=== PATIENT | female | born 1945 | race Caucasian/White ===

== ENCOUNTER → 2019-03-23 09:27 | Outpatient (BNVA) | payer MEDICARE, OTHER, SELFPAY | PROVIDERS: Family Provider Nurse Practitioner; PCP Nurse Practitioner; Visit Provider Anesthesiology | DX: M54.41 Lumbago with sciatica, right side (principal); M79.651 Pain in right thigh; M79.652 Pain in left thigh; Z79.891 Long term (current) use of opiate analgesic | CPT/HCPCS: 99214 ==

== ENCOUNTER → 2019-05-17 10:08 | Outpatient (BNVA) | payer MEDICARE, OTHER, SELFPAY | PROVIDERS: Family Provider Nurse Practitioner; PCP Nurse Practitioner; Visit Provider Nurse Practitioner | DX: G89.29 Other chronic pain (principal); M54.41 Lumbago with sciatica, right side; M54.42 Lumbago with sciatica, left side; Z79.891 Long term (current) use of opiate analgesic | CPT/HCPCS: 99213 ==

== ENCOUNTER → 2019-08-13 09:21 | Outpatient (BNVA) | payer MEDICARE, OTHER, SELFPAY | PROVIDERS: Family Provider Nurse Practitioner; PCP Family Medicine; Visit Provider Family Medicine | DX: Z01.818 Encounter for other preprocedural examination (principal); I10 Essential (primary) hypertension | CPT/HCPCS: 80053; 80061; 82044; 85025 ==

== ENCOUNTER 2019-08-16 09:42 | Observation (INO) | payer MEDICARE, OTHER, SELFPAY ==
[2019-08-15 14:27] VITALS: BMI 24.1
[2019-08-16] VITALS (13 sets, daily range): BP systolic 99–150; BP diastolic 60–86; PULSE 60–72; RESP 13–18; TEMP 36.4–36.8; O2SAT 94–100; BMI 24.1
--- NOTE | 2019-08-16 | XR_ITS ---
WS: [id number] Thoracic spine, C-arm fluoroscopy view, 08/16/2019 Clinical Data: Dorsal column stimulator Comparison: None. Findings: The dorsal column stimulator has been inserted. The distal portion of the wires ends at the T8 verteb ral body level. XR/XR thoracic spine 1V 71333 Impression: Dorsal column stimulator wires inserted into thoracic subdural space.
--- NOTE | 2019-08-16 | SCC_ITS ---
Procedure Done: Thoracic spinal cord stimulator placement via laminotomy, with subcutaneous pulse generator 14.2 seconds of fluoroscopic guidance, for a cumulative dose of 14.2 mGy, was provided to Dr. Young by the radiology department. C-arm images of the thoracic spine were saved for the patient's permanent record. HEALTH SYSTEMJose Alfredo
[2019-08-16] MEDS: sodium chloride 0.9% 1,000 ML 30 ML IV (06:22)
--- NOTE | 2019-08-16 06:42 | ANES.PREANE2 ---
Pre-Anesthetic Assessment Pre-Anesthetic Assessment: Height/Weight: Height 1.65 m Weight 65.771 kg Preop Diagnosis: Lumbar disc disorder with radiculopathy Proposed Procedure: Operation Date: 08/16/19 07:00 Proposed Procedures p Dorsal Column Stimulator Insertion 82183 M51.16(Not Applicable) - Harrison Young MD Familial anesthetic complications: None Was Beta Bhanu taken within 24 hours: N/A Last intake: Intake Last Liquid Date 08/16/19 Last Liquid Time 04:00 (sips of water with meds) Last Solid Date 08/15/19 Last Solid Time 20:30 Social: Social History: No alcohol and No tobacco Exam: Pre-Anes Outpt Exam: alert, oriented x 3, clear to auscultation bilaterally and regular rate & rhythm Airway: Cervical ROM: WNL MP: 2 Dentition: False Pulmonary: Pulmonary: None reported CV/HEM: CV/HEM: HTN : : None reported Hepatic: Hepatic: None reported GI: GI: None reported Metabolic: Metabolic: Hyperlipidemia Musc/skel: Musc/skel: Lower Back Pain Neuropsych: Neuropsych: None reported Anesthetic Plan: ASA status: 2 Anesthesia: MAC Risk of > 500 ml blood loss (7ml/kg in children): No Meds/Allergies Current Medications: Current Medications Generic Name Dose Route Start Last Admin Trade Name Freq PRN Reason Stop Dose Admin Sodium Chloride 1,000 mls @ 30 ml s/hr 08/16/19 06:00 08/16/19 06:22 Sodium Chloride 0.9% IV 08/17/19 05:59 30 mls/hr .Q24H MAEGAN Administration PFSH Anesthesia PFSH: Medical History (Updated 08/13/19 @ 09:01 by Tonia Tierney DO) Chronic midline low back pain with bilateral sciatica Encounter for long-term opiate analgesic use Intervertebral disc disorder with radiculopathy of lumbar region Opioid contract exists Surgical History H/O breast augmentation History of back surgery Spinal Cord Stimulator Trial-Dr. Torres at [facility] 04/16/19 Status post hip surgery Family History Other Cancer Social History Smoking and tobacco status: former smoker Alcohol intake: current Alcohol intake frequency: holidays/special occasions only Lives independently: Yes Household members: spouse Marital status: Current occupational status: retired History of recent travel: No Data Anesthesia Cardiac Studies: No Data to Display
--- NOTE | 2019-08-16 06:54 | W.PM.OPSUD ---
Surgery/Procedure H&P Update DATE OF PROCEDURE: August 16, 2019 DATE H&P PERFORMED: 08/13/19 H&P UPDATE INFORMATION: I have reviewed H&P completed within last 30 days and H&P is in [facility] EMR on date indicated PREOP DIAGNOSIS: Lumbar disc disorder with radiculopathy PRIMARY INDICATION FOR PROCEDURE: Pain PLANNED PROCEDURE: Operation Date: 08/16/19 07:00 Proposed Procedures Thoracic spinal cord stimulator placement M51.16(Not Applicable) - Harrison Young MD
--- NOTE | 2019-08-16 07:12 | P.OP_ITS ---
Brief Operative Note: Date of procedure: 08/16/19 Pre-op diagnosis: Lumbar disc disorder with radiculopathy Post-op diagnosis: same Procedure Done: Thoracic spinal cord stimulator placement via laminotomy, with subcutaneous pulse generator Surgeon: Harrison Young Estimated blood loss (mL): 3 Complications: None Post-op Plan: PACU, then benjamin Condition: stable Disposition: PACU Coding Level of Care Code Acute Parts Sales Counterperson for Karrie Salomon
[2019-08-16] MEDS: vancomycin 1,000 MG in sodium chloride 0.9% 250 ML 250 MG IV (07:25)
[2019-08-16] MEDS: thrombin 5,000 unit SDV 5000 UNIT XX (07:49)
--- NOTE | 2019-08-16 08:19 | SUR.OPER ---
Family Notified Of Patient's Status Via Phone.
[2019-08-16] MEDS: ketorolac 30 mg/mL INJ 15 MG IVP ×2 (10:19→14:46)
[2019-08-16] MEDS: lactated ringers 1,000 ML 90 ML IV (10:21)
--- NOTE | 2019-08-16 14:09 | PM.OP ---
Operative Report Date of procedure: August 16, 2019 Pre-op Diagnosis: Lumbar disc disorder with radiculopathy Post-op diagnosis: same Procedure Done: Thoracic laminotomy with placement of intraspinal, epidural paddle electrode arrays. Placement of subcutaneous programmable pulse generator. Implants: [place] [employer] Precision Montage MRI pulse generator. [place] [employer] Artisan, 70 cm, 2 x 8 surgical garment assembler. Clik anchors, secured with Fixate suture devices. Specimens removed/disposition: none Pathology: none sent Surgeon: Harrison Young Anesthesia: MAC Estimated blood loss (mL): 3 IV fluids (mL): 600 Complications: none Condition: stable Disposition: PACU Brief History: The patient is a 73-year-old female with symptomatic lumbar disc/joint disease and electrodiagnostically confirmed peripheral neuropathy. She complained of low back pain and predominantly right lower extremity pain. Her workup included lumbar imaging and lower extremity electrodiagnostic studies. Conservative treatment trials failed to provide adequate lasting symptom relief. She obtained marked relief of chronic low back and lower extremity pain during a percutaneous trial of thoracic spinal cord stimulation. After review of the diagnostic and treatment options with the risks/potential benefits/rationale for each, the patient requested to proceed with placement of epidural paddle electrode arrays and a subcutaneous programmable pulse generator for chronic spinal cord stimulation therapy. Procedure: After routine preoperative evaluation and informed consent were obtained, the patient was taken to the Operating Room and positioned prone on the operating table. Chest and pelvic bolsters were positioned to ensure the abdomen was decompressed. All pressure points were padded. The patient reported the position to be comfortable. She was maintained under varying levels of intravenous sedation by Anesthesia personnel. The planned right flank pulse generator placement incision was marked with a skin marker. A planned midline posterior thoracic incision was likewise marked, after intraoperative localization with fluoroscopy. The patient's lead location during the successful percutaneous trial was utilized to guide placement for the permanent implant. The posterior thorax and flank areas were scrubbed with Betadine and prepped with DuraPrep. Sterile towels and drapes were applied, and an [place] surgical barrier was placed. The proposed midline thoracic incision was infiltrated with 1% Xylocaine with epinephrine. A skin incision was made and carried down into the subcutaneous tissues. The deep fascial plane was identified and divided in the midline. A right-sided subperiosteal dissection was carried down along the lamina at what appeared by intraoperative fluoroscopy to be T9/10. Deep self-retaining retractors were placed to maximize the operative exposure. A laminotomy was fashioned with Kerrison rongeurs. Ligamentum flavum was resected at the base of the laminotomy site. The hockey-stick dural separator was advanced into the dorsal epidural space without resistance, and then removed. The [place] [employer] Artisan, 70 cm, 2 x 8 surgical garment assembler was then advanced into the dorsal epidural space. Intraoperative fluoroscopy suggested a near midline position with the cephalad extent of the lead crossing the T7/T8 interspace. Anesthesia personnel diminished the patient's sedation until she was awake and conversant. The lead tails were connected to extension cables, and intraoperative spinal cord stimulation was performed. The patient reported good paresthesia coverage of her chronic low back and lower extremity pain sites. Lead impedances were good. The patient's sedation was deepened. The wound was copiously irrigated with sterile saline and antibiotic irrigation. A small amount of SurgiFlo hemostatic matrix was placed at the laminectomy site. The fascia was closed utilizing 2-0 Vicryl Plus in a simple interrupted fashion. CLIK lead anchors were placed over the lead tails, and secured at the fascial entry point with Fixate suture devices. The lead - anchor - fascial interfaces were manipulated and found to be secure. Intraoperative fluoroscopy verified a stable lead position. Strain relief loops of the lead tails were fashioned within the subcutaneous space at the thoracic incision site. The right flank incision site was prepared by infiltration with 1% Xylocaine with epinephrine. An incision was made, and a subcutaneous pocket was created of adequate size to accommodate the pulse generator. The subcutaneous tunneling tool was utilized to create a subcutaneous passage between the thoracic and right flank incisions. Lead tails were advanced through the subcutaneous tunnel utilizing the tunneling tool. The lead tails were advanced into the appropriate ports on the [employer] Precision Montage MRI pulse generator. An impedance check demonstrated no lead faults. The connection sites were secured with set screws and the torque wrench. The connection sites were manipulated and found to be secure. The pulse generator was again interrogated. No faults were demonstrated. The right flank subcutaneous pocket and the thoracic incision site were again copiously irrigated with antibiotic irrigation. Hemostasis was ensured with bipolar electrocautery. The pulse generator was placed within the right flank subcutaneous pocket, with excess lead coiled deep/adjacent to the device. The pulse generator was anchored to the superficial fascia with a single Silk suture. The site was again irrigated with antibiotic irrigation. Wound closure was performed in multiple layers with 2-0 Vicryl Plus simple interrupted closure of the dermis. Intraoperative fluoroscopy verified a stable lead position. Final skin closure was performed at both incision sites with 3-0 Vicryl Plus in a running subcuticular pattern. Steri-Strips were applied, and sterile dressings were placed. The patient was then rotated onto the Recovery Room cart in the supine position. She tolerated the procedure well. All sponge, needle and instrument counts were correct at the completion of the procedure.
[2019-08-16] MEDS: gabapentin 400 mg Capsule 800 MG PO (14:22)
--- NOTE | 2019-08-16 14:28 | PM.DCS ---
Discharge Providers Date of Admission: 08/16/19 09:42 Date of Discharge: August 16, 2019 Attending Provider at Admission: Harrison Young MD Attending Provider at Discharge: Harrison Young MD Primary Care Provider: Tonia Tierney DO Diagnoses at Discharge Discharge Diagnosis (1) Intervertebral disc disorder with radiculopathy of lumbar region: Status: Acute Reason for Visit Reason for Visit: lumbar disc disease/peripheral neuropathy Brief History: The patient is a 73-year-old female with symptomatic lumbar disc/joint disease and electrodiagnostically confirmed peripheral neuropathy. She complained of low back pain and predominantly right lower extremity pain. Her workup included lumbar imaging and lower extremity electrodiagnostic studies. Conservative treatment trials failed to provide adequate lasting symptom relief. She obtained marked relief of chronic low back and lower extremity pain during a percutaneous trial of thoracic spinal cord stimulation. After review of the diagnostic and treatment options with the risks/potential benefits/rationale for each, the patient requested to proceed with placement of epidural paddle electrode arrays and a subcutaneous programmable pulse generator for chronic spinal cord stimulation therapy. Hospital Course Discharge Summary: The patient underwent thoracic laminotomy with placement of intraspinal, epidural paddle electrode arrays and placement of subcutaneous programmable pulse generator on 08/16/2019. She tolerated the procedure well. Good paresthesia coverage of chronic pain sites was obtained with intraoperative stimulation. She completed preoperative and postoperative intravenous antibiotic doses. She was ambulatory, voiding, and tolerating regular diet prior to discharge home on the afternoon of the day of surgery. Physical Exam Const: COMMON NORMALS: no acute distress GENERAL APPEARANCE: cooperative and comfortable Eye: ALIGNMENT: Yes alignment normal Neck/C-Spine: COMMON NORMALS: supple GENERAL: Yes trachea midline Resp: COMMON NORMALS: normal respiratory effort EFFORT & INSPECTION: No tachypneic Extremity: COMMON NORMALS: no clubbing, cyanosis or edema Neuro: COMMON NORMALS: moves all extremities SPEECH: speech normal Psych: COMMON NORMALS: mental status grossly normal, Normal thought process present and speech normal APPEARANCE: Yes grossly normal ATTITUDE: Yes calm and Yes engaged ACTIVITY/MOTOR BEHAVIOR: Yes appropriate eye contact SPEECH: Yes normal speech MOOD & AFFECT: Yes euthymic mood THOUGHT PROCESS: Normal thought process present ATTENTION/CONCENTRATION: Yes attention grossly intact INSIGHT: Good insight present (Psych) JUDGEMENT: Good judgement present (Psych) Skin: WOUNDS: Yes surgical site (Posterior midline thoracic and right flank surgical site dressings are clean/dry/intact.) Discharge Data Data Completed and Pending: Completed Studies During Hospitalization Category Date Time Status XR thoracic spine 1V 68073 Routine Exams 08/16/19 Completed Imaging^: Other Imaging: Attestation: I personally reviewed and interpreted this imaging study as follows: (Intraoperative fluoroscopy: Dorsal epidural paddle leads are noted in a near midline position with the cephalad extent of the lead crossing the T7/T8 interspace (assuming rudimentary T12 ribs).) Procedures Performed: Thoracic laminotomy with placement of intraspinal, epidural paddle electrode arrays ([employer] Artisan, 70 cm, 2 x 8 wafer polishing lead worker). Placement of subcutaneous programmable pulse generator ([employer] Precision Brickstreamage MRI pulse generator). Intravenous antibiotics. Vitals: Last Vital Signs Temp 97.5 F L 08/16/19 09:30 Pulse 68 08/16/19 14:11 Resp 18 08/16/19 09:58 BP 109/64 08/16/19 09:30 Pulse Ox 95 08/16/19 09:58 Discharge Plan Discharge Patient Disposition: Home, Self-Care Condition: Stable Prescriptions: Continued naproxen sodium [Aleve] 220 mg tablet 220 mg PO BID PRN (Reason: Pain) RF: 0 lisinopril 10 mg tablet 10 mg PO QDAY Qty: 90 RF: 1 gabapentin 800 mg tablet 800 mg PO TID 30 Days Qty: 90 RF: 1 hydrocodone-acetaminophen 10-325 mg tablet 1 tab PO BID PRN (Reason: pain) 30 Days Qty: 60 RF: 0 atorvastatin 10 mg tablet 10 mg PO DAILY Qty: 45 RF: 0 Discharge Orders: Discharge Order (Routine); Ordered 08/16/19 Ordered By: Harrison Young Referrals: Harrison Young MD [Physician] - 08/30/19 9:00 am (You have a post follow up appointment on August 29 at 9:00am.) Discharge Diet: Regular Discharge Activity: Limit activity as instructed Patient Instructions: Hydrocodone/Acetaminophen (By mouth), Spinal Cord Stimulator Placement (DC) Activity Restrictions/Additional Instructions: Activity - No driving until office followup visit - No lifting/pushing/pulling over 10 pounds - Avoid twisting or bending - Walking is encouraged - Home exercise per physical therapist - You may engage in sexual intercourse at any time as long as it is comfortable for you - Check with your doctor before returning to work. Notify your doctor if you develop: - temperature of 101.5 degrees F. or higher - redness or swelling of the incision - Foul drainage - increasing pain - increasing numbness or tingling in the arms or legs - New or increasing problems with vision, balance, memory, speaking, nausea or vomiting Hygiene: - Showering is okay - No tub baths or soaking Other: Remove outer bandage 3 days after surgery. If you have paper strips, leave in place until they fall off on their own. If you have stitches, keep your incision dry until the stitches are removed. Your doctor's office is available to answer any questions from 7 AM to 5:00 PM, Tuesday through at [phone]. After hours, go to the emergency room at [facility] or call 911 for assistance. Discharge Date/Time: 08/16/19 15:17 Discharge Attestations Time Spent in Discharge Care*: other (Postop global) Quality Metrics Clinical Quality Measures During this hospital stay, did patient experience: None Coding Level of Care Code Acute Patient Representative for Karrie Salomon Diagnoses Intervertebral disc disorder with radiculopathy of lumbar region M51.16 Comment Postop global
== END 2019-08-16 15:17 | disposition home or self-care (01) ==
LOC: MEDSURG 09:42
PROVIDERS: Admitting Provider Specialist; PCP Family Medicine; Visit Provider Specialist
PROC: (CPT 63655; principal; 2019-08-16 07:00)
DX: M51.16 Intervertebral disc disorders with radiculopathy, lumbar region (principal); I10 Essential (primary) hypertension; E78.5 Hyperlipidemia, unspecified; Z87.891 Personal history of nicotine dependence; Z79.891 Long term (current) use of opiate analgesic
CPT/HCPCS: 63655; 63685; 12345; 72020; 76000; 96375; C1778; C1820; C1883; G0378; J0690; J1885; J2001; J2704; J3010; J3370; J3490; J7030; J7050

== ENCOUNTER → 2019-09-25 10:57 | Outpatient (BNVA) | payer OTHER, SELFPAY | PROVIDERS: PCP Family Medicine; Visit Provider Family Medicine | DX: E78.5 Hyperlipidemia, unspecified (principal) | CPT/HCPCS: 80053 ==

== ENCOUNTER → 2019-09-27 10:02 | Outpatient (BNVA) | payer MEDICARE, OTHER, SELFPAY | PROVIDERS: Family Provider Nurse Practitioner; PCP Family Medicine; Visit Provider Nurse Practitioner | DX: G89.29 Other chronic pain (principal); M51.16 Intervertebral disc disorders with radiculopathy, lumbar region; Z79.891 Long term (current) use of opiate analgesic | CPT/HCPCS: 99213 ==

== ENCOUNTER → 2019-11-08 11:51 | Outpatient (BNVA) | payer MEDICARE, OTHER, SELFPAY | PROVIDERS: Family Provider Nurse Practitioner; PCP Family Medicine; Visit Provider Family Medicine | DX: E78.5 Hyperlipidemia, unspecified (principal) | CPT/HCPCS: 80061 ==

== ENCOUNTER → 2019-11-28 09:32 | Outpatient (BNVA) | payer MEDICARE, OTHER, SELFPAY | PROVIDERS: Family Provider Nurse Practitioner; PCP Family Medicine; Visit Provider Anesthesiology | DX: G89.29 Other chronic pain (principal); M51.16 Intervertebral disc disorders with radiculopathy, lumbar region; Z79.891 Long term (current) use of opiate analgesic | CPT/HCPCS: 99213; 99214 ==

== ENCOUNTER → 2020-01-23 10:47 | Outpatient (BNVA) | payer MEDICARE, OTHER, SELFPAY | PROVIDERS: Family Provider Nurse Practitioner; PCP Family Medicine; Visit Provider Nurse Practitioner Family | DX: Z20.828 Contact with and (suspected) exposure to other viral communicable diseases (principal) | CPT/HCPCS: 87635 ==

== ENCOUNTER 2020-01-29 11:09 | Emergency (ER) | payer MEDICARE, OTHER, SELFPAY ==
[2020-01-29 11:10] VITALS: BP 92/51; PULSE 69; RESP 18; TEMP 37.2; O2SAT 95; BMI 22.6
--- NOTE | 2020-01-29 11:17 | XR_ITS ---
WS: [id number] XR chest 1V portable [id number] REASON FOR EXAM: sob FINDINGS: Interstitial irregular nodular infiltrate in the periphery of the left upper lung field. Similar find ings are seen in both lung bases. The changes in the lung bases are accentuated by the overlying pros theses but are still felt to be legitimate abnormality. No pleural fluid. Mild enlargement of the heart. Dorsal column stimulator mid thoracic spine. XR/XR chest 1V portable [id number] IMPRESSION: Infiltrates in the right and left lung as described above. This pattern has bee n very typical of Covid pneumonitis in the cases reviewed the last several sher hs.
--- NOTE | 2020-01-29 11:30 | W.ED.COVID ---
HPI - COVID General: Chief Complaint: COVID symptoms Stated Complaint: covid complications Time Seen by Provider: 01/29/20 11:17 Triage information: Has fever, cough or shortness of breath. Exposure to COVID + person last 14 days History of Present Illness: HPI Narrative: 74-year-old female has tested positive for Covid 1 week ago. She states this morning she had chills body aches when she checked her pulse ox was in the 80s. Patient's pulse ox here is 95% on room air. She denies any vomiting or diarrhea. She denies any worsening improving factors. States she feels improved currently. COVID 19 common symptoms: positive fever(s), chills, dyspnea and body aches; negative headache(s), throat pain, nausea, vomiting or diarrhea COVID 19 other sytmptoms: negative chest pain COVID Results: SARS-CoV-2 RNA (RT-PCR) Detected (NOT DETECTED) A 01/23/20 10:47 01/23/20 Review of Systems Const: Reports: fever(s), chills and body aches Eyes: Denies: blurry vision or eye discomfort ENMT: Denies: throat pain or dental pain Card: Denies: chest pain Resp: Reports: dyspnea GI: Denies: abdominal pain, nausea, vomiting or diarrhea : Denies: dysuria Musc: Denies: neck pain or back pain Skin/Breast: Denies: rash Neuro: Denies: headache(s) Psych: Denies: depression Malick/Lymph: Denies: easy bruising All/Imm: Denies: urticaria PFSH ED PFSH: Medical History (Updated 01/29/20 @ 13:27 by Cassy Saini MD) Chronic midline low back pain with bilateral sciatica Encounter for long-term opiate analgesic use Intervertebral disc disorder with radiculopathy of lumbar region Opioid contract exists Surgical History H/O breast augmentation History of back surgery Spinal Cord Stimulator Trial-Dr. Torres at [facility] 04/16/19 History of implanted electronic device Dr. Young- 08/16/19 Hx of cataract extraction Bilat done in [place] Status post hip surgery Family History Other Cancer Social History Smoking and tobacco status: former smoker Alcohol intake: current Alcohol intake frequency: holidays/special occasions only Lives independently: Yes Household members: spouse Marital status: Current occupational status: retired History of recent travel: No Physical Exam Const: COMMON NORMALS: no acute distress, patient oriented x3 and healthy appearing HENMT: COMMON NORMALS: normocephalic and atraumatic HEAD & SCALP: normocephalic and atraumatic Eye: COMMON NORMALS: Equal, round and reactive pupils present and EOMs intact bilaterally PUPIL: Yes Equal, round and reactive pupils present Neck/C-Spine: COMMON NORMALS: full ROM and supple Chest: COMMONS NORMALS: normal inspection of the chest and normal palpation of entire chest wall Resp: COMMON NORMALS: normal respiratory effort, No retractions, No use of accessory muscles and clear to auscultation bilaterally AUSCULTATION: clear to auscultation bilaterally Cardio: COMMON NORMALS: regular rate, regular rhythm and No murmurs present (Cardio) RATE: regular rate RHYTHM: regular rhythm GI: COMMON NORMALS: Normal to inspection, nondistended, normoactive bowel sounds present, Soft to palpation, non-tender and no masses PALPATION: Yes Soft to palpation Extremity: COMMON NORMALS: normal to inspection and full ROM Neuro: COMMON NORMALS: patient oriented x3, moves all extremities and no focal motor deficits Psych: COMMON NORMALS: mental status grossly normal, Normal thought process present and cooperative THOUGHT PROCESS: Normal thought process present Skin: COMMON NORMALS: no rashes or lesions noted and no wounds GENERAL SKIN EXAM: no rashes or lesions noted Course Vital Signs: Vital signs: Vital Signs Temperature 99 F 01/29/20 11:10 Pulse Rate 69 01/29/20 11:10 Respiratory Rate 18 01/29/20 11:10 Blood Pressure 92/51 01/29/20 11:10 Pulse Oximetry 93 01/29/20 13:23 MDM - COVID MDM Narrative: Medical decision making narrative: Patient presents here with COVID-19 pneumonia. She is well-appearing here did qualify for 2 L of oxygen. She has no signs of pulmonary embolism and I believe is stable to go home. We will give her Decadron and DC her on home oxygen. She is to monitor her pulse ox and return if worsening. She understands agrees to plan. Lab Data: Labs: Lab Results 01/29/20 01/29/20 01/29/20 Range/Units 11:31 12:06 12:06 WBC 2.8 L (4.0-10.0) 10^3/ uL RBC 3.73 L (4.1-5.3) 10^6/u L Hgb 11.2 L (11.5-15.3) g/dL Hct 35.4 L (37.0-47.0) % MCV 94.9 (81-99) fL MCH 30.0 (28.0-34.0) pg MCHC 31.6 (30.0-36.0) g/dL RDW 14.0 (12.1-15.1) % Plt Count 164 (130-400) 10^3/c mm MPV 10.5 H (7.4-10.4) fL Neut % (Auto) 63.8 % Lymph % (Auto) 26.0 % [place] % (Auto) 9.4 % Eos % (Auto) 0.0 % Baso % (Auto) 0.4 % Neut # (Auto) 1.77 L (1.8-7.7) 10^3/u L Lymph # (Auto) 0.7 L (0.8-4.8) 10^3/u L [place] # (Auto) 0.3 (0.2-0.9) 10^3/u L Eos # (Auto) 0.0 (0.0-0.8) 10^3/u L Baso # (Auto) 0.0 (0.0-0.1) 10^3/u L Nucleated RBC % (a uto) 0 % Nucleated RBCs # 0.0 /100WBC Specimen Type Arterial Sample Site Brachial, left ABG pH 7.41 (7.35-7.45) ABG pCO2 35.5 (35-45) mmHg ABG pO2 54.6 L (80.0-100.0) mmH g ABG HCO3 22.2 (22-26) mmol/L ABG Base Excess -2.1 L (-2.0-2.0) mmol/ L Al Test Pos Hematocrit 31.2 L (37-47) % O2 Delivery Device Room air FiO2 21.0 % Instrument Repairer Steam Plant ID [place] Sodium 133 L (136-145) mmol/L Potassium 4.3 (3.5-5.1) mmol/L Chloride 98 (98-107) mmol/L Carbon Dioxide 23 (22-29) mmol/L Anion Gap 16.3 (5-19) BUN 20 (8-23) mg/dL GFR Calculation Not Reportable Glucose 132 H (65-115) mg/dL Calculated Osmolal ity 280 L (285-295) mOsm/k g Lactic Acid (0.5-2.2) mmol/L Calcium 9.1 (8.5-10.5) mg/dL Total Bilirubin 0.2 (0.15-1.2) mg/dL AST 27 (0-32) U/L ALT 16 (0-33) U/L Alkaline Phosphata se 83 (35-105) IU/L C-Reactive Protein 95.7 H (0.0-4.9) mg/L NT-Pro-B Natriuret Pep 248 H (0-125) pg/mL Total Protein 6.2 L (6.6-8.7) g/dL Albumin 3.7 (3.5-5.2) g/dL Globulin 2.5 (1.3-4.6) g/dL 01/29/20 Range/Units 12:06 WBC (4.0-10.0) 10^3/ uL RBC (4.1-5.3) 10^6/u L Hgb (11.5-15.3) g/dL Hct (37.0-47.0) % MCV (81-99) fL MCH (28.0-34.0) pg MCHC (30.0-36.0) g/dL RDW (12.1-15.1) % Plt Count (130-400) 10^3/c mm MPV (7.4-10.4) fL Neut % (Auto) % Lymph % (Auto) % [place] % (Auto) % Eos % (Auto) % Baso % (Auto) % Neut # (Auto) (1.8-7.7) 10^3/u L Lymph # (Auto) (0.8-4.8) 10^3/u L [place] # (Auto) (0.2-0.9) 10^3/u L Eos # (Auto) (0.0-0.8) 10^3/u L Baso # (Auto) (0.0-0.1) 10^3/u L Nucleated RBC % (a uto) % Nucleated RBCs # /100WBC Specimen Type Sample Site ABG pH (7.35-7.45) ABG pCO2 (35-45) mmHg ABG pO2 (80.0-100.0) mmH g ABG HCO3 (22-26) mmol/L ABG Base Excess (-2.0-2.0) mmol/ L Al Test Hematocrit (37-47) % O2 Delivery Device FiO2 % Instrument Repairer Steam Plant ID Sodium (136-145) mmol/L Potassium (3.5-5.1) mmol/L Chloride (98-107) mmol/L Carbon Dioxide (22-29) mmol/L Anion Gap (5-19) BUN (8-23) mg/dL GFR Calculation Glucose (65-115) mg/dL Calculated Osmolal ity (285-295) mOsm/k g Lactic Acid 1.0 (0.5-2.2) mmol/L Calcium (8.5-10.5) mg/dL Total Bilirubin (0.15-1.2) mg/dL AST (0-32) U/L ALT (0-33) U/L Alkaline Phosphata se (35-105) IU/L C-Reactive Protein (0.0-4.9) mg/L NT-Pro-B Natriuret Pep (0-125) pg/mL Total Protein (6.6-8.7) g/dL Albumin (3.5-5.2) g/dL Globulin (1.3-4.6) g/dL Imaging Data: CXR: Radiologist's impression: [facility] [address] [place] [address] XRay Report Signed Patient: Tala Gale Unit #: [id number] : 1945 Age/Sex: 74 / F ADM Date: 01/29/20 Loc: ER Room/Bed: Attending Dr: Ordering Provider/Ordering MD: Cassy Saini MD Date of Service: 01/29/20 Procedure(s): XR chest 1V portable [id number] Accession Number(s): [id number] Report Number: [id number] WS: [id number] XR chest 1V portable [id number] REASON FOR EXAM: sob FINDINGS: Interstitial irregular nodular infiltrate in the periphery of the left upper lung field. Similar findings are seen in both lung bases. The changes in the lung bases are accentuated by the overlying prostheses but are still felt to be legitimate abnormality. No pleural fluid. Mild enlargement of the heart. Dorsal column stimulator mid thoracic spine. XR/XR chest 1V portable [id number] IMPRESSION: Infiltrates in the right and left lung as described above. This pattern has been very typical of Covid pneumonitis in the cases reviewed the last several months. EKG Data: EKG 1: Attestation: I personally reviewed and interpreted this EKG as follows: EKG interpretation date: 01/29/20 EKG interpretation time: 11:12 Interpretation: nsr hr [address] elevation poor quality do to artifact COVID Results: SARS-CoV-2 RNA (RT-PCR) Detected (NOT DETECTED) A 01/23/20 10:47 01/23/20 Discharge Plan Discharge Patient Disposition: Home Clinical Impression: Pneumonia due to 2019-nCoV Condition: Stable Prescriptions: No Action naproxen sodium [Aleve] 220 mg tablet 220 mg PO BID PRN (Reason: Pain) RF: 0 hydrocodone-acetaminophen 10-325 mg tablet 1 tab PO BID PRN (Reason: pain) 30 Days Qty: 60 RF: 0 gabapentin 800 mg tablet 800 mg PO TID 30 Days Qty: 90 RF: 1 atorvastatin 10 mg tablet 10 mg PO DAILY Qty: 90 RF: 1 lisinopril 10 mg tablet 10 mg PO DAILY RF: 0 Discharge Orders: Discharge Order (Routine); Ordered 01/29/20 Ordered By: Cassy Saini Other Ambulatory Orders: DME: Oxygen (Order) Location: None Selected Ordered By: Cassy Saini Referrals: Tonia Tierney DO [Primary Care Provider] - 1-3 days Discharge Diet: Advance as tolerated Discharge Activity: Resume usual activity Patient Instructions: Pneumonia (ED) Coding Level of Care Code ED Sprinkler Inspector for Chg Fwd Exam Comprehensive
[2020-01-29 11:45] LABS: ABG PCO2 35.5 mmHg (35-45); ABG PH Result 7.41 (7.35-7.45); Arterial Blood Gas Hematocrit 31.2 % (37-47); Base Excess ABG -2.1 mmol/L (-2.0-2.0); Blood Gas Allen Test Pos; Blood Gas Operator Identificat MONRO; Blood Gas Sample Site Brachial, left; Blood Gas Sample Type Arterial; HCO3 ABG 22.2 mmol/L (22-26); Oxygen Device ROOM AIR; PO2 ABG 54.6 mmHg (80.0-100.0)
[2020-01-29 12:20] LABS: Basophils % 0.4 %; Hematocrit 35.4 % (37.0-47.0); Hemoglobin 11.2 g/dL (11.5-15.3); Lymphocytes # 0.7 10^3/uL (0.8-4.8); Mean Corpuscular HGB Conc 31.6 g/dL (30.0-36.0); Mean Corpuscular Volume 94.9 fL (81-99); Mean Platelet Volume 10.5 fL (7.4-10.4); Monocytes # 0.3 10^3/uL (0.2-0.9); Monocytes % 9.4 %; Neutrophils # 1.77 10^3/uL (1.8-7.7); Neutrophils % 63.8 %; Nucleated Red Blood Cells % 0 %; Platelet Count 164 10^3/cmm (130-400); Red Blood Count 3.73 10^6/uL (4.1-5.3); White Blood Count 2.8 10^3/uL (4.0-10.0)
[2020-01-29] MEDS: dexamethasone 4 mg/mL INJ 10 MG IVP (12:44)
[2020-01-29 12:49] LABS: Alanine Aminotransferase 16 U/L (0-33); Albumin Level 3.7 g/dL (3.5-5.2); Alkaline Phosphatase 83 IU/L (35-105); Aspartate Amino Transferase 27 U/L (0-32); Chloride 98 mmol/L (98-107); Globulin 2.5 g/dL (1.3-4.6); Potassium 4.3 mmol/L (3.5-5.1)
[2020-01-29 13:15] LABS: Blood Urea Nitrogen 20 mg/dL (8-23); Calcium 9.1 mg/dL (8.5-10.5); Carbon Dioxide 23 mmol/L (22-29); Total Bilirubin 0.2 mg/dL (0.15-1.2)
[2020-01-29 13:20] LABS: Anion Gap 16.3 (5-19); C Reactive Protein 95.7 mg/L (0.0-4.9); Glucose 132 mg/dL (65-115); NT Pro B Type Natriuretic Pept 248 pg/mL (0-125); Osmolality Calculated 280 mOsm/kg (285-295); Sodium 133 mmol/L (136-145); Total Protein 6.2 g/dL (6.6-8.7)
[2020-01-29 13:23] VITALS: O2SAT 88; O2SAT 93; O2SAT 96
--- NOTE | 2020-01-29 13:58 | ECG_ITS ---
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: : 1945 Requested By: Cassy Saini Order Number: [id number] Ambar MD: VALDEZ MURILLO Measurements Intervals [place] Rate: 68 P: 30 VT: 145 QRS: 0 QRSD: 86 T: 57 QT: 353 QTc: 378 Interpretive Statements SINUS RHYTHM POSSIBLE RIGHT VENTRICULAR CONDUCTION DELAY [RSR (QR) IN V1/V2] Artifact precludes further assessment compared to ECG 02/22/2017 13:36:24 Artifact is present Electronically Signed On 01-31-2020 15:27:39 AVIATION MANAGER by VALDEZ MURILLO [id number]
[2020-01-29 16:22] VITALS: BP 99/66; PULSE 68; RESP 18; O2SAT 93
== END 2020-01-29 16:23 | disposition home or self-care (01) ==
PROVIDERS: Emergency Provider Emergency Medicine; PCP Family Medicine
DX: U07.1 COVID-19 (principal); J12.89 Other viral pneumonia; Z87.891 Personal history of nicotine dependence
CPT/HCPCS: 12345; 36600; 71045; 80053; 82803; 83605; 83880; 85025; 86140; 93005; 96374; 99281; 99284; J1100

== ENCOUNTER 2020-01-31 07:27 | Inpatient (IN) | payer MEDICARE, OTHER, SELFPAY ==
[2020-01-31] VITALS (16 sets, daily range): BP systolic 80–118; BP diastolic 49–75; PULSE 58–83; RESP 16–24; TEMP 36.6–37.2; O2SAT 87–100; BMI 21.1
--- NOTE | 2020-01-31 07:34 | XRR_ITS ---
PROCEDURE INFORMATION: Exam: XR Chest, 1 View Exam date and time: 01/31/2020 8:02 AM Age: 74 years old Clinical indication: Cough; Additional info: Dyspnea/cough TECHNIQUE: Imaging protocol: XR of the chest Views: 1 view. COMPARISON: CR XR chest 1V portable [id number] 01/29/2020 11:18 AM FINDINGS: Tubes, catheters and devices: Intrathoracic spinal electrodes. Lungs: Bilateral breast prostheses obscure the lower lungs. Likely partial residual interstitial infiltrates in the lower lungs. Resolving interstitial infiltrate from the left upper lobe. Pulmonary hyperinflation. Pleural space: Unremarkable. No pleural effusion. No pneumothorax. Heart/Mediastinum: Heart size remains prominent. Vasculature: Calcified thoracic aorta. Bones/joints: Unremarkable. Other findings: No large volume effusion. XR/XR chest 1V portable [id number] IMPRESSION: 1. Resolving left upper lobe interstitial infiltrate with minimal residua. 2. Probable residual interstitial infiltrates in the lower lungs significantly obscured by breast prostheses. A lateral chest may be useful in follow-up. 3. Stable cardiomegaly. 4. Hyperinflation.
--- NOTE | 2020-01-31 07:36 | W.ED.COVID ---
HPI - COVID General: Chief Complaint: Syncope Stated Complaint: Covid +/Weakness/Passed out this morning Time Seen by Provider: 01/31/20 07:33 History of Present Illness: HPI Narrative: 74-year-old female comes in complaining of a syncopal episode at home. She got up to go to the restroom while she was on the way she passed out. She denied striking her head she did have loss of bladder control. She has no history of seizures. Diagnosed with Covid on 01/22. She has had some diarrhea but no vomiting. She has a little bit of a cough she also notes she was short of breath this morning. She has home finger sat monitor she said registered in the 70s at times this morning. MD complaint: known COVID positive Prior covid testing: yes, results known Prior testing date: 01/23/20 COVID 19 common symptoms: positive cough, non-productive cough, body aches, nasal congestion and diarrhea COVID 19 other sytmptoms: negative chest pain Onset (ago): day(s) (8) Severity: moderate Pertinent comorbid conditions: hypertension Treatment prior to arrival: none COVID Results: SARS-CoV-2 RNA (RT-PCR) Detected (NOT DETECTED) A 01/23/20 10:47 01/23/20 Review of Systems Const: Reports: body aches ENMT: Reports: nasal congestion Card: Denies: chest pain, edema, dyspnea on exertion or orthopnea Resp: Reports: non-productive cough GI: Reports: diarrhea : Denies: flank pain, difficulty voiding, dysuria, urinary frequency or urinary urgency Skin/Breast: Denies: rash or pruritus PFSH ED PFSH: Medical History (Updated 01/31/20 @ 10:39 by Valeriy Mar DO) Chronic midline low back pain with bilateral sciatica Encounter for long-term opiate analgesic use Intervertebral disc disorder with radiculopathy of lumbar region Opioid contract exists Surgical History H/O breast augmentation History of back surgery Spinal Cord Stimulator Trial-Dr. Torres at [facility] 04/16/19 History of implanted electronic device Dr. Young- 08/16/19 Hx of cataract extraction [place] done [place] Status post hip surgery Family History Other Cancer Social History Smoking and tobacco status: former smoker Alcohol intake: current Alcohol intake frequency: holidays/special occasions only Lives independently: Yes Household members: spouse Marital status: Current occupational status: retired History of recent travel: No Physical Exam Const: COMMON NORMALS: no acute distress GENERAL APPEARANCE: cooperative and comfortable ORIENTATION/CONSCIOUSNESS: Yes awake, Yes oriented to person, Yes oriented to place and Yes oriented to time HENMT: COMMON NORMALS: normocephalic, atraumatic and hearing grossly normal bilaterally HEAD & SCALP: normocephalic and atraumatic Neck/C-Spine: COMMON NORMALS: no JVD Resp: COMMON NORMALS: normal respiratory effort, No retractions, No use of accessory muscles and clear to auscultation bilaterally AUSCULTATION: clear to auscultation bilaterally Cardio: COMMON NORMALS: no JVD, regular rate, regular rhythm and No murmurs present (Cardio) RATE: regular rate RHYTHM: regular rhythm GI: COMMON NORMALS: Soft to palpation and No hepatosplenomegaly present AUSCULTATION: Yes normoactive bowel sounds PALPATION: Yes Soft to palpation, No Tenderness to palpation present (GI), No Guarding due to palpation present (GI) and Yes No hepatosplenomegaly present Extremity: COMMON NORMALS: normal to inspection, capillary refill normal, no clubbing, cyanosis or edema, no calf tenderness and no pedal edema Neuro: SENSORIUM/ORIENTATION: Yes oriented to person, Yes oriented to place and Yes oriented to time Skin: COMMON NORMALS: no rashes or lesions noted GENERAL SKIN EXAM: no rashes or lesions noted Course Vital Signs: Vital signs: Vital Signs Temperature 98.9 F 01/31/20 08:29 Pulse Rate 63 01/31/20 10:06 Respiratory Rate 20 H 01/31/20 10:06 Blood Pressure 99/62 01/31/20 10:06 Pulse Oximetry 100 01/31/20 10:06 MDM - COVID MDM Narrative: Medical decision making narrative: Patient has Covid pneumonitis with signs of secondary pneumonia as well. Secondarily she is hypotensive I believe secondary to continued use of the lisinopril in the presence of Covid. She is given a fluid bolus which has slightly improved her blood pressure hold her lisinopril we have given her dexamethasone remdesivir and Levaquin will admit her to the hospital with oxygen support as well discussed Dr. Lundy orders are written Lab Data: Labs: Lab Results 01/31/20 01/31/20 01/31/20 Range/Units 07:48 07:56 07:56 WBC 5.4 (4.0-10.0) 10^3/ uL RBC 3.93 L (4.1-5.3) 10^6/u L Hgb 11.7 (11.5-15.3) g/dL Hct 36.9 L (37.0-47.0) % MCV 93.9 (81-99) fL MCH 29.8 (28.0-34.0) pg MCHC 31.7 (30.0-36.0) g/dL RDW 14.0 (12.1-15.1) % Plt Count 220 (130-400) 10^3/c mm MPV 10.5 H (7.4-10.4) fL Neut % (Auto) 73.4 % Lymph % (Auto) 18.2 % [place] % (Auto) 7.6 % Eos % (Auto) 0.0 % Baso % (Auto) 0.2 % Neut # (Auto) 3.96 (1.8-7.7) 10^3/u L Lymph # (Auto) 1.0 (0.8-4.8) 10^3/u L [place] # (Auto) 0.4 (0.2-0.9) 10^3/u L Eos # (Auto) 0.0 (0.0-0.8) 10^3/u L Baso # (Auto) 0.0 (0.0-0.1) 10^3/u L Nucleated RBC % (a uto) 0 % Nucleated RBCs # 0.0 /100WBC D-Dimer (0-0.59) ug/mIFE U Specimen Type Arterial Sample Site Radial, right ABG pH 7.46 H (7.35-7.45) ABG pCO2 32.0 L (35-45) mmHg ABG pO2 53.9 L (80.0-100.0) mmH g ABG HCO3 22.7 (22-26) mmol/L ABG O2 Saturation 89.7 ABG Base Excess -0.5 (-2.0-2.0) mmol/ L Al Test Pos A-a O2 Gradient 7.3 (5-10) mmHg Hematocrit 36.2 L (37-47) % Hgb O2 Saturation 88.2 L (95-100) % Carboxyhemoglobin 0.9 (0.4-20.1) %THgb Methemoglobin 0.8 (0.4-1.5) % Total Hemoglobin 11.8 L (12-16) g/dL Sodium 134.0 135 L (131-143) mmol/L Potassium 4.2 4.3 (3.5-5.0) mmol/L Glucose 107.0 95 (70-115) mg/dL Ionized Calcium 1.3 (1.1-1.4) mmol/L O2 Delivery Device Room air FiO2 21.0 % Hotel Clerk ID Ed Chloride 98 (98-107) mmol/L Carbon Dioxide 24 (22-29) mmol/L Anion Gap 17.3 (5-19) BUN 27 H (8-23) mg/dL Creatinine 1.1 H (0.5-0.9) mg/dL GFR Calculation Not Reportable Calculated Osmolal ity 285 (285-295) mOsm/k g Calcium 9.5 (8.5-10.5) mg/dL Total Bilirubin 0.2 (0.15-1.2) mg/dL AST 32 (0-32) U/L ALT 19 (0-33) U/L Alkaline Phosphata se 84 (35-105) IU/L Total Protein 6.5 L (6.6-8.7) g/dL Albumin 3.6 (3.5-5.2) g/dL Globulin 2.9 (1.3-4.6) g/dL 01/30/ Range/Units 08:25 WBC (4.0-10.0) 10^3/ uL RBC (4.1-5.3) 10^6/u L Hgb (11.5-15.3) g/dL Hct (37.0-47.0) % MCV (81-99) fL MCH (28.0-34.0) pg MCHC (30.0-36.0) g/dL RDW (12.1-15.1) % Plt Count (130-400) 10^3/c mm MPV (7.4-10.4) fL Neut % (Auto) % Lymph % (Auto) % [place] % (Auto) % Eos % (Auto) % Baso % (Auto) % Neut # (Auto) (1.8-7.7) 10^3/u L Lymph # (Auto) (0.8-4.8) 10^3/u L [place] # (Auto) (0.2-0.9) 10^3/u L Eos # (Auto) (0.0-0.8) 10^3/u L Baso # (Auto) (0.0-0.1) 10^3/u L Nucleated RBC % (a uto) % Nucleated RBCs # /100WBC D-Dimer 1.91 H (0-0.59) ug/mIFE U Specimen Type Sample Site ABG pH (7.35-7.45) ABG pCO2 (35-45) mmHg ABG pO2 (80.0-100.0) mmH g ABG HCO3 (22-26) mmol/L ABG O2 Saturation ABG Base Excess (-2.0-2.0) mmol/ L Al Test A-a O2 Gradient (5-10) mmHg Hematocrit (37-47) % Hgb O2 Saturation (95-100) % Carboxyhemoglobin (0.4-20.1) %THgb Methemoglobin (0.4-1.5) % Total Hemoglobin (12-16) g/dL Sodium (131-143) mmol/L Potassium (3.5-5.0) mmol/L Glucose (70-115) mg/dL Ionized Calcium (1.1-1.4) mmol/L O2 Delivery Device FiO2 % Hotel Clerk ID Chloride (98-107) mmol/L Carbon Dioxide (22-29) mmol/L Anion Gap (5-19) BUN (8-23) mg/dL Creatinine (0.5-0.9) mg/dL GFR Calculation Calculated Osmolal ity (285-295) mOsm/k g Calcium (8.5-10.5) mg/dL Total Bilirubin (0.15-1.2) mg/dL AST (0-32) U/L ALT (0-33) U/L Alkaline Phosphata se (35-105) IU/L Total Protein (6.6-8.7) g/dL Albumin (3.5-5.2) g/dL Globulin (1.3-4.6) g/dL COVID Results: SARS-CoV-2 RNA (RT-PCR) Detected (NOT DETECTED) A 01/23/20 10:47 01/23/20 Discharge Plan Discharge Patient Disposition: Admitted As Inpatient Clinical Impression: Pneumonia due to COVID-19 virus, Syncope due to orthostatic hypotension, Benign essential HTN Condition: Stable Coding Level of Care Code ED Business Operations Specialist for Georgesg Fwd Exam Comprehensive
--- NOTE | 2020-01-31 07:47 | CTR_ITS ---
PROCEDURE INFORMATION: Exam: CT Angiography Chest With Contrast Exam date and time: 01/31/2020 7:48 AM Age: 74 years old Clinical indication: Other: Covid positive; Prior surgery; Surgery date: 6+ months; Surgery type: Back stimulator TECHNIQUE: Imaging protocol: Computed tomographic angiography of the chest with intravenous contrast. 3D rendering (Not supervised by radiologist): MIP reconstructed images were created by the technologist. Radiation optimization: All CT scans at this facility use at least one of these dose optimization techniques: automated exposure control; mA and/or kV adjustment per patient size (includes targeted exams where dose is matched to clinical indication); or iterative reconstruction. Contrast material: VISI 320; Contrast volume: 61 ml; Contrast route: INTRAVENOUS (IV); COMPARISON: CR XR chest 1V portable [id number] 01/31/2020 7:52 AM RADIATION DOSE METRICS: Total DLP (mGy-cm): 507.07 FINDINGS: Tubes, catheters and devices: Lower thoracic intraspinal neural stimulator leads. Pulmonary arteries: Normal. No pulmonary emboli. Aorta: The pulmonary artery phase bolus is suboptimal for imaging of the aorta and systemic arteries. No thoracic aortic aneurysm. No specific evidence of thoracic aortic dissection. Thyroid: 4 mm right thyroid lobe hyperdensity. Small bilateral thyroid calcifications, largest on the left measuring 3.7 mm. No specific followup required/recommended. Lungs: Non rounded peripheral predominant ground-glass opacities with intralobular and interlobular interstitial prominence in the involved regions, most confluent in the posterolateral left upper lobe. Bibasilar pulmonary subsegmental atelectasis is present. Pleural space: No pneumothorax. No pleural effusion. Heart: Normal. No pericardial effusion. Lymph nodes: Aorticopulmonary window lymph node measuring 9.3 mm short axis. Retrocaval/pretracheal lymph node measuring 6.4 mm short axis. Right pulmonary hilar lymph node measuring 7.9 mm short axis. Liver: Nonspecific right lobe hepatic 11 mm hypodensity. Bones/joints: Degenerative disk disease is present at mid-lower thoracic spine disk levels. Diffuse osteopenia. Lower cervical spine spondylosis. Soft tissues: Bilateral subglandular mammary implants are present. CT/CT angio chest PE protcl [id number] IMPRESSION: 1. No pulmonary embolism identified. 2. Commonly reported imaging features of COVID-19 pneumonia are present. Other processes such as influenza pneumonia and organizing pneumonia, as can be seen with drug toxicity and connective tissue disease, can cause a similar imaging pattern. 3. Nonspecific hepatic hypodensity. Comparison with prior studies recommended, if available. Otherwise followup may be helpful. COMMENTS: Consistent with the [employer]'s Incidental Findings Committee white paper (J Am Micheline Radiol 2015): In patients aged 35 years and older with an incidental thyroid nodule equal to or greater than 1.[address], MRI or extrathyroidal US, further evaluation with dedicated thyroid US is recommended for patients with normal life expectancy and without comorbidities. For smaller nodules without suspicious features, no further evaluation or follow up is recommended. Radiation Dose CTDIVOL = (mGy): DLP = 507.07 (mGy-cm)
[2020-01-31 08:00] LABS: ABG PH Result 7.46 (7.35-7.45); Alveolar-Arterial Oxygen Gradi 7.3 mmHg (5-10); Arterial Blood Gas Hematocrit 36.2 % (37-47); Base Excess ABG -0.5 mmol/L (-2.0-2.0); Blood Gas Allen Test Pos; Blood Gas Operator Identificat ED; Blood Gas Sample Site Radial, right; Blood Gas Sample Type Arterial; Carboxyhemoglobin 0.9 %THgb (0.4-20.1); HCO3 ABG 22.7 mmol/L (22-26); HGB O2 Sat 88.2 % (95-100); Ionized Calcium Level - ABG 1.3 mmol/L (1.1-1.4); Methemoglobin 0.8 % (0.4-1.5); Oxygen Device ROOM AIR; Oxygen Saturation ABG 89.7; PO2 ABG 53.9 mmHg (80.0-100.0); Potassium Level - ABG 4.2 mmol/L (3.5-5.0); Total Hemoglobin 11.8 g/dL (12-16)
[2020-01-31 08:06] LABS: Basophils % 0.2 %; Hematocrit 36.9 % (37.0-47.0); Hemoglobin 11.7 g/dL (11.5-15.3); Lymphocytes % 18.2 %; Mean Corpuscular HGB Conc 31.7 g/dL (30.0-36.0); Mean Corpuscular Hemoglobin 29.8 pg (28.0-34.0); Mean Corpuscular Volume 93.9 fL (81-99); Mean Platelet Volume 10.5 fL (7.4-10.4); Monocytes # 0.4 10^3/uL (0.2-0.9); Monocytes % 7.6 %; Neutrophils # 3.96 10^3/uL (1.8-7.7); Neutrophils % 73.4 %; Nucleated Red Blood Cells % 0 %; Platelet Count 220 10^3/cmm (130-400); Red Blood Count 3.93 10^6/uL (4.1-5.3); White Blood Count 5.4 10^3/uL (4.0-10.0)
[2020-01-31] MEDS: sodium chloride 0.9% 1,000 ML 999 ML IV (08:06)
[2020-01-31] MEDS: dexamethasone 4 mg/mL INJ 6 MG IVP (08:11)
[2020-01-31 08:28] LABS: Alanine Aminotransferase 19 U/L (0-33); Albumin Level 3.6 g/dL (3.5-5.2); Alkaline Phosphatase 84 IU/L (35-105); Anion Gap 17.3 (5-19); Aspartate Amino Transferase 32 U/L (0-32); Blood Urea Nitrogen 27 mg/dL (8-23); Calcium 9.5 mg/dL (8.5-10.5); Carbon Dioxide 24 mmol/L (22-29); Chloride 98 mmol/L (98-107); Globulin 2.9 g/dL (1.3-4.6); Glucose 95 mg/dL (65-115); Osmolality Calculated 285 mOsm/kg (285-295); Potassium 4.3 mmol/L (3.5-5.1); Sodium 135 mmol/L (136-145); Total Bilirubin 0.2 mg/dL (0.15-1.2); Total Protein 6.5 g/dL (6.6-8.7)
--- NOTE | 2020-01-31 08:31 | PC.NURSE ---
NO V/D, only diarreha
[2020-01-31 08:54] LABS: D Dimer 1.91 ug/mIFEU (0-0.59)
[2020-01-31] MEDS: iodixanol 320 mg/mL 100mL Btl IV (09:14)
[2020-01-31] MEDS: levofloxacin-dextrose 5 % 750 MG/150 ML PREMIX 100 MG IV (10:06)
--- NOTE | 2020-01-31 14:00 | P.HP_ITS ---
Providers/Chief Complaint Admitting Physician: Usama Mei MD Primary Care Provider: Tonia Tierney DO Chief Complaint: Covid +/Weakness/Passed out this morning History of Present Illness Tala Gale is a 74 year old female with past medical history of hypertension, chronic opiate for pain management who was recently diagnosed with COVID-19 a week ago and has been on home management came in because she was found syncopized on bathroom floor by her . As per the patient he has been doing fairly stable with Covid for last 1 week other than her having an episode of hypoxia 2 days ago when she came to the ER and was sent home on oxygen concentrator. She states she monitors her oxygen levels at home and usually they are running more than 90 then she has not required oxygen at all. She states she has been feeling weak for last 3 days, having diarrhea for last 2 days, have lost since of smell and taste for last 2 days and her appetite has been poor as well. She has continued to take her antihypertensives. She does not know what happened last night when she went to the bathroom and she does not remember having any aura, seizure-like activity or having any similar episodes in the past. In the ER patient was found to have a white count of 5.4, hemoglobin of 11.7, platelet count of 220, D-dimer of 1.9, pH of 7.46, CO2 of 32, PO2 of 53 on room air on ABG, sodium of 135, creatinine of 1.1, AST/ALT of 42/19, CTA chest negative for any pulmonary embolism with mild changes for COVID-19 pneumonia with peripheral GGO's. On my examination patient is lying comfortably in bed not tachypneic saturating 98% on 2 L nasal cannula. During my examination we turned on the oxygen to room air in case she continued to saturate at 9091% without having any tachypnea. Denies any nausea, vomiting, headache. Blood pressure on examination 98/60 mmHg. Review of Systems General: Reports: 10 or more systems reviewed and unremarkable except in HPI and below Const: Denies: fever(s), chills, body aches, change in appetite, change in weight, malaise, night sweats, diaphoresis, change in sleep pattern, daytime sleepiness or snoring Eyes: Denies: change in vision, blurry vision, photophobia, eye discomfort or eye discharge ENMT: Denies: throat pain, enlarged tonsils, hoarseness, mouth pain, oral sores, dry mouth, tinnitus, nasal congestion or post nasal drip Card: Denies: chest pain, palpitations, irregular heart rhythm, edema, swelli ng of feet/ankles, lightheadedness, syncope, pre-syncope, dyspnea on exertion, orthopnea, leg pain with exertion or acrocyanosis Resp: Denies: dyspnea, productive cough, non-productive cough, wheezing, stridor, pain on inspiration, change in phlegm color, hemoptysis or chest congestion GI: Denies: abdominal pain, nausea, vomiting, hematemesis, coffee ground emesis, dysphagia, heartburn, diarrhea, constipation, bloating, GI cramping, change in bowel habits, pain on defecation, hematochezia or melena : Denies: flank pain, dysuria, urinary frequency, urinary urgency, urinary hesitancy, nocturia or hematuria Musc: Denies: neck pain, back pain, extremity pain, joint pain, joint swelling, joint redness, joint stiffness or limited range of motion Neuro: Denies: headache(s), numbness in extremities, weakness in extremities, sensory changes, lack of coordination, difficulty walking, frequent falls, dizziness, vertigo, confusion, Slurred speech present, difficulty communicating thoughts or seizure-like activity Psych: Denies: anxiety, depression, mood swings, panic attacks, hopelessness or irritability Endo: Denies: polyuria, polydipsia, tired all the time, cold intolerance, excessive sweating, flushing or heat intolerance Malick/Lymph: Denies: easy bruising or easy bleeding All/Imm: Denies: tongue swelling, facial swelling or acute wheezing Medications/Allergies Home Medications Medication Instructions Recorded Confirmed Last Taken Type naproxen sodium 220 mg tablet 220 mg PO BID PRN 03/23/19 01/31/20 01/29/20 History atorvastatin 10 mg tablet 10 mg PO DAILY #90 tab 11/09/19 01/31/20 01/30/20 Rx gabapentin 800 mg tablet 800 mg PO TID 30 Days #90 tab 11/28/19 01/31/20 01/30/20 Rx hydrocodone 10 mg-acetaminophen 1 tab PO BID PRN 30 Days #60 tab 0901/31/20 01/30/20 Rx 325 mg tablet lisinopril 10 mg PO DAILY 01/29/20 01/31/20 01/30/20 History Allergies Allergy/AdvReac Type Severity Reaction Status Date / Time celecoxib [From Celebrex] AdvReac ABDOMINAL Verified 01/23/20 09:51 PAIN PFSH Acute PFSH: Medical History (Updated 01/31/20 @ 14:11 by Usama Mei MD) Benign essential HTN Chronic midline low back pain with bilateral sciatica Encounter for long-term opiate analgesic use Intervertebral disc disorder with radiculopathy of lumbar region Opioid contract exists Pneumonia due to COVID-19 virus Postmenopausal Surgical History H/O breast augmentation History of back surgery Spinal Cord Stimulator Trial-Dr. Torres at [facility] 04/16/19 History of implanted electronic device Dr. Yuong- 08/16/19 Hx of cataract extraction Bilat done in [place] Status post hip surgery Family History Other Cancer Social History Smoking and tobacco status: former smoker Alcohol intake: current Alcohol intake frequency: holidays/special occasions only Lives independently: Yes Household members: spouse Marital status: Current occupational status: retired History of recent travel: No Vitals/I&O/Wt Last Vital Signs Temp 98.8 F 01/31/20 11:17 Pulse 78 01/31/20 12:12 Resp 20 H 01/31/20 12:12 BP 98/49 01/31/20 12:12 Pulse Ox 87 L 01/31/20 12:12 01/30/20 01/31/20 01/31/20 22:59 06:59 14:59 Intake Total 120 / 120 Balance 120 / 120 Weight last 48 hrs Weight 57.606 kg Physical Exam Narrative: EXAM NARRATIVE: General: No acute distress, AO x3 HEENT: PERRLA, pupils bilaterally equal and reactive Chest: Normal vesicular breath sounds, no added sounds, equal good air entry bilaterally CVS: S1-S2 regular, no murmurs, no tachycardia, no gallops, no rubs Abdomen: Soft, nontender, no organomegaly, bowel sounds present Neuro: No focal deficits, no facial deformity, AO x3, power 5/5 in all limbs Data : 01/31/20 07:56 01/31/20 07:56 A&P Assessment and plan (1) Syncope due to orthostatic hypotension: Status: Acute (2) Pneumonia due to 2019-nCoV: Status: Acute (3) Hyponatremia: Status: Acute (4) DONATO (acute kidney injury): Status: Acute (5) Benign essential HTN: Status: Acute Additional A&P Information Syncope: Most likely secondary to weakness and dehydration from COVID-19 pneumonia. CTA negative for pulmonary embolism. Patient does not have any neurological symptoms at present. Will do CT head to rule out any bleed/stroke or aneurysm. Unfortunately cannot do CTA as patient had CTA chest done today in the morning. Telemetry. Check echocardiogram, orthostatic blood pressures. Patient in the ER required 2 L to maintain at 95% and had an episode of hypoxia going down to low 80s 3 days ago at home. Continue with remdesivir for now. Most likely will do a 3-day course if patient does not require any oxygen. Decadron 6 mg IV daily. Vitamin C, zinc, Tessalon Perles. Pulmonary toilet with Acapella and incentive spirometry. Low chances of community-acquired pneumonia. Check procalcitonin, urinalysis, b acterial antigen, urine Legionella. Start patient on azithromycin for now. We will continue to monitor. D-dimer elevated. Negative for PE. Start patient on Lovenox full dose 1 mg/kg body weight every 12 hourly. Will transition over to Eliquis at discharge patient on 2 weeks course of anticoagulation because of prothrombotic state from COVID-19 pneumonia. Monitor inflammatory markers like CRP, LDH, fibrinogen, ferritin. Normal saline at 50 cc/h. Hypertension: Goal blood pressure less than 140/90 mmHg. Mean over 65 mmHg. For now hold off on antihypertensives and continue to monitor. DONATO: Most likely secondary dehydration because of poor oral intake, diarrhea in setting of COVID-19 pneumonia and baseline use of lisinopril for hypertension. Medical reconciliation done for nephrotoxic drugs. Continue to monitor BMP daily. Hyponatremia: Most likely because of dehydration. Fluids as above. Continue other chronic pain medications like hydrocodone but at 5/325 twice daily as needed, gabapentin 400 3 times daily. Check iron panel, HbA1c, lipid panel, TSH, vitamin B12, folate levels. Full code. Lovenox today for DVT prophylaxis. Famotidine for PUD prophylaxis GI soft cardiac diet. Attestations Medical Necessity Statement*: Patient requires admission for more than 2 midnights for evaluation of syncope secondary to COVID-19 pneumonia, dehydration, evaluation for orthostatic hypot ension Time Spent in Patient Care: Greater than 35 minutes (>than 50% of time spent in counselling and/or direct pt care on unit) . Coding Level of Care Code Acute Educational Advisor for Chg Fwd Diagnoses Syncope due to orthostatic hypotension I95.1 Pneumonia due to 2019-nCoV U07.1; J12.89 Hyponatremia E87.1 DONATO (acute kidney injury) N17.9 Benign essential HTN I10
[2020-01-31 14:47] LABS: Fibrinogen 396 mg/dL (174-498)
[2020-01-31] MEDS: benzonatate 100 mg Capsule PO ×2 (15:11→19:17)
[2020-01-31] MEDS: gabapentin 400 mg Capsule PO ×2 (15:11→19:17)
[2020-01-31] MEDS: HYDROcodone-acetaminophen 5-325 mg Tablet 1 TAB PO ×2 (15:11→20:13)
[2020-01-31] MEDS: famotidine 20 mg/2 mL INJ IVP (15:11)
[2020-01-31] MEDS: azithromycin 250 mg Tablet 500 MG PO (15:11)
[2020-01-31] MEDS: sodium chloride 0.9% 1,000 ML 50 ML IV (15:12)
[2020-01-31] MEDS: enoxaparin 100 mg/mL Syringe 60 MG SUBCUT (15:12)
[2020-01-31 15:44] LABS: Procalcitonin 0.17 ng/mL (0-0.5)
[2020-01-31 15:54] LABS: C Reactive Protein 54.2 mg/L (0.0-4.9); Creatine Phosphokinase 84 U/L (26-192); Ferritin 461 ng/mL (15-150); Lactate Dehydrogenase 257 U/L (135-214); Thyroid Stimulating Hormone 2.13 uIU/mL (0.27-4.20); Vitamin B12 1010 pg/mL (232-1245)
[2020-01-31 16:04] LABS: Iron 17 ug/dL (37-145); Percent Saturation 7.8 % (20-50); Total Iron Binding Capacity 216 mcg/dl; Unsaturated Iron Binding 199 ug/dL (112-347)
[2020-01-31 16:23] LABS: Lactic Sepsis W/Reflex 2.2 mmol/L (0.5-2.2)
[2020-01-31 16:23] LABS: Bilirubin Urine Neg (Negative); Blood Urine Trace (Negative); Glucose Urine UA Norm (Normal); Ketones Urine Negative (Negative); Leukocyte Esterase Urine Negative (Negative); Nitrate Urine Negative (Negative); Protein Urine Neg (Negative); Urine Appearance Clear (CLEAR); Urine Color Yellow (Yellow); Urobilinogen Urine Norm (Negative); pH Urine 5 (5-7)
[2020-01-31 16:33] LABS: Add Urine Culture? No; Bacteria Urine TRACE /hpf; RBC Urine 0-4 /hpf (0-2); Squamous Epithelial Cell Urine 0-4 /hpf (0-5); WBC Urine 0-4 /hpf (0-5)
[2020-01-31] MEDS: ascorbic acid 500 mg Tablet 1000 MG PO (17:22)
[2020-01-31 17:46] LABS: Reflex Lactate Order REFLEX LACTIC ORDERD
[2020-01-31 18:41] LABS: Lactic Acid level (Lactate) 2.1 mmol/L (0.5-2.2)
--- NOTE | 2020-01-31 19:45 | PC.NURSE ---
Addendum entered by Cindi Galeano RN 01/31/20 19:54: Dr. Wilson ordered okay to give a dose now. Original Note: Patient currently complains of pain 8/10 in lower back. Patient asking for Hydrocodone. It is ordered BID. One dose was given today at 1511. Dr. Wilson notified.
--- NOTE | 2020-01-31 20:13 | PC.NURSE ---
Patient placed on 2 L NC due to maintaining oxygen saturation between 85 and 87 percent on room air. Patient has continous pulse ox probe on. Will monitor closely.
--- NOTE | 2020-01-31 22:56 | PC.NURSE ---
Patient assisted to bedside commode and back to bed with 1 assist.
--- NOTE | 2020-01-31 23:10 | PC.NURSE ---
Patient's oxygen saturation is currently maintaining 90 percent on 2 L NC. Will monitor.
[2020-02-01] VITALS (17 sets, daily range): BP systolic 104–124; BP diastolic 60–77; PULSE 61–95; RESP 16–25; TEMP 36.6–36.9; O2SAT 89–95
[2020-02-01] MEDS: enoxaparin 100 mg/mL Syringe 60 MG SUBCUT (03:10)
[2020-02-01] MEDS: famotidine 20 mg/2 mL INJ IVP ×2 (03:10→15:47)
--- NOTE | 2020-02-01 03:28 | PC.NURSE ---
Patient assisted to bedside commode and back to bed with standby assist. Will monitor.
[2020-02-01 04:29] LABS: Hematocrit 34.8 % (37.0-47.0); Hemoglobin 10.8 g/dL (11.5-15.3); Lymphocytes # 0.7 10^3/uL (0.8-4.8); Lymphocytes % 24.5 %; Mean Corpuscular Hemoglobin 29.6 pg (28.0-34.0); Mean Corpuscular Volume 95.3 fL (81-99); Mean Platelet Volume 11.1 fL (7.4-10.4); Monocytes # 0.4 10^3/uL (0.2-0.9); Monocytes % 12.6 %; Neutrophils # 1.83 10^3/uL (1.8-7.7); Neutrophils % 62.2 %; Nucleated Red Blood Cells % 0 %; Platelet Count 178 10^3/cmm (130-400); Red Blood Count 3.65 10^6/uL (4.1-5.3); Red Cell Distribution Width 14.3 % (12.1-15.1); White Blood Count 2.9 10^3/uL (4.0-10.0)
[2020-02-01 04:58] LABS: Alanine Aminotransferase 16 U/L (0-33); Albumin Level 3.4 g/dL (3.5-5.2); Alkaline Phosphatase 76 IU/L (35-105); Aspartate Amino Transferase 26 U/L (0-32); Blood Urea Nitrogen 22 mg/dL (8-23); Calcium 9.1 mg/dL (8.5-10.5); Carbon Dioxide 23 mmol/L (22-29); Chloride 102 mmol/L (98-107); Globulin 2.6 g/dL (1.3-4.6); Glucose 142 mg/dL (65-115); Osmolality Calculated 286 mOsm/kg (285-295); Sodium 135 mmol/L (136-145); Total Bilirubin 0.2 mg/dL (0.15-1.2)
[2020-02-01 04:59] LABS: Anion Gap 14.6 (5-19); Magnesium 2.1 mg/dL (1.7-2.3); Phosphorus 3.7 mg/dL (2.5-4.5); Potassium 4.6 mmol/L (3.5-5.1)
[2020-02-01 05:00] LABS: Estmated Average Glucose 117; Hemoglobin A1C 5.7 % (4.0-6.0)
[2020-02-01 05:01] LABS: C Reactive Protein 76.9 mg/L (0.0-4.9); Creatine Phosphokinase 55 U/L (26-192); Ferritin 447 ng/mL (15-150); Fibrinogen 520 mg/dL (174-498); NT Pro B Type Natriuretic Pept 946 pg/mL (0-125)
[2020-02-01 05:03] LABS: D Dimer 2.88 ug/mIFEU (0-0.59)
[2020-02-01 05:28] LABS: Lactate Dehydrogenase 270 U/L (135-214)
[2020-02-01 05:36] LABS: INR 0.97 (0.8-1.2)
--- NOTE | 2020-02-01 06:00 | XR_ITS ---
WS: [id number] PORTABLE CHEST HISTORY: covid COMPARISON: 01/31/2020 Pulmonary hyperexpansion from emphysema. Interstitial thickening bilaterally but slightly greater thr oughout the LEFT lung and in the lower lung valdez. No progression since the prior study. No pleural effusion or pneumothorax. Cardiac size: Mildly enlarged cardiac silhouette. Mediastinum/Aorta: Mild atherosclerosis aorta. No osseous abnormality seen. Neural stimulator leads are present over the mid thorax. Bilateral calcified breast implants. XR/XR chest 1V portable [id number] IMPRESSION: Chronic emphysema with mild interstitial thickening. Radiographically no progre ssion or improvement.
[2020-02-01 06:15] LABS: Slide Review Slide Review Perform
[2020-02-01] MEDS: azithromycin 250 mg Tablet 500 MG PO (08:18)
[2020-02-01] MEDS: atorvastatin 40 mg Tablet 20 MG PO (08:18)
[2020-02-01] MEDS: gabapentin 400 mg Capsule PO ×3 (08:19→21:00)
[2020-02-01] MEDS: ascorbic acid 500 mg Tablet 1000 MG PO ×2 (08:19→17:17)
[2020-02-01] MEDS: benzonatate 100 mg Capsule PO ×3 (08:19→21:00)
[2020-02-01] MEDS: dexamethasone 4 mg/mL INJ 6 MG IVP (08:19)
[2020-02-01] MEDS: HYDROcodone-acetaminophen 5-325 mg Tablet 1 TAB PO (08:19)
[2020-02-01] MEDS: zinc gluconate 50 mg Tablet PO (08:21)
[2020-02-01] MEDS: sodium chloride 0.9% 1,000 ML 50 ML IV (11:37)
--- NOTE | 2020-02-01 13:53 | USCV_ITS ---
Tala Gale Age: 74 Gender: F : 1945 Exam Date: 02/01/2020 09:40 Ordering Phys: Usama Mei MD Technologist: Viola Taveras Exam Location: [facility] [place] Indication: h/o pulmonary htn, BP: 118 / 61 HR: 69 Rhythm: Sinus Technical Quality: Good MEASUREMENTS (Male / Female) Normal Values 2D ECHO LV Diastolic Diameter PLAX 3.5 cm 4.2 - 5.9 / 3.9 - 5.3 cm LV Systolic Diameter PLAX 2.5 cm LV Chamber Size 3.8 cm IVS Diastolic Thickness 1.1 cm 0.6 - 1.0 / 0.6 - 0.9 cm IVS Systolic Thickness 1.6 cm LVPW Diastolic Thickness 1.5 cm 0.6 - 1.0 / 0.6 - 0.9 cm LVPW Systolic Thickness 1.5 cm RV Chamber Size 3.4 cm LVOT Diameter 2.0 cm LV Ejection Fraction 2D Teich 59.3 % LV Ejection Fraction MOD 2C 62.5 % LV Ejection Fraction 2C AL 62.6 % LA Diameter 3.3 cm LA Width 2.6 cm LA Height 4.6 cm RA Width 3.9 cm RA Height 4.6 cm Aorta at Sinotubular Diameter 2.8 cm M-MODE LV Diastolic Diameter MM 4.2 cm 4.2 - 5.9 / 3.9 - 5.3 cm LV Systolic Diameter MM 3.1 cm LV Ejection Fraction MM Teich 51.5 % IVS Diastolic Thickness MM 1.0 cm 0.6 - 1.0 / 0.6 - 0.9 cm IVS Systolic Thickness MM 1.4 cm LVPW Diastolic Thickness MM 0.8 cm 0.6 - 1.0 / 0.6 - 0.9 cm LVPW Systolic Thickness MM 1.3 cm RV Diastolic Diameter MM 1.8 cm Aortic Annulus Diameter 3.2 cm LA Ao Ratio MM 1.1 MV E Point Septal Separation 0.3 cm DOPPLER AV Peak Velocity 150.0 cm/s LVOT Peak Velocity 76.0 cm/s AV Area Cont Eq vti 1.7 cm squared AV Area Cont Eq pk 1.6 cm squared MV Area PHT 4.9 cm squared Mitral E to A Ratio 1.5 MV E' Velocity 45.5 cm/s Mitral E to MV E' Ratio 7.2 Mitral E to LV E' Lateral Ratio 7.2 Mitral E to LV E' Septal Ratio 7.2 TR Peak Velocity 280.8 cm/s TR Peak Gradient 31.5 mmHg TR Mean Velocity 209.2 cm/s TR Mean Gradient 19.0 mmHg TR Velocity Time Integral 87.0 cm TV Peak E Velocity 70.0 cm/s Right Atrial Pressure 3.0 mmHg Pulmonary Artery Systolic Pressu 34.5 mmHg PV Peak Velocity 66.0 cm/s RV Acceleration Time 0.2 s RV Ejection Time 0.4 s RV AcT/ET 0.5 FINDINGS Left Ventricle Normal left ventricular cavity size. Normal left ventricular systolic function. No regional wall motion abnormalities. Left ventricular ejection fraction is estimated at 60 %. Grade I/IV diastolic dysfunction (abnormal relaxation filling pattern), normal to mildly elevated filling pressures. Right Ventricle The right ventricle is normal in size and function. Right Atrium The right atrium is normal in size. Left Atrium The left atrium is normal in size. Mitral Valve Thickened mitral valve. No mitral valve stenosis. Mild mitral valve regurgitation. Aortic Valve Structurally normal aortic valve without significant sclerosis or stenosis. There is no aortic regurgitation. Tricuspid Valve Mild tricuspid valve regurgitation. Pulmonic Valve Structurally normal pulmonic valve without significant stenosis. There is no pulmonic regurgitation. Pericardium Normal pericardium without effusion. Aorta Normal ascending aorta dimension. CONCLUSIONS 1-Normal left ventricular cavity size. Normal left ventricular systolic function. No regional wall motion abnormalities. Left ventricular ejection fraction is estimated at 60 %. Grade I/IV diastolic dysfunction (abnormal relaxation filling pattern), normal to mildly elevated filling pressures. 2-Mild tricuspid valve regurgitation. 3-There is no pericardial effusion. 4-Pulmonary artery systolic pressure is within normal limits. 5-Right atrial pressure is around 5 mm of mercury. 6-There are no prior echocardiogram studies to compare. Ofe Cox MD (Electronically Signed) Final Date: 01 February 2020 16:41 S
[2020-02-01] MEDS: enoxaparin 60 mg/0.6 mL Syringe SUBCUT (15:48)
--- NOTE | 2020-02-01 17:06 | P.PN_ITS ---
Subjective Subjective: Interval history: No events overnight. Patient has had a restful night. Overnight patient desaturated to around 89% while sleeping so she was put back on 2 L oxygen supplementation. Currently saturating 92%. Complaining of sore throat. Denies any nausea, vomiting, headache. Appetite is appropriate. Have asked patient to work more aggressively with incentive spirometry and Acapella. Denies any further dizziness. Vitals/I&O/Wt Last Vital Signs Temp 97.9 F 02/01/20 07:38 Pulse 67 02/01/20 15:23 Resp 16 02/01/20 15:23 BP 107/60 02/01/20 15:23 Pulse Ox 89 L 02/01/20 15:23 02/01/20 02/01/20 02/01/20 06:59 14:59 22:59 Intake Total 300 / 540 1220 / 1220 Output Total 250 / 650 400 / 400 Balance 50 / -110 820 / 820 Weight last 48 hrs Weight 64.818 kg Weight 57.606 kg Physical Exam Narrative: EXAM NARRATIVE: General: No acute distress, AO x3 HEENT: PERRLA, pupils bilaterally equal and reactive Chest: Normal vesicular breath sounds, no added sounds, equal good air entry bilaterally CVS: S1-S2 regular, no murmurs, no tachycardia, no gallops, no rubs Abdomen: Soft, nontender, no organomegaly, bowel sounds present Neuro: No focal deficits, no facial deformity, AO x3, power 5/5 in all limbs Data : 02/01/20 03:56 02/01/20 03:56 Micro: Microbiology 01/31/20 15:30 Blood Culture - Preliminary Blood NEGATIVE TO DATE 01/31/20 07:56 Blood Culture - Preliminary Blood NEGATIVE TO DATE 01/31/20 15:30 MRSA Culture - Final Nose 01/31/20 15:50 Legionella Urinary Antigen - Final Urine,Voided 01/31/20 15:50 Bacterial Antigens - Final Urine,Voided A&P Assessment and plan (1) Syncope due to orthostatic hypotension: Status: Acute (2) Pneumonia due to 2019-nCoV: Status: Acute (3) Hyponatremia: Status: Acute (4) DONATO (acute kidney injury): Status: Acute (5) Benign essential HTN: Status: Acute (6) Hypoxia: Status: Acute Additional A&P Information Syncope: Most likely secondary to weakness and dehydration from COVID-19 pneumonia. CTA negative for pulmonary embolism. Patient does not have any neurological symptoms at present. Will do CT head to rule out any bleed/stroke or aneurysm. Unfortunately cannot do CTA as patient had CTA chest done today in the morning. Telemetry. Positive yesterday. Repeat orthostatic blood pressures today. Echocardiogram shows an EF of 60% grade 1 diastolic dysfunction with mild TR. Patient in the ER required 2 L to maintain at 95% and had an episode of hypoxia going down to low 80s 3 days ago at home. Continue with remdesivir for now. We will finish a 5-day course. Decadron 6 mg IV daily. Vitamin C, zinc, Tessalon Perles. Pulmonary toilet with Acapella and incentive spirometry. Low chances of community-acquired pneumonia. Pro-Jose M, bacterial antigen, Legionella negative. Continue with azithromycin to finish a 3-day course. Day 2/3 today. D-dimer elevated. Negative for PE. Start patient on Lovenox full dose 1 mg/kg body weight every 12 hourly. Will transition over to Eliquis at discharge patient on 2 weeks course of anticoagulation because of prothrombotic state from COVID-19 pneumonia. Monitor inflammatory markers like CRP, LDH, fibrinogen, ferritin. Stop IV fluids and encourage oral intake. Hypertension: Goal blood pressure less than 140/90 mmHg. Mean over 65 mmHg. For now hold off on antihypertensives and continue to monitor. DONATO: Resolved. Most likely secondary dehydration because of poor oral intake, diarrhea in setting of COVID-19 pneumonia and baseline use of lisinopril for hypertension. Medical reconciliation done for nephrotoxic drugs. Continue to monitor BMP daily. Hyponatremia: Stable. Continue to monitor. Check urine lites. Start patient on salt tablets. Continue other chronic pain medications like hydrocodone but at 5/325 twice daily as needed, gabapentin 400 3 times daily. Start on iron supplementation, vitamin B12, TSH folate within normal limits. Full code. Lovenox today for DVT prophylaxis. Famotidine for PUD prophylaxis GI soft cardiac diet. Plan for the day: Continue with remdesivir, Decadron and extensive pulmonary toileting. Wean oxygen supplementation keeping saturation over 90%. Continue to monitor blood pressures and check orthostatic pressures. Review urine lites and start patient on salt tablets. Attestations Medical Necessity Statement*: She requires further hospitalization for management of hypoxia because of COVID-19 pneumonia, syncope, positive orthostatic, hyponatremia. Time Spent in Patient Care: Greater than 35 minutes (>than 50% of time spent in counselling and/or direct pt care on unit) . Coding Level of Care Code Acute Tow Car Driver for g Fwd Diagnoses Syncope due to orthostatic hypotension I95.1 Pneumonia due to 2019-nCoV U07.1; J12.89 Hyponatremia E87.1 DONATO (acute kidney injury) N17.9 Benign essential HTN I10 Hypoxia R09.02
--- NOTE | 2020-02-01 17:12 | CTR_ITS ---
PROCEDURE INFORMATION: Exam: CT Head Without Contrast Exam date and time: 02/01/2020 6:05 PM Age: 74 years old Clinical indication: Syncope and collapse; Patient HX: Syncope episode yesterday TECHNIQUE: Imaging protocol: Computed tomography of the head without contrast. Radiation optimization: All CT scans at this facility use at least one of these dose optimization techniques: automated exposure control; mA and/or kV adjustment per patient size (includes targeted exams where dose is matched to clinical indication); or iterative reconstruction. COMPARISON: No relevant prior studies available. RADIATION DOSE METRICS: Total DLP (mGy-cm): 737.39 FINDINGS: Brain: There is mild cortical atrophy. Low-density changes in the white matter are consistent with nonspecific small vessel chronic ischemic change. There is a 1 cm sized calcification along the right side of the anterior falx which may represent calcified meningioma. There is no hemorrhage or edema. Cerebral ventricles: No ventriculomegaly. Bones/joints: Unremarkable. No acute fracture. Paranasal sinuses: Visualized sinuses are unremarkable. No fluid levels. Mastoid air cells: Visualized mastoid air cells are well aerated. Soft tissues: Unremarkable. CT/CT head wo con* [id number] IMPRESSION: No acute intracranial finding. Radiation Dose CTDIVOL = (mGy): DLP = 737.39 (mGy-cm)
[2020-02-01] MEDS: ferrous gluconate 324 mg Tablet PO (17:17)
[2020-02-02] VITALS (15 sets, daily range): BP systolic 104–125; BP diastolic 57–80; PULSE 61–86; RESP 14–24; TEMP 36.1–37; O2SAT 91–96
[2020-02-02] MEDS: famotidine 20 mg/2 mL INJ IVP ×2 (03:22→14:26)
[2020-02-02] MEDS: enoxaparin 60 mg/0.6 mL Syringe SUBCUT ×2 (03:23→14:26)
[2020-02-02 05:32] LABS: Basophils % 0.2 %; Hemoglobin 11.2 g/dL (11.5-15.3); Lymphocytes % 23.1 %; Mean Corpuscular Hemoglobin 29.9 pg (28.0-34.0); Mean Corpuscular Volume 93.6 fL (81-99); Mean Platelet Volume 10.1 fL (7.4-10.4); Monocytes # 0.7 10^3/uL (0.2-0.9); Monocytes % 16.2 %; Neutrophils # 2.61 10^3/uL (1.8-7.7); Neutrophils % 59.6 %; Nucleated Red Blood Cells % 0 %; Platelet Count 281 10^3/cmm (130-400); Red Blood Count 3.74 10^6/uL (4.1-5.3); Red Cell Distribution Width 14.2 % (12.1-15.1); White Blood Count 4.4 10^3/uL (4.0-10.0)
[2020-02-02 05:42] LABS: Fibrinogen 457 mg/dL (174-498)
[2020-02-02 05:45] LABS: D Dimer 1.09 ug/mIFEU (0-0.59)
[2020-02-02 06:00] LABS: Alanine Aminotransferase 14 U/L (0-33); Albumin Level 3.2 g/dL (3.5-5.2); Alkaline Phosphatase 69 IU/L (35-105); Anion Gap 13.3 (5-19); Aspartate Amino Transferase 23 U/L (0-32); Blood Urea Nitrogen 15 mg/dL (8-23); Calcium 9.3 mg/dL (8.5-10.5); Carbon Dioxide 25 mmol/L (22-29); Chloride 103 mmol/L (98-107); Creatine Phosphokinase 35 U/L (26-192); Ferritin 514 ng/mL (15-150); Globulin 2.6 g/dL (1.3-4.6); Glucose 145 mg/dL (65-115); Lactate Dehydrogenase 264 U/L (135-214); NT Pro B Type Natriuretic Pept 1351 pg/mL (0-125); Osmolality Calculated 287 mOsm/kg (285-295); Potassium 4.3 mmol/L (3.5-5.1); Sodium 137 mmol/L (136-145); Total Bilirubin 0.2 mg/dL (0.15-1.2); Total Protein 5.8 g/dL (6.6-8.7)
[2020-02-02] MEDS: dexamethasone 4 mg/mL INJ 6 MG IVP (08:49)
[2020-02-02] MEDS: ferrous gluconate 324 mg Tablet PO ×2 (08:51→18:10)
[2020-02-02] MEDS: gabapentin 400 mg Capsule PO ×3 (08:51→21:10)
[2020-02-02] MEDS: azithromycin 250 mg Tablet 500 MG PO (08:51)
[2020-02-02] MEDS: benzonatate 100 mg Capsule PO ×3 (08:51→21:10)
[2020-02-02] MEDS: zinc gluconate 50 mg Tablet PO (08:52)
[2020-02-02] MEDS: ascorbic acid 500 mg Tablet 1000 MG PO ×2 (08:52→18:10)
[2020-02-02] MEDS: atorvastatin 40 mg Tablet 20 MG PO (08:52)
--- NOTE | 2020-02-02 16:04 | P.PN_ITS ---
Subjective Subjective: Interval history: Document signed. Patient lying comfortably in bed. Saturating 89% on room air. Denies any nausea, vomiting, headache. States her energy levels are better. No dizziness. Orthostatic negative. Vitals/I&O/Wt Last Vital Signs Temp 97.9 F 02/02/20 15:09 Pulse 83 02/02/20 15:09 Resp 19 H 02/02/20 15:09 BP 116/72 02/02/20 15:09 Pulse Ox 91 02/02/20 15:09 02/02/20 02/02/20 02/02/20 06:59 14:59 22:59 Intake Total 300 / 1640 360 / 360 Output Total 2500 / 2900 Balance -2200 / -1260 360 / 360 Weight last 48 hrs Weight 64.909 kg Weight 64.818 kg Physical Exam Narrative: EXAM NARRATIVE: General: No acute distress, AO x3 HEENT: PERRLA, pupils bilaterally equal and reactive Chest: Normal vesicular breath sounds, no added sounds, equal good air entry bilaterally CVS: S1-S2 regular, no murmurs, no tachycardia, no gallops, no rubs Abdomen: Soft, nontender, no organomegaly, bowel sounds present Neuro: No focal deficits, no facial deformity, AO x3, power 5/5 in all limbs Data : 02/02/20 05:10 02/02/20 05:10 Micro: Microbiology 01/31/20 15:30 Blood Culture - Preliminary Blood NEGATIVE TO DATE 01/31/20 07:56 Blood Culture - Preliminary Blood NEGATIVE TO DATE A&P Assessment and plan (1) Syncope due to orthostatic hypotension: Status: Acute (2) Pneumonia due to 2019-nCoV: Status: Acute (3) Hyponatremia: Status: Acute (4) DONATO (acute kidney injury): Status: Acute (5) Benign essential HTN: Status: Acute (6) Hypoxia: Status: Acute Additional A&P Information Syncope: Most likely secondary to weakness and dehydration from COVID-19 pn eumonia. CTA negative for pulmonary embolism. Patient does not have any neurological symptoms at present. CTA negative for any acute abnormality. Telemetry. Orthostatic positive on admission. Negative now. Continue to monitor daily. Echocardiogram shows an EF of 60% grade 1 diastolic dysfunction with mild TR. Patient in the ER required 2 L to maintain at 95% and had an episode of hypoxia going down to low 80s 3 days ago at home. Continue with remdesivir for now. We will finish a 5-day course. Decadron 6 mg IV daily. Vitamin C, zinc, Tessalon Perles. Pulmonary toilet with Acapella and incentive spirometry. Low chances of community-acquired pneumonia. Pro-Jose M, bacterial antigen, Leg ionella negative. Last dose of azithromycin today. D-dimer elevated. Negative for PE. Start patient on Lovenox full dose 1 mg/kg body weight every 12 hourly. Will transition over to Eliquis at discharge patient on 2 weeks course of anticoagulation because of prothrombotic state from COVID-19 pneumonia. Monitor inflammatory markers like CRP, LDH, fibrinogen, ferritin. Stop IV fluids and encourage oral intake. Hypertension: Goal blood pressure less than 140/90 mmHg. Mean over 65 mmHg. For now hold off on antihypertensives and continue to monitor. DONATO: Resolved. Most likely secondary dehydration because of poor oral intake, diarrhea in setting of COVID-19 pneumonia and baseline use of lisinopril for hypertension. Medical reconciliation done for nephrotoxic drugs. Continue to monitor BMP daily. Hyponatremia: Stable. Continue to monitor. Improving. Continue salt tablets. Continue other chronic pain medications like hydrocodone but at 5/325 twice daily as needed, gabapentin 400 3 times daily. Start on iron supplementation, vitamin B12, TSH folate within normal limits. Full code. Lovenox today for DVT prophylaxis. Famotidine for PUD prophylaxis GI soft cardiac diet. Plan for the day: Continue with remdesivir, Decadron and extensive pulmonary toileting. Out of bed to chair. Wean oxygen supplementation keeping saturation over 90%. Continue to monitor blood pressures and check orthostatic pressures. Attestations Medical Necessity Statement*: Requires further hospitalization for management of hypoxia because of COVID-19 pneumonia, syncope due to positive orthostatic blood pressures, resolving DONATO. Time Spent in Patient Care: Greater than 35 minutes (>than 50% of time spent in counselling and/or direct pt care on unit) . Coding Level of Care Code Acute Audio Production Instructor for g Fwd Diagnoses Syncope due to orthostatic hypotension I95.1 Pneumonia due to 2019-nCoV U07.1; J12.89 Hyponatremia E87.1 DONATO (acute kidney injury) N17.9 Benign essential HTN I10 Hypoxia R09.02
[2020-02-03] MEDS: famotidine 20 mg/2 mL INJ IVP (01:38)
[2020-02-03 03:36] VITALS: BP 143/85; PULSE 75; RESP 20; TEMP 37.1; O2SAT 93
[2020-02-03] MEDS: enoxaparin 60 mg/0.6 mL Syringe SUBCUT (04:08)
--- NOTE | 2020-02-03 04:20 | PC.NURSE ---
PT HAS HAD AN UNEVENTFUL NIGHT. PT DENIES PAIN. WILL CONTINUE TO MONITOR.
--- NOTE | 2020-02-03 06:00 | XRR_ITS ---
PROCEDURE INFORMATION: Exam: XR Chest, 1 View Exam date and time: 02/02/2020 11:59 PM Age: 74 years old Clinical indication: Dyspnea; Additional info: Covid TECHNIQUE: Imaging protocol: XR of the chest Views: 1 view. COMPARISON: CR XR chest 1V portable [id number] 02/01/2020 5:21 AM FINDINGS: Lungs: Emphysematous changes are seen bilaterally. There are some increased interstitial markings seen bilaterally possibly representing pulmonary fibrosis. Superimposed interstitial pneumonia cannot be excluded. Pleural space: Unremarkable. No pleural effusion. No pneumothorax. Heart/Mediastinum: Unremarkable. No cardiomegaly. Bones/joints: Unremarkable. Soft tissues: Bilateral breast implants. XR/XR chest 1V portable [id number] IMPRESSION: Probable background of emphysema and mild pulmonary fibrosis. However, superimposed interstitial pneumonia cannot be excluded. These findings are unchanged from 02/01/2020.
[2020-02-03 06:01] LABS: C Reactive Protein 21.8 mg/L (0.0-4.9); Creatine Phosphokinase 32 U/L (26-192); Ferritin 464 ng/mL (15-150); Lactate Dehydrogenase 275 U/L (135-214); NT Pro B Type Natriuretic Pept 904 pg/mL (0-125)
[2020-02-03 06:19] LABS: Fibrinogen 432 mg/dL (174-498)
[2020-02-03 06:27] LABS: D Dimer 0.73 ug/mIFEU (0-0.59)
[2020-02-03 08:00] VITALS: BP 132/73; PULSE 70; PULSE 83; RESP 18; TEMP 36.4; O2SAT 93
[2020-02-03 08:40] VITALS: PULSE 80; RESP 18; O2SAT 96
[2020-02-03 08:45] VITALS: PULSE 83
[2020-02-03] MEDS: dexamethasone 4 mg/mL INJ 6 MG IVP (08:50)
[2020-02-03] MEDS: azithromycin 250 mg Tablet 500 MG PO (08:51)
[2020-02-03] MEDS: ferrous gluconate 324 mg Tablet PO (08:51)
[2020-02-03] MEDS: ascorbic acid 500 mg Tablet 1000 MG PO (08:53)
--- NOTE | 2020-02-03 09:05 | PC.SOCIAL ---
IMM Page 2 of IMM explained to patient over the phone. She verbalizes understanding. Initialed, dated, and timed and placed in chart. Copy provided to nurses to take into patient's room d/t her being COVID +.
[2020-02-03] MEDS: benzonatate 100 mg Capsule PO (09:09)
[2020-02-03] MEDS: atorvastatin 40 mg Tablet 20 MG PO (09:09)
[2020-02-03] MEDS: zinc gluconate 50 mg Tablet PO (09:09)
[2020-02-03] MEDS: gabapentin 400 mg Capsule PO (09:09)
[2020-02-03] MEDS: HYDROcodone-acetaminophen 5-325 mg Tablet 1 TAB PO (09:30)
--- NOTE | 2020-02-03 09:46 | PC.NURSE ---
Up in room Pt is brushing her teeth and brushing her hair in the sink.
[2020-02-03] MEDS: lanolin oint 7 gm 1 APPLIC TOPICAL (09:48)
[2020-02-03 10:38] VITALS: BP 116/68; PULSE 75; RESP 20; TEMP 37.1; O2SAT 95
[2020-02-03 11:59] VITALS: O2SAT 88; O2SAT 95
--- NOTE | 2020-02-03 13:27 | P.DS_ITS ---
Discharge Providers Date of Admission: 01/31/20 10:37 Date of Discharge: February 03, 2020 Attending Provider at Admission: Usama Mei MD Attending Provider at Discharge: Usama Mei MD Primary Care Provider: Tonia Tierney DO Diagnoses at Discharge Discharge Diagnosis (1) Syncope due to orthostatic hypotension: Status: Acute (2) Pneumonia due to 2019-nCoV: Status: Acute (3) Hyponatremia: Status: Acute (4) DONATO (acute kidney injury): Status: Acute (5) Benign essential HTN: Status: Acute (6) Hypoxia: Status: Acute Reason for Visit Reason for Visit: Covid +/Weakness/Passed out this morning Hospital Course Hospital Course Tala Gale is a 74 year old female with past medical history of hypertension, chronic opiate for pain management who was recently diagnosed with COVID-19 a week ago and has been on home management came in because she was found syncopized on bathroom floor by her . As per the patient he has been doing fairly stable with Covid for last 1 week other than her having an episode of hypoxia 2 days ago when she came to the ER and was sent home on oxygen concentrator. She states she monitors her oxygen levels at home and usually they are running more than 90 then she has not required oxygen at all. She states she has been feeling weak for last 3 days, having diarrhea for last 2 days, have lost since of smell and taste for last 2 days and her appetite has been poor as well. She has continued to take her antihypertensives. She does not know what happened last night when she went to the bathroom and she does not remember having any aura, seizure-like activity or having any similar episodes in the past. In the ER patient was found to have a white count of 5.4, hemoglobin of 11.7, platelet count of 220, D-dimer of 1.9, pH of 7.46, CO2 of 32, PO2 of 53 on room air on ABG, sodium of 135, creatinine of 1.1, AST/ALT of 42/19, CTA chest negative for any pulmonary embolism with mild changes for COVID-19 pneumonia with peripheral GGO's. On my examination patient is lying comfortably in bed not tachypneic saturating 98% on 2 L nasal cannula. During my examination we turned on the oxygen to room air in case she continued to saturate at 9091% without having any tachypnea. Denies any nausea, vomiting, headache. Blood pressure on examination 98/60 mmHg. Patient was admitted to the hospital for management of syncope, hypoxia due to COVID-19 pneumonia. She was started on IV Decadron, remdesivir for COVID-19 pneumonia. First set therapy patient was dehydrated on the admission and was orthostatic positive so antihypertensives were withheld and she was started on gentle IV hydration. Eventually her symptoms for orthostatic hypotension and dizziness improved while holding antihypertensives. Patient remained on recent baseline 2 L oxygen supplementation on and off during her course of treatment. Inflammatory markers were monitored. Patient has received 4 doses of remdesivir. As her oxygen supplementation and inflammatory markers continue to remain stable decision was made to discharge patient home. Home O2 evaluation was done prior to discharge. She has been discharged on Eliquis for 2 weeks, vitamin C and zinc, Advair and Spiriva for inhalation treatment and had been asked. We will hold her antihypertensives for now. She is advised to maintain a blood pressure diary at home and to follow-up with your primary care provider within next 3 to 7 days and take her blood pressure diary along for further management of her hypertension. Physical Exam Narrative: EXAM NARRATIVE: General: No acute distress, AO x3 HEENT: PERRLA, pupils bilaterally equal and reactive Chest: Normal vesicular breath sounds, no added sounds, equal good air entry bi laterally CVS: S1-S2 regular, no murmurs, no tachycardia, no gallops, no rubs Abdomen: Soft, nontender, no organomegaly, bowel sounds present Neuro: No focal deficits, no facial deformity, AO x3, power 5/5 in all limbs Discharge Data Data Completed and Pending: Completed Studies During Hospitalization Category Date Time Status CT angio chest PE protcl [id number] Stat Cat Scan 01/31/20 07:[address] head wo con* [id number] Routine Cat Scan 02/01/20 17:12 Completed XR chest 1V joanna ble [id number] Q48H Exams 02/01/20 06:00 Completed XR chest 1V joanna ble [id number] Q48H Exams 02/03/20 06:00 Completed XR chest 1V joanna ble [id number] Stat Exams 01/31/20 07:34 Completed CV echo complete* [id number] Routine Ultrasound 02/01/20 13:53 Completed Pending at discharge Category Date Time Status XR chest 1V joanna ble [id number] Q48H Exams 02/05/20 06:00 Ordered Blood Culture Sta t Lab 01/31/20 15:30 Results Sputum Culture an d Gram Stain Stat Lab 01/31/20 14:18 Uncollected Urine Random Lyte s Routine Lab 02/01/20 17:12 Uncollected Labs from last 24 hours 02/03/20 02/03/20 05:20 05:20 Fibrinogen 432 D-Dimer 0.73 H Ferritin 464 H Lactate Dehydrogen ase 275 H Creatine Kinase 32 C-Reactive Protein 21.8 H NT-Pro-B Natriuret Pep 904 H Vitals: Last Vital Signs Temp 98.7 F 02/03/20 10:38 Pulse 75 02/03/20 10:38 Resp 20 H 02/03/20 10:38 BP 116/68 02/03/20 10:38 Pulse Ox 88 L 02/03/20 11:59 Discharge Plan Discharge Patient Disposition: Home Condition: Stable Prescriptions: New Advair Diskus 250-50 mcg/dose Blister With Device 1 puff inhalation BID.RESPIRATORY Qty: 30 RF: 0 Vitamin C 500 mg Tablet 1,000 mg PO BID 14 Days Qty: 56 RF: 0 benzonatate 100 mg Capsule 100 mg PO TID PRN (Reason: cough) Qty: 10 RF: 0 zinc gluconate 50 mg Tablet 50 mg PO DAILY Qty: 30 RF: 0 Spiriva with HandiHaler 18 mcg Capsule, W/Inhalation Device 18 mcg inhalation DAILY.RESPIRATORY Qty: 30 RF: 0 ferrous gluconate 324 mg (37.5 mg iron) Tablet 324 mg PO BIDWM Qty: 60 RF: 0 Medrol (Loyd) 4 mg tablets,dose pack See Rx Instructions .ROUTE .COMPLEX Qty: 21 RF: 0 Protonix [address] for susp in packet 40 mg PO DAILY Qty: 30 RF: 0 Continued naproxen sodium [Aleve] 220 mg tablet 220 mg PO BID PRN (Reason: Pain) RF: 0 hydrocodone-acetaminophen 10-325 mg tablet 1 tab PO BID PRN (Reason: pain) 30 Days Qty: 60 RF: 0 gabapentin 800 mg tablet 800 mg PO TID 30 Days Qty: 90 RF: 1 atorvastatin 10 mg tablet 10 mg PO DAILY Qty: 90 RF: 1 Discontinued lisinopril 10 mg tablet 10 mg PO DAILY RF: 0 Discharge Orders: Discharge Order (Routine); Ordered 02/03/20 Ordered By: Usaam Mei Other Ambulatory Orders: DME: Oxygen (Order) Location: None Selected Ordered By: Usama Mei Referrals: Tonia Tierney DO [Primary Care Provider] - 1-3 days ([facility] will contact you to schedule an follow-up appointment with Dr. Tierney in 1 to 3 days. If you haven't heard from the by Tuesday, please call ) Discharge Diet: Regular Discharge Activity: Resume usual activity and Increase activity as tolerated Patient Instructions: Corticosteroids (By mouth), Ascorbic Acid (Vitamin C) (By mouth), Methylprednisolone (By mouth), Pantoprazole (By mouth), Fluticasone/Salmeterol (By breathing), Tiotropium (By breathing), Vitamin B/Iron/Vitamin C (By mouth), Zinc Supplement (By mouth), Viral Pneumonia (DC), Acute Kidney Injury (DC), Hyponatremia (DC), Syncope (DC), Hypertension (DC), Hypoxia (GEN), Pneumonia (DC), Pneumonia Stoplight Activity Restrictions/Additional Instructions: Please continue take Eliquis which is a blood thinner for 2 weeks, vitamin C and zinc for 2 weeks, inhalation treatment with Advair and Spiriva for next 2 weeks. Lisinopril which is a blood pressure medication has been stopped. Continue checking blood pressure at home and maintain a blood pressure diary which he should take along with ESR daily follow-up with your primary care provider within next 3 to 7 days. Discharge Attestations Time Spent in Discharge Care*: greater than 30 min Specific Discharge Activities: educating patient, discussing with pcp/other providers, discussing with bilingual patient support caseworker/social workers/dc planners, documenting/other paperwork and evaluating patient/reviewing data Status at Discharge: Cognitive status at discharge: cognitively intact , Behavioral status at discharge: cooperative , Functional status at discharge: independent ambulation Overall status at discharge: patient is back to baseline Quality Metrics Clinical Quality Measures During this hospital stay, did patient experience: None Coding Level of Care Code Acute Supervisor [employer] [facility] for [facility] Fwd Diagnoses Syncope due to orthostatic hypotension I95.1 Pneumonia due to 2019-nCoV U07.1; J12.89 Hyponatremia E87.1 DONATO (acute kidney injury) N17.9 Benign essential HTN I10 Hypoxia R09.02
--- NOTE | 2020-02-03 13:30 | PC.NURSE ---
Informed pt of her discharge to home today and to let her know to bring her portable oxygen from home. Pt called her .
--- NOTE | 2020-02-03 14:26 | PC.NURSE ---
Discharge to home Instructed pt to follow-up with her pcp. Informed pt on new discharge meds. Instructed pt to check her BP at home and oxygen regularly at home. Pt discharge packet given. Ushered via wheelchair to designated area.
--- NOTE | 2020-02-04 15:52 | PC.SOCIAL ---
Attempted to call patient, no answer, left a voicemail for her to call me back.
== END 2020-02-03 14:24 | disposition home or self-care (01) | DRG 177 ==
LOC: ER 10:39 → CSU 10:51
PROVIDERS: Admitting Provider Student in an Organized Health Care Education/Training Program; Emergency Provider Family Medicine; PCP Family Medicine; Visit Provider Student in an Organized Health Care Education/Training Program
DX: U07.1 COVID-19 (principal); J12.89 Other viral pneumonia; E87.1 Hypo-osmolality and hyponatremia; N17.9 Acute kidney failure, unspecified; I95.1 Orthostatic hypotension; R09.02 Hypoxemia; I10 Essential (primary) hypertension; E86.0 Dehydration; Z79.891 Long term (current) use of opiate analgesic; Z91.81 History of falling; G89.29 Other chronic pain; M54.42 Lumbago with sciatica, left side; M54.41 Lumbago with sciatica, right side; Z87.891 Personal history of nicotine dependence
CPT/HCPCS: 12345; 36415; 36600; 70450; 71045; 71275; 80051; 80053; 81001; 82330; 82550; 82607; 82728; 82746; 82803; 82805; 83036; 83540; 83550; 83605; 83615; 83735; 83880; 84100; 84145; 84443; 85025; 85378; 85384; 85610; 86140; 86403; 87040; 87449; 87641; 93005; 93306; 94640; 96372; 96374; 96375; 99281; 99283; 99284; J1100; J1650; J1956; J3490; J7030; Q0144; Q9967

== ENCOUNTER 2020-02-06 10:19 | Inpatient (IN) | payer MEDICARE, OTHER, SELFPAY ==
[2020-02-06] VITALS (17 sets, daily range): BP systolic 105–148; BP diastolic 64–97; PULSE 70–99; RESP 16–24; TEMP 36.6–37.1; O2SAT 81–99; BMI 20.7; BMI 23.1
--- NOTE | 2020-02-06 | CT_ITS ---
WS: [id number] CT HEAD NONCONTRAST HISTORY: CONFUSION TECHNIQUE: Contiguous axial imaging performed through the brain in 2.5 mm imaging. Bone and soft tiss ue windows. Sagittal and coronal reformats reviewed. All CT scans at [facility] use at ast one of these dose optimization techniques: automated exposure control; mA and/or kV adjustment pe r patient size (includes targeted exams where dose is matched to clinical indication); or iterative r econstruction. DLP: 744.63 mGy.cm COMPARISON: 02/01/2020 No acute intracranial hemorrhage, midline shift or mass effect. Mild atrophy and chronic ischemic disease. Calcification along the LEFT parafalcine falx measures 11 mm and probably representing a calcified meningioma. No mass effect upon the brain. Ventricles: Normal size with no hydrocephalus. Paranasal sinuses: As visualized are clear. Mastoid air cells: Well pneumatized. Calvarium and scalp: Skull is intact with no soft tissue edema or swelling. CT/CT head wo con* [id number] IMPRESSION: 1. No acute intracranial hemorrhage or edema. 2. Stable noncontrast head CT since 02/01/2020.
--- NOTE | 2020-02-06 11:02 | XR_ITS ---
WS: [id number] PORTABLE CHEST HISTORY: syncope COMPARISON: 02/03/2020 Hyperexpanded lungs from emphysema. Bilateral pulmonary opacifications in the mid and lower lung fiel ds. Mild progression since the prior CT of 01/31/2020 and radiographs of 02/03/2020. No pleural effus ion or pneumothorax. Cardiac size: Normal. Mediastinum/Aorta: Normal mediastinum. No osseous abnormality seen. Dorsal column stim later electrodes project over the mid thoracic spine. XR/XR chest 1V portable [id number] IMPRESSION: 1. Mild increase in the pulmonary opacifications in the mid and lower lung fie lds since 02/03/2020. 2. Chronic emphysema.
--- NOTE | 2020-02-06 11:03 | ECG_ITS ---
[facility] Test Date: 2020-02-06 Pat Name: Tala Gale Department: Room: ICU19 Gender: Female Learning Design Specialist: : [id number] Requested By: Jailyn Prakash Order Number: [id number] Ambar MD: Cara Guan M.D. Measurements Intervals Kiefer Rate: 83 P: 42 WI: 123 QRS: -20 QRSD: 81 T: -11 QT: 339 QTc: 399 Interpretive Statements SINUS RHYTHM POSSIBLE RIGHT VENTRICULAR CONDUCTION DELAY [RSR (QR) IN V1/V2] NONSPECIFIC ST & T-WAVE ABNORMALITY Compared to ECG 01/29/2020 11:12:15 T-wave abnormality now present Electronically Signed On 02-06-2020 18:21:36 [employer] DRIVER by Cara Guan M.D. [id number]
--- NOTE | 2020-02-06 11:31 | W.ED.SOB ---
HPI - SOB/Dyspnea General: Chief Complaint: Shortness of Breath/Dyspnea Stated Complaint: covid +/low oxygen Time Seen by Provider: 02/06/20 10:43 Source: patient Mode of arrival: ambulatory Limitations: no limitations History of Present Illness: HPI Narrative: 74-year-old female patient presents to the emergency department due to hypoxia. Recent discharge from the hospital secondary to Covid 19 viral illness, pneumonia. Discharged home on supplemental oxygen, 2 L nasal cannula. She does brought into the emergency department via her spouse who states past 4 to 5 days of worsening symptoms, increased shortness of breath with decreased O2 levels of 86 to 88%. She is confused. Recent CT scan head without contrast completed 02/01/2020 without intracranial hemorrhage. MD elicited complaint: shortness of breath Pertinent past history: pneumonia and other (COVID-19 illness) Onset (ago): day(s) (4-5) Context: recent illness Timing: progressively worsening Severity: moderate Exacerbating factors: exertion and movement Relieving factors: oxygen and rest Associated symptoms: Deny abdominal pain, chest pain, diaphoresis, fever(s), nausea, palpitations or vomiting Treatment prior to arrival: oxygen and bronchodilator Review of Systems General: Reports: 10 or more systems reviewed and unremarkable except in HPI and below Const: Denies: fever(s), chills or diaphoresis Eyes: Denies: blurry vision or eye redness ENMT: Denies: throat pain, dental pain or disequilibrium Card: Denies: chest pain, palpitations or irregular heart rhythm Resp: Reports: dyspnea and other (low oxygen); Denies: productive cough, non-productive cough or wheezing GI: Denies: abdominal pain, nausea or vomiting : Denies: difficulty voiding or dysuria Musc: Denies: neck pain or back pain Skin/Breast: Denies: rash or pruritus Neuro: Denies: headache(s), weakness in extremities or behavioral changes Psych: Denies: anxiety or depression Malick/Lymph: Denies: easy bruising PFSH ED PFSH: Medical History Benign essential HTN Chronic midline low back pain with bilateral sciatica Encounter for long-term opiate analgesic use Intervertebral disc disorder with radiculopathy of lumbar region Opioid contract exists Pneumonia due to COVID-19 virus Postmenopausal Surgical History H/O breast augmentation History of back surgery Spinal Cord Stimulator Trial-Dr. Torres at [facility] 04/16/19 History of implanted electronic device Dr. Young- 08/16/19 Hx of cataract extraction Bilat done in [place] Status post hip surgery Family History Other Cancer Social History Smoking and tobacco status: former smoker Alcohol intake: current Alcohol intake frequency: holidays/special occasions only Lives independently: Yes Household members: spouse Marital status: Current occupational status: retired History of recent travel: No Physical Exam Const: COMMON NORMALS: no acute distress, alert and well nourished EXAM LIMITATIONS: altered mental status GENERAL APPEARANCE: cooperative, well kempt and well hydrated NUTRITIONAL APPEARANCE: thin ORIENTATION/CONSCIOUSNESS: Yes awake, Yes oriented to person, Yes oriented to place and Yes confused; not oriented to time HENMT: COMMON NORMALS: normocephalic, Normal external nose present and moist oral mucous membranes HEAD & SCALP: normocephalic NOSE: Normal external nose present Eye: COMMON NORMALS: Equal, round and reactive pupils present and EOMs intact bilaterally GENERAL EYE: appearance normal, both eyes and all related structures PUPIL: Yes Equal, round and reactive pupils present Neck/C-Spine: COMMON NORMALS: full ROM and no lymphadenopathy GENERAL: Yes normal visual inspection and Yes trachea midline CERVICAL SPINE: Yes cervical ROM normal Lymph: LYMPHATIC: no lymphadenopathy noted Chest: COMMONS NORMALS: normal inspection of the chest and normal palpation of entire chest wall CHEST: No localized rib tenderness with anteroposterior compression Resp: EFFORT & INSPECTION: Yes tachypneic, Yes labored and No paradoxical thoraco-abdominal movements AUSCULTATION: crackles Laterality: left and diminished lung sounds on the right Cardio: COMMON NORMALS: regular rhythm, S1 normal heart sound present, S2 normal heart sound present and Peripheral pulses 2+ throughout RHYTHM: regular rhythm HEART SOUNDS: S1 normal heart sound present and S2 normal heart sound present PERIPHERAL PULSES: Peripheral pulses 2+ throughout GI: COMMON NORMALS: Soft to palpation and non-tender INSPECTION: Yes normal to inspection AUSCULTATION: Yes normoactive bowel sounds PALPATION: Yes Soft to palpation : COMMON NORMALS: Yes no CVA tenderness BLADDER/KIDNEY EXAM: Yes no CVA tenderness Back/Pelvis: COMMON NORMALS: no CVA tenderness and thoracic and lumbar spine normal to inspection Extremity: COMMON NORMALS: normal to inspection and capillary refill normal GENERAL: Yes normal exam except as noted Neuro: FLAQUITO COMA SCALE: document GCS findings [place] coma scale eye opening: Spontaneous [place] coma scale verbal response: Confused [place] coma scale motor response: Obey commands [place] coma scale total score: 14 COMMON NORMALS: moves all extremities and no focal motor deficits SENSORIUM/ORIENTATION: Yes alert, Yes oriented to person, Yes oriented to place and No oriented to time SPEECH: speech normal GAIT: Yes Normal gait present MOTOR EXAM: 5/5 motor strength present throughout Psych: COMMON NORMALS: mental status grossly normal, Normal thought process present, cooperative and speech normal APPEARANCE: Yes well kempt ATTITUDE: Yes calm ACTIVITY/MOTOR BEHAVIOR: Yes appropriate eye contact SPEECH: Yes normal speech THOUGHT PROCESS: Normal thought process present Skin: COMMON NORMALS: no rashes or lesions noted and turgor normal GENERAL SKIN EXAM: no rashes or lesions noted and turgor normal Course ED course: 74-year-old female patient presents to the emergency department with hypoxia despite use of home oxygen. Recently discharged from the facility with COVID-19, COVID-19 pneumonia. Spouse reports increased confusion with low oxygen readings at home. Patient placed on 4 L nasal cannula with oxygen saturation 88 to 90%. Case discussed with Dr. Trinidad along with findings of her CT scan with worsening opacities, CT scan of the brain without acute findings, patient will require hospitalization, transfer of care to supervising physician. Vital Signs: Vital signs: Vital Signs Temperature 98.8 F 02/06/20 16:37 Pulse Rate 74 02/06/20 17:06 Respiratory Rate 18 02/06/20 17:06 Blood Pressure 148/97 02/06/20 16:37 Pulse Oximetry 93 02/06/20 17:06 MDM - SOB/Dyspnea Lab Data: Labs: Lab Results 02/06/20 02/06/20 02/06/20 Range/Units 11:17 11:27 11:27 WBC 16.7 H (4.0-10.0) 10^3/ uL RBC 4.24 (4.1-5.3) 10^6/u L Hgb 12.7 (11.5-15.3) g/dL Hct 38.7 (37.0-47.0) % MCV 91.3 (81-99) fL MCH 30.0 (28.0-34.0) pg MCHC 32.8 (30.0-36.0) g/dL RDW 14.0 (12.1-15.1) % Plt Count 466 H (130-400) 10^3/c mm MPV 9.6 (7.4-10.4) fL Neut % (Auto) 81.1 % Lymph % (Auto) 7.8 % [place] % (Auto) 9.0 % Eos % (Auto) 0.0 % Baso % (Auto) 0.2 % Neut # (Auto) 13.55 H (1.8-7.7) 10^3/u L Lymph # (Auto) 1.3 (0.8-4.8) 10^3/u L [place] # (Auto) 1.5 H (0.2-0.9) 10^3/u L Eos # (Auto) 0.0 (0.0-0.8) 10^3/u L Baso # (Auto) 0.0 (0.0-0.1) 10^3/u L Nucleated RBC % (a uto) 0 % Nucleated RBCs # 0.0 /100WBC ESR 12 (0-15) mm/hr D-Dimer (0-0.59) ug/mIFE U Specimen Type Ap Sample Site Right radial ABG pH 7.49 H (7.35-7.45) ABG pCO2 35.8 (35-45) mmHg ABG pO2 51.7 L (80.0-100.0) mmH g ABG HCO3 27.4 H (22-26) mmol/L ABG O2 Saturation 89.5 ABG Base Excess 4.1 H (-2.0-2.0) mmol/ L Al Test Yes A-a O2 Gradient 131.1 H (5-10) mmHg Hematocrit 40.0 (37-47) % Hgb O2 Saturation 88.0 L (95-100) % Carboxyhemoglobin 0.8 (0.4-20.1) %THgb Methemoglobin 0.9 (0.4-1.5) % Total Hemoglobin 13.0 (12-16) g/dL Sodium 137.0 (131-143) mmol/L Potassium 3.8 (3.5-5.0) mmol/L Glucose 142.0 H (70-115) mg/dL Ionized Calcium 1.3 (1.1-1.4) mmol/L O2 Delivery Device Nc O2 Liters/Min 3.0 % FiO2 32.0 % Specimen Drawn By Duner [place] Oven Operator ID Ed Chloride (98-107) mmol/L Carbon Dioxide (22-29) mmol/L Anion Gap (5-19) BUN (8-23) mg/dL Creatinine (0.5-0.9) mg/dL GFR Calculation Calculated Osmolal ity (285-295) mOsm/k g Lactate (0.5-2.2) mmol/L Calcium (8.5-10.5) mg/dL Total Bilirubin (0.15-1.2) mg/dL AST (0-32) U/L ALT (0-33) U/L Alkaline Phosphata se (35-105) IU/L Troponin T Baselin e (0-10) ng/L Troponin T 120 Min [place] (0-10) ng/L Delta Troponin T (0-10) ABS# C-Reactive Protein (0.0-4.9) mg/L Total Protein (6.6-8.7) g/dL Albumin (3.5-5.2) g/dL Globulin (1.3-4.6) g/dL Procalcitonin (0-0.5) ng/mL 02/06/20 02/06/20 02/06/20 Range/Units 11:27 11:27 11:27 WBC (4.0-10.0) 10^3/ uL RBC (4.1-5.3) 10^6/u L Hgb (11.5-15.3) g/dL Hct (37.0-47.0) % MCV (81-99) fL MCH (28.0-34.0) pg MCHC (30.0-36.0) g/dL RDW (12.1-15.1) % Plt Count (130-400) 10^3/c mm MPV (7.4-10.4) fL Neut % (Auto) % Lymph % (Auto) % [place] % (Auto) % Eos % (Auto) % Baso % (Auto) % Neut # (Auto) (1.8-7.7) 10^3/u L Lymph # (Auto) (0.8-4.8) 10^3/u L [place] # (Auto) (0.2-0.9) 10^3/u L Eos # (Auto) (0.0-0.8) 10^3/u L Baso # (Auto) (0.0-0.1) 10^3/u L Nucleated RBC % (a uto) % Nucleated RBCs # /100WBC ESR (0-15) mm/hr D-Dimer 3.73 H (0-0.59) ug/mIFE U Specimen Type Sample Site ABG pH (7.35-7.45) ABG pCO2 (35-45) mmHg ABG pO2 (80.0-100.0) mmH g ABG HCO3 (22-26) mmol/L ABG O2 Saturation ABG Base Excess (-2.0-2.0) mmol/ L Al Test A-a O2 Gradient (5-10) mmHg Hematocrit (37-47) % Hgb O2 Saturation (95-100) % Carboxyhemoglobin (0.4-20.1) %THgb Methemoglobin (0.4-1.5) % Total Hemoglobin (12-16) g/dL Sodium 136 (131-143) mmol/L Potassium 4.3 (3.5-5.0) mmol/L Glucose 146 H (70-115) mg/dL Ionized Calcium (1.1-1.4) mmol/L O2 Delivery Device O2 Liters/Min % FiO2 % Specimen Drawn By Annealing Oven Operator ID Chloride 101 (98-107) mmol/L Carbon Dioxide 24 (22-29) mmol/L Anion Gap 15.3 (5-19) BUN 25 H (8-23) mg/dL Creatinine 0.6 (0.5-0.9) mg/dL GFR Calculation Not Reportable Calculated Osmolal ity 289 (285-295) mOsm/k g Lactate (0.5-2.2) mmol/L Calcium 9.6 (8.5-10.5) mg/dL Total Bilirubin 0.5 (0.15-1.2) mg/dL AST 41 H (0-32) U/L ALT 48 H (0-33) U/L Alkaline Phosphata se 78 (35-105) IU/L Troponin T Baselin e 25 H (0-10) ng/L Troponin T 120 Min [place] (0-10) ng/L Delta Troponin T (0-10) ABS# C-Reactive Protein 13.9 H (0.0-4.9) mg/L Total Protein 5.8 L (6.6-8.7) g/dL Albumin 3.7 (3.5-5.2) g/dL Globulin 2.1 (1.3-4.6) g/dL Procalcitonin 0.09 (0-0.5) ng/mL 02/06/20 02/06/20 Range/Units 12:50 12:50 WBC (4.0-10.0) 10^3/ uL RBC (4.1-5.3) 10^6/u L Hgb (11.5-15.3) g/dL Hct (37.0-47.0) % MCV (81-99) fL MCH (28.0-34.0) pg MCHC (30.0-36.0) g/dL RDW (12.1-15.1) % Plt Count (130-400) 10^3/c mm MPV (7.4-10.4) fL Neut % (Auto) % Lymph % (Auto) % [place] % (Auto) % Eos % (Auto) % Baso % (Auto) % Neut # (Auto) (1.8-7.7) 10^3/u L Lymph # (Auto) (0.8-4.8) 10^3/u L [place] # (Auto) (0.2-0.9) 10^3/u L Eos # (Auto) (0.0-0.8) 10^3/u L Baso # (Auto) (0.0-0.1) 10^3/u L Nucleated RBC % (a uto) % Nucleated RBCs # /100WBC ESR (0-15) mm/hr D-Dimer (0-0.59) ug/mIFE U Specimen Type Sample Site ABG pH (7.35-7.45) ABG pCO2 (35-45) mmHg ABG pO2 (80.0-100.0) mmH g ABG HCO3 (22-26) mmol/L ABG O2 Saturation ABG Base Excess (-2.0-2.0) mmol/ L Al Test A-a O2 Gradient (5-10) mmHg Hematocrit (37-47) % Hgb O2 Saturation (95-100) % Carboxyhemoglobin (0.4-20.1) %THgb Methemoglobin (0.4-1.5) % Total Hemoglobin (12-16) g/dL Sodium (131-143) mmol/L Potassium (3.5-5.0) mmol/L Glucose (70-115) mg/dL Ionized Calcium (1.1-1.4) mmol/L O2 Delivery Device O2 Liters/Min % FiO2 % Specimen Drawn By Annealing Oven Operator ID Chloride (98-107) mmol/L Carbon Dioxide (22-29) mmol/L Anion Gap (5-19) BUN (8-23) mg/dL Creatinine (0.5-0.9) mg/dL GFR Calculation Calculated Osmolal ity (285-295) mOsm/k g Lactate 1.4 (0.5-2.2) mmol/L Calcium (8.5-10.5) mg/dL Total Bilirubin (0.15-1.2) mg/dL AST (0-32) U/L ALT (0-33) U/L Alkaline Phosphata se (35-105) IU/L Troponin T Baselin e (0-10) ng/L Troponin T 120 Min [place] 24.10 H (0-10) ng/L Delta Troponin T -0.90 L (0-10) ABS# C-Reactive Protein (0.0-4.9) mg/L Total Protein (6.6-8.7) g/dL Albumin (3.5-5.2) g/dL Globulin (1.3-4.6) g/dL Procalcitonin (0-0.5) ng/mL Imaging Data^: CT Chest: Radiologist's impression: [address] [address] [address] Scan Report Signed Patient: Tala Gale AUnit #: [id number] : 6Acct#:[id number] Age/Sex: 74 / FADM Date: 02/06/20 Loc: ERRoom/Bed: Attending Dr: Ordering Provider/Ordering MD: Jailyn Sanchez Date of Service: 02/06/20 Procedure(s): CT angio chest PE protcl [id number] Accession Number(s): [id number] Report Number: [id number] WS: [id number] CT CHEST ANGIOGRAPHY WITH REFORMATS HISTORY: COVID, elevated d-dimer TECHNIQUE: Contiguous axial images are obtained through the chest during arterial injection of intravenous contrast. Images are reconstructed to evaluate the pulmonary arteries. MIP imaging also reviewed. All CT scans at [facility] use at least one of these dose optimization techniques: automated exposure control; mA and/or kV adjustment per patient size (includes targeted exams where dose is matched to clinical indication); or iterative reconstruction. CONTRAST: Omnipaque 350; 95 mL IV. DLP: 462.45 mGy.cm COMPARISON: 01/31/2020 Very good opacification of the pulmonary arteries. No pulmonary embolism. Normal size pulmonary artery. Mild atherosclerosis aorta. Cardiac size is normal. No pericardial or pleural effusions. Emphysema with scattered pulmonary opacifications. Opacifications are groundglass attenuation and greatest in the LEFT upper and in the lower lobes bilaterally. RIGHT middle lobe opacifications are also present. As compared to the prior examination there has been a mild progression of the groundglass attenuation. No enlarging mediastinal or hilar lymph nodes. Bilateral breast implants. Mildly enlarged LEFT substernal thyroid. There is a soft tissue nodule posterior to the superior RIGHT breast implant measuring 13 mm. This may be difficult to visualize on mammography. This is asymmetric to the LEFT breast. Low-attenuation ovoid 1.5 cm lesion which is probably a cyst in the LEFT kidney. No adrenal mass. Central RIGHT hepatic lobe cyst measuring 1.2 cm. Dorsal column stimulator electrodes in the midthoracic region. Advanced degenerative changes in the midthoracic spine. CT/CT angio chest PE protcl [id number] IMPRESSION: 1. No pulmonary embolism. 2. Bilateral groundglass areas of attenuation without improvement or significant progression since 01/31/2020. 3. Chronic emphysema. 4. Soft tissue nodule posterior to the superior RIGHT breast implant needs further evaluation. On a nonurgent basis bilateral diagnostic mammogram and possible ultrasound. This nodule may be difficult to evaluate due to its position posterior to the implant. Dictated By:Ebonie Emery DO Signed By:Ebonie Emery DOSigned Date/Time:02/06/20 1342 DD/ 1336 CT Head: Radiologist's impression: [address] [place] [address] CT Scan Report Signed Patient: Tala Gale AUnit #: [id number] : [id number]#:[id number] Age/Sex: 74 / FADM Date: 02/06/20 Loc: ERRoom/Bed: Attending Dr: Ordering Provider/Ordering MD: Jailyn Sanchez Date of Service: 02/06/20 Procedure(s): CT head wo con* [id number] Accession Number(s): [id number] Report Number: [id number] WS: [id number] CT HEAD NONCONTRAST HISTORY: CONFUSION TECHNIQUE: Contiguous axial imaging performed through the brain in 2.5 mm imaging. Bone and soft tissue windows. Sagittal and coronal reformats reviewed. All CT scans at [facility] use at least one of these dose optimization techniques: automated exposure control; mA and/or kV adjustment per patient size (includes targeted exams where dose is matched to clinical indication); or iterative reconstruction. DLP: 744.63 mGy.cm COMPARISON: 02/01/2020 No acute intracranial hemorrhage, midline shift or mass effect. Mild atrophy and chronic ischemic disease. Calcification along the LEFT parafalcine falx measures 11 mm and probably representing a calcified meningioma. No mass effect upon the brain. Ventricles: Normal size with no hydrocephalus. Paranasal sinuses: As visualized are clear. Mastoid air cells: Well pneumatized. Calvarium and scalp: Skull is intact with no soft tissue edema or swelling. CT/CT head wo con* [id number] IMPRESSION: 1. No acute intracranial hemorrhage or edema. 2. Stable noncontrast head CT since 02/01/2020. Dictated By:Ebonie Emery DO Signed By:Ebonie Emery DOSigned Date/Time:02/06/20 1336 DD/ 1317 Discharge Plan Discharge Patient Disposition: Admitted As Inpatient Admit Provider: Francis Saha Coding Level of Care Code ED Tempering Kiln Tender for Chg Fwd Exam Comprehensive
[2020-02-06 11:42] LABS: Basophils % 0.2 %; Hematocrit 38.7 % (37.0-47.0); Hemoglobin 12.7 g/dL (11.5-15.3); Lymphocytes # 1.3 10^3/uL (0.8-4.8); Lymphocytes % 7.8 %; Mean Corpuscular HGB Conc 32.8 g/dL (30.0-36.0); Mean Corpuscular Volume 91.3 fL (81-99); Mean Platelet Volume 9.6 fL (7.4-10.4); Monocytes # 1.5 10^3/uL (0.2-0.9); Neutrophils # 13.55 10^3/uL (1.8-7.7); Neutrophils % 81.1 %; Nucleated Red Blood Cells % 0 %; Platelet Count 466 10^3/cmm (130-400); Red Blood Count 4.24 10^6/uL (4.1-5.3); White Blood Count 16.7 10^3/uL (4.0-10.0)
--- NOTE | 2020-02-06 11:55 | CT_ITS ---
WS: [id number] CT HEAD NONCONTRAST HISTORY: confusion TECHNIQUE: Contiguous axial imaging performed through the brain in 2.5 mm imaging. Bone and soft tiss ue windows. Sagittal and coronal reformats reviewed. All CT scans at [facility] use at ast one of these dose optimization techniques: automated exposure control; mA and/or kV adjustment pe r patient size (includes targeted exams where dose is matched to clinical indication); or iterative r econstruction. DLP: 788.66 mGy.cm COMPARISON: 02/01/2020 No acute intracranial hemorrhage, midline shift or mass effect. Mild atrophy and mild chronic ischemic changes. Benign bilateral basal ganglia calcifications. No iván or infarcts. Mild chronic microvascular ischemic disease. Ventricles: Normal size with no hydrocephalus. Paranasal sinuses: As visualized are clear. Mastoid air cells: LEFT mastoid air cell effusion. RIGHT mastoid air cells are clear. Calvarium and scalp: Skull is intact with no soft tissue edema or swelling. Atherosclerotic calcifications are noted in the distal vertebral arteries and through the intracrania l carotid arteries.
[2020-02-06 12:10] LABS: D Dimer 3.73 ug/mIFEU (0-0.59)
[2020-02-06 12:19] LABS: Alanine Aminotransferase 48 U/L (0-33); Albumin Level 3.7 g/dL (3.5-5.2); Alkaline Phosphatase 78 IU/L (35-105); Blood Urea Nitrogen 25 mg/dL (8-23); C Reactive Protein 13.9 mg/L (0.0-4.9); Calcium 9.6 mg/dL (8.5-10.5); Carbon Dioxide 24 mmol/L (22-29); Chloride 101 mmol/L (98-107); Globulin 2.1 g/dL (1.3-4.6); Glucose 146 mg/dL (65-115); Osmolality Calculated 289 mOsm/kg (285-295); Sodium 136 mmol/L (136-145); Total Bilirubin 0.5 mg/dL (0.15-1.2); Total Protein 5.8 g/dL (6.6-8.7)
[2020-02-06 12:20] LABS: Troponin(5th) Baseline 25 ng/L (0-10)
[2020-02-06 12:24] LABS: Anion Gap 15.3 (5-19); Aspartate Amino Transferase 41 U/L (0-32); Potassium 4.3 mmol/L (3.5-5.1)
--- NOTE | 2020-02-06 12:27 | CT_ITS ---
WS: [id number] CT CHEST ANGIOGRAPHY WITH REFORMATS HISTORY: COVID, elevated d-dimer TECHNIQUE: Contiguous axial images are obtained through the chest during arterial injection of intrav enous contrast. Images are reconstructed to evaluate the pulmonary arteries. MIP imaging also reviewe d. All CT scans at [facility] use at least one of these dose optimization techniques: aut omated exposure control; mA and/or kV adjustment per patient size (includes targeted exams where dose is matched to clinical indication); or iterative reconstruction. CONTRAST: Omnipaque 350; 95 mL IV. DLP: 462.45 mGy.cm COMPARISON: 01/31/2020 Very good opacification of the pulmonary arteries. No pulmonary embolism. Normal size pulmonary arter y. Mild atherosclerosis aorta. Cardiac size is normal. No pericardial or pleural effusions. Emphysema with scattered pulmonary opacifications. Opacifications are groundglass attenuation and gre atest in the LEFT upper and in the lower lobes bilaterally. RIGHT middle lobe opacifications are also present. As compared to the prior examination there has been a mild progression of the groundglass a ttenuation. No enlarging mediastinal or hilar lymph nodes. Bilateral breast implants. Mildly enlarged LEFT substernal thyroid. There is a soft tissue nodule posterior to the superior RIGHT breast implant measuring 13 mm. This ma y be difficult to visualize on mammography. This is asymmetric to the LEFT breast. Low-attenuation ovoid 1.5 cm lesion which is probably a cyst in the LEFT kidney. No adrenal mass. Kaelyn tral RIGHT hepatic lobe cyst measuring 1.2 cm. Dorsal column stimulator electrodes in the midthoracic region. Advanced degenerative changes in the m idthoracic spine. CT/CT angio chest PE protcl [id number] IMPRESSION: 1. No pulmonary embolism. 2. Bilateral groundglass areas of attenuation without improvement or significa nt progression since 01/31/2020. 3. Chronic emphysema. 4. Soft tissue nodule posterior to the superior RIGHT breast implant needs fur ther evaluation. On a nonurgent basis bilateral diagnostic mammogram and possib le ultrasound. This nodule may be difficult to evaluate due to its position pos terior to the implant.
[2020-02-06 12:48] LABS: Procalcitonin 0.09 ng/mL (0-0.5)
[2020-02-06 12:59] LABS: Erythrocyte Sedimentation Rate 12 mm/hr (0-15)
--- NOTE | 2020-02-06 13:03 | ECG_ITS ---
[facility] Test Date: 2020-02-06 Pat Name: Tala Gale Department: Room: ICU19 Gender: Female Direct Service Professional: : 1945 Requested By: Jailyn Prakash Order Number: [id number] Ambar MD: Cara Guan M.D. Measurements Intervals [place] Rate: 75 P: 43 NE: 139 QRS: -8 QRSD: 79 T: 6 QT: 368 QTc: 413 Interpretive Statements SINUS RHYTHM POSSIBLE RIGHT VENTRICULAR CONDUCTION DELAY [RSR (QR) IN V1/V2] MODERATE ST DEPRESSION [0.05+ mV ST DEPRESSION] Compared to ECG 01/29/2020 11:12:15 ST (T wave) deviation now present Electronically Signed On 02-06-2020 18:39:07 DIRECTOR OF ACCOUNTS RECEIVABLE by Cara Guan M.D. [email or web address]
[2020-02-06] MEDS: iohexol 350 mg/mL 100 mL Btl IV (13:12)
[2020-02-06 14:06] LABS: ABG PCO2 35.8 mmHg (35-45); ABG PH Result 7.49 (7.35-7.45); Base Excess ABG 4.1 mmol/L (-2.0-2.0); HCO3 ABG 27.4 mmol/L (22-26); Oxygen Saturation ABG 89.5; PO2 ABG 51.7 mmHg (80.0-100.0); Potassium Level - ABG 3.8 mmol/L (3.5-5.0)
[2020-02-06 14:07] LABS: Blood Gas Operator Identificat ED; Oxygen Device NC
[2020-02-06 14:08] LABS: Carboxyhemoglobin 0.8 %THgb (0.4-20.1); Ionized Calcium Level - ABG 1.3 mmol/L (1.1-1.4); Methemoglobin 0.9 % (0.4-1.5)
[2020-02-06 15:21] LABS: Lactate (Lactic Acid level) 1.4 mmol/L (0.5-2.2)
[2020-02-06 16:04] LABS: Add Urine Microscopic? YES; Bilirubin Urine Neg (Negative); Blood Urine Neg (Negative); Glucose Urine UA Norm (Normal); Ketones Urine Negative (Negative); Leukocyte Esterase Urine Negative (Negative); Nitrate Urine Negative (Negative); Protein Urine Neg (Negative); Specific Gravity, Urine 1.015 (1.005-1.030); Urine Appearance SL Hazy (CLEAR); Urine Color Yellow (Yellow); Urobilinogen Urine Norm (Negative); pH Urine 7 (5-7)
[2020-02-06 16:05] LABS: Add Urine Culture? No; Amorphous Sediment Urine 1+ /hpf; Bacteria Urine 1+ /hpf; Squamous Epithelial Cell Urine 0-4 /hpf (0-5); WBC Urine 0-4 /hpf (0-5)
--- NOTE | 2020-02-06 16:20 | P.HP_ITS ---
Providers/Chief Complaint Admitting Physician: Francis Saha Primary Care Provider: Tonia Tierney DO Chief Complaint: covid +/low oxygen History of Present Illness Pleasant 74-year-old lady recently admitted here for 4 days with COVID-19 pneumonia, treated with remdesivir at that time, discharged home with Advair, Spiriva, Medrol Dosepak, zinc, vitamin C, Tessalon Perles. On discharge she required 2 L of oxygen by nasal cannula after showing good improvement while in the hospital. She returned to ER due to progressive shortness of breath again, noted hypoxic in ER, with PO2 of 51.7, requiring 6 L of oxygen to maintain saturation in high 80s-low 90s. She denies any chest pain or pressure. D-dimer elevated at 3.73. CT angiogram of the chest was obtained and no PE is seen. She is seen to have persistent bilateral patchy infiltrates from COVID-19. Underlying chronic emphysema. Incidentally noted soft tissue nodule posterior to the superior right breast implant. She denies having much significant cough. She denies orthopnea, lower extremity edema. Noted leukocytosis 16.7, mostly neutrophilic, with elevated monocytes. ABG 7.49/35.8/51.7/27.4 AST 41, ALT 48. Baseline troponin 25. CRP 13.9. D-dimer 3.73. OrientedSome confusion was reported, however, for me she is x3, alert, conversant, pleasant. Perhaps there was improvement with better oxygenation. CT head without acute intracranial abnormality. Review of Systems Const: Reports: fatigue and other (Confusion prior to admission); Denies: fever(s), chills, body aches or malaise Eyes: Denies: change in vision or eye redness ENMT: Denies: throat pain, oral sores or ear or mastoid pain Card: Denies: chest pain, edema, pre-syncope or dyspnea on exertion Resp: Reports: dyspnea; Denies: productive cough, change in phlegm color or hemoptysis GI: Denies: abdominal pain, nausea, vomiting, diarrhea, constipation, hematochezia or melena : Denies: flank pain, urinary frequency or hematuria Musc: Reports: back pain (Chronic back pain. ) and other (had a nerve stimulator implanted but it had an underwhelming effect); Denies: joint swelling or joint redness Skin/Breast: Reports: other (No issues with spinal nerve stimulator pocket.); Denies: rash, sores or new lesions Neuro: Denies: headache(s), numbness in extremities, weakness in extremities, dizziness, confusion or seizure-like activity Endo: Denies: polyuria or polydipsia Malick/Lymph: Denies: easy bleeding or purpura All/Imm: Denies: urticaria, throat swelling or tongue swelling Medications/Allergies Home Medications Medication Instructions Recorded Confirmed Last Taken Type atorvastatin 10 mg tablet 10 mg PO DAILY #90 tab 11/09/19 02/06/20 01/30/20 Rx gabapentin 800 mg tablet 800 mg PO TID 30 Days #90 tab 11/28/19 02/06/20 02/06/20 Rx hydrocodone 10 mg-acetaminophen 1 tab PO BID PRN 30 Days #60 tab 11/28/19 02/06/20 02/06/20 Rx 325 mg tablet ascorbic acid (vitamin C) [Vitamin 1,000 mg PO BID 14 Days #56 tab 02/03/20 02/06/20 02/06/20 Rx C] benzonatate 100 mg PO TID PRN #10 cap 02/03/20 02/06/20 Unknown Rx ferrous gluconate 324 mg PO BIDWM #60 tab 02/03/20 02/06/20 Unknown Rx fluticasone propion-salmeterol 1 puff INHALATION BID.RESPIRATORY 02/03/20 02/06/20 02/06/20 Rx [Advair Diskus] #30 ea methylprednisolone [Medrol (Loyd)] See Rx Instructions .ROUTE 02/03/20 02/06/20 02/06/20 Rx .COMPLEX #21 ea pantoprazole [Protonix] 40 mg PO DAILY #30 ea 02/03/20 02/06/20 02/06/20 Rx zinc gluconate 50 mg PO DAILY #30 tab 02/03/20 02/06/20 02/06/20 Rx lisinopril See Rx Instructions .ROUTE .COMPLEX 02/06/20 02/06/20 Unknown History tiotropium bromide 18 mcg capsule 18 mcg INHALATION 02/06/20 02/06/20 Unknown Rx with inhalation device DAILY.RESPIRATORY #30 inh Allergies Allergy/AdvReac Type Severity Reaction Status Date / Time celecoxib [From Celebrex] AdvReac ABDOMINAL Verified 02/06/20 11:14 PAIN PFSH Acute PFSH: Medical History Benign essential HTN Chronic midline low back pain with bilateral sciatica Encounter for long-term opiate analgesic use Intervertebral disc disorder with radiculopathy of lumbar region Opioid contract exists Pneumonia due to COVID-19 virus Postmenopausal Surgical History H/O breast augmentation History of back surgery Spinal Cord Stimulator Trial-Dr. Torres at [facility] 04/16/19 History of implanted electronic device Dr. Young- 08/16/19 Hx of cataract extraction Bilat done in [place] Status post hip surgery Family History Other Cancer Social History Smoking and tobacco status: former smoker Alcohol intake: current Alcohol intake frequency: holidays/special occasions only Lives independently: Yes Household members: spouse Marital status: Current occupational status: retired History of recent travel: No Vitals/I&O/Wt Last Vital Signs Temp 97.9 F 02/06/20 10:51 Pulse 78 02/06/20 15:53 Resp 18 02/06/20 15:53 BP 123/74 02/06/20 15:53 Pulse Ox 98 02/06/20 15:53 Weight last 48 hrs Weight 56.699 kg Physical Exam Const: COMMON NORMALS: no acute distress, patient oriented x3 and alert GENERAL APPEARANCE: cooperative ORIENTATION/CONSCIOUSNESS: Yes awake OTHER: NC at 5.5L, sat 89% at rest HENMT: COMMON NORMALS: oropharynx normal Neck/C-Spine: COMMON NORMALS: no JVD Resp: COMMON NORMALS: normal respiratory effort and clear to auscultation bilaterally EFFORT & INSPECTION: Yes able to speak in complete sentences AUSCULTATION: clear to auscultation bilaterally Cardio: COMMON NORMALS: no JVD, regular rhythm, S1 normal heart sound present, S2 normal heart sound present and No murmurs present (Cardio) RHYTHM: regular rhythm HEART SOUNDS: S1 normal heart sound present and S2 normal heart sound present GI: COMMON NORMALS: Normal to inspection, nondistended, normoactive bowel sounds present, Soft to palpation and non-tender PALPATION: Yes Soft to palpation Back/Pelvis: OTHER: Spinal stimulator pocket without any erythema or tenderness, swelling, no ulceration or drainage, no fluctuance. Extremity: COMMON NORMALS: no joint enlargement and no pedal edema Neuro: COMMON NORMALS: patient oriented x3 and moves all extremities Skin: COMMON NORMALS: no rashes or lesions noted GENERAL SKIN EXAM: no rashes or lesions noted Data : 02/06/20 11:27 02/06/20 11:27 A&P Assessment and plan (1) Pneumonia due to 2019-nCoV: Severe COVID-19 pneumonia. Acute respiratory failure with hypoxia. Worsening of dyspnea, hypoxia, requiring 6 L oxygen by nasal cannula currently to maintain saturation in the high 80s, low 90s. No PE noted on CTA. Persistent bilateral patchy opacities. Discussed with her and her possible bacterial pneumonia. For this we will treat empirically with antibiotic for now. Obtain sputum cultures if possible. MRSA by PCR. Urine bacterial antigens. Therapeutic dose anticoagulation due to elevated D-dimer. Restarted on remdesivir. Decadron. Supportive care. Oxygen as needed. Prescription of her CODE STATUS she would be willing to have ventilatory support at most with BiPAP. Otherwise states that she had gone through intubation, mechanical ventilation with her son who had a traumatic injury in childhood, and states she would not want to experience the same. Wants no CPR in case of cardiopulmonary arrest. Status: Acute (2) Acute encephalopathy: This improved. Suspect this was likely secondary to hypoxia and improved with oxygenation. Monitor. Does not fit sepsis criteria. CT head unremarkable. UA unremarkable. Status: Acute Additional A&P Information Minimal troponin elevation: She has no chest pain. Suspect this may be demand ischemia secondary to hypoxia and respiratory failure. Complete troponin EKG series. Spinal stimulator with chronic back pain: She states has had no issues with it, although it has not helped her very significantly with her back pain. Pocket appears intact, no fluctuance erythema, swelling or tenderness. Orthostatic hypotension: Antihypertensives were held during prior admission. Maintain fall precautions. Minimal transaminitis: Suspect secondary to viral illness. Discussed with her . Attestations Medical Necessity Statement*: Admission for 2 midnights is going to be needed for assessment management of acute respiratory failure with hypoxia, severe COVID-19 pneumonia. Coding Level of Care Code Acute Developmental Services Worker for g Fwd Diagnoses Pneumonia due to 2019-nCoV U07.1; J12.89 Acute encephalopathy G93.40
--- NOTE | 2020-02-06 17:03 | ECG_ITS ---
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 Measurements Intervals [place] Rate: 78 P: 44 FL: 126 QRS: 1 QRSD: 84 T: -1 QT: 357 QTc: 407 Interpretive Statements SINUS RHYTHM POSSIBLE ANTERIOR MYOCARDIAL INFARCTION [30 ms Q WAVE IN V3/V4, OR R < 0.2 mV IN V4], PROBABLY OLD Compared to ECG 02/06/2020 13:20:08 Myocardial infarct finding now present ST (T wave) deviation no longer present Electronically Signed On 02-06-2020 20:30:17 [employer] by Cara Guan M.D. [email or web address]
[2020-02-06] MEDS: ascorbic acid 500 mg Tablet 1000 MG PO (17:19)
[2020-02-06] MEDS: dexamethasone 4 mg/mL INJ 6 MG PO (17:19)
[2020-02-06] MEDS: levoFLOXacin 750 mg Tablet PO (17:21)
[2020-02-06] MEDS: enoxaparin 60 mg/0.6 mL Syringe 55 MG SUBCUT (17:28)
[2020-02-06] MEDS: HYDROcodone-acetaminophen 10-325 mg Tablet 1 TAB PO (17:40)
[2020-02-06 19:10] LABS: Troponin 5 6HR 24.73 ng/L (0-10)
[2020-02-06 19:23] LABS: Troponin 5 6HR Delta -0.27 ng/L (0-12)
[2020-02-06] MEDS: albuterol 8 gm MDI 2 PUFF INHALATION (20:17)
[2020-02-06] MEDS: gabapentin 400 mg Capsule 800 MG PO (20:22)
[2020-02-07] VITALS (26 sets, daily range): BP systolic 103–148; BP diastolic 63–91; PULSE 59–87; RESP 13–47; TEMP 36.8–37.1; O2SAT 89–100
[2020-02-07] MEDS: HYDROcodone-acetaminophen 10-325 mg Tablet 1 TAB PO ×2 (04:40→17:12)
[2020-02-07] MEDS: enoxaparin 60 mg/0.6 mL Syringe 55 MG SUBCUT ×2 (04:40→16:13)
[2020-02-07 07:32] LABS: Hematocrit 33.4 % (37.0-47.0); Hemoglobin 10.9 g/dL (11.5-15.3); Lymphocytes # 0.7 10^3/uL (0.8-4.8); Lymphocytes % 11.7 %; Mean Corpuscular HGB Conc 32.6 g/dL (30.0-36.0); Mean Corpuscular Hemoglobin 30.1 pg (28.0-34.0); Mean Corpuscular Volume 92.3 fL (81-99); Mean Platelet Volume 10.1 fL (7.4-10.4); Monocytes # 0.4 10^3/uL (0.2-0.9); Monocytes % 6.4 %; Neutrophils # 4.84 10^3/uL (1.8-7.7); Neutrophils % 78.8 %; Nucleated Red Blood Cells % 0 %; Platelet Count 379 10^3/cmm (130-400); Red Blood Count 3.62 10^6/uL (4.1-5.3); Red Cell Distribution Width 14.2 % (12.1-15.1); White Blood Count 6.1 10^3/uL (4.0-10.0)
[2020-02-07 07:55] LABS: Alanine Aminotransferase 36 U/L (0-33); Albumin Level 3.1 g/dL (3.5-5.2); Alkaline Phosphatase 65 IU/L (35-105); Anion Gap 14.2 (5-19); Aspartate Amino Transferase 21 U/L (0-32); Blood Urea Nitrogen 23 mg/dL (8-23); C Reactive Protein 23.4 mg/L (0.0-4.9); Calcium 8.6 mg/dL (8.5-10.5); Carbon Dioxide 26 mmol/L (22-29); Chloride 99 mmol/L (98-107); Globulin 2.4 g/dL (1.3-4.6); Glucose 147 mg/dL (65-115); Osmolality Calculated 286 mOsm/kg (285-295); Potassium 4.2 mmol/L (3.5-5.1); Sodium 135 mmol/L (136-145); Total Bilirubin 0.4 mg/dL (0.15-1.2); Total Protein 5.5 g/dL (6.6-8.7)
[2020-02-07] MEDS: pantoprazole DR 40 mg Tablet PO (08:02)
[2020-02-07] MEDS: gabapentin 400 mg Capsule 800 MG PO ×3 (08:02→20:11)
[2020-02-07] MEDS: atorvastatin 40 mg Tablet 20 MG PO (08:02)
[2020-02-07] MEDS: ascorbic acid 500 mg Tablet 1000 MG PO ×2 (08:02→17:06)
[2020-02-07] MEDS: zinc gluconate 50 mg Tablet PO (08:02)
[2020-02-07 08:28] LABS: D Dimer 1.66 ug/mIFEU (0-0.59)
--- NOTE | 2020-02-07 14:40 | P.PN_ITS ---
Subjective Subjective: Interval history: She is doing little better today. She noticed that she is breathing much easier when she is laying on her side. Discussed with her and encouraged her to self prone, and she likes the idea and states will be trying to do so. Vitals/I&O/Wt Last Vital Signs Temp 98.6 F 02/07/20 12:00 Pulse 67 02/07/20 14:00 Resp 25 H 02/07/20 14:00 BP 125/73 02/07/20 14:00 Pulse Ox 92 02/07/20 14:00 02/06/20 02/07/20 02/07/20 22:59 06:59 14:59 Intake Total 1070 / 1070 300 / 1370 480 / 480 Output Total 150 / 150 550 / 700 Balance 920 / 920 -250 / 670 480 / 480 Weight last 48 hrs Weight 62.596 kg Weight 62.868 kg Weight 56.699 kg Physical Exam Const: COMMON NORMALS: no acute distress, patient oriented x3 and alert ORIENTATION/CONSCIOUSNESS: Yes awake OTHER: More energetic and in better spirits HENMT: COMMON NORMALS: oropharynx normal Neck/C-Spine: COMMON NORMALS: no JVD Resp: COMMON NORMALS: normal respiratory effort and clear to auscultation bilaterally AUSCULTATION: clear to auscultation bilaterally Cardio: COMMON NORMALS: no JVD, regular rhythm, S1 normal heart sound present, S2 normal heart sound present and No murmurs present (Cardio) RHYTHM: regular rhythm HEART SOUNDS: S1 normal heart sound present and S2 normal heart sound present GI: COMMON NORMALS: Normal to inspection, nondistended, normoactive bowel sounds present, Soft to palpation and non-tender PALPATION: Yes Soft to palpation Extremity: COMMON NORMALS: no joint enlargement and no pedal edema Neuro: COMMON NORMALS: patient oriented x3 and moves all extremities SENS ORIUM/ORIENTATION: Yes alert Skin: COMMON NORMALS: no rashes or lesions noted GENERAL SKIN EXAM: no rashes or lesions noted Data : 02/07/20 04:15 02/07/20 04:15 Micro: Microbiology 02/06/20 14:50 Legionella Urinary Antigen - Final Urine,Voided Bacterial Antigens - Final A&P Assessment and plan (1) Pneumonia due to 2019-nCoV: Severe COVID-19 pneumonia. Acute respiratory failure with hypoxia. Last night worsened oxygen requirement, up to 12L. Today a little bit better, down to 10L. Continue remdesivir. Decadron. Prone as tolerating. No PE noted on CTA. Persistent bilateral patchy opacities. Possible bacterial pneumonia. Treat empirically with antibiotic for now. Obtain sputum cultures if possible. MRSA by PCR. Negative urine bacterial antigens. Therapeutic dose anticoagulation due to elevated D-dimer. Supportive care. Oxygen as needed. Discussed w her . Per discussion of her CODE STATUS she would be willing to have ventilatory support at most with BiPAP. Wants no CPR in case of cardiopulmonary arrest. Status: Acute (2) Acute encephalopathy: This improved. Suspect this was likely secondary to hypoxia and improved with oxygenation. Monitor. Does not fit sepsis criteria. CT head unremarkable. UA unremarkable. Status: Acute Additional A&P Information Minimal troponin elevation: She has no chest pain. Suspect this may be demand ischemia secondary to hypoxia and respiratory failure. Complete troponin EKG series. Spinal stimulator with chronic back pain: She states has had no issues with it, although it has not helped her very significantly with her back pain. Pocket appears intact, no fluctuance erythema, swelling or tenderness. Orthostatic hypotension: Antihypertensives were held during prior admission. Maintain fall precautions. Minimal transaminitis: Suspect secondary to viral illness. Discussed with her . Attestations Medical Necessity Statement*: Continue admission for assessment management of acute hypoxic respiratory failure, severe COVID-19 infection. Coding Level of Care Code Acute Studio Data Analyst for [facility] Fwd Exam Comprehensive Diagnoses Pneumonia due to 2019-nCoV U07.1; J12.89 Acute encephalopathy G93.40
[2020-02-07 15:05] LABS: Alveolar-Arterial Oxygen Gradi 17.5 mmHg (5-10); Blood Gas Allen Test Pos; Blood Gas Sample Site Radial, right; Blood Gas Sample Type Arterial
[2020-02-07] MEDS: dexamethasone 4 mg/mL INJ 6 MG PO (15:42)
[2020-02-07] MEDS: levoFLOXacin 750 mg Tablet PO (17:06)
[2020-02-08] VITALS (22 sets, daily range): BP systolic 102–140; BP diastolic 56–93; PULSE 53–105; RESP 13–26; TEMP 36.7–37.1; O2SAT 81–99
[2020-02-08 03:46] LABS: Basophils % 0.1 %; Hematocrit 34.8 % (37.0-47.0); Hemoglobin 11.2 g/dL (11.5-15.3); Lymphocytes # 0.8 10^3/uL (0.8-4.8); Lymphocytes % 11.2 %; Mean Corpuscular HGB Conc 32.2 g/dL (30.0-36.0); Mean Corpuscular Hemoglobin 29.8 pg (28.0-34.0); Mean Corpuscular Volume 92.6 fL (81-99); Mean Platelet Volume 10.1 fL (7.4-10.4); Monocytes # 0.4 10^3/uL (0.2-0.9); Monocytes % 5.2 %; Neutrophils # 5.79 10^3/uL (1.8-7.7); Neutrophils % 78.7 %; Nucleated Red Blood Cells % 0 %; Platelet Count 407 10^3/cmm (130-400); Red Blood Count 3.76 10^6/uL (4.1-5.3); Red Cell Distribution Width 14.1 % (12.1-15.1); White Blood Count 7.4 10^3/uL (4.0-10.0)
[2020-02-08 03:57] LABS: D Dimer 1.37 ug/mIFEU (0-0.59)
[2020-02-08 04:08] LABS: C Reactive Protein 17.3 mg/L (0.0-4.9)
[2020-02-08 04:09] LABS: Alanine Aminotransferase 37 U/L (0-33); Albumin Level 3.3 g/dL (3.5-5.2); Alkaline Phosphatase 62 IU/L (35-105); Anion Gap 13.5 (5-19); Aspartate Amino Transferase 24 U/L (0-32); Blood Urea Nitrogen 21 mg/dL (8-23); Calcium 9.2 mg/dL (8.5-10.5); Carbon Dioxide 27 mmol/L (22-29); Chloride 103 mmol/L (98-107); Globulin 2.2 g/dL (1.3-4.6); Glucose 150 mg/dL (65-115); Osmolality Calculated 294 mOsm/kg (285-295); Potassium 4.5 mmol/L (3.5-5.1); Sodium 139 mmol/L (136-145); Total Bilirubin 0.4 mg/dL (0.15-1.2); Total Protein 5.5 g/dL (6.6-8.7)
[2020-02-08] MEDS: albuterol 8 gm MDI 2 PUFF INHALATION (08:42)
[2020-02-08] MEDS: ascorbic acid 500 mg Tablet 1000 MG PO ×2 (09:19→17:39)
[2020-02-08] MEDS: atorvastatin 40 mg Tablet 20 MG PO (09:19)
[2020-02-08] MEDS: HYDROcodone-acetaminophen 10-325 mg Tablet 1 TAB PO ×2 (09:19→17:38)
[2020-02-08] MEDS: pantoprazole DR 40 mg Tablet PO (09:20)
[2020-02-08] MEDS: enoxaparin 60 mg/0.6 mL Syringe 55 MG SUBCUT ×2 (09:20→22:21)
[2020-02-08] MEDS: gabapentin 400 mg Capsule 800 MG PO (09:20)
[2020-02-08] MEDS: zinc gluconate 50 mg Tablet PO (09:20)
[2020-02-08] MEDS: dexamethasone 4 mg/mL INJ 6 MG PO (16:00)
--- NOTE | 2020-02-08 17:31 | PM.PN ---
Subjective Subjective: Interval history: She had a bit of a transient headache, but this has gone away. Denies of chest pain or pressure. Denies any nausea vomiting or diarrhea. She is feeling better today. Vitals/I&O/Wt Last Vital Signs Temp 98.1 F 02/08/20 15:00 Pulse 66 02/08/20 16:00 Resp 19 H 02/08/20 16:00 BP 124/64 02/08/20 16:00 Pulse Ox 95 02/08/20 16:00 02/08/20 02/08/20 02/08/20 06:59 14:59 22:59 Intake Total 480 / 1540 720 / 720 360 / 1080 Output Total 600 / 1150 300 / 300 400 / 700 Balance -120 / 390 420 / 420 -40 / 380 Weight last 48 hrs Weight 62.324 kg Weight 62.596 kg Physical Exam Const: COMMON NORMALS: no acute distress, patient oriented x3 and alert GENERAL APPEARANCE: cooperative ORIENTATION/CONSCIOUSNESS: Yes awake OTHER: Sitting up in bed. Pleasant. Conversant. In good spirits HENMT: COMMON NORMALS: oropharynx normal Neck/C-Spine: COMMON NORMALS: no JVD Resp: COMMON NORMALS: normal respiratory effort and clear to auscultation bilaterally EFFORT & INSPECTION: Yes able to speak in complete sentences AUSCULTATION: clear to auscultation bilaterally Cardio: COMMON NORMALS: no JVD, regular rhythm, S1 normal heart sound present, S2 normal heart sound present and No murmurs present (Cardio) RHYTHM: regular rhythm HEART SOUNDS: S1 normal heart sound present and S2 normal heart sound present GI: COMMON NORMALS: Normal to inspection, nondistended, normoactive bowel sounds present, Soft to palpation and non-tender PALPATION: Yes Soft to palpation Extremity: COMMON NORMALS: no joint enlargement and no pedal edema Neuro: COMMON NORMALS: patient oriented x3 and moves all extremities SENSORIUM/ORIENTATION: Yes alert Skin: COMMON NORMALS: no rashes or lesions noted GENERAL SKIN EXAM: no rashes or lesions noted Data : 02/08/20 02:50 02/08/20 02:50 A&P Assessment and plan (1) Pneumonia due to 2019-nCoV: Hypoxia is improving. Oxygen requirement decreasing. On 4 L nasal cannula currently. Subjectively she is feeling better. Prone as tolerating. We will continue steroid, remdesivir, Levaquin, inhalers. Continue therapeutic Lovenox. She may transfer out of viral ICU. Severe COVID-19 pneumonia. Acute respiratory failure with hypoxia. No PE noted on CTA. Persistent bilateral patchy opacities. Possible bacterial pneumonia. Treat empirically with antibiotic for now. Obtain sputum cultures if possible. MRSA by PCR. Negative urine bacterial antigens. Status: Acute (2) Acute encephalopathy: This improved. Suspect this was likely secondary to hypoxia and improved with oxygenation. Monitor. Does not fit sepsis criteria. CT head unremarkable. UA unremarkable. Status: Acute Additional A&P Information Minimal troponin elevation: She has no chest pain. Suspect this may be demand ischemia secondary to hypoxia and respiratory failure. Complete troponin EKG series. Spinal stimulator with chronic back pain: She states has had no issues with it, although it has not helped her very significantly with her back pain. Pocket appears intact, no fluctuance erythema, swelling or tenderness. Orthostatic hypotension: Antihypertensives were held during prior admission. Maintain fall precautions. Minimal transaminitis: Suspect secondary to viral illness. Discussed with her . Attestations Medical Necessity Statement*: Continue admission for assessment management of severe COVID-19 infection, with coagulopathy, hypoxic respite failure. Coding Level of Care Code Acute Manufacturing Advisor for [facility] Umm Diagnoses Pneumonia due to 2019-nCoV U07.1; J12.89 Acute encephalopathy G93.40
[2020-02-08] MEDS: levoFLOXacin 750 mg Tablet PO (17:57)
[2020-02-09] VITALS (7 sets, daily range): BP systolic 116–145; BP diastolic 64–86; PULSE 67–82; RESP 17–20; TEMP 36.7–37.1; O2SAT 88–92
--- NOTE | 2020-02-09 05:38 | PC.NURSE ---
SHIFT SUMMARY: THE PATIENT MAINTAINED WNL V/S AND DENIED ANY DISTRESS. THE PATIENT WAS CONCERNED WITH THE DISCONTINUATION OF HER GABAPENTIN. SHE REQUESTING SHE BE DISCHARGED HOME SOON POSSIBLE THIS MORNING.
[2020-02-09 05:43] LABS: Basophils % 0.1 %; Hemoglobin 11.5 g/dL (11.5-15.3); Lymphocytes # 0.7 10^3/uL (0.8-4.8); Lymphocytes % 10.6 %; Mean Corpuscular HGB Conc 31.9 g/dL (30.0-36.0); Mean Corpuscular Hemoglobin 29.6 pg (28.0-34.0); Mean Corpuscular Volume 92.8 fL (81-99); Mean Platelet Volume 10.2 fL (7.4-10.4); Monocytes # 0.5 10^3/uL (0.2-0.9); Monocytes % 6.7 %; Neutrophils # 5.53 10^3/uL (1.8-7.7); Neutrophils % 80.4 %; Nucleated Red Blood Cells % 0 %; Platelet Count 410 10^3/cmm (130-400); Red Blood Count 3.88 10^6/uL (4.1-5.3); White Blood Count 6.9 10^3/uL (4.0-10.0)
[2020-02-09 06:41] LABS: D Dimer 1.17 ug/mIFEU (0-0.59)
[2020-02-09 06:45] LABS: C Reactive Protein 17.2 mg/L (0.0-4.9)
[2020-02-09 06:46] LABS: Alanine Aminotransferase 31 U/L (0-33); Albumin Level 3.1 g/dL (3.5-5.2); Alkaline Phosphatase 66 IU/L (35-105); Anion Gap 14.3 (5-19); Aspartate Amino Transferase 22 U/L (0-32); Blood Urea Nitrogen 27 mg/dL (8-23); Calcium 9.2 mg/dL (8.5-10.5); Carbon Dioxide 26 mmol/L (22-29); Chloride 100 mmol/L (98-107); Globulin 2.6 g/dL (1.3-4.6); Glucose 127 mg/dL (65-115); Osmolality Calculated 289 mOsm/kg (285-295); Potassium 4.3 mmol/L (3.5-5.1); Sodium 136 mmol/L (136-145); Total Bilirubin 0.5 mg/dL (0.15-1.2); Total Protein 5.7 g/dL (6.6-8.7)
[2020-02-09] MEDS: HYDROcodone-acetaminophen 10-325 mg Tablet 1 TAB PO (07:31)
[2020-02-09] MEDS: ascorbic acid 500 mg Tablet 1000 MG PO (08:11)
[2020-02-09] MEDS: pantoprazole DR 40 mg Tablet PO (08:11)
[2020-02-09] MEDS: gabapentin 400 mg Capsule 800 MG PO (08:11)
[2020-02-09] MEDS: zinc gluconate 50 mg Tablet PO (08:11)
[2020-02-09] MEDS: atorvastatin 40 mg Tablet 20 MG PO (08:12)
[2020-02-09] MEDS: enoxaparin 60 mg/0.6 mL Syringe 55 MG SUBCUT (08:13)
--- NOTE | 2020-02-09 08:59 | PC.SOCIAL ---
IMM Update Pg 2 of IMM updated and reviewed with patient who verbalized understanding. Initialed, dated, and timed and placed in chart.
--- NOTE | 2020-02-09 11:31 | P.DS_ITS ---
Discharge Providers Date of Admission: 02/06/20 14:22 Date of Discharge: February 09, 2020 Attending Provider at Admission: Francis Saha Attending Provider at Discharge: Francis Saha Primary Care Provider: Tonia Tierney DO Diagnoses at Discharge Discharge Diagnosis (1) Pneumonia due to 2019-nCoV: Status: Acute (2) Acute encephalopathy: Status: Acute Other Information Additional DC diagnoses/information: Minimal troponin elevation Spinal stimulator with chronic back pain Orthostatic hypotension noted during prior admission Minimal transaminitis resolved Reason for Visit Reason for Visit: covid +/low oxygen Hospital Course Hospital Course Pleasant 74-year-old lady with chronic back pain, with implanted spinal cord stimulator, on chronic opiates, was readmitted due to acute encephalopathy, worsening hypoxia, dyspnea after recent admission and discharge during which was treated for severe COVID-19 pneumonia. Please see prior admission documentation for details. During her admission she was noted requiring up to 12 L of oxygen on presentation, with encephalopathy related to her hypoxia, and resolving promptly after oxygen support. On presentation CT angiogram was obtained due to elevated D-dimer 3.73 without finding of PE. CRP noted 13.9. Noted mild elevation AST and ALT 41, 48. Mild elevation of troponin. She had no chest pain. No evidence of acute DC. She was resumed on steroid treatment with Decadron. She was started on anticoagulation with therapeutic dose Lovenox. Empirically covered with Levaquin for possible bacterial superinfection. Was resumed on remdesivir. At home reported very poor appetite by her . Here this appears to gradually improved. Her hypoxia gradually improved as well with decreasing oxygen requirement. Today she was down to 3 L oxygen requirement by nasal cannula. Report that she was feeling significantly better, and did not want to continue hospitalization. She agreed to stay to allow us to give prescriptions and prepare her discharge. She will be discharged with continuation of course of Decadron to complete 10 days. Will complete a course of Levaquin. She is also started on Xarelto given elevated D-dimer for additional secondary VTE prophylaxis. She continues with oxygen on discharge as per home evaluation. Physical Exam Const: COMMON NORMALS: no acute distress, patient oriented x3 and alert GENERAL APPEARANCE: cooperative ORIENTATION/CONSCIOUSNESS: Yes awake OTHER: Sitting up in bed. Pleasant. Conversant. Reports feeling much better. HENMT: COMMON NORMALS: oropharynx normal Neck/C-Spine: COMMON NORMALS: no JVD Resp: COMMON NORMALS: normal respiratory effort and clear to auscultation bilaterally EFFORT & INSPECTION: Yes able to speak in complete sentences AUSCULTATION: clear to auscultation bilaterally Cardio: COMMON NORMALS: no JVD, regular rhythm, S1 normal heart sound present, S2 normal heart sound present and No murmurs present (Cardio) RHYTHM: regular rhythm HEART SOUNDS: S1 normal heart sound present and S2 normal heart sound present GI: COMMON NORMALS: Normal to inspection, nondistended, normoactive bowel sounds present, Soft to palpation and non-tender PALPATION: Yes Soft to palpation Back/Pelvis: OTHER: Spinal stimulator pocket without any erythema or tenderness, swelling, no ulceration or drainage, no fluctuance. Extremity: COMMON NORMALS: no joint enlargement and no pedal edema Neuro: COMMON NORMALS: patient oriented x3 and moves all extremities SENSORIUM/ORIENTATION: Yes alert Skin: COMMON NORMALS: no rashes or lesions noted GENERAL SKIN EXAM: no rashes or lesions noted Discharge Data Data Completed and Pending: Completed Studies During Hospitalization Category Date Time Status CT angio chest PE protcl 01030 Urge nt Cat Scan 02/06/20 12:[address] head wo con* 7 0450 Urgent Cat Scan 02/06/20 Completed XR chest 1V joanna ble [id number] Stat Exams 02/06/20 11:02 Completed Pending at discharge Category Date Time Status Sputum Culture an d Gram Stain [facility] 02/06/20 16:40 Uncollected Labs from last 24 hours 02/09/20 02/09/20 02/09/20 04:45 04:45 04:45 WBC RBC Hgb Hct MCV MCH MCHC RDW Plt Count MPV Neut % (Auto) Lymph % (Auto) Mcintosh % (Auto) Eos % (Auto) Baso % (Auto) Neut # (Auto) Lymph # (Auto) Mcintosh # (Auto) Eos # (Auto) Baso # (Auto) Nucleated RBC % (a uto) Nucleated RBCs # D-Dimer 1.17 H Sodium 136 Potassium 4.3 Chloride 100 Carbon Dioxide 26 Anion Gap 14.3 BUN 27 H Creatinine 0.6 GFR Calculation Not Reportable Glucose 127 H Calculated Osmolal ity 289 Calcium 9.2 Total Bilirubin 0.5 AST 22 ALT 31 Alkaline Phosphata se 66 C-Reactive Protein 17.2 H Total Protein 5.7 L Albumin 3.1 L Globulin 2.6 02/09/20 04:45 WBC 6.9 RBC 3.88 L Hgb 11.5 Hct 36.0 L MCV 92.8 MCH 29.6 MCHC 31.9 RDW 14.0 Plt Count 410 H MPV 10.2 Neut % (Auto) 80.4 Lymph % (Auto) 10.6 Mcintosh % (Auto) 6.7 Eos % (Auto) 0.0 Baso % (Auto) 0.1 Neut # (Auto) 5.53 Lymph # (Auto) 0.7 L Mcintosh # (Auto) 0.5 Eos # (Auto) 0.0 Baso # (Auto) 0.0 Nucleated RBC % (a uto) 0 Nucleated RBCs # 0.0 D-Dimer Sodium Potassium Chloride Carbon Dioxide Anion Gap BUN Creatinine GFR Calculation Glucose Calculated Osmolal ity Calcium Total Bilirubin AST ALT Alkaline Phosphata se C-Reactive Protein Total Protein Albumin Globulin Vitals: Last Vital Signs Temp 98.5 F 02/09/20 08:00 Pulse 78 02/09/20 09:15 Resp 20 H 02/09/20 09:15 BP 142/78 02/09/20 08:00 Pulse Ox 88 L 02/09/20 09:18 Discharge Plan Discharge Patient Disposition: Home Condition: Stable Prescriptions: New Xarelto 10 mg tablet 10 mg PO DAILY 35 Days Qty: 35 RF: 0 levofloxacin 750 mg tablet 750 mg PO DAILY 5 Days Qty: 5 RF: 0 Decadron 6 mg tablet 6 mg PO DAILY Qty: 7 RF: 0 Continued hydrocodone-acetaminophen 10-325 mg tablet 1 tab PO BID PRN (Reason: pain) 30 Days Qty: 60 RF: 0 gabapentin 800 mg tablet 800 mg PO TID 30 Days Qty: 90 RF: 1 atorvastatin 10 mg tablet 10 mg PO DAILY Qty: 90 RF: 1 Spiriva with HandiHaler 18 mcg capsule, w/inhalation device 18 mcg inhalation DAILY.RESPIRATORY Qty: 30 RF: 0 lisinopril 10 mg tablet See Rx Instructions .ROUTE .COMPLEX RF: 0 fluticasone propion-salmeterol [Advair Diskus] 250-50 mcg/dose Blister With Device 1 puff inhalation BID.RESPIRATORY Qty: 30 RF: 0 ascorbic acid (vitamin C) [Vitamin C] 500 mg Tablet 1,000 mg PO BID 14 Days Qty: 56 RF: 0 benzonatate 100 mg Capsule 100 mg PO TID PRN (Reason: cough) Qty: 10 RF: 0 zinc gluconate 50 mg Tablet 50 mg PO DAILY Qty: 30 RF: 0 ferrous gluconate 324 mg (37.5 mg iron) Tablet 324 mg PO BIDWM Qty: 60 RF: 0 pantoprazole [Protonix] [address] for susp in packet 40 mg PO DAILY Qty: 30 RF: 0 Discontinued methylprednisolone [Medrol (Loyd)] 4 mg tablets,dose pack See Rx Instructions .ROUTE .COMPLEX Qty: 21 RF: 0 Discharge Orders: Discharge Order (Routine); Ordered 02/09/20 Ordered By: Francis Saha Other Ambulatory Orders: DME: Oxygen (Order) Location: None Selected Ordered By: Francis Saha Referrals: Tonia Tierney, [Primary Care Provider] - 1 week (Please attempt to arrange telehealth visit within 72 hours if possible. Otherwise please follow-up in office.) Discharge Diet: Regular Discharge Activity: Increase activity as tolerated and Oxygen as instructed Patient Instructions: Levofloxacin (By mouth), Dexamethasone (By mouth), Rivaroxaban (By mouth), Viral Pneumonia (DC), Altered Mental Status (GEN) Activity Restrictions/Additional Instructions: Measure saturation at home if possible, target saturation 92%. If your oxygen saturation remains persistently below 88%, even with increasing oxygen flow rate, you get severely short of breath, spike high fevers, get chest pain, or experience extreme fatigue, vomiting with inability to take oral intake, or experience other concerning symptoms, please seek medical attention without delay. Please note you are started on a blood thinner medication, this medication will decrease chance of getting a blood clot, however, will increase risk of bleeding. Please make sure you avoid any injury. Maintain fall precautions. This medication would need to be discontinued before you able to have a surgical procedure if it is needed. Please discuss further with your primary care doctor during your visit. As noted during her prior admission, please rise slowly from laying to sitting and sitting to standing. If you get lightheaded, please sit down or lie down immediately. 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
--- NOTE | 2020-02-11 13:43 | PC.SOCIAL ---
Spoke with the patient on the phone about the discharge information they received spoke about signs and symptoms to watch for such as; blue lips or face, fever of 104 or higher, trouble breathing or catching breath, chest pain lasting longer than 5 minute, confusion or trouble waking up. We also spoke about ways to improve the immune system, these included; eating and drinking well, eating fruits and vegetables, lean meat, low fat dairy products, keeping up with immunizations such as flu/pneumonia/shingles shots, going to all appointments and follow ups, lessening and stress. We also spoke about ways to stop or prevent the spread of the COVID 19. These included; social distancing at all times, washing hands longer than 20 seconds with a good lather, sanitizing surfaces in home and in vehicle, masking up when possible and washing any cloth masks after use and allow them to dry completely before next use, sneezing or coughing into arm, restricting company or going out in public. We spoke a little about the benefits of plasma donation. Her only concern is for the large oxygen portable tank, she stated that at this time that it is heavy. The patient weighs 130 lbs. she stated that she would like something smaller for portable. I informed her that I would call [facility] and check with them to see if they can come up with a smaller tank. They stated that patients that are not correction Oxygen do not need Inogen the smaller device but they will give her a smaller device that is not inogen that she can carry on her side. I called and informed the patient. She was happy to hear.
== END 2020-02-09 13:30 | disposition home or self-care (01) | DRG 177 ==
LOC: ER 10:43 → ICU 15:17 → MEDSURG 02-08 20:51
PROVIDERS: Admitting Provider Internal Medicine; Emergency Provider Nurse Practitioner Family; PCP Family Medicine; Visit Provider Internal Medicine
DX: U07.1 COVID-19 (principal); J12.89 Other viral pneumonia; J96.01 Acute respiratory failure with hypoxia; J15.9 Unspecified bacterial pneumonia; G93.40 Encephalopathy, unspecified; I24.8 Other forms of acute ischemic heart disease; D68.9 Coagulation defect, unspecified; J43.9 Emphysema, unspecified; I10 Essential (primary) hypertension; G89.29 Other chronic pain; M54.42 Lumbago with sciatica, left side; M54.41 Lumbago with sciatica, right side; Z79.891 Long term (current) use of opiate analgesic; Z78.0 Asymptomatic menopausal state; Z96.82 Presence of neurostimulator; Z87.891 Personal history of nicotine dependence; B95.62 Methicillin resistant Staphylococcus aureus infection as the cause of diseases classified elsewhere; I95.1 Orthostatic hypotension
CPT/HCPCS: 12345; 36415; 36600; 70450; 71045; 71275; 80051; 80053; 81001; 82330; 82805; 83605; 84145; 84484; 85025; 85378; 85651; 86140; 86403; 87449; 93005; 94640; 94664; 96372; 96375; 99283; J1100; J1650; J3535; Q9967

== ENCOUNTER → 2020-02-15 09:51 | Outpatient (BNVA) | payer MEDICARE, OTHER, SELFPAY | PROVIDERS: PCP Family Medicine; Visit Provider Anesthesiology | DX: G89.29 Other chronic pain (principal); M51.16 Intervertebral disc disorders with radiculopathy, lumbar region; Z79.891 Long term (current) use of opiate analgesic | CPT/HCPCS: 99212; 99214 ==

== ENCOUNTER → 2020-02-19 11:26 | Outpatient (BNVA) | payer MEDICARE, OTHER, SELFPAY | PROVIDERS: PCP Family Medicine; Visit Provider Family Medicine | DX: K92.1 Melena (principal) | CPT/HCPCS: 85025 ==

== ENCOUNTER → 2020-02-26 11:29 | Outpatient (BNVA) | payer MEDICARE, OTHER, SELFPAY | PROVIDERS: PCP Family Medicine; Visit Provider Family Medicine | DX: R39.11 Hesitancy of micturition (principal) | CPT/HCPCS: 81000; 87086 ==

== ENCOUNTER → 2020-04-09 09:21 | Outpatient (BNVA) | payer MEDICARE, OTHER, SELFPAY | PROVIDERS: PCP Family Medicine; Visit Provider Anesthesiology | DX: G89.29 Other chronic pain (principal); M51.16 Intervertebral disc disorders with radiculopathy, lumbar region; M25.562 Pain in left knee; Z79.891 Long term (current) use of opiate analgesic | CPT/HCPCS: 99213 ==

== ENCOUNTER → 2020-06-13 08:51 | Outpatient (BNVA) | payer MEDICARE, OTHER, SELFPAY | PROVIDERS: PCP Family Medicine; Visit Provider Anesthesiology | DX: G89.29 Other chronic pain (principal); M51.16 Intervertebral disc disorders with radiculopathy, lumbar region; Z79.891 Long term (current) use of opiate analgesic | CPT/HCPCS: 99213 ==

== ENCOUNTER → 2020-08-07 09:48 | Outpatient (BNVA) | payer MEDICARE, OTHER, SELFPAY | PROVIDERS: PCP Family Medicine; Visit Provider Anesthesiology | DX: G89.29 Other chronic pain (principal); M51.16 Intervertebral disc disorders with radiculopathy, lumbar region; Z79.891 Long term (current) use of opiate analgesic; Z87.891 Personal history of nicotine dependence | CPT/HCPCS: 99213 ==

== ENCOUNTER → 2020-10-13 11:52 | Outpatient (BNVA) | payer MEDICARE, OTHER, SELFPAY | PROVIDERS: PCP Family Medicine; Visit Provider Family Medicine | DX: E78.5 Hyperlipidemia, unspecified (principal); G89.29 Other chronic pain; I10 Essential (primary) hypertension | CPT/HCPCS: 80053; 80061 ==

== ENCOUNTER → 2020-12-11 11:43 | Outpatient (BNVA) | payer MEDICARE, OTHER, SELFPAY | PROVIDERS: PCP Family Medicine; Visit Provider Family Medicine | DX: Z79.891 Long term (current) use of opiate analgesic (principal) | CPT/HCPCS: 80307 ==

== ENCOUNTER 2021-02-09 07:31 | Outpatient (CLI) | payer MEDICARE, OTHER, SELFPAY ==
--- NOTE | 2021-02-09 08:00 | MM_ITS ---
WS: [id number] BILATERAL DIGITAL SCREENING MAMMOGRAPHY WITH CAD CLINICAL INFORMATION: screening mammogram HISTORY: Screening mammogram. No current complaints. COMPARISON: October 28, 2017 TECHNIQUE: Bilateral CC and MLO views. FINDINGS: Breast implants appear unchanged with capsular calcifications. Scattered fibroglandular densities bilaterally. A few punctate calcifications. Vascular calcification. No suspicious focal mass, asymmetry, calcifica tions, or architectural distortion. No evidence of malignancy. MM/[place] [id number] IMPRESSION: BI-RADS: 2-Benign FOLLOW UP: 1 Year Follow-up Recommend return to annual screening mammography.
== END 2021-02-09 07:32 | disposition home or self-care (01) ==
LOC: RADSHAW 07:34
PROVIDERS: PCP Family Medicine; Visit Provider Family Medicine
DX: Z12.31 Encounter for screening mammogram for malignant neoplasm of breast (principal)
CPT/HCPCS: 77067

== ENCOUNTER 2021-06-09 11:14 | Outpatient (CLI) | payer MEDICARE, OTHER, SELFPAY ==
--- NOTE | 2021-06-09 11:35 | XR_ITS ---
WS: [id number] HIP WITH PELVIS RIGHT TECHNIQUE: 3 views of the right hip with pelvis CLINICAL INFORMATION: chronic right hip pain COMPARISON: None. FINDINGS: Advanced osteoarthritis RIGHT hip with near complete loss of the joint space. Hypertrophic spurring a bout the femoral neck and acetabulum. Subchondral cystic change. No acute fractures. Pelvic phlebolit hs. Visualized RIGHT pubic rami appear normal. XR/XR hip RT 2-3V wo/w pel* [id number] IMPRESSION: Advanced osteoarthritis RIGHT hip. No acute fractures. Tonnis classification: grade 3: large cysts in femoral head/acetabulum or joint space obliteration/severe narrowing or severe femoral head deformity vs AVN
== END 2021-06-09 11:15 | disposition home or self-care (01) ==
LOC: RAD 11:25
PROVIDERS: PCP Family Medicine; Visit Provider Family Medicine
DX: M16.11 Unilateral primary osteoarthritis, right hip (principal)
CPT/HCPCS: 73502

== ENCOUNTER → 2021-07-15 08:42 | Outpatient (BNVA) | payer MEDICARE, OTHER, SELFPAY | PROVIDERS: PCP Family Medicine; Referring Provider Family Medicine; Visit Provider Orthopaedic Surgery | DX: M54.50 Low back pain, unspecified (principal); M16.11 Unilateral primary osteoarthritis, right hip; Z87.891 Personal history of nicotine dependence | CPT/HCPCS: 99203 ==

== ENCOUNTER → 2021-07-16 09:22 | Outpatient (BNVA) | payer MEDICARE, OTHER, SELFPAY | PROVIDERS: PCP Family Medicine; Referring Provider Orthopaedic Surgery; Visit Provider Anesthesiology Pain Medicine | DX: M47.816 Spondylosis without myelopathy or radiculopathy, lumbar region (principal); M51.16 Intervertebral disc disorders with radiculopathy, lumbar region; M48.062 Spinal stenosis, lumbar region with neurogenic claudication; M25.551 Pain in right hip; G89.29 Other chronic pain | CPT/HCPCS: 99204; 99205 ==

== ENCOUNTER → 2021-07-24 09:38 | Outpatient (BNVA) | payer MEDICARE, OTHER, SELFPAY | PROVIDERS: PCP Family Medicine; Visit Provider Family Medicine | DX: Z00.00 Encounter for general adult medical examination without abnormal findings (principal); Z78.0 Asymptomatic menopausal state; Z13.6 Encounter for screening for cardiovascular disorders; E78.5 Hyperlipidemia, unspecified | CPT/HCPCS: 80053; 80061; 85025 ==

== ENCOUNTER → 2021-08-05 00:01 | Outpatient (BNVA) | payer MEDICARE, OTHER, SELFPAY | PROVIDERS: PCP Family Medicine; Visit Provider Anesthesiology Pain Medicine | DX: M25.551 Pain in right hip (principal); M16.11 Unilateral primary osteoarthritis, right hip | CPT/HCPCS: 20610; 77002; J3490 ==

== ENCOUNTER → 2021-08-11 12:42 | Outpatient (BNVA) | payer MEDICARE, OTHER, SELFPAY | PROVIDERS: PCP Family Medicine; Visit Provider Otolaryngology | DX: R04.0 Epistaxis (principal); Z87.891 Personal history of nicotine dependence | CPT/HCPCS: 99203; 99204 ==

== ENCOUNTER → 2021-09-02 09:28 | Outpatient (BNVA) | payer MEDICARE, OTHER, SELFPAY | PROVIDERS: PCP Family Medicine; Visit Provider Orthopaedic Surgery | DX: M16.11 Unilateral primary osteoarthritis, right hip (principal) | CPT/HCPCS: 99213; 99214 ==

== ENCOUNTER → 2021-09-25 11:25 | Day surgery (SDC) | payer MEDICARE, OTHER, SELFPAY | PROVIDERS: Visit Provider Orthopaedic Surgery | DX: Z01.818 Encounter for other preprocedural examination (principal) | CPT/HCPCS: 93005; J1100; J2405; J2704; J3010; J3490 ==

== ENCOUNTER 2021-10-12 08:50 | Inpatient (IN) | payer MEDICARE, OTHER, SELFPAY ==
[2021-09-25 11:09] VITALS: BMI 25.0
--- NOTE | 2021-09-25 11:25 | ECG_ITS ---
[facility] Test Date: 2021-09-25 Pat Name: Tala Gale Department: Room: Gender: Female Customer Advisor: : 1945 Requested By: Marsha Tabor Order Number: [id number] Ambar MD: Jeff Li M.D. Measurements Intervals [place] Rate: 69 P: 90 CA: 357 QRS: -42 QRSD: 86 T: -29 QT: 352 QTc: 378 Interpretive Statements SINUS RHYTHM. BASELINE ARTIFACT Compared to ECG 02/06/2020 16:46:07 Sinus rhythm no longer present Myocardial infarct finding no longer present Electronically Signed On 09-25-2021 20:39:51 CDT by Jeff Li M.D. [email or web address]
--- NOTE | 2021-09-25 11:43 | P.ANESASSM_ITS ---
Pre-Anesthetic Assessment Height/Weight: Height 1.65 m Weight 68.039 kg Preop Diagnosis: Lumbar disc disorder with radiculopathy Operation Date: 10/12/21 07:00 Proposed Procedures p Left total hip arthroplasty 55494,M16.11(Left) - Saravanan Nam MD Familial anesthetic complications: None Social No alcohol and No tobacco Exam alert, oriented x 3, clear to auscultation bilaterally and regular rate & rhythm Airway Mallampati: Class I Dentition: false Pulmonary None reported CV/HEM Hypertension None reported Hepatic None reported GI Gastroesophageal Reflux Disease Metabolic None reported Musc/skel None reported Neuropsych None reported Anesthetic Plan ASA status: 2 Anesthesia: Regional (specify below) Risk of > 500 ml blood loss (7ml/kg in children): Yes, adequate IV access and fluids planned Other Pertinent Information Spinal cord defibrillator Medications/Allergies Home Medications Medication Instructions Recorded Confirmed Last Taken Type atorvastatin 10 mg tablet 10 mg PO DAILY #90 tab 07/27/21 09/25/21 Unknown Rx gabapentin 800 mg tablet 800 mg PO TID #90 tab 09/09/21 09/25/21 Unknown Rx hydrocodone 10 mg-acetaminophen 1 tab PO BID PRN 30 Days #60 tab 09/09/21 09/25/21 Unknown Rx 325 mg tablet hydrocodone 10 mg-acetaminophen 1 tab PO BID PRN 30 Days #60 tab 09/09/21 09/25/21 Unknown Rx 325 mg tablet hydrocodone 10 mg-acetaminophen 1 tab PO BID PRN 30 Days #60 tab 09/09/21 09/25/21 Unknown Rx 325 mg tablet lisinopril 10 mg tablet 10 mg PO DAILY #90 tab 09/09/21 09/25/21 Unknown Rx Allergies Allergy/AdvReac Type Severity Reaction Status Date / Time celecoxib [From Celebrex] AdvReac ABDOMINAL Verified 09/09/21 10:30 PAIN [facility] Anesthesia Medical History Benign essential HTN Cat bite of left hand with infection Chronic midline low back pain with bilateral sciatica Chronic pain of left knee Encounter for long-term opiate analgesic use History of 2018 novel coronavirus disease (COVID-19) Intervertebral disc disorder with radiculopathy of lumbar region Opioid contract exists Pneumonia due to COVID-19 virus Postmenopausal Surgical History H/O breast augmentation History of back surgery Spinal Cord Stimulator Trial-Dr. Torres at [employer] 04/16/19 History of implanted electronic device Dr. Young- 08/16/19 Hx of cataract extraction Bilat done in [place] Status post hip surgery Family History Other Cancer Social History Smoking and tobacco status: never smoked Alcohol intake: current Alcohol intake frequency: holidays/special occasions only Lives independently: Yes Household members: spouse Marital status: Current occupational status: retired History of recent travel: No Data Anesthesia Cardiac Studies: Echocardiogram Ultrasound 02/01/20
[2021-09-25 12:26] LABS: Anion Gap 14.5 (5-19); Blood Urea Nitrogen 16 mg/dL (8-23); Calcium 9.8 mg/dL (8.5-10.5); Carbon Dioxide 26 mmol/L (22-29); Chloride 104 mmol/L (98-107); Glucose 87 mg/dL (65-115); Osmolality Calculated 291 mOsm/kg (285-295); Potassium 4.5 mmol/L (3.5-5.1); Sodium 140 mmol/L (136-145)
[2021-10-12] VITALS (20 sets, daily range): BP systolic 82–159; BP diastolic 45–85; PULSE 53–87; RESP 10–23; TEMP 36.4–36.9; O2SAT 93–100; BMI 25.7
[2021-10-12] MEDS: oxyCODONE 20 mg ER (12 HR) Tablet PO (06:13)
[2021-10-12] MEDS: acetaminophen 500 mg Tablet 1000 MG PO (06:13)
[2021-10-12] MEDS: sodium chloride 0.9% 1,000 ML 30 ML IV ×2 (06:13→09:25)
--- NOTE | 2021-10-12 06:28 | P.ANESUD_ITS ---
Pre-Anesthetic Update Pre-Anesthetic Assessment: Date of Surgery/Procedure: 10/12/21 Preop Aniya gnosis: Osteoarthritis Proposed Procedure: Operation Date: 10/12/21 07:00 Proposed Procedures p Right total hip arthroplasty 58399,M16.11(Right) - Saravanan Nam MD Any changes to Pre-Anesthetic Assessment?: No Last Intake: Intake Last Liquid Date 10/11/21 Last Liquid Time 21:00 Last Solid Date 10/11/21 Last Solid Time 20:00 Vitals: Temperature 98.5 F 10/12/21 06:00 Temperature Source Temporal Artery S can 10/12/21 06:00 Pulse Rate 69 10/12/21 06:00 Respiratory Rate 16 10/12/21 06:00 Blood Pressure 159/84 10/12/21 06:00 Blood Pressure Ramila n 109 10/12/21 06:00 Pulse Oximetry 94 10/12/21 06:00 Oxygen Delivery Me thod 10/12/21 06:03 Exam: Pre-Anes Outpt Exam: alert, oriented x 3, clear to auscultation bilaterally and regular rate & rhythm Cardiac Studies: Echocardiogram Ultrasound 02/01/20
--- NOTE | 2021-10-12 06:59 | P.HP_ITS ---
Same Day Surgery H&P Indication for Procedure/HPI DATE OF PROCEDURE: October 10, 2021 CHIEF COMPLAINT/INDICATIONFOR SURGICAL PROCEDURE: Osteoarthritis right hip PREOP DIAGNOSIS: Osteoarthritis right hip PLANNED PROCEDURE: Operation Date: 10/12/21 07:00 Proposed Procedures p Right total hip arthroplasty 24511,M16.11(Right) - Saravanan Nam MD The patient is a 75-year-old female with right hip pain. She describes a 6- month history of progressive hip pain. He describes her pain in her posterior hip rating down into her thigh. She describes the pain worse with sitting and walking. She had a corticosteroid injection with 80% improvement that was only temporary. She describes her pain identical to her left hip pain prior to her left total hip arthroplasty. She has elected to proceed with right total hip arthroplasty Medications/Allergies* Allergies/Adverse Reactions Allergy/AdvReac Type Severity Reaction Status Date / Time celecoxib [From Celebrex] AdvReac ABDOMINAL Verified 09/09/21 10:30 PAIN Pertinent History/Comorbid Conditions* Medical History (Updated 09/02/21 @ 10:36 by Saravanan Nam MD) Benign essential HTN Cat bite of left hand with infection Chronic midline low back pain with bilateral sciatica Chronic pain of left knee Encounter for long-term opiate analgesic use History of 2018 novel coronavirus disease (COVID-19) Intervertebral disc disorder with radiculopathy of lumbar region Opioid contract exists Pneumonia due to COVID-19 virus Postmenopausal Surgical History (Updated 09/27/19 @ 10:47 by GENARO Ga) H/O breast augmentation History of back surgery Spinal Cord Stimulator Trial-Dr. Torres at [employer] 04/16/19 History of implanted electronic device Dr. Young- 08/16/19 Hx of cataract extraction [place] done [place] Status post hip surgery Family History (Updated 03/23/19 @ 10:17 by Carol Pollard LPN) Cancer Social History Smoking and tobacco status: never smoked Alcohol intake: current Alcohol intake frequency: holidays/special occasions only Lives independently: Yes Household members: spouse Marital status: Current occupational status: retired History of recent travel: No Pertinent Exam Findings alert, oriented x 3, clear to auscultation bilaterally, regular rate & rhythm and operative site marked Recommendations Surgery/Procedure today Coding Level of Care Code Acute Forepart Rounder for g Umm
[2021-10-12] MEDS: ceFAZolin 2,000 MG in sodium chloride 0.9% (plus) 50 ML 100 MG IV ×3 (07:00→22:05)
[2021-10-12] MEDS: tranexamic acid 1,000 mg/10mL SDV 1000 MG IV (07:40)
--- NOTE | 2021-10-12 09:17 | XR_ITS ---
WS: [id number] RIGHT hip, single view. HISTORY: RIGHT hip postop. RIGHT hip arthroplasty in good position alignment on this single radiograph. Recent postoperative avila nges in the soft tissues lateral to the hip. XR/XR hip RT 1V wo/w pel [id number] IMPRESSION: Status post RIGHT total hip arthroplasty in good position on this single radiog raph.
--- NOTE | 2021-10-12 09:19 | PM.OP ---
Operative Report Date of procedure: October 12, 2021 Pre-op diagnosis: Preop Diagnosis Osteoarthritis right hip Post-op diagnosis: same Post-op diagnosis: Same Post-op findings: Same Procedure done: Right total hip arthroplasty Implants: 1) Dony 54 mm Trident 2 solid back acetabular shell 2) Size 5 Camden 127 degree neck angle Accolade 2 stem 3} 28mm -2.7 ceramic femoral head 4} MDM metal liner Pathology: none sent Surgeon: Saravanan Nam Estimated blood loss (mL): 100 Complications: None Findings: The patient had eburnated bone over the femoral head and acetabulum with complete obliteration of superior joint space Condition: stable Disposition: PACU Procedure: The patient was taken to the operating room and anesthesia provided by the anesthesia service. The patient was placed in the lateral position on a pegboard. A timeout was performed. The patient was draped in the usual fashion. A 15 cm long incision was made beginning just proximal to the greater trochanter and extending posteriorly to a point just distal to the trochanter on the posterior border of the trochanter. Dissection was carried down with electrocautery through the subcutaneous fat to the fascia namrata which was divided proximally and distally with curved scissors. The anterior two thirds of the gluteus medius and minimus were elevated off the hip with electrocautery. The capsule was divided in a H-like fashion. The hip was dislocated and a neck cut made just above the level of the lesser trochanter. Exposure of the acetabulum was facilitated with the acetabular retractors. Remnants of labrum and peripheral osteophytes were removed with electrocautery and a rongeur. A reamer 2 mm under the size the femoral head was utilized to ream medially to the base of the palm and are. Reaming was then increased in 1 mm intervals until a healthy rim a trabecular bone was encountered. The rim was touched with the reamer the size of the final acetabular shell to be placed. A final Trident 2 acetabular cup of the same size as the final reaming was press-fit into place. The ADM liner was secured. Attention was then focused on the femur. The canal was localized with a canal finder. Broaching was then accomplished until a stable broach size was obtained. A trial reduction with the head and neck provided excellent stability. The wound was irrigated with saline and antibiotic solution. The final Camden Accolade II stem was press-fit into place. The femoral head was placed and the hip was reduced. The hip was brought through range of motion and found to be free of impingement and stable. The anterior capsule was reapproximated with 1 Ethibond. The gluteus medius and minimus were repaired through bone with 5 Ethibond and reinforced with 1 Ethibond. The fascial namrata was closed with a running 0 Stratafix suture. Deep pelvic tissues were closed with 2-0 Stratafix and the skin with a running 4-0 l Stratafix. The skin was covered with a Prineo dressing and op site dressings.
[2021-10-12] MEDS: sodium chloride 0.9% (100 ml) 100 ML 999 ML (10:40)
[2021-10-12] MEDS: oxyCODONE 5 mg IR Tab/Cap 10 MG PO ×2 (13:36→20:09)
--- NOTE | 2021-10-12 13:45 | ANE.PACU2 ---
Inpatient post-anesthesia follow up: Airway intact: Yes Vital signs: Temperature 98.0 F Pulse Rate 67 Respiratory Rate 18 Blood Pressure 131/70 Pulse Oximetry 97 Oxygen Delivery Me thod Room Air Oxygen Flow Rate Fraction of Inspir ed Oxygen Hydration adequate: Yes Nausea and vomiting: No Pain level: 1 Mental status: Baseline
--- NOTE | 2021-10-12 14:22 | P.PN_ITS ---
Subjective Subjective: Patient up to commode. Passing urine. Good po intake Vitals/I&O/Wt Last Vital Signs Temp 98.0 F 10/12/21 10:10 Pulse 67 10/12/21 13:10 Resp 18 10/12/21 13:36 BP 131/70 10/12/21 13:10 Pulse Ox 97 10/12/21 13:10 O2 Del Method 10/12/21 12:10 10/11/21 10/12/21 10/12/21 22:59 06:59 14:59 Intake Total 1950 / 1950 Output Total 100 / 100 Balance 1850 / 1850 Weight last 48 hrs Weight 150 lb Physical Exam Narrative: Right hip dressing clean and dry Data : 09/25/21 11:26 A&P Assessment and plan (1) Status post right hip replacement: Status: Acute Attestations Medical Necessity Statement*: Anticipate discharge in a.m. Coding Level of Care Code Acute Ct Scan Special Procedures Technologist for Karrie Salomon Diagnoses Status post right hip replacement Z96.641
[2021-10-12] MEDS: gabapentin 400 mg Capsule 800 MG PO ×2 (14:32→20:09)
[2021-10-13] VITALS (9 sets, daily range): BP systolic 89–129; BP diastolic 53–79; PULSE 78–102; RESP 14–18; TEMP 36.8–37.6; O2SAT 92–99
[2021-10-13] MEDS: oxyCODONE 5 mg IR Tab/Cap 10 MG PO ×2 (01:35→06:39)
[2021-10-13] MEDS: ceFAZolin 2,000 MG in sodium chloride 0.9% (plus) 50 ML 100 MG IV (06:32)
[2021-10-13] MEDS: aspirin 325 mg EC Tablet PO (08:32)
[2021-10-13] MEDS: atorvastatin 40 mg Tablet 20 MG PO (08:32)
[2021-10-13] MEDS: gabapentin 400 mg Capsule 800 MG PO (08:33)
[2021-10-13] MEDS: lisinopril 10 mg Tablet PO (08:33)
--- NOTE | 2021-10-13 09:05 | XRR_ITS ---
PROCEDURE INFORMATION: Exam: XR Chest Exam date and time: 10/13/2021 9:41 AM Age: 75 years old Clinical indication: Prior surgery; Surgery date: Post-operative (0-2 days); Surgery type: Hip 10/12/21; Patient HX: Hip replacement yesterday and started feeling dizzy afterwards; Additional info: Rapid response TECHNIQUE: Imaging protocol: Radiologic exam of the chest. Views: 1 view. COMPARISON: CR XR chest 1V portable [id number] 02/06/2020 11:04 AM FINDINGS: Lungs: The lung parenchyma is clear. Pleural spaces: No pneumothorax. No pleural effusion. Heart/Mediastinum: The cardiomediastinal silhouette is within normal limits. Bones/joints: Thoracic spinal lead wires noted. Soft tissues: Partially calcified bilateral breast implants noted. XR/XR chest 1V portable [id number] IMPRESSION: No acute cardiopulmonary abnormality identified.
[2021-10-13 09:06] LABS: Glucose Point of Care 109 mg/dL (70-110)
--- NOTE | 2021-10-13 09:06 | ECG_ITS ---
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 Measurements Intervals [place] Rate: 88 P: 261 IA: 364 QRS: -14 QRSD: 95 T: 59 QT: 347 QTc: 421 Interpretive Statements SINUS RHYTHM Electronically Signed On 10-13-2021 18:58:02 CDT by Jeff Li M.D. [id number]
--- NOTE | 2021-10-13 09:29 | PC.OT ---
OT EVAL ATTEMPTED. OTR/OTS ARRIVED IN ROOM AT 8:51AM, SIGNIFICANT RIGHT SIDE FACIAL DROOP NOTED, PT STATED I JUST FEEL WEIRD , PT STATED THE YEAR WAS 1962, HR WAS 183, O2 @ 83%, AND BP 105/67. RAPID RESPONSE WAS CALLED DUE TO THESE SYMPTOMS. OTR/OTS REMAINED IN ROOM FOR RAPID RESPONSE, RIGHT SIDE FACIAL DROOP NO LONGER SIGNIFICANT. PT REMAINS CONFUSED, STATES THE DATE IS December,. PT TRANSFERED BACK TO BED PER NURSING REQUEST. 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 PT LEFT SUPINE IN BED WITH CARE OF NURSING. WILL ATTEMPT EVAL AGAIN AT LATER TIME.
--- NOTE | 2021-10-13 10:29 | PM.MISC ---
Miscellaneous Note Note: Rapid response note Response was called around 9 AM when I was rounding on my patients, Reason: Physical therapist found her confused, she also noticed facial droop Patient was hypoxic in low 70s When I entered the room patient was on 4 L, saturating above 90%, hemodynamically stable, blood sugar was checked which was 109, blood pressure 105/67, heart rate in 70s, she was awake and alert nonfocal neuro exam I did not appreciate any facial droop She was able to answer my questions appropriately GCS 15 No airway compromise, no breathing issues, bilateral good breath sounds Abdomen soft Able to follow commands, moving all of her extremities Limited right leg movement because of recent hip surgery I have requested stat x-ray, CBC, BMP, urine analysis, procalcitonin, requested RT for an ABG, ABG was done on 4 L which showed pH 7.4, PCO2 35 PO2 85 I requested COVID PCR, chest x-ray looks unremarkable Will touch base with Dr. Nam She is requiring 4 L of oxygen which is new, as per the she had similar complaints when she had COVID-19 infection at that time she required oxygen as well. She is a non-smoker, does not use oxygen at home. Rule out COVID-19, pulmonary embolism, requested D-dimer, no active chest pain or shortness of breath, at the bedside, she is back to her baseline She received opioids around 6 in the morning
[2021-10-13 10:48] LABS: D Dimer 2.89 ug/mIFEU (0-0.59)
[2021-10-13 11:03] LABS: Basophils % 0.3 %; Eosinophils % 0.1 %; Hematocrit 34.6 % (37.0-47.0); Hemoglobin 11.1 g/dL (11.5-15.3); Lymphocytes # 1.2 10^3/uL (0.8-4.8); Lymphocytes % 12.6 %; Mean Corpuscular HGB Conc 32.1 g/dL (30.0-36.0); Mean Corpuscular Hemoglobin 30.6 pg (28.0-34.0); Mean Corpuscular Volume 95.3 fl (81-99); Mean Platelet Volume 10.2 fL (7.4-10.4); Monocytes % 10.3 %; Neutrophils # 7.19 10^3/uL (1.8-7.7); Neutrophils % 76.4 %; Nucleated Red Blood Cells % 0 %; Platelet Count 249 10^3/cmm (130-400); Red Blood Count 3.63 10^6/uL (4.1-5.3); Red Cell Distribution Width 14.1 % (12.1-15.1); White Blood Count 9.4 10^3/uL (4.0-10.0)
[2021-10-13 11:35] LABS: Alanine Aminotransferase 11 U/L (0-33); Albumin Level 3.4 g/dL (3.5-5.2); Alkaline Phosphatase 58 IU/L (35-105); Anion Gap 13.1 (5-19); Aspartate Amino Transferase 26 U/L (0-32); Blood Urea Nitrogen 15 mg/dL (8-23); Calcium 9.3 mg/dL (8.5-10.5); Carbon Dioxide 25 mmol/L (22-29); Chloride 104 mmol/L (98-107); Creatinine Clr Calc Pharmacy 57.5862; Globulin 2.4 g/dL (1.3-4.6); Glucose 126 mg/dL (65-115); Osmolality Calculated 288 mOsm/kg (285-295); Potassium 4.1 mmol/L (3.5-5.1); Sodium 138 mmol/L (136-145); Total Bilirubin 0.4 mg/dL (0.15-1.2); Total Protein 5.8 g/dL (6.6-8.7)
[2021-10-13] MEDS: sodium chloride 0.9% 1,000 ML 30 ML IV (11:36)
[2021-10-13 11:42] LABS: Procalcitonin 0.08 ng/mL (0-0.5)
[2021-10-13 11:45] LABS: Add Urine Microscopic? NO; Charge for UA Resulting for Rev
--- NOTE | 2021-10-13 12:08 | CTR_ITS ---
PROCEDURE INFORMATION: Exam: CTA Chest With Contrast Exam date and time: 10/13/2021 3:30 PM Age: 75 years old Clinical indication: Other: Hypoxia; Additional info: Hypoxia, sudden onset TECHNIQUE: Imaging protocol: Computed tomographic angiography of the chest with contrast. 3D rendering (Not supervised by radiologist): MIP and/or 3D reconstructed images were created by the technologist. Radiation optimization: All CT scans at this facility use at least one of these dose optimization techniques: automated exposure control; mA and/or kV adjustment per patient size (includes targeted exams where dose is matched to clinical indication); or iterative reconstruction. Contrast material: OMNIPAQUE 350; Contrast volume: 63 ml; Contrast route: INTRAVENOUS (IV); COMPARISON: CT angio chest PE protcl [id number] 02/06/2020 12:59 PM RADIATION DOSE METRICS: Total DLP (mGy-cm): 276.14 FINDINGS: Tubes, catheters and devices: Stimulator lead in the posterior thoracic spinal canal. Pulmonary arteries: Normal. No pulmonary emboli. Aorta: Unremarkable. No aortic aneurysm. No aortic dissection. Thyroid: Left thyroid nodules measuring up to 1.6 cm. Ultrasound follow-up recommended. Lungs: Centrilobular emphysema. New 3.7 cm spiculated nodule in the right lower lobe. Mild scattered linear atelectasis and or scarring in both lungs. Mild interstitial scarring in the peripheral lungs. Pleural spaces: Unremarkable. No pneumothorax. No pleural effusion. Heart: Unremarkable. No cardiomegaly. No pericardial effusion. Lymph nodes: Unremarkable. No enlarged lymph nodes. Liver: Small hepatic cyst, Hounsfield units less than 20. Bones/joints: Degenerative changes and curvature of the thoracic spine. No fracture identified. Soft tissues: Bilateral breast implants with capsular calcifications. CT/CT angio chest PE protcl [id number] IMPRESSION: 1. New 3.7 cm spiculated nodule in the right lower lobe. Highly suspicious nodule(s). Consider non-emergent PET/CT, or tissue sampling.(Reference: Margarita) 2. No evidence for pulmonary embolus. References: Margarita Zafar et al. Guidelines for Management of Incidental Pulmonary Nodules Detected on CT Images: From the Fleischner Society 2017. Radiology. 2017;284(1):228-243. COMMENTS: Consistent with the [place] [employer]'s Incidental Findings Committee white paper (J Am Micheline Radiol 2015): In patients aged 35 years and older with an incidental thyroid nodule equal to or greater than 1.[address], MRI or extrathyroidal US, further evaluation with dedicated thyroid US is recommended for patients with normal life expectancy and without comorbidities. For smaller nodules without suspicious features, no further evaluation or follow up is recommended.
--- NOTE | 2021-10-13 12:08 | USR_ITS ---
PROCEDURE INFORMATION: Exam: US Duplex Lower Extremity Veins, Bilateral Exam date and time: 10/13/2021 4:24 PM Age: 75 years old Clinical indication: Condition or disease; Other: Hypoxia; Prior surgery; Surgery date: Post-operative (0-2 days); Surgery type: Right hip replacement TECHNIQUE: Imaging protocol: Real-time Duplex ultrasound of the bilateral extremities with 2-D becerra scale, color Doppler flow and spectral waveform analysis with image documentation. Complete exam focused on the bilateral lower extremity veins. COMPARISON: No relevant prior studies available. FINDINGS: Right deep veins: Unremarkable. The common femoral, femoral, proximal profunda femoral and popliteal veins are patent without thrombus. Normal Doppler waveforms. Normal compressibility and/or augmentation response. Right superficial veins: Saphenofemoral junction is patent without thrombus. Left deep veins: Unremarkable. The common femoral, femoral, proximal profunda femoral and popliteal veins are patent without thrombus. Normal Doppler waveforms. Normal compressibility and/or augmentation response. Left superficial veins: Saphenofemoral junction is patent without thrombus. Soft tissues: Unremarkable. US/CV venous duplex [facility] [id number] IMPRESSION: No evidence of deep vein thrombosis.
--- NOTE | 2021-10-13 12:24 | PC.NURSE ---
At 0859 a rapid response was called d/t patient having sudden onset confusion, b/p 105/67, and a heart rate in the 200's and spo2 in 70's patient became clammy and pale. Respiratory, Dr. Holly and staff responded oxygen applied at 4L, ekg obtained, accucheck 109 @0900 vital reheck @0908 bp of 114/74 spo2 98% temp 98.5 heart rate of 92 abg retained at 0910 new orders obtained noted and carried out. 1236 patient is currently resting in bed continues to be confused about date. is having trouble finding words and states she still doesn't feel right.
[2021-10-13 12:34] LABS: Bilirubin Urine Neg (Negative); Blood Urine Neg (Negative); Glucose Urine UA Norm (Normal); Ketones Urine Negative (Negative); Nitrate Urine Negative (Negative); Protein Urine Neg (Negative); Urine Appearance Clear (CLEAR); Urine Color Yellow (Yellow); pH Urine 5 (5-7)
[2021-10-13 12:35] LABS: Leukocyte Esterase Urine Trace (Negative); Urobilinogen Urine Norm (Negative)
[2021-10-13] MEDS: enoxaparin 80 mg/0.8 mL Syringe 70 MG SUBCUT (12:55)
[2021-10-13] MEDS: sodium chloride 0.9% 1,000 ML 75 ML IV (13:04)
--- NOTE | 2021-10-13 13:16 | PC.NURSE ---
0604 Dr Nam called to notify left
--- NOTE | 2021-10-13 13:47 | P.PN_ITS ---
Subjective Subjective: Tala seen earlier this morning and stated not feeling well. Later today developed hypoxia. Vitals/I&O/Wt Last Vital Signs Temp 99.2 F 10/13/21 12:00 Pulse 86 10/13/21 12:34 Resp 16 10/13/21 12:34 BP 89/53 10/13/21 08:00 Pulse Ox 98 10/13/21 12:34 O2 Del Method 10/13/21 12:34 O2 Flow Rate 4 10/13/21 12:34 10/12/21 10/13/21 10/13/21 22:59 06:59 14:59 Intake Total 530 / 2530 600 / 3130 1835.5 / 1835.5 Balance 530 / 2230 600 / 2830 1835.5 / 1835.5 Weight last 48 hrs Weight 150 lb Physical Exam Narrative: Right hip dressing clean and dry. Minimal swelling right thigh. Data : 10/13/21 10:45 10/13/21 10:45 A&P Assessment and plan (1) Status post right hip replacement: Hip surgery appears benign Status: Acute (2) Hypoxia: New onset hypoxia. Hospitalist has seen the patient and work-up in progress. Status: Acute Attestations Medical Necessity Statement*: Medical work-up of hypoxia in process additional hospitalization required Coding Level of Care Code Acute Report Programmer for Karrie Salomon Diagnoses Status post right hip replacement Z96.641 Hypoxia R09.02
[2021-10-13 13:51] LABS: Adenovirus Not Detected (NOT DETECT); Chlamydia Pneumoniae Not Detected (NOT DETECT); Coronavirus 229E,HKU1,NL63,OC4 Not Detected (NOT DETECT); Human Metapneumovirus Not Detected (NOT DETECT); Human Rhinovirus/Enterovirus Not Detected (NOT DETECT); Influenza A Not Detected (NOT DETECT); Influenza A H1 Not Detected (NOT DETECT); Influenza A H1-2009 Not Detected (NOT DETECT); Influenza A H3 Not Detected (NOT DETECT); Influenza B Not Detected (NOT DETECT); Mycoplasma Pneumoniae Not Detected (NOT DETECT); Parainfluenza Virus Type 1 Not Detected (NOT DETECT); Parainfluenza Virus Type 2 Not Detected (NOT DETECT); Parainfluenza Virus Type 3 Not Detected (NOT DETECT); Parainfluenza Virus Type 4 Not Detected (NOT DETECT); Respiratory Syncytial Virus A Not Detected (NOT DETECT); Respiratory Syncytial Virus B Not Detected (NOT DETECT); SARS-COV-2 Not Detected (NOT DETECT)
[2021-10-13] MEDS: iohexol 350 mg/mL 100 mL Btl IV (15:42)
[2021-10-13] MEDS: sodium chloride 0.9% 1,000 ML 999 ML IV (15:47)
[2021-10-13 15:52] LABS: ABG PCO2 35.8 mmHg (35-45); Alveolar-Arterial Oxygen Gradi 2.6 mmHg (5-10); Arterial Blood Gas Hematocrit 35.1 % (37-47); Blood Gas Allen Test Pos; Blood Gas Sample Site Radial, right; Blood Gas Sample Type Arterial; Carboxyhemoglobin 1.5 %THgb (0.4-20.1); HCO3 ABG 22.3 mmol/L (22-26); HGB O2 Sat 95.5 % (95-100); Ionized Calcium Level - ABG 1.3 mmol/L (1.1-1.4); Methemoglobin 0.9 % (0.4-1.5); Oxygen Device NC; Oxygen Saturation ABG 97.8; PO2 ABG 85.2 mmHg (80.0-100.0); Total Hemoglobin 11.5 g/dL (12-16)
[2021-10-13] MEDS: gabapentin 300 mg Capsule PO ×2 (16:09→21:05)
--- NOTE | 2021-10-13 17:47 | CTR_ITS ---
PROCEDURE INFORMATION: Exam: CT Head Without Contrast Exam date and time: 10/13/2021 8:39 PM Age: 75 years old Clinical indication: Altered mental status/memory loss; Confusion or disorientation; Patient HX: New onset of confusion. TECHNIQUE: Imaging protocol: Computed tomography of the head without contrast. Radiation optimization: All CT scans at this facility use at least one of these dose optimization techniques: automated exposure control; mA and/or kV adjustment per patient size (includes targeted exams where dose is matched to clinical indication); or iterative reconstruction. COMPARISON: CT head wo con* [id number] 02/06/2020 12:56 PM RADIATION DOSE METRICS: Total DLP (mGy-cm): 1010.88 FINDINGS: Brain: Mild diffuse cortical volume loss. Mild hypodensities in supratentorial periventricular and subcortical white matter, consistent with microangiopathy. No intracranial hemorrhage. Stable 1.1 cm ossification or calcified meningioma along the anterior left falx, with no significant mass effect on the brain. Cerebral ventricles: No ventriculomegaly. Paranasal sinuses: Mild mucosal thickening in the ethmoid air cells. The other sinuses are clear. Mastoid air cells: Visualized mastoid air cells are well aerated. Orbital cavities: Prior cataract surgery. Bones/joints: Unremarkable. No acute fracture. Soft tissues: Unremarkable. Vasculature: No hyperdense artery. CT/CT head wo con* [id number] IMPRESSION: 1. No acute intracranial finding.
[2021-10-13] MEDS: HYDROcodone-acetaminophen 10-325 mg Tablet 1 TAB PO (20:24)
[2021-10-14] VITALS: BP 121/70; PULSE 90; RESP 16; TEMP 36.6; O2SAT 95
[2021-10-14 02:50] LABS: Basophils % 0.2 %; Eosinophils % 0.3 %; Hematocrit 32.4 % (37.0-47.0); Hemoglobin 10.2 g/dL (11.5-15.3); Lymphocytes % 18.5 %; Mean Corpuscular HGB Conc 31.5 g/dL (30.0-36.0); Mean Corpuscular Hemoglobin 29.7 pg (28.0-34.0); Mean Corpuscular Volume 94.5 fl (81-99); Mean Platelet Volume 10.5 fL (7.4-10.4); Monocytes # 1.4 10^3/uL (0.2-0.9); Monocytes % 12.7 %; Neutrophils # 7.41 10^3/uL (1.8-7.7); Nucleated Red Blood Cells % 0 %; Platelet Count 224 10^3/cmm (130-400); Red Blood Count 3.43 10^6/uL (4.1-5.3); Red Cell Distribution Width 13.9 % (12.1-15.1); White Blood Count 10.9 10^3/uL (4.0-10.0)
[2021-10-14 03:20] LABS: Blood Urea Nitrogen 10 mg/dL (8-23); Carbon Dioxide 24 mmol/L (22-29); Chloride 106 mmol/L (98-107); Creatinine Clr Calc Pharmacy 57.5862; Glucose 135 mg/dL (65-115); Osmolality Calculated 287 mOsm/kg (285-295); Sodium 138 mmol/L (136-145)
[2021-10-14 03:31] VITALS: RESP 18
[2021-10-14] MEDS: oxyCODONE 5 mg IR Tab/Cap 10 MG PO (03:31)
[2021-10-14 04:00] VITALS: BP 131/78; PULSE 89; RESP 18; TEMP 36.4; O2SAT 90
[2021-10-14] MEDS: sodium chloride 0.9% 1,000 ML 75 ML IV (04:29)
[2021-10-14] MEDS: acetaminophen 500 mg Tablet 1000 MG PO (07:32)
--- NOTE | 2021-10-14 07:39 | PM.PN ---
Subjective Subjective: Patient states she still does not feel right still complains of right hip pain Vitals/I&O/Wt Last Vital Signs Temp 97.6 F 10/14/21 04:00 Pulse 89 10/14/21 04:00 Resp 18 10/14/21 04:00 BP 131/78 10/14/21 04:00 Pulse Ox 90 10/14/21 04:00 O2 Del Method 10/13/21 16:00 O2 Flow Rate 3 10/13/21 20:00 10/13/21 10/14/21 10/14/21 22:59 06:59 14:59 Intake Total 1120 / 2955.5 1120 / 4075.5 Output Total 350 / 350 300 / 650 Balance 770 / 2605.5 820 / 3425.5 Weight last 48 hrs Weight 150 lb Physical Exam Narrative: Right hip adhesive dressing removed. Incision clean. Minimal swelling thigh. Data : 10/14/21 02:26 10/14/21 02:26 A&P Assessment and plan (1) Status post right hip replacement: Continue to mobilize with therapy. Status: Acute (2) Hypoxia: Hypoxia resolved. Etiology unclear. Doppler ultrasound and CT angiogram were negative. Status: Acute (3) Opioid contract exists: I am wondering if there is not perhaps some inconsistencies in her term narcotic use. She is taking her hydrocodone at home more often that would she would suggest. I am thinking the best choice would be to stop the oxycodone I will put her back on her [place] 10 regimen at home and will go with the. Status: Chronic Attestations Medical Necessity Statement*: As per medicine Coding Level of Care Code Acute Featheredge Machine Operator for Karrie Salomon Diagnoses Status post right hip replacement Z96.641 Hypoxia R09.02 Opioid contract exists Z79.891
[2021-10-14 07:58] VITALS: BP 124/59; PULSE 102; RESP 18; TEMP 38.1; O2SAT 93
[2021-10-14] MEDS: HYDROcodone-acetaminophen 10-325 mg Tablet 1 TAB PO (09:11)
[2021-10-14] MEDS: gabapentin 300 mg Capsule PO (09:11)
[2021-10-14] MEDS: atorvastatin 40 mg Tablet 20 MG PO (09:12)
[2021-10-14] MEDS: aspirin 325 mg EC Tablet PO (09:12)
[2021-10-14] MEDS: enoxaparin 40 mg/0.4 mL Syringe SUBCUT (09:21)
--- NOTE | 2021-10-14 11:23 | PM.CONSULT ---
Providers/Reason For Consult Consulting Physician/Specialty*: Hospitalist Reason for Consult*: Rapid response Attending Physician: Saravanan Nam MD History of Present Illness History of Present Illness Tala Gale is a 75 year old female status post right total hip arthroplasty, rapid response was called for confusion and hypoxia. Extensive work-up was done which was unremarkable other than a spiculated right lower lobe nodule I have requested her to see Dr. Tipton outpatient hemp fiber taker off for the biopsy. She does carry strong history of smoking. She is not an active smoker anymore. No recent history of weight loss, night sweats. CT head unremarkable. No signs of stroke. DVT, CTA ruled out PE. At the time of rapid response she was requiring 4 L currently she is on room air. No signs of confusion or stroke. Patient is endorsing feeling better Please see my rapid response note for further details Review of Systems Const: Denies: fever(s) Eyes: Denies: change in vision ENMT: Denies: throat pain Card: Denies: chest pain Resp: Denies: dyspnea GI: Denies: abdominal pain : Denies: flank pain Musc: Denies: neck pain Skin/Breast: Denies: rash Neuro: Denies: headache(s) Psych: Denies: anxiety Endo: Denies: polyuria Malick/Lymph: Denies: easy bruising All/Imm: Denies: urticaria Medications/Allergies Home Medications Medication Instructions Recorded Confirmed Last Taken Type atorvastatin 10 mg tablet 10 mg PO DAILY #90 tabs 07/27/21 10/12/21 10/12/21 03:30 Rx gabapentin 800 mg tablet 800 mg PO TID #90 tabs 09/09/21 10/12/21 10/12/21 03:30 Rx hydrocodone 10 mg-acetaminophen 1 tab PO BID PRN pain 30 days #60 09/09/21 09/25/21 Unknown Rx 325 mg tablet tabs lisinopril 10 mg tablet 10 mg PO DAILY #90 tabs 09/09/21 10/12/21 10/11/21 Rx acetaminophen 500 mg tablet 1,000 mg PO Q8H PRN Mild Pain Or 10/12/21 Unknown Rx Increase Temp 14 days #84 tabs aspirin 325 mg tablet,delayed 325 mg PO DAILY 30 days #30 tabs 10/12/21 Unknown Rx release oxycodone 5 mg tablet 10 mg PO Q4H PRN Severe Pain 7 10/12/21 Unknown Rx days #3,340 tabs sennosides 8.6 mg-docusate sodium 1 tab-cap PO DAILY PRN 10/14/21 Unknown Rx 50 mg tablet (Senna-S) constipation #30 tabs Allergies Allergy/AdvReac Type Severity Reaction Status Date / Time celecoxib [From Celebrex] AdvReac ABDOMINAL Verified 09/09/21 10:30 PAIN Current Medications Generic Name Dose Route Start Last Admin Trade Name Freq PRN Reason Stop Dose Admin Aspirin 325 mg 10/13/21 09:00 10/14/21 09:12 Aspirin 325 Mg Ec Tablet PO 325 mg DAILY MAEGAN Administration Atorvastatin Calcium 20 mg 10/13/21 09:00 10/14/21 09:12 Atorvastatin 40 Mg Tablet PO 20 mg DAILY MAEGAN Administration Enoxaparin Sodium 40 mg 10/14/21 09:00 10/14/21 09:21 Enoxaparin 40 Mg/0.4 Ml Syringe SUBCUT 40 mg DAILY MAEGAN Administration Gabapentin 300 mg 10/13/21 16:00 10/14/21 09:11 Gabapentin 300 Mg Capsule PO 300 mg TID MAEGAN Administration Sodium Chloride 1,000 mls @ 75 mls/hr 10/13/21 12:15 10/14/21 04:29 Sodium Chloride 0.9% IV 75 mls/hr .[id number] MAEGAN Administration Lisinopril 10 mg 10/13/21 09:00 10/13/21 08:33 Lisinopril 10 Mg Tablet PO 10 mg DAILY MAEGAN Administration PFSH Acute PFSH: Medical History Benign essential HTN Cat bite of left hand with infection Chronic midline low back pain with bilateral sciatica Chronic pain of left knee Encounter for long-term opiate analgesic use History of 2019 novel coronavirus disease (COVID-19) Intervertebral disc disorder with radiculopathy of lumbar region Opioid contract exists Pneumonia due to COVID-19 virus Postmenopausal Surgical History H/O breast augmentation History of back surgery Spinal Cord Stimulator Trial-Dr. Torres at [facility] 04/16/19 History of implanted electronic device Dr. Young- 08/16/19 Hx of cataract extraction Bilat done in [place] Status post hip surgery Family History Other Cancer Social History Smoking and tobacco status: never smoked Alcohol intake: current Alcohol intake frequency: holidays/special occasions only Lives independently: Yes Household members: spouse Marital status: Current occupational status: retired History of recent travel: No Vitals/I&O/Wt Last Vital Signs Temp 100.6 F H 10/14/21 07:58 Pulse 102 H 10/14/21 07:58 Resp 18 10/14/21 07:58 BP 124/59 10/14/21 07:58 Pulse Ox 93 10/14/21 07:58 O2 Del Method 10/14/21 07:58 O2 Flow Rate 3 10/13/21 20:00 10/13/21 10/14/21 10/14/21 22:59 06:59 14:59 Intake Total 1120 / 2955.5 1120 / 4075.5 Output Total 350 / 350 300 / 650 Balance 770 / 2605.5 820 / 3425.5 Physical Exam Narrative: Patient is awake and alert Nonfocal neuro exam No signs of stroke Currently on room air Abdomen soft No audible stridor or wheezing at the bedside Looks euvolemic Pleasant and cooperative Data : 10/14/21 02:26 10/14/21 02:26 A&P Assessment and plan (1) Hypoxia: Status: Acute (2) Status post right hip replacement: Status: Acute (3) Osteoarthritis of right hip: Status: Acute (4) Pulmonary nodule: Status: Acute Plan I have seen Ms. Gale after rapid response Hypoxia resolved: She is on room air No audible stridor or wheezing Strong [id number] smoking history, Spiculated nodule, outpatient Dr. Tipton referral for the biopsy to rule out malignancy CTA chest, DVT did not show any PE or thromboembolic phenomenon However D-dimer is high at She is not infected. This D-dimer could be related to underlying occult cancer Currently she is on room air and doing well no signs of stroke CT head unremarkable ABG reviewed. Normal CBC and BMP Patient was counseled extensively on the importance of biopsy to rule out cancer To go home on opioids and bowel regimen Consult Attestations Medical Necessity Statement: Patient will be discharged on 10/14 Time Spent in Patient Care: 35 Coding Level of Care Code Acute Director Inpatient Headache Program for Chg Fwd Diagnoses Hypoxia R09.02 Status post right hip replacement Z96.641 Osteoarthritis of right hip M16.11 Pulmonary nodule R91.1
--- NOTE | 2021-10-14 11:37 | PC.CHAP ---
Pastoral Care Encounter/Spiritual Assessment Type of Contact [] Declined exerciser visit [] Patient/Family/Request visit [] Outpatient visit [] Follow-up visit [] Physician referral [] Code/Alert [x] Routine visit [] Staff referral [] Actively dying [] Patient sleeping [] Family support [] [] Out of room [] Palliative care [] [] Receiving care in room [] Pre-surgical visit [] Trauma [] Long length of stay [] ICU visit [] Other: Relational/Emotional Strength [] Patient feels connected with others/family/visitors/staff [] Distress [] Loneliness/isolation [] Abandonment Spirituality of Patient [x] Person of Nadja [] Attends Nondenominational of their Nadja [x] Believes in Prayer [] Reads Bible or Mandaeism materials [] There are Spiritual issues to be addressed 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 Interventions [x] Prayer [x] Active listening [] Non-anxious presence [] Spiritual/emotional support [] Crisis/trauma care [] Spiritual counseling [] Bereavement support [] Provided bereavement packet [] Provided Bible/devotional materials [] Provided toy/stuffed animal, coloring book to patient or family member [] Provided Communion [] Anointing/[place] [] Salvation [x] Completed spiritual assessment [] Other: Impact on Illness or Injury [] Angry [] Fearful [] Anxious [] Often cries [] Exhaustion [] Unable to work [] Unable to attend latter-day [] Unable to walk/stand [] Unable to read [] Unable to drive [] Unable to eat/drink [] Unable to sleep [] Unable to be with family [] Patient intubated [] Other: Summary Time spent with patient 5 m,in
[2021-10-14 12:00] VITALS: BP 106/68; PULSE 82; RESP 16; TEMP 36.9; O2SAT 94
--- NOTE | 2021-10-14 12:22 | P.DS_ITS ---
Discharge Providers Date of Admission: 10/13/21 14:42 Date of Discharge: October 14, 2021 Attending Provider at Admission: Saravanan Mcdermott MD Attending Provider at Discharge: Saravanan Mcdermott MD Consults: CLIFTON Holly hopitalist Diagnoses at Discharge Discharge Diagnosis (1) Hypoxia: Details from hospital stay: The patient developed hypoxia on the first postoperative day. Work-up including a CT angiogram of the chest and Doppler of the lower extremity were unremarkable. By the second postoperative day has had resolved Status: Acute (2) Status post right hip replacement: Status: Acute (3) Osteoarthritis of right hip: Status: Resolved (4) Pulmonary nodule: Status: Acute Permanent problem details: 1. New 3.7 cm spiculated nodule in the right lower lobe. Highly suspicious nodule(s). Hospital Course Hospital Course Ms. Gale underwent elective right total hip arthroplasty on 10/12/2021. On the second day she developed hypoxia and a medicine consultation was obtained. Work-up included venous ultrasounds of the lower extremity and a CT angiogram of the chest but no source of hypoxia was identified. An incidental pulmonary nodule was noted. By the following day things had resolved. Her medicines were changed back from oxycodone to her hydrocodone 10 she has been accustomed to taking. She was discharged home on that day. Physical Exam Narrative: On the day of discharge the hip incision was clean. The incision was free of drainage. They had no particular swelling about the thigh or distal. No distal neurovascular deficits were noted. Discharge Data Studies Completed and Pending Completed Studies During Hospitalization Category Date Time Status CT head wo con* [id number] Routine Cat Scan 10/13/21 17:47 Completed CTA PE [CT angio chest PE protcl [id number]] Urgent Cat Scan 10/13/21 12:08 Completed CXRP [XR chest 1V portable [id number]] Stat Exams 10/13/21 09:05 Completed XR hip RT 1V wo/w pel [id number] Routine Exams 10/12/21 09:17 Completed US venous duplex lower extremity bilat [CV venous Ultrasound 10/13/21 12:08 [place] [id number]] Routine Radiology Impressions Hip X-Ray 10/12/21 09:17 IMPRESSION: Status post RIGHT total hip arthroplasty in good position on this single radiograph. Chest X-Ray 10/13/21 09:05 IMPRESSION: No acute cardiopulmonary abnormality identified. Chest CTA 10/13/21 12:08 IMPRESSION: 1. New 3.7 cm spiculated nodule in the right lower lobe. Highly suspicious nodule(s). Consider non-emergent PET/CT, or tissue sampling.(Reference: Margarita) 2. No evidence for pulmonary embolus. References: Margarita Zafar et al. Guidelines for Management of Incidental Pulmonary Nodules Detected on CT Images: From the Fleischner Society 2017. Radiology. 2017;284(1):228-243. COMMENTS: Consistent with the [employer]'s Incidental Findings Committee white paper (J Am Micheline Radiol 2015): In patients aged 35 years and older with an incidental thyroid nodule equal to or greater than 1.[address], MRI or extrathyroidal US, further evaluation with dedicated thyroid US is recommended for patients with normal life expectancy and without comorbidities. For smaller nodules without suspicious features, no further evaluation or follow up is recommended. Venous Duplex 10/13/21 12:08 IMPRESSION: No evidence of deep vein thrombosis. Head CT 10/13/21 17:47 IMPRESSION: 1. No acute intracranial finding. Laboratory Results WBC 10.9 10^3/uL (4.0-10.0) H 10/14/21 02:26 RBC 3.43 10^6/uL (4.1-5.3) L 10/14/21 02:26 Hgb 10.2 g/dL (11.5-15.3) L 10/14/21 02:26 Hct 32.4 % (37.0-47.0) L 10/14/21 02:26 MCV 94.5 fl (81-99) 10/14/21 02:26 MCH 29.7 pg (28.0-34.0) 10/14/21 02:26 MCHC 31.5 g/dL (30.0-36.0) 10/14/21 02:26 RDW 13.9 % (12.1-15.1) 10/14/21 02:26 Plt Count 224 10^3/cmm (130-400) 10/14/21 02:26 MPV 10.5 fL (7.4-10.4) H 10/14/21 02:26 Neut % (Auto) 68.0 % 10/14/21 02:26 Lymph % (Auto) 18.5 % 10/14/21 02:26 Dauphin % (Auto) 12.7 % 10/14/21 02:26 Eos % (Auto) 0.3 % 10/14/21 02:26 Baso % (Auto) 0.2 % 10/14/21 02:26 Neut # (Auto) 7.41 10^3/uL (1.8-7.7) 10/14/21 02: Lymph # (Auto) 2.0 10^3/uL (0.8-4.8) 10/14/21 02:26 Dauphin # (Auto) 1.4 10^3/uL (0.2-0.9) H 10/14/21 02:26 Eos # (Auto) 0.0 10^3/uL (0.0-0.8) 10/14/21 02: Baso # (Auto) 0.0 10^3/uL (0.0-0.1) 10/14/21 02: Nucleated RBC % (auto) 0 % 10/14/21 02: Nucleated RBCs # 0.0 /100WBC 10/14/21 02:26 D-Dimer 2.89 ug/mIFEU (0-0.59) H 10/13/21 03:18 Specimen Type Arterial 10/13/21 09:04 Sample Site Radial, right 10/13/21 09:04 ABG pH 7.40 (7.35-7.45) 10/13/21 09:04 ABG pCO2 35.8 mmHg (35-45) 10/13/21 09:04 ABG pO2 85.2 mmHg (80.0-100.0) 10/13/21 09:04 ABG HCO3 22.3 mmol/L (22-26) 10/13/21 09:04 ABG O2 Saturation 97.8 10/13/21 09:04 ABG Base Excess -2.0 mmol/L (-2.0-2.0) 10/13/21 09:04 Al Test Pos 10/13/21 09:04 A-a O2 Gradient 2.6 mmHg (5-10) L 10/13/21 09:04 Hematocrit 35.1 % (37-47) L 10/13/21 09:04 Hgb O2 Saturation 95.5 % (95-100) 10/13/21 09:04 Carboxyhemoglobin 1.5 %THgb (0.4-20.1) 10/13/21 09:04 Methemoglobin 0.9 % (0.4-1.5) 10/13/21 09:04 Total Hemoglobin 11.5 g/dL (12-16) L 10/13/21 09:04 Sodium 136.0 mmol/L (131-143) 10/13/21 09:04 Potassium 4.0 mmol/L (3.5-5.0) 10/13/21 09:04 Glucose 141.0 mg/dL (70-115) H 10/13/21 09:04 Ionized Calcium 1.3 mmol/L (1.1-1.4) 10/13/21 09:04 O2 Delivery Device Nc 10/13/21 09:04 O2 Liters/Min 2.0 % 10/13/21 09:04 Pants Presser ID Yasmany 10/13/21 09:04 Sodium 138 mmol/L (136-145) 10/14/21 02:26 Potassium 4.0 mmol/L (3.5-5.1) 10/14/21 02:26 Chloride 106 mmol/L (98-107) 10/14/21 02:26 Carbon Dioxide 24 mmol/L (22-29) 10/14/21 02:26 Anion Gap 12.0 (5-19) 10/14/21 02:26 BUN 10 mg/dL (8-23) 10/14/21 02:26 Creatinine 0.6 mg/dL (0.5-0.9) 10/14/21 02:26 GFR Calculation Not Reportable 10/14/21 02:26 Glucose 135 mg/dL (65-115) H 10/14/21 02:26 POC Glucose 109 mg/dL (70-110) 10/13/21 09:03 Calculated Osmolality 287 mOsm/kg (285-295) 10/14/21 02:26 Calcium 9.0 mg/dL (8.5-10.5) 10/14/21 02:26 Total Bilirubin 0.4 mg/dL (0.15-1.2) 10/13/21 10:45 AST 26 U/L (0-32) 10/13/21 10:45 ALT 11 U/L (0-33) 10/13/21 10:45 Alkaline Phosphatase 58 IU/L (35-105) 10/13/21 10:45 Total Protein 5.8 g/dL (6.6-8.7) L 10/13/21 10:45 Albumin 3.4 g/dL (3.5-5.2) L 10/13/21 10:45 Globulin 2.4 g/dL (1.3-4.6) 10/13/21 10:45 Procalcitonin 0.08 ng/mL (0-0.5) 10/13/21 10:45 Urine Color Yellow (Yellow) 10/13/21 11:19 Urine Appearance Clear (CLEAR) 10/13/21 11:19 Urine pH 5 (5-7) 10/13/21 11:19 Ur Specific Graham 1.020 (1.005-1.030) 10/13/21 11:19 Urine Protein Neg (Negative) 10/13/21 11:19 Urine Glucose (UA) Norm (Normal) 10/13/21 11:19 Urine Ketones Negative (Negative) 10/13/21 11:19 Urine Blood Neg (Negative) 10/13/21 11:19 Urine Nitrate Negative (Negative) 10/13/21 11:19 Urine Bilirubin Neg (Negative) 10/13/21 11:19 Urine Urobilinogen Norm mg/dL (Negative) 10/13/21 11:19 Ur Leukocyte Esterase Trace (Negative) H 10/13/21 11:19 Coronavirus 229E (PCR) Not detected (NOT DETECT) 10/13/21 11:52 SARS-CoV-2 (PCR) Not detected (NOT DETECT) 10/13/21 11:52 Vitals Last Vital Signs Temp 98.5 F 10/14/21 12:00 Pulse 82 10/14/21 12:00 Resp 16 10/14/21 12:00 BP 106/68 10/14/21 12:00 Pulse Ox 94 10/14/21 12:00 O2 Del Method 10/14/21 12:00 O2 Flow Rate 3 10/13/21 20:00 Discharge Plan Discharge Patient Disposition: Home Condition: Stable Prescriptions: New acetaminophen 500 mg Tablet 1,000 mg PO Q8H PRN (Reason: Mild Pain Or Increase Temp) 14 Days Qty: 84 0RF aspirin 325 mg Tablet,Delayed Release (Dr/Ec) 325 mg PO DAILY 30 Days Qty: 30 0RF Senna-S 8.6-50 mg tablet 1 tab-cap PO DAILY PRN (Reason: constipation) Qty: 30 0RF hydrocodone-acetaminophen 10-325 mg Tablet 1 tab PO Q6H PRN (Reason: pain) 7 Days Qty: 20 0RF acetaminophen 500 mg Tablet 500 mg PO Q8H PRN (Reason: Mild Pain Or Increase Temp) 14 Days Qty: 42 0RF Continued hydrocodone-acetaminophen 10-325 mg tablet 1 tab PO BID PRN (Reason: pain) 30 Days Qty: 60 0RF Rx Instructions: fill on or after 11/09/2021 gabapentin 800 mg tablet 800 mg PO TID Qty: 90 3RF lisinopril 10 mg tablet 10 mg PO DAILY Qty: 90 1RF atorvastatin 10 mg tablet 10 mg PO DAILY Qty: 90 1RF Discontinued hydrocodone-acetaminophen 10-325 mg tablet 1 tab PO BID PRN (Reason: pain) 30 Days Qty: 60 0RF Rx Instructions: Do not fill until 09/10/2021 hydrocodone-acetaminophen 10-325 mg tablet 1 tab PO BID PRN (Reason: pain) 30 Days Qty: 60 0RF Rx Instructions: Do not fill until 10/10/2021 Discharge Orders: Discharge Order (Routine); Ordered 10/14/21 Ordered By: Ofe Bonner Referrals: IggyrFabricio MD [Physician] - 10/28/21 8:15 am Saravanan Mcdermott MD [Physician] - 2 weeks Discharge Diet: Advance as tolerated Discharge Activity: Limit activity as instructed Patient Instructions: Oxycodone, Rapid Release (By mouth), Precautions after Total Joint Replacement Surgery (DC), Total Hip Replacement (GEN), Joint Replacement Stoplight, Opioid Safety Activity Restrictions/Additional Instructions: Okay to shower. No soaking incision in tub Apply FirstIce up to 20 min/hr for pain and swelling Take Celebrex twice a day for the next 15 days for pain , discontinue other anti-inflammatories Take Tylenol 500mg 3 times a day for mild pain Take hydrocodone 10 for breakthrough pain. I have included an additional medication to supplement your previous twice daily dosage Exercises per physical therapy. May weight-bear as tolerated on total hip arthroplasty IF HAVE ANY PROBLEMS OR QUESTIONS CALL [facility]PERATOR AT AND ASK TO HAVE DR. MCDERMOTT PAGED. Your CT scan of chest showed. New 3.7 cm spiculated nodule in the right lower lobe. Highly suspicious nodule(s). Please see Dr. Tipton check weigher for the biopsy Discharge Attestations Time Spent in Discharge Care*: other Status at Discharge: Cognitive status at discharge: cognitively intact , Behavioral status at discharge: cooperative , Quality Metrics Clinical Quality Measures [ No reported AMI, CVA or VTE this stay] Coding Level of Care Code Acute [facility] note Diagnoses Hypoxia R09.02 Status post right hip replacement Z96.641 Osteoarthritis of right hip M16.11 Pulmonary nodule R91.1
== END 2021-10-14 13:44 | disposition home health service (06) | DRG 470 ==
LOC: MEDSURG 08:50
PROVIDERS: Anesthesiology; Internal Medicine; Admitting Provider Orthopaedic Surgery; Visit Provider Orthopaedic Surgery
PROC: (CPT 27130; principal; 2021-10-12 07:00)
DX: M16.11 Unilateral primary osteoarthritis, right hip (principal); I10 Essential (primary) hypertension; G89.29 Other chronic pain; M51.16 Intervertebral disc disorders with radiculopathy, lumbar region; Z86.16 Personal history of COVID-19; Z87.01 Personal history of pneumonia (recurrent); Z78.0 Asymptomatic menopausal state; Z96.82 Presence of neurostimulator; R09.02 Hypoxemia; Z79.891 Long term (current) use of opiate analgesic; R41.0 Disorientation, unspecified; Z87.891 Personal history of nicotine dependence; R91.1 Solitary pulmonary nodule
CPT/HCPCS: 36415; 36416; 36600; 70450; 71045; 71275; 73501; 80048; 80051; 80053; 81003; 82330; 82805; 82962; 84145; 85018; 85025; 85378; 87635; 93005; 93970; 96372; 97110; 97116; 97161; 97167; 97530; C1776; G0378; J0330; J1580; J1650; J2370; J2405; J2704; J7030; Q9967

== ENCOUNTER → 2021-10-26 13:25 | Outpatient (BNVA) | payer MEDICARE, OTHER, SELFPAY | PROVIDERS: Visit Provider Nurse Practitioner Family | DX: Z96.641 Presence of right artificial hip joint (principal) | CPT/HCPCS: 99024 ==

== ENCOUNTER → 2021-10-28 09:57 | Outpatient (BNVA) | payer MEDICARE, OTHER, SELFPAY | PROVIDERS: Visit Provider Internal Medicine Pulmonary Disease | DX: Z96.641 Presence of right artificial hip joint (principal); R79.1 Abnormal coagulation profile; R91.1 Solitary pulmonary nodule; J43.9 Emphysema, unspecified; Z87.891 Personal history of nicotine dependence; Z86.16 Personal history of COVID-19 | CPT/HCPCS: 85384; 85610; 85730; 99204 ==

== ENCOUNTER 2021-11-03 07:14 | Day surgery (SDC) | payer MEDICARE, OTHER, SELFPAY ==
[2021-10-30 14:07] VITALS: BMI 25.7
[2021-11-03] VITALS (8 sets, daily range): BP systolic 103–153; BP diastolic 59–78; PULSE 64–92; RESP 14–18; TEMP 36.4–37.1; O2SAT 89–99
--- NOTE | 2021-11-03 | CT_ITS ---
Guided Bronchoscopy Planning CT images; total exam DLP: 368.08 mGy-cm MTDD
[2021-11-03] MEDS: sodium chloride 0.9% 1,000 ML 30 ML IV ×2 (08:09→10:11)
--- NOTE | 2021-11-03 08:23 | P.ANESASSM_ITS ---
Pre-Anesthetic Assessment Height/Weight: Height 1.63 m Weight 68.039 kg Temp Pulse Resp BP Pulse Ox O2 Del Method 98.8 F 64 18 153/78 99 11/03/21 08:07 11/03/21 08:07 11/03/21 08:07 11/03/21 08:07 11/03/21 08:07 11/03/21 08:07 Preop Diagnosis: Osteoarthritis right hip Operation Date: 11/03/21 08:50 Proposed Procedures p Navigational Bronchoscopy and EBUS; 85139, 99104, 63039, 45234, 84177, 74381, 43100,R91.1(Not Applicable) - Fabricio Tipton MD s Ebus(Not Applicable) - Fabricio Tipton MD Familial anesthetic complications: None Recently had RENETTA Was Beta Bhanu taken within 24 hours: N/A Was Clonidine taken within 24 hours: N/A Last intake: Intake Last Liquid Date 11/02/21 Last Liquid Time 19:00 Last Solid Date 11/02/21 Last Solid Time 19:00 Social No alcohol and No tobacco Exam alert, oriented x 3, clear to auscultation bilaterally and regular rate & rhythm Airway Submandibular: within normal limits Cervical ROM: within normal limits Mallampati: Class II Dentition: false Pulmonary Chronic Obstructive Pulmonary Disease Chest CT 10/13/21 CT/CT angio chest PE protcl [id number] IMPRESSION: 1. New 3.7 cm spiculated nodule in the right lower lobe. Highly suspicious nodule(s). Consider non-emergent PET/CT, or tissue sampling.(Reference: Margarita) 2. No evidence for pulmonary embolus CV/HEM Anemia and Hypertension METS > 4 EKG 10/13/21 ?? ? Interpretive Statements SINUS RHYTHM Electronically Signed On 10-13-2021 18:58:02 CDT by Jeff Li M.D. [email or web address] None reported Hepatic None reported GI Gastroesophageal Reflux Disease (Well controlled ) Metabolic Hyperlipidemia Musc/skel Lower Back Pain and Osteoarthritis/DJD Recent RENETTA Neuropsych None reported After RENETTA had extensive workup for hypoxia with confusion, w/u negative for PE/DVT nodule noted on CT chest. Negative head CT. Anesthetic Plan ASA status: 2 Anesthesia: Anesthesia Evaluation and General Other: We discussed risk and benefits of general anesthesia including PONV, sore throat (sometimes severe), corneal abrasion, positioning and peripheral nerve injuries, life threatening allergic reaction, post operative ICU admission requiring prolonged intubation, aspiration, stroke, heart attack, , and rare incidences of recall. Patient consents to proceed with general anesthesia. Risk of > 500 ml blood loss (7ml/kg in children): No Medications/Allergies Home Medications Medication Instructions Recorded Confirmed Last Taken Type atorvastatin 10 mg tablet 10 mg PO DAILY #90 tabs 07/27/21 11/03/21 11/03/21 Rx gabapentin 800 mg tablet 800 mg PO TID #90 tabs 09/09/21 11/03/21 11/03/21 Rx hydrocodone 10 mg-acetaminophen 1 tab PO BID PRN pain 30 days #60 09/09/21 11/03/21 11/03/21 Rx 325 mg tablet tabs lisinopril 10 mg tablet 10 mg PO DAILY #90 tabs 09/09/21 11/03/21 10/11/21 Rx albuterol sulfate 90 mcg/actuation 2 puff inhalation 6XD PRN 10/28/21 11/03/21 Unknown Rx aerosol inhaler shortness of breath or wheezing #8.5 grams Allergies Allergy/AdvReac Type Severity Reaction Status Date / Time celecoxib [From Celebrex] AdvReac ABDOMINAL Verified 11/03/21 07:41 PAIN Current Medications Generic Name Dose Route Start Last Admin Trade Name Freq PRN Reason Stop Dose Admin Sodium Chloride 1,000 mls @ 30 mls/hr 11/03/21 07:30 11/03/21 08:09 Sodium Chloride 0.9% IV 11/04/21 07:29 30 mls/hr .Q24H MAEGAN Administration PFSH Anesthesia Medical History Benign essential HTN Cat bite of left hand with infection Chronic midline low back pain with bilateral sciatica Chronic pain of left knee Encounter for long-term opiate analgesic use History of 2018 novel coronavirus disease (COVID-19) Intervertebral disc disorder with radiculopathy of lumbar region Opioid contract exists Pneumonia due to COVID-19 virus Postmenopausal Surgical History H/O breast augmentation History of back surgery Spinal Cord Stimulator Trial-Dr. Torres at [facility] 04/16/19 History of implanted electronic device Dr. Young- 08/16/19 Hx of cataract extraction Bilat done in [place] Status post hip surgery Family History Mother Cancer lymphoma Social History Smoking and tobacco status: former smoker Quit status (tobacco): has quit using tobacco Year quit tobacco: 2011 Former quit date comment: 1ppd x 46 years Alcohol intake: current Alcohol intake frequency: holidays/special occasions only Lives independently: Yes Household members: spouse Marital status: Current occupational status: retired History of recent travel: No Data Anesthesia Cardiac Studies: Echocardiogram Ultrasound 02/01/20
--- NOTE | 2021-11-03 08:44 | W.PM.OPSUD ---
Surgery/Procedure H&P Update DATE OF PROCEDURE: November 03, 2021 DATE H&P PERFORMED: 10/28/21 CHANGES TO PREVIOUS DOCUMENTATION: none PREOP DIAGNOSIS: Osteoarthritis right hip PRIMARY INDICATION FOR PROCEDURE: ?New 3.7 cm spiculated nodule in the right lower lobe. Highly suspicious nodule for malignancy PLANNED PROCEDURE: Operation Date: 11/03/21 08:50 Proposed Procedures p Navigational Bronchoscopy and EBUS; 55487, 24999, 87527, 67513, 98269, 73152, 26896,R91.1(Not Applicable) - Fabricio Tipton MD s Ebus(Not Applicable) - Fabricio Tipton MD Related Problem List Diagnoses (1) Pulmonary nodule:
[2021-11-03] MEDS: lidocaine 1% INJ 20 mL 4 ML XX (09:45)
--- NOTE | 2021-11-03 10:49 | XR_ITS ---
WS: [id number] Exam: XR chest 1V portable [id number] Date/Time of Exam: 11/03/2021 10:49 AM Reason For Exam: post bronch/veran Comparison 10/13/2021. New infiltrate noted in the right lower lung zone suggesting active pneumonia. Probable chronic inter stitial changes in the left lower lung zone. Heart size top limits normal for technique. The mediasti num is normal in contour. Neurostimulator leads are noted in the region of the thoracic spinal canal. Additional leads superimpose the chest. Bony structures are intact. XR/XR chest 1V portable [id number] IMPRESSION: 1. Infiltrate in the right lower lung zone suggesting active pneumonia. 2. Probable chronic interstitial changes in the left lower lung zone. The media stinum is normal in contour. No pneumothorax or pleural effusion. Calcified enc apsulated bilateral breast implants noted.
[2021-11-03 11:18] LABS: Cyto Order Verification Order Verified
[2021-11-03 11:18] LABS: Cyto Order Verification Order Verified
--- NOTE | 2021-11-03 11:26 | P.OP_ITS ---
Operative Report Date of procedure: November 03, 2021 Pre-op diagnosis: Preop Diagnosis Suspected lung malignancy Post-op diagnosis: same Procedure done: -CPT code 85308: Bronchoscope for airway inspection -CPT code 55495: Bronchoscope with BAL from right lower lobe -CPT Code 08307: Navigational Bronchoscopy -CPT code 61375: Bronchoscope with transbronchial lung biopsy of right lower lobe -CPT code 65247: EBUS Sampling 1/2 nodes -Control of bleeding Surgeon: Fabricio Tipton MD, [facility] Brief History: Ms. Tala Gale is a 75 year old female with PMH of? chronic emphysema with good MMRC, ex smoker 47 pack year history, comes [facility] f/u after hip replacement and lung nodule seen on CTA.? patient underwent right hip arthroplasty on 10/12/21, had hypooxia and confusion requiring 4L nasal cannula -extensive work-up for PE and DVT were negative except an incidental 3.7 cm spiculated right lower lobe nodule was identified. Also seen chronic emphysematous changes.she has 46 pack year smoking history and quit in 2011, with this risk factor - the lung nodule is concerning for possible malignancy. Patient had a PET/CT 10/31/2021-which showed activity in the right lower lobe as well as in subcarinal area-official report is still pending. Today she is scheduled for bronchoscopic evaluation using navigational system to obtain biopsies of right lower lobe lesion as well as endobronchial ultrasound- guided surveillance and possible fine-needle aspiration of hilar/mediastinal lymph nodes Procedure: Name of the procedure: -CPT code 51458: Bronchoscope for airway inspection -CPT code 23702: Bronchoscope with BAL from right lower lobe -CPT Code 67672: Navigational Bronchoscopy -CPT code 66585: Bronchoscope with transbronchial lung biopsy of right lower lobe -CPT code 19211: EBUS Sampling 1/2 nodes -Control of bleeding Indication: PET active new spiculated mass along the right lower lobe unprotective lesions in hilar/mediastinal area Anesthesia: General anesthesia. Local anesthesia: The susan in the right and left mainstem bronchi were anesthetized with 1% lidocaine, 3 mL. Description of the procedure: The procedure was explained to the patient and the consent was obtained.? The patient was brought to the OR.? The patient underwent endotracheal intubation for general anesthesia.? Following induction of general anesthesia, the bronchoscope was advanced through the ET tube.? The lower trachea mucosa appeared normal, no endotracheal lesion was seen.? The susan was sharp.? The susan, the right and left mainstem bronchi are anesthetized with 1% lidocaine.? In a systematic manner bilateral bronchial tree was then examined.? The bronchoscope was advanced into the left mainstem bronchus.? The mucosa appeared normal with no endobronchial lesions.? The left upper lobe, lingula and left lower lobe bronchi were examined up to the third subsegmental level and no abnormalities were identified.? Mucosa appeared normal with no endobronchial lesion, active bleeding or mucous plug.? There were some clear secretions in lower lobe-which were suctioned right away.? The bronchoscope was then introduced into the right mainstem bronchus.? The right upper lobe, right middle lobe and right lower lobe bronchi were examined up to the third subsegmental level and no abnormalities were identified.? The mucosa appeared normal with no endobronchial lesions, active bleeding or mucous plugs. Using SendRR navigational system-obtained 1 touch prep from right lower lobe spiculated mass for SHAN and preliminary pathology diagnosis was suspicious for malignancy.? I obtained 5 more? biopsies? with forceps from right lower lobe lesion and placed in formalin and sent to histopathology. Bronchoalveolar lavage was performed from the right lower lobe.? 60 mL of saline was instilled, fluid return was 20 mL.? The fluid was mixed with blood. There was no overt bleeding. The bronchoscope was retracted and endobronchial ultrasound was introduced. Identified a lymph node in station 7 area and fine-needle aspiration cytology samples were obtained. Prepared 1 touch prep from station 7 lymph node for SHAN and preliminary pathology diagnosis was suspicious for malignancy.? I made 3-4 more passes and obtained in left tissue and placed in formalin for histopathology review. Samples: 1.? Bronchoalveolar lavage specimen was sent for cell count and differential, gram stain and culture 2.? Transbronchial forcep biopsies from right lower r lobe lesion sent for histopathology in formalin 3.? EBUS guided fine-needle aspiration cytology of station 7 lymph node-samples sent in formalin Complications: None.The patient was extubated and brought to the PACU in stable condition. Postprocedure chest x-ray:? No evidence of pneumothorax Disposition: Patient can be discharged home in stable condition.? Updated preliminary diagnosis to the patient's . He verbalized understanding and agreed with the plan. I will set up clinic follow-up in 7-10 days to follow-up on biopsy results. Related Problem List Diagnoses (1) Pulmonary nodule: (2) Suspected lung cancer:
--- NOTE | 2021-11-03 18:39 | ANE.PACU2 ---
Inpatient post-anesthesia follow up: Airway intact: Yes Vital signs: Temperature 97.5 F Pulse Rate 72 Respiratory Rate 16 Blood Pressure 121/66 Pulse Oximetry 95 Oxygen Delivery Me thod Room Air Oxygen Flow Rate 3 Fraction of Inspir ed Oxygen Hydration adequate: Yes Nausea and vomiting: No Pain level: 1 Mental status: Baseline
[2021-11-06 14:24] LABS: PD-L1 (Clone 22C3) by IHC BBPL See Report
== END 2021-11-03 11:40 | disposition home or self-care (01) ==
PROVIDERS: Visit Provider Internal Medicine Pulmonary Disease
PROC: 0BJ08ZZ Inspection of Tracheobronchial Tree, Via Natural or Artificial Opening Endoscopic (ICD-10-PCS; CPT 31622; principal; 2021-11-03 08:40)
PROC: BB4BZZZ Ultrasonography of Pleura (ICD-10-PCS; CPT 31628; 2021-11-03 08:40)
DX: C34.31 Malignant neoplasm of lower lobe, right bronchus or lung (principal); J43.9 Emphysema, unspecified; C77.1 Secondary and unspecified malignant neoplasm of intrathoracic lymph nodes; I10 Essential (primary) hypertension; Z87.891 Personal history of nicotine dependence; Z86.16 Personal history of COVID-19
CPT/HCPCS: 31628; 31624; 31627; 31652; 71045; 77011; 80503; 87070; 87205; 88305; 88341; 88342; J1100; J2405; J2704; J3490; J7030

== ENCOUNTER 2021-11-11 09:40 | Outpatient (CLI) | payer MEDICARE, OTHER, SELFPAY ==
--- NOTE | 2021-11-11 10:15 | US_ITS ---
WS: [id number] THYROID ULTRASOUND HISTORY: thyroid nodule COMPARISON: None available.. PET/CT 10/31/2021 Right lobe: 1.6 cm x 1.7 cm x 5.2 cm (w x ap x l). Volume: 7.1 cm3. Normal size gland. Mild heterogeneity. There is a complex cystic nodule in the inferior pole. This is a predominantly cystic nodule but there is a central intramural nodule with a very small amount of i ncreased vascularity within the solid component. The entire nodule measures 8 x 8 x 10 mm. The solid nodule measures 5 x 3 x 5 mm. Additional smaller cystic nodules within the gland. No solid dominant n odule. Left lobe: 2.4 cm x 2.0 cm x 5.1 cm (w x ap x l). Volume: 12.7 cm3. Normal size gland with mild heterogeneity throughout. There are a few small scattered cysts. Homogene ous intermediate hypoechoic mass in the LEFT neck adjacent to the thyroid. This mass measures 8 x 8 x 15 mm. May be a lymph node or part of the submandibular gland. No abnormality was noted on the recen t PET/CT this location. Isthmus: 0.3 cm. US/US thyroid [id number] IMPRESSION: 1. Intramural nodule measuring 5 x 3 x 5 mm inferior pole RIGHT thyroid. Recom mend yearly follow-up evaluation. This area was negative on a recent PET/CT. 2. Heterogeneous mildly enlarged LEFT thyroid. There is adjacent soft tissue w hich may be part of the submandibular gland. This area was also negative on a r ecent PET/CT. This can be followed up also in one year.
== END 2021-11-11 09:41 | disposition home or self-care (01) ==
LOC: RAD 09:42
PROVIDERS: PCP Family Medicine; Visit Provider Family Medicine
DX: E04.1 Nontoxic single thyroid nodule (principal)
CPT/HCPCS: 76536

== ENCOUNTER 2021-11-12 08:24 | Oncology outpatient (recurring) (ONCR) | payer MEDICARE, OTHER, SELFPAY | END 2021-12-04 23:59 | disposition home or self-care (01) | PROVIDERS: PCP Family Medicine; Visit Provider Internal Medicine Medical Oncology | DX: C34.31 Malignant neoplasm of lower lobe, right bronchus or lung (principal); C77.2 Secondary and unspecified malignant neoplasm of intra-abdominal lymph nodes; Z87.891 Personal history of nicotine dependence | CPT/HCPCS: 99203; 99205 ==

== ENCOUNTER 2021-11-18 15:30 | Observation (INO) | payer MEDICARE, OTHER, SELFPAY ==
[2021-11-17 09:16] VITALS: BMI 25.0
[2021-11-18] VITALS (13 sets, daily range): BP systolic 108–149; BP diastolic 59–85; PULSE 60–74; RESP 12–20; TEMP 36.2–36.8; O2SAT 92–100; BMI 25.0
--- NOTE | 2021-11-18 | SCC_ITS ---
Procedure done: 1. Placement of PowerPort via right internal jugular 2. Fluoroscopic guidance and interpretation for placement of catheter 3. Ultrasound guidance to access the right internal jugular vein 14.1 seconds of fluoroscopic guidance, for a cumulative dose of 1.54 mGy, was provided to Dr. Browne by the radiology department. C-arm images of the chest were saved for the patient's permanent record. [facility]
--- NOTE | 2021-11-18 10:11 | SC_ITS ---
WS: [id number] Exam: C-arm FL for CVA [id number] Date/Time of Exam: 11/18/2021 10:11 AM Reason For Exam: Powerport Placement A single anterior posterior C-arm image of the upper right chest is submitted for evaluation. A right IJ port has been placed and appears to end in the lower one third of the SVC. The visualized upper right lung appears to be fully inflated. No other significant finding on this limited study.
[2021-11-18] MEDS: sodium chloride 0.9% 1,000 ML 30 ML IV (10:40)
--- NOTE | 2021-11-18 11:19 | P.ANESASSM_ITS ---
Pre-Anesthetic Assessment Height/Weight: Height 1.65 m Weight 68.039 kg Temp Pulse Resp BP Pulse Ox O2 Del Method 98 F 66 18 143/79 99 11/18/21 10:11/18/21 10:11/18/21 10:11/18/21 10:23 11/18/21 10:11/18/21 10:23 Preop Diagnosis: Lung cancer Operation Date: 11/18/21 12:00 Proposed Procedures p Portacath Placement 54192,C34.31(Not Applicable) - Maximilian Browne MD Familial anesthetic complications: none Was Beta Bhanu taken within 24 hours: N/A Was Clonidine taken within 24 hours: N/A Last intake: Intake Last Liquid Date 11/17/21 Last Liquid Time 19:00 Last Solid Date 11/17/21 Last Solid Time 19:00 Social No alcohol and No tobacco Exam alert, oriented x 3, clear to auscultation bilaterally and regular rate & rhythm Airway Submandibular: within normal limits Cervical ROM: within normal limits Mallampati: Class II Dentition: false Pulmonary Lung cancer, no SOB, no home O2 CV/HEM Anemia and Hypertension METS = 4 None reported Hepatic None reported GI Gastroesophageal Reflux Disease (Well controlled ) Metabolic Hyperlipidemia [facility] [place] Osteoarthritis/DJD Neuropsych Neuropathy Anesthetic Plan ASA status: 3 Anesthesia: Anesthesia Evaluation and General Other: We discussed risk and benefits of general anesthesia including PONV, sore throat (sometimes severe), corneal abrasion, positioning and peripheral nerve injuries, life threatening allergic reaction, post operative ICU admission requiring prolonged intubation, aspiration, stroke, heart attack, , and rare incidences of recall. Patient consents to proceed with general anesthesia. Risk of > 500 ml blood loss (7ml/kg in children): No Medications/Allergies Home Medications Medication Instructions Recorded Confirmed Last Taken Type atorvastatin 10 mg tablet 10 mg PO DAILY #90 tabs 07/27/21 11/18/21 11/18/21 Rx gabapentin 800 mg tablet 800 mg PO TID #90 tabs 09/09/21 11/18/21 11/18/21 Rx hydrocodone 10 mg-acetaminophen 1 tab PO BID PRN pain 30 days #60 09/09/21 11/18/21 11/18/21 Rx 325 mg tablet tabs albuterol sulfate 90 mcg/actuation 2 puff inhalation 6XD PRN 10/28/21 11/18/21 Unknown Rx aerosol inhaler shortness of breath or wheezing #8.5 grams Allergies Allergy/AdvReac Type Severity Reaction Status Date / Time celecoxib [From Celebrex] AdvReac ABDOMINAL Verified 11/18/21 08:23 PAIN Current Medications Generic Name Dose Route Start Last Admin Trade Name Freq PRN Reason Stop Dose Admin Sodium Chloride 1,000 mls @ 30 mls/hr 11/18/21 10:15 11/18/21 10:40 Sodium Chloride 0.9% IV 11/19/21 10:14 30 mls/hr .Q24H MAEGAN Administration PFSH Anesthesia Medical History Benign essential HTN Chronic midline low back pain with bilateral sciatica Degenerative arthritis History of 2019 novel coronavirus disease (COVID-19) Intervertebral disc disorder with radiculopathy of lumbar region Opioid contract exists Peripheral neuropathy Postmenopausal Surgical History H/O breast augmentation History of bronchoscopy (11/03/21) Navigational bronchoscopy with EBUS History of implanted electronic device Dr. Young- 08/16/19 History of left hip replacement (02/2017) History of right hip replacement (10/12/21) Hx of cataract extraction Bilat done in [place] Family History Mother Cancer lymphoma Social History Smoking and tobacco status: former smoker Quit status (tobacco): has quit using tobacco Year quit tobacco: 2011 Former quit date comment: 1ppd x 46 years Alcohol intake: current Alcohol intake frequency: holidays/special occasions only Lives independently: Yes Household members: spouse Marital status: Current occupational status: retired History of recent travel: No Data Anesthesia Cardiac Studies: Echocardiogram Ultrasound 02/01/20
--- NOTE | 2021-11-18 11:54 | W.PM.OPSUD ---
Surgery/Procedure H&P Update DATE OF PROCEDURE: November 18, 2021 DATE H&P PERFORMED: 11/07/21 H&P UPDATE INFORMATION: I have reviewed H&P completed within last 30 days, I have examined patient prior to procedure and No changes to prior documentation PREOP DIAGNOSIS: Lung cancer PRIMARY INDICATION FOR PROCEDURE: The same PLANNED PROCEDURE: Operation Date: 11/18/21 12:00 Proposed Procedures p Portacath Placement 22089,C34.31(Not Applicable) - Maximilian Browne MD
[2021-11-18] MEDS: ceFAZolin 2,000 MG in sodium chloride 0.9% (plus) 50 ML 100 MG IV (12:26)
[2021-11-18] MEDS: heparin, porcine 1,000 unit/mL INJ 10 mL 10000 UNIT IRRIGATION (13:02)
[2021-11-18] MEDS: lidocaine 2% INJ 20 mL INJECTION (13:14)
--- NOTE | 2021-11-18 13:36 | P.OP_ITS ---
Operative Report Date of procedure: November 18, 2021 Pre-op diagnosis: Preop Diagnosis Lung cancer Procedure done: 1. Placement of PowerPort via right internal jugular 2. Fluoroscopic guidance and interpretation for placement of catheter 3. Ultrasound guidance to access the right internal jugular vein Surgeon: Maximilian Browne MD Cutter Apprentice Hand: arcade technician Anna Circulating nurse Maggie Chandler Anesthesia: MAC (Art [place]) Estimated blood loss (mL): 5 Procedure: U/S Guided IJ access Patient was identified in the holding area and taken to the operative room and placed in supine position IV propofol was given by the anesthesia provider ,both arms were tucked,Time-out was done verifying the patient's name/date of /planned procedure and destination after the procedure, all were in agreement. SCDs confirmed to be functioning, preoperative antibiotics administered per protocol, and beta pricila protocol was confirmed, appropriate positioning of the patient was done by me. Medications were reviewed to assess for anticoagulant usage. Risks and benefits and prevention of central line associated blood stream infection (CLABSI) were discussed with the patient/CPOA, and a consent was obtained. Monitors were in place and monitored throughout the procedure. All necessary supplies were [place] prior to start. Hand hygiene was completed prior to starting. Maximum barrier technique was utilized including a sterile gown, sterile gloves with a hat and mask. Site was was prepped with [chlorhexidine] and a full body drape was placed. 5 mL of 2% lidocaine was injected into the skin with a 25 gauge needle. Prep& drape was done under the usual sterile technique, lidocaine 2% was inject ed at the site of the stick, started by Accessing the right subclavian vein and after multiple attempts as I was not able to retrieve venous blood I deviated my attention towards the right internal jugular vein. The right Internal Juglar vein stick that retrieved venous blood was obtained from the first stick under ultrasound guidance and there was no evidence of intraluminal thrombosis, interpretation was done by me through the whole entire procedure, a guidewire was then threaded and under the guidance of fluoroscopy position was confirmed to be in the IVC and my interpretation, there was no PVC changes, at that point the guidewire was secured to the drapes with a hemostat and the needle was taken out. Attention was then deviated towards creation of a pocket for the port were lidocaine 2% was injected using an 15 blade knife skin incision was created at the right upper Chest ,dissection using the Bovie to create a pocket for the Port-A-Cath to be accommodated, hemostasis was secured, after the port being appropriately flushed it was inserted into the pocket and a tunneler was used to accommodate the catheter of the port cath to be delivered through the incision first created at the site of the stick, yet I had to create a transit incision at the root of the neck at the right side to the patient difficult anatomy , and then I was able to retrieve the catheter at the index site of the stick. At that point under fluoroscopy an estimated length was measured for the catheter and was cut at the designed level, followed by that a dilator with the sheath introduced onto the guidewire the dilator and the wire were retrieved and the catheter of the port was introduced via the sheath where it was peeled off and the catheter maintained to be in the SVC that was confirmed with fluoroscopy, and the fluoroscopy interpretation was done by me throughout the entire procedure. Multiple flushes of the port was done by diluted heparin and I was able to retrieve without difficulty venous blood as well as appropriate flushing was achieved. The port was kept in its pocket .3-0 Vicryl deep subdermal interrupted sutures, skin was then closed by 4-0 Monocryl as subcuticular closure. The port was appropriately flushed with heparin and venous blood was withdrawn without difficulty The stick site was closed by 4-0 Monocryl and Dermabond was used followed by dressing. Patient tolerated the procedure well was taken to the recovery area Count was correct at the end of the procedure I was present for the whole entire procedure
--- NOTE | 2021-11-18 13:40 | XRR_ITS ---
PROCEDURE INFORMATION: Exam: XR Chest Exam date and time: 11/18/2021 2:44 PM Age: 75 years old Clinical indication: Device placement; Other: Right internal jugular vein powerport, placement; Additional info: Status post right internal jugular vein powerport, placement TECHNIQUE: Imaging protocol: Radiologic exam of the chest. Views: 1 view. COMPARISON: CR XR chest 1V portable [id number] 11/03/2021 10:58 AM FINDINGS: Tubes, catheters and devices: Midthoracic spinal stimulator device is noted. Indwelling right venous port catheter unchanged. Lungs: Bibasilar opacities may reflect atelectasis, edema or pneumonitis. Pleural spaces: No pleural effusion. There is a right pneumothorax. Subsequent radiographs, already interpreted, demonstrate thoracostomy tube placement. Heart/Mediastinum: Borderline cardiomegaly. Bones/joints: Unremarkable. XR/XR chest 1V portable [id number] IMPRESSION: 1. Right pneumothorax. Subsequent radiographs, already interpreted, demonstrate thoracostomy tube placement. 2. No pneumothorax clearly identified on current study. 3. Borderline cardiomegaly. 4. Mild infrahilar opacities may reflect atelectasis or edema. Pneumothorax cannot be excluded.
--- NOTE | 2021-11-18 15:17 | SUR.PHASEII ---
1435 call placed to xray regarding pt didn't get chest x-ray in [facility] and one needed prior to d/c [address] selby letting him know that xray has been done [address] suarez that pt has pneumothorax and needs a chest tube 1415 dr suarez here and with pt
--- NOTE | 2021-11-18 15:27 | XRR_ITS ---
PROCEDURE INFORMATION: Exam: XR Chest Exam date and time: 11/18/2021 4:01 PM Age: 75 years old Clinical indication: Device placement; Chest tube; Additional info: Chest tube placement TECHNIQUE: Imaging protocol: Radiologic exam of the chest. Views: 1 view. COMPARISON: CR XR chest 1V portable [id number] 11/18/2021 2:44 PM FINDINGS: Tubes, catheters and devices: Right thoracostomy tube with tip projecting near the midline at the midthoracic level. Midthoracic spinal stimulator device is noted. Indwelling right venous port catheter unchanged. Lungs: Bibasilar opacities may reflect atelectasis, edema or pneumonitis. Pleural spaces: No pleural effusion. No pneumothorax is clearly seen on current study. Heart/Mediastinum: Borderline cardiomegaly. Bones/joints: Unremarkable. XR/XR chest 1V portable [id number] IMPRESSION: 1. Right thoracostomy tube in place. 2. No pneumothorax clearly identified on current study. 3. Borderline cardiomegaly. 4. Bibasilar opacities may reflect atelectasis, edema or pneumonitis.
--- NOTE | 2021-11-18 16:19 | P.PN_ITS ---
Subjective Subjective: Patient did well yet after surgery,had a cxr showed pneumothorax and concomitantly, she was experiencing shortness of breath. At this point immediate bedside an urgent chest tube 13 [place] was placed with a Heimlich valve and patient had an immediate relief. The chest x-ray was done postoperatively I was able to interpret it personally and found to have 40%. Pneumothorax Medications: Reviewed: Yes Vitals/I&O/Wt Last Vital Signs Temp 98 F 11/18/21 14:22 Pulse 71 11/18/21 15:16 Resp 20 H 11/18/21 15:16 BP 149/72 11/18/21 15:16 Pulse Ox 95 11/18/21 15:16 O2 Del Method 11/18/21 15:16 11/18/21 11/18/21 11/18/21 06:59 14:59 22:59 Intake Total 750 / 750 Output Total 5 / 5 Balance 745 / 745 Weight last 48 hrs Weight 150 lb Weight 150 lb Physical Exam Narrative: Patient is conscious alert oriented X3 No apparent distress BMI 25 Head and neck examination PERRLA no masses no cervical lymphadenopathy no jaundice Cardiac examination audible S1-S2 no murmurs no gallops no arrhythmias Chest air entry less on the right side presence of mild surgical emphysema Right upper chest PowerPort in place Abdomen nontender nondistended soft no organomegaly guarding or rigidity/no signs of peritonitis Extremities no cyanosis no clubbing no edema A&P Assessment and plan (1) Pneumothorax on right: Placement of right hemithorax chest tube Will connect to suction 15 cm of water Admit as an observation Repeat chest x-ray showed fully inflated lung Repeat chest x-ray in the morning We will start feeding the patient Assurance and education All questions have been answered and all concerns have been addressed to patient's satisfaction. Status: Acute Attestations Medical Necessity Statement*: Observation status status post right chest tube placement for pneumothorax Time Spent in Patient Care: 16 - 35 minutes Procedures Time out/Consent Time Out Performed: Yes Consent for Procedure: Consent obtained from patient, Risks & Benefits reviewed and Agrees to proceed with procedure Procedure Narrative Pre Procedure diagnosis; right pneumothorax Postprocedure diagnoses the same Procedure done; placement of 13 [place] catheter connected to Heimlich valve chamber under local anesthetic done in emergency setting Indication right pneumothorax status post right internal jugular vein PowerPort placement Description Local anesthetic in the form of 2% lidocaine infiltrated at the second intercostal space midclavicular line on the right chest Prep and drape of the right pectoral region under the standard sterile technique. Small incision created by 11 blade knife comes with the kit Placement of the catheter loaded by the obturator, once the catheter is in good position the obturator was taken out, immediately the patient felt relief The Heimlich valve chamber was secured to the chest wall by the adhesive component of the chamber, additional 2-0 silk were used to secure the box to the anterior chest wall. Pleur-evac was connected to the Heimlich valve at 15 cm of water Postprocedure imaging showed improvement and inflation of the lung Patient tolerated the procedure well I was present for the whole entire procedure Coding Level of Care Code Acute Java Web Engineer for Karrie Salomon Diagnoses Pneumothorax on right J93.9
--- NOTE | 2021-11-18 16:35 | PC.NURSE ---
Entered room for procedure @ 1516. VS stable. Time out preformed @ 1519. Chest tube inserted @ [address] Browne without difficulty. Suction @ 15cm H2O @ 1521. VS remained stable. Patient tolerated procedure well
--- NOTE | 2021-11-18 17:09 | ANE.PACU2 ---
Inpatient post-anesthesia follow up: Airway intact: Yes Vital signs: Temperature 98 F Pulse Rate 64 Respiratory Rate 17 Blood Pressure 124/72 Pulse Oximetry 95 Oxygen Delivery Me thod Room Air Oxygen Flow Rate 2 Fraction of Inspir ed Oxygen Hydration adequate: Yes Nausea and vomiting: No Pain level: 1 Mental status: Baseline
--- NOTE | 2021-11-18 18:52 | SUR.PHASEII ---
call placed to spring cowan regarding putting pt on waterseal and not wall suction and verbalized understanding and has already done this
[2021-11-18] MEDS: gabapentin 400 mg Capsule 800 MG PO (19:50)
[2021-11-18] MEDS: HYDROcodone-acetaminophen 5-325 mg Tablet 1 TAB PO (19:50)
[2021-11-18] MEDS: sodium chloride 0.9% 1,000 ML 50 ML IV (19:50)
[2021-11-18] MEDS: famotidine 20 mg/2 mL INJ IVP (20:59)
--- NOTE | 2021-11-19 04:25 | XR_ITS ---
WS: [id number] XR chest 1V portable [id number] REASON FOR EXAM: FOLLOW-UP ON RIGHT PNEUMOTHORAX FINDINGS: Chemotherapy port and transvenous right jugular catheter remain in proper position. Small bore chest tube overlies the mid right lung. Decrease in the volume of the right pneumothorax c ompared to 11/18/2021 with minimal residual pneumothorax. Decreasing opacities in the lower lung valdez. No new findings or other interval change. XR/XR chest 1V portable [id number] IMPRESSION: Minimal residual right pneumothorax. Improving lower lung opacities.
[2021-11-19 04:36] VITALS: BP 137/70; PULSE 63; RESP 18; TEMP 36.7; O2SAT 95
[2021-11-19] MEDS: HYDROcodone-acetaminophen 5-325 mg Tablet 1 TAB PO ×2 (04:50→11:15)
[2021-11-19] MEDS: famotidine 20 mg/2 mL INJ IVP (05:51)
--- NOTE | 2021-11-19 06:16 | P.PN_ITS ---
Subjective Subjective: Patient seems to have uneventful night except for some headache that responded to hydrocodone. No shortness of breath and chest x-ray repeated today showed full inflation of the lung. Awaiting final report and chest tube has been on waterseal. Medications: Reviewed: Yes Vitals/I&O/Wt Last Vital Signs Temp 98.0 F 11/19/21 04:36 Pulse 63 11/19/21 04:36 Resp 18 11/19/21 04:36 BP 137/70 11/19/21 04:36 Pulse Ox 95 11/19/21 04:36 O2 Del Method 11/18/21 19:37 O2 Flow Rate 2 11/18/21 15:22 11/18/21 11/18/21 11/19/21 14:59 22:59 06:59 Intake Total 750 / 750 361.5 / 1111.5 Output Total 5 / 5 1000 / 1005 Balance 745 / 745 361.5 / 1106.5 -1000 / 106.5 Weight last 48 hrs Weight 150 lb Weight 150 lb Weight 150 lb Physical Exam Narrative: Patient is conscious alert oriented X3 No apparent distress BMI 25.0 Head and neck examination PERRLA no masses no cervical lymphadenopathy no jaundice Cardiac examination audible S1-S2 no murmurs no gallops no arrhythmias Chest is clear bilateral,abscence of Rhonchi or wheezes,no surgical emphysema Right upper chest PowerPort in place/chest tube in place without complication. No evidence of leak Abdomen nontender nondistended soft no organomegaly guarding or rigidity/no signs of peritonitis Extremities no cyanosis no clubbing no edema A&P Assessment and plan (1) Pneumothorax on right: Placement of right hemithorax chest tube Continue chest tube to waterseal We will follow on chest x-ray report Continue observation status Assurance and education All questions have been answered and all concerns have been addressed to patient's satisfaction. Status: Acute Attestations Medical Necessity Statement*: Observation status post chest tube placement Coding Level of Care Code Acute Study Specialist for Karrie Salomon Diagnoses Pneumothorax on right J93.9
[2021-11-19 07:52] VITALS: PULSE 71; O2SAT 95
[2021-11-19 07:53] VITALS: PULSE 71; RESP 16; O2SAT 95
[2021-11-19] MEDS: gabapentin 400 mg Capsule 800 MG PO ×2 (09:34→15:24)
--- NOTE | 2021-11-19 10:25 | PC.CHAP ---
Pastoral Care Encounter/Spiritual Assessment Type of Contact [] Declined carver hand visit [] Patient/Family/Request visit [] Outpatient visit [] Follow-up visit [] Physician referral [] Code/Alert [x] Routine visit [] Staff referral [] Actively dying [] Patient sleeping [] Family support [] [] Out of room [] Palliative care [] [x] Receiving care in room [] Pre-surgical visit [] Trauma [] Long length of stay [] ICU visit [] Other: Relational/Emotional Strength [x] Patient feels connected with others/family/visitors/staff [] Distress [] Loneliness/isolation [] Abandonment Spirituality of Patient [x] Person of Nadja [] Attends Baptism of their Nadja [x] Believes in Prayer [] Reads Bible or Episcopalian materials [] There are Spiritual issues to be addressed Night Clerk Auditor Interventions [x] Prayer [x] Active listening [x] Non-anxious presence [x] Spiritual/emotional support [] Crisis/trauma care [x] Spiritual counseling [] Bereavement support [] Provided bereavement packet [] Provided Bible/devotional materials [] Provided toy/stuffed animal, coloring book to patient or family member [] Provided Communion [] Anointing/[place] [x] Salvation [] Completed spiritual assessment [] Other: Impact on Illness or Injury [] Angry [] Fearful [x] Anxious [] Often cries [] Exhaustion [x] Unable to work [] Unable to attend mormonism [] Unable to walk/stand [] Unable to read [] Unable to drive [] Unable to eat/drink [] Unable to sleep [] Unable to be with family [] Patient intubated [] Other: Summary has cancer in lower lobs has some other health problems has a good attiitude wlill go home at some point Time spent with patient 10 mins
[2021-11-19] MEDS: enoxaparin 30 mg/0.3 mL Syringe SUBCUT (10:28)
[2021-11-19 12:00] VITALS: BP 116/70; PULSE 70; RESP 16; TEMP 36.9; O2SAT 93
--- NOTE | 2021-11-19 12:00 | XRR_ITS ---
PROCEDURE INFORMATION: Exam: XR Chest Exam date and time: 11/19/2021 11:51 AM Age: 75 years old Clinical indication: Condition or disease; Lung condition and disease; Pneumothorax; Prior surgery; Surgery type: Stimulator; Additional info: Follow-up on pneumothorax TECHNIQUE: Imaging protocol: Radiologic exam of the chest. Views: 1 view. COMPARISON: CR XR chest 1V portable [id number] 11/19/2021 4:41 AM FINDINGS: Tubes, catheters and devices: A right central line extends into the SVC. Thoracostomy tube is present on the right side extending to the midline. There is a spinal stimulator wire in place extending to the mid dorsal spine. Lungs: Unremarkable. No consolidation. Pleural spaces: Unremarkable. No pleural effusion. No pneumothorax. Heart/Mediastinum: Unremarkable. No cardiomegaly. Bones/joints: Unremarkable. Soft tissues: Breast implants are seen Other findings: Comparison to prior examination similar findings seen XR/XR chest 1V portable [id number] IMPRESSION: 1. No acute findings. 2. Right central line is in the SVC. 3. Electronic stimulator is present extending to the mid dorsal spine. 4. Thoracostomy tube is present in the right upper lobe 5. Bilateral breast implants are present .
[2021-11-19] MEDS: sodium chloride 0.9% 1,000 ML 50 ML IV (14:42)
[2021-11-19 15:44] VITALS: PULSE 71
--- NOTE | 2021-11-19 17:00 | P.SS_ITS ---
Short Stay Summary Providers Date of Admit/Discharge: 11/19/21 Attending Provider: Maximilian Browne MD Primary Care Provider: Tonia Tierney DO Chief Complaint: malignant neoplasm of lower lobs, right bronchus HPI History of Present Illness Ms. Tala Gale is a 75 year old female undergone right upper chest PowerPort for chemotherapy for her diagnosis of lung cancer and unfortunately postoperatively she developed pneumothorax on chest x-ray concomitant with shortness of breath that required urgent placement of right hemithorax Thora vent 13 Malay(Heimlich valve) patient maintained to be hemodynamically stable and I elected to admit the patient for observation with repeat x-rays. Review of Systems General: Reports: 10 or more systems reviewed and unremarkable except in HPI and below Home Meds/Allergies Home Medications and Allergies Allergies Allergy/AdvReac Type Severity Reaction Status Date / Time celecoxib [From Celebrex] AdvReac ABDOMINAL Verified 11/18/21 08:23 PAIN PFSH Acute PFSH: Medical History Benign essential HTN Chronic midline low back pain with bilateral sciatica Degenerative arthritis History of 2019 novel coronavirus disease (COVID-19) Intervertebral disc disorder with radiculopathy of lumbar region Opioid contract exists Peripheral neuropathy Postmenopausal Surgical History H/O breast augmentation History of bronchoscopy (11/03/21) Navigational bronchoscopy with EBUS History of implanted electronic device Dr. Young- 08/16/19 History of left hip replacement (02/2017) History of right hip replacement (10/12/21) Hx of cataract extraction Bilat done in [place] Family History Mother Cancer lymphoma Social History Smoking and tobacco status: former smoker Quit status (tobacco): has quit using tobacco Year quit tobacco: 2011 Former quit date comment: 1ppd x 46 years Alcohol intake: current Alcohol intake frequency: holidays/special occasions only Lives independently: Yes Household members: spouse Marital status: Current occupational status: retired History of recent travel: No Vitals/I&O/Wt Last Vital Signs Temp 98.4 F 11/19/21 12:00 Pulse 71 11/19/21 15:44 Resp 16 11/19/21 12:00 BP 116/70 11/19/21 12:00 Pulse Ox 93 11/19/21 12:00 O2 Del Method 11/19/21 12:00 O2 Flow Rate 2 11/18/21 15:22 11/19/21 11/19/21 11/19/21 06:59 14:59 22:59 Intake Total 100 / 1211.5 943.333 / 943.333 Output Total 1000 / 1005 Balance -900 / 206.5 943.333 / 943.333 Weight last 48 hrs Weight 150 lb Physical Exam Narrative: Patient is conscious alert oriented X3 No apparent distress BMI 25.0 Head and neck examination PERRLA no masses no cervical lymphadenopathy no jaundice Right upper chest PowerPort in place/chest tube in place without complication. No evidence of leak Hospital Course Admission Diagnoses Right pneumothorax Hospital Course Patient undergone PowerPort placement and was hospitalized for observation status as she did develop a pneumothorax requiring right chest tube placement in the form of Thora vent 13 Malay initially was kept on suction 15 cm of water then switched to waterseal and follow-up x-rays shows improvement of the pneumothorax and the last chest x-ray showed complete resolution; 1. No acute findings. 2. Right central line is in the SVC. 3. Electronic stimulator is present extending to the mid dorsal spine. 4. Thoracostomy tube is present in the right upper lobe 5. Bilateral breast implants are present . Patient continued to have stable vital signs and adequate urine output and tolerating p.o. intake and her pain is under control. Discharge Summary Patient will be discharged home with a Heimlich valve and specific instructions were given to the patient about the appropriate care and return to the ER for worsening shortness of breath or crepitus under the skin. Patient's spouse as well was included in the discussion in the presence of the nursing staff Humaira and Carol. The plan is to discharge the patient home today and follow-up with me this coming Tuesday with repeat chest x-ray. The case has been discussed with Dr. Stanton CT surgeon and he agreed with me about the appropriateness of discharging the patient home with a Heimlich valve for the follow-up with repeat chest x-ray in few days SSS Data Data Completed and Pending: Completed Studies During Hospitalization Category Date Time Status CXRP [XR chest 1V portable [id number]] R outine Exams 11/19/21 12:00 Completed CXRP [XR chest 1V portable [id number]] U rgent Exams 11/18/21 13:40 Completed XR chest 1V joanna ble [id number] Routine Exams 11/19/21 04:25 Completed XR chest 1V joanna ble [id number] Stat Exams 11/18/21 15:27 Completed Pending at discharge Category Date Time Status C-arm FL for CVA [id number] Routine Exams 11/18/21 10:11 Taken Diagnoses at Discharge Discharge Diagnosis (1) Pneumothorax on right: Details from hospital stay: Condition resolved and patient with the Heimlich valve Status: Resolved Discharge Plan Discharge Patient Disposition: Home Condition: Stable Prescriptions: Continued hydrocodone-acetaminophen 10-325 mg tablet 1 tab PO BID PRN (Reason: pain) 30 Days Qty: 60 0RF Rx Instructions: fill on or after 11/09/2021 gabapentin 800 mg tablet 800 mg PO TID Qty: 90 3RF albuterol sulfate 90 mcg/actuation HFA aerosol inhaler 2 puff inhalation 6XD PRN (Reason: shortness of breath or wheezing) Qty: 8.5 5RF Rx Instructions: pt hasn't taken this rx atorvastatin 10 mg tablet 10 mg PO DAILY Qty: 90 1RF Discharge Orders: Discharge Order (Routine); Ordered 11/19/21 Ordered By: Maximilian Browne Referrals: Maximilian Browne MD [Physician] - 11/26/21 2:15 pm (Return to surgery office this coming Tuesday with repeat chest x-ray) Discharge Diet: Advance as tolerated Discharge Activity: Limit activity as instructed Patient Instructions: Post Anesthesia Care Activity Restrictions/Additional Instructions: 1. Patient can shower after 48 hours from surgery 2. Remove Dermabond 7 to 10 days after surgery, if there is a secondary dressing can take down after 48 hours. 3. Up and walking as tolerated 4. Do not lift more than 5 pounds first 2 weeks after surgery and not more than 25 pounds 6 to 8 weeks after surgery. 5. Do not operate heavy machinery or drive while using pain medications. 6.Contact the office or return to the ER for worsening nausea vomiting fevers or chills, or noticing any redness around incision sites or discharge. Attestations Medical Necessity Statement*: Observation status observation status for perioperative care and chest tube care Time Spent in Patient Care*: greater than 30 min Specific Discharge Activities: Specific discharge activities: educating and/or supporting family/caregiver Status at Discharge: Cognitive status at discharge: cognitively intact , Behavioral status at discharge: cooperative , Functional status at discharge: independent ambulation Overall status at discharge: patient is progressing back to baseline Quality Metrics Clinical Quality Measures: [ No reported AMI, CVA or VTE this stay ] Coding Level of Care Code Acute Family Resource Specialist for Karrie Salomon Diagnoses Pneumothorax on right J93.9
--- NOTE | 2021-11-19 17:51 | PC.NURSE ---
Dr. Martinez gave patient instructions for discharge and follow up appointment to remove Heimlich valve in office on Tuesday. Patient verbalized understanding.
--- NOTE | 2021-11-19 18:03 | PC.NURSE ---
This nurse provided patient discharge information. Education provided regarding diagnosis, heimlich valve, and implanted port.
== END 2021-11-19 18:19 | disposition home or self-care (01) ==
LOC: MEDSURG 11-19 01:40
PROVIDERS: Admitting Provider Surgery; PCP Family Medicine; Visit Provider Surgery
PROC: (CPT 36561; principal; 2021-11-18 12:00)
DX: I10 Essential (primary) hypertension; K21.9 Gastro-esophageal reflux disease without esophagitis; E78.5 Hyperlipidemia, unspecified; Z86.16 Personal history of COVID-19; Z87.891 Personal history of nicotine dependence; J93.9 Pneumothorax, unspecified; C34.31 Malignant neoplasm of lower lobe, right bronchus or lung; J43.9 Emphysema, unspecified
CPT/HCPCS: 36561; 71045; 76000; 77001; 96372; 99214; C1788; G0378; J1644; J1650; J3490; J7030

== ENCOUNTER 2021-11-23 13:44 | Outpatient (CLI) | payer MEDICARE, OTHER, SELFPAY ==
--- NOTE | 2021-11-23 14:00 | XRR_ITS ---
PROCEDURE INFORMATION: Exam: XR Chest Exam date and time: 11/23/2021 2:00 PM Age: 75 years old Clinical indication: Condition or disease; Lung condition and disease; Pneumothorax; Prior surgery; Surgery type: RT lung, chest tube, port, breast augmentation, stimulator TECHNIQUE: Imaging protocol: Radiologic exam of the chest. Views: 1 view. COMPARISON: CR XR chest 1V portable [id number] 11/19/2021 11:51 AM FINDINGS: Tubes, catheters and devices: Right Thora-vent device present. Thoracic spinal stimulator present. Right jugular port present with the catheter tip in the superior vena cava. Lungs: Ill-defined soft tissue opacity in the right lower lung zone, not significantly changed allowing for technical differences. Pleural spaces: No pneumothorax. No pleural effusion. Heart/Mediastinum: The heart is not enlarged. The mediastinal contours are normal. Bones/joints: No acute osseous abnormality. Soft tissues: Calcified bilateral breast implants. XR/XR chest 1V [id number] IMPRESSION: No pneumothorax.
--- NOTE | 2021-11-23 16:36 | XRR_ITS ---
PROCEDURE INFORMATION: Exam: XR Chest Exam date and time: 11/23/2021 4:44 PM Age: 75 years old Clinical indication: Device placement; Chest tube; Additional info: Post chest tube removal TECHNIQUE: Imaging protocol: Radiologic exam of the chest. Views: 1 view. COMPARISON: CR XR chest 1V [id number] 11/23/2021 2:00 PM FINDINGS: Tubes, catheters and devices: The right chest tube has been removed. The MediPort catheter and neurostimulator wires are unchanged. Lungs: The soft tissue mass in the right lung base is unchanged. There is scattered fibrosis. No new infiltrates. Pleural spaces: Unremarkable. No pleural effusion. No pneumothorax. Heart/Mediastinum: Unremarkable. No cardiomegaly. Bones/joints: Unremarkable. Soft tissues: Bilateral calcified breast implants. XR/XR chest 1V [id number] IMPRESSION: After removal of the right chest tube there is no pneumothorax.
== END 2021-11-23 13:45 | disposition home or self-care (01) ==
LOC: RAD 13:47
PROVIDERS: PCP Family Medicine; Visit Provider Surgery
DX: Z46.82 Encounter for fitting and adjustment of non-vascular catheter (principal); J93.9 Pneumothorax, unspecified
CPT/HCPCS: 71045; 99024

== ENCOUNTER → 2021-11-24 09:58 | Outpatient (BNVA) | payer MEDICARE, OTHER, SELFPAY | PROVIDERS: PCP Family Medicine; Visit Provider Nurse Practitioner Family | DX: Z96.641 Presence of right artificial hip joint (principal) | CPT/HCPCS: 73502; 99024 ==

== ENCOUNTER → 2021-11-26 13:56 | Outpatient (BNVA) | payer MEDICARE, OTHER, SELFPAY | PROVIDERS: PCP Family Medicine; Visit Provider Surgery | DX: Z09 Encounter for follow-up examination after completed treatment for conditions other than malignant neoplasm (principal) | CPT/HCPCS: 99024 ==

== ENCOUNTER 2021-12-03 14:50 | Outpatient (CLI) | payer MEDICARE, OTHER, SELFPAY ==
--- NOTE | 2021-12-03 15:15 | MR_ITS ---
WS: [id number] MRI BRAIN WITH AND WITHOUT CONTRAST HISTORY: staging, history of lung cancer. COMPARISON: CT head 02/01/2020 TECHNIQUE: Multiplanar imaging performed through the brain with MultiHance 15 ml's IV. No acute infarcts are seen. Major-white matter differentiation is well preserved. T2 and FLAIR signal hyperintensity scattered throughout the white matter. None of these white matter lesions enhance. There is no mass effect or midline shift. No hemorrhage. Mild cerebral atrophy. Ventricles and extra-axial spaces are normal. Clivus and pituitary gland are normal. Visualized posterior fossa and brainstem are also normal. Intensely enhancing mass along the anterior LEFT parasagittal region. This mass is well-circumscribed measuring 11 x 8 x 9 mm and there is a small dural tail. This mass was noted and heavily calcified o n a prior CTA head from 02/01/2020. Consistent with a benign meningioma. No additional areas of enhan cement. Dural venous sinuses are normal. Paranasal sinuses: Well aerated with no significant disease. Mastoid air cells: Normal. Calvarium and scalp: Normal. MR/MR head wo/w con [id number] IMPRESSION: 1. No acute infarct. 2. No metastatic disease to the brain. 3. Stable LEFT parafalcine meningioma measures 11 x 8 x 9 mm. 4. Mild atrophy with at least moderate small vessel ischemic type changes thro ughout the white matter.
[2021-12-03] MEDS: gadobenate dimeglumine 20 mL vial IV (16:18)
== END 2021-12-03 14:51 | disposition home or self-care (01) ==
LOC: RAD 14:51
PROVIDERS: PCP Family Medicine; Visit Provider Internal Medicine Medical Oncology
DX: C34.31 Malignant neoplasm of lower lobe, right bronchus or lung (principal); D32.9 Benign neoplasm of meninges, unspecified; G31.9 Degenerative disease of nervous system, unspecified
CPT/HCPCS: 70553; 99203

== ENCOUNTER 2021-12-04 12:52 | Outpatient (CLI) | payer MEDICARE, OTHER, SELFPAY ==
--- NOTE | 2021-12-04 13:30 | XR_ITS ---
WS: [id number] DEXA (DUAL ENERGY X-RAY ABSORPTIOMETRY) Bone mineral density was performed using a DidLog machine. HISTORY: post-menopausal COMPARISON: None available. Lumbar spine BMD (L1-L4): 1.141 g/cm2 T score: -0.3 Z score: 1.3 Left forearm BMD: 0.835 g/cm2. T score: -0.5 Z score: 1.9 Mild LEFT curvature lumbar spine. XR/XR DEXA axial skeleton* [id number] IMPRESSION: NORMAL BONE MINERAL DENSITY based upon the WHO classification for females.
== END 2021-12-04 12:53 | disposition home or self-care (01) ==
LOC: RAD 12:53
PROVIDERS: PCP Family Medicine; Visit Provider Family Medicine
DX: Z78.0 Asymptomatic menopausal state (principal)
CPT/HCPCS: 77080

== ENCOUNTER 2021-12-09 15:30 | Oncology outpatient (recurring) (ONCR) | payer MEDICARE, OTHER, SELFPAY ==
--- NOTE | 2021-12-08 09:37 | N.ONRAD NP_ITS ---
Radiation Oncology Consultation Patient Name: Tala Gale Date of : 1945 Date of Service: 12/08/2021 Attending Physician: Dorian Bearden M.D. Tala Gale was seen in consultation this morning at the request of José Chaidez M.D. for consideration of thoracic radiotherapy in the management of a recently diagnosed non-small cell lung cancer. The patient was admitted on October 12, 2021 following a right total hip arthroplasty at [facility]. On postoperative day 1, she was evaluated for confusion and hypoxia. Chest radiography was unremarkable. A CT angiogram did not identify a pulmonary embolism, however, a 3.7 cm spiculated nodule was described in the right lower lobe. She was discharged to home on hospital day 2. A navigational bronchoscopy was performed on November 03, 2021 by Fabricio Tipton M.D. Biopsies of the right lower lobe lesion and a station 7 lymph node diagnosed an adenocarcinoma. A PET scan (independently reviewed in [facility]) ordered on October 31, 2021 confirmed a 3.3 cm x 2.5 cm right lower lobe mass (SUV 14), subcentimeter upper lobe nodules, as well as, right hilar and subcarinal lymphadenopathy demonstrating hypermetabolic activity. An MRI of the brain completed on December 03, 2021 did not characterize intracranial lesions. The patient was evaluated for definitive thoracic radiotherapy. I discussed with Ms. Gale the [place] [employer] on Cancer Staging for lung cancer and specifically, the clinical stage IIIA (T2aN2) lung cancer corresponding to her disease. I also reviewed The National Comprehensive Cancer Network Guidelines recommending concurrent chemoradiotherapy for the management of locally advanced lung cancer established by the classic study, RTOG 9410, comparing sequential versus concurrent chemoradiotherapy that demonstrated an overall survival advantage for the concurrent chemoradiotherapy regimen. I would endorse a six week course of thoracic radiotherapy. Prior to treatment, a computed tomographic radiotherapy planning scan with contrast in the treatment position will be acquired and co-registered to the patient's staging PET scan to identify the gross tumor volumes. The potential toxicities of thoracic radiotherapy were reviewed. The patient has verbalized understanding would like to proceed as recommended. The patient???s treatment plan was discussed with José Chaidez M.D. Signed by: Dr. Dorian Bearden 12/08/2021 9:46:07 AM
[2021-12-08 10:06] LABS: Basophils # 0.1 10^3/uL (0.0-0.1); Basophils % 0.8 %; Eosinophils # 0.2 10^3/uL (0.0-0.8); Eosinophils % 3.6 %; Hematocrit 37.8 % (37.0-47.0); Hemoglobin 12.1 g/dL (11.5-15.3); Lymphocytes # 2.5 10^3/uL (0.8-4.8); Lymphocytes % 37.3 %; Mean Corpuscular Hemoglobin 29.9 pg (28.0-34.0); Mean Corpuscular Volume 93.3 fl (81-99); Mean Platelet Volume 10.3 fL (7.4-10.4); Monocytes # 0.4 10^3/uL (0.2-0.9); Monocytes % 6.3 %; Neutrophils # 3.42 10^3/uL (1.8-7.7); Neutrophils % 51.7 %; Nucleated Red Blood Cells % 0 %; Platelet Count 253 10^3/cmm (130-400); Red Blood Count 4.05 10^6/uL (4.1-5.3); Red Cell Distribution Width 13.5 % (12.1-15.1); White Blood Count 6.6 10^3/uL (4.0-10.0)
[2021-12-08 10:36] LABS: Alanine Aminotransferase 14 U/L (0-33); Albumin Level 4.1 g/dL (3.5-5.2); Alkaline Phosphatase 82 U/L (35-105); Aspartate Amino Transferase 25 U/L (0-32); Blood Urea Nitrogen 17 mg/dL (8-23); Calcium 9.8 mg/dL (8.5-10.5); Carbon Dioxide 26 mmol/L (22-29); Chloride 105 mmol/L (98-107); Globulin 2.5 g/dL (1.3-4.6); Glucose 107 mg/dL (65-115); Osmolality Calculated 294 mOsm/kg (285-295); Sodium 141 mmol/L (136-145); Total Bilirubin 0.3 mg/dL (0.15-1.2); Total Protein 6.6 g/dL (6.6-8.7)
== END 2022-01-04 23:59 | disposition home or self-care (01) ==
PROVIDERS: Radiology Radiation Oncology; PCP Family Medicine; Visit Provider Internal Medicine Medical Oncology
DX: Z53.9 Procedure and treatment not carried out, unspecified reason (principal); C34.31 Malignant neoplasm of lower lobe, right bronchus or lung
CPT/HCPCS: 36591; 80053; 85025; 99205

== ENCOUNTER 2021-12-10 06:44 | Outpatient (CLI) | payer MEDICARE, OTHER, SELFPAY ==
--- NOTE | 2021-12-10 11:29 | PFTS_ITS ---
Date of Study:12/10/21 Date of Dictation: MECHANICS: Forced vital capacity (FVC) is normal. Forced expiratory volume in one second (FEV1) is normal. FEV1/FVC is normal. FLOW VOLUME LOOP: Mild scooping. LUNG VOLUMES: Total lung capacity (TLC) is normal. Residual volume (RV) is normal. DIFFUSING CAPACITY FOR CARBON MONOXIDE: Normal. INTERPRETATION: The prebronchodilator spirometry is normal. No postbronchodilator spirometry was performed. Lung volumes are normal. Gas exchange (DLCO) is normal. MTDD
== END 2021-12-10 06:45 | disposition home or self-care (01) ==
LOC: RT 06:47
PROVIDERS: PCP Family Medicine; Visit Provider Internal Medicine Pulmonary Disease
DX: R91.1 Solitary pulmonary nodule (principal)
CPT/HCPCS: 94010; 94618; 94726; 94729

== ENCOUNTER → 2021-12-29 11:29 | Outpatient (BNVA) | payer MEDICARE, OTHER, SELFPAY | PROVIDERS: PCP Family Medicine; Visit Provider Orthopaedic Surgery | DX: Z96.641 Presence of right artificial hip joint (principal) | CPT/HCPCS: 73502; 99024 ==

== ENCOUNTER → 2021-12-30 08:14 | Outpatient (BNVA) | payer MEDICARE, OTHER, SELFPAY | PROVIDERS: PCP Family Medicine; Visit Provider Internal Medicine Pulmonary Disease | DX: J43.9 Emphysema, unspecified (principal); Z87.891 Personal history of nicotine dependence; C34.31 Malignant neoplasm of lower lobe, right bronchus or lung; Z86.16 Personal history of COVID-19; Z96.641 Presence of right artificial hip joint | CPT/HCPCS: 99214 ==

== ENCOUNTER 2022-02-03 09:30 | Oncology outpatient (recurring) (ONCR) | payer MEDICARE, OTHER, SELFPAY ==
[2022-01-05 14:21] VITALS: BP 114/74; PULSE 75; RESP 18; TEMP 37.2; O2SAT 94
[2022-02-03 09:54] LABS: Basophils % 0.7 %; Eosinophils # 0.3 10^3/uL (0.0-0.8); Eosinophils % 4.3 %; Hematocrit 38.1 % (37.0-47.0); Hemoglobin 12.3 g/dL (11.5-15.3); Lymphocytes # 1.9 10^3/uL (0.8-4.8); Lymphocytes % 32.2 %; Mean Corpuscular HGB Conc 32.3 g/dL (30.0-36.0); Mean Corpuscular Hemoglobin 29.9 pg (28.0-34.0); Mean Corpuscular Volume 92.5 fl (81-99); Mean Platelet Volume 9.9 fL (7.4-10.4); Monocytes # 0.4 10^3/uL (0.2-0.9); Monocytes % 7.4 %; Neutrophils # 3.22 10^3/uL (1.8-7.7); Neutrophils % 55.1 %; Nucleated Red Blood Cells % 0 %; Platelet Count 263 10^3/cmm (130-400); Red Blood Count 4.12 10^6/uL (4.1-5.3); Red Cell Distribution Width 13.5 % (12.1-15.1); White Blood Count 5.8 10^3/uL (4.0-10.0)
[2022-02-03 10:31] LABS: Alanine Aminotransferase 17 U/L (0-33); Albumin Level 3.9 g/dL (3.5-5.2); Alkaline Phosphatase 88 U/L (35-105); Anion Gap 12.6 (5-19); Aspartate Amino Transferase 23 U/L (0-32); Blood Urea Nitrogen 14 mg/dL (8-23); Calcium 9.8 mg/dL (8.5-10.5); Carbon Dioxide 25 mmol/L (22-29); Chloride 106 mmol/L (98-107); Globulin 2.7 g/dL (1.3-4.6); Glucose 89 mg/dL (65-115); Immunoglobulin IGG 864 mg/dL (700-1600); Osmolality Calculated 288 mOsm/kg (285-295); Potassium 4.6 mmol/L (3.5-5.1); Sodium 139 mmol/L (136-145); Thyroid Stimulating Hormone 0.96 uIU/mL (0.27-4.20); Total Bilirubin 0.4 mg/dL (0.15-1.2); Total Protein 6.6 g/dL (6.6-8.7)
[2022-02-03 11:39] LABS: Hepatitis A Antibody IgM Non-Reactive (Nonreactive); Hepatitis B Core AB, Total Non-Reactive (Nonreactive); Hepatitis B Surface AB 3.5 (11.5-1000); Hepatitis B Surface Antigen Non-Reactive (Nonreactive); Hepatitis C Virus Antibody Non-Reactive (Nonreactive)
[2022-02-03] MEDS: cemiplimab-rwlc 350 MG in sodium chloride 0.9% 250 ML 500 MG IV (13:33)
[2022-02-03] MEDS: sodium chloride 0.9% 250 ML 100 ML IV (13:33)
[2022-02-03] MEDS: ondansetron 4 MG Tablet 8 MG PO (13:33)
[2022-02-03 14:28] VITALS: BP 144/84; PULSE 58; RESP 16; TEMP 36.8; O2SAT 98
== END 2022-02-03 23:59 | disposition home or self-care (01) ==
PROVIDERS: PCP Family Medicine; Visit Provider Internal Medicine Medical Oncology
DX: Z51.12 Encounter for antineoplastic immunotherapy (principal); C34.31 Malignant neoplasm of lower lobe, right bronchus or lung
CPT/HCPCS: 80053; 82784; 84443; 85025; 86705; 86706; 86709; 86803; 87340; 96413; 96523; 99215; J7050; J9119; Q0162

== ENCOUNTER 2022-02-10 07:39 | Outpatient (CLI) | payer MEDICARE, OTHER, SELFPAY ==
--- NOTE | 2022-02-10 08:00 | CT_ITS ---
WS: [id number] CT CHEST WITHOUT INTRAVENOUS CONTRAST HISTORY: lung cancer restaging TECHNIQUE: Contiguous 5 mm axial imaging performed on the thorax. Coronal and sagittal reformats are submitted. All CT scans at [facility] use at least one of these dose optimization techniques: automated exposure control; mA and/or kV adjustment per patient size (includes targeted exams where dose is matched to clinical indication); or iterative reconstruction. CONTRAST: None DLP: 629.53 mGy.cm COMPARISON: PET CT 10/31/[address] 10/13/2021 Lungs and central airway: Chronic emphysema. Increase in size of the PET/CT positive mass in the RIGH T lower lobe. Mass now measures 4.8 cm transversely by 3.1 cm anterior posterior. Lobulated spiculate d margins of the mass extending endobronchial. Adjacent small pleural tags. There is a new nodule miladis suring 1.1 x 0.8 cm extending anteriorly adjacent to the fissure. Additional new 0.2 cm nodule RIGHT lower lobe. Positive PET/CT nodules which are subcentimeter in the LEFT upper lobe are stable with no increase in size. Pleura: Normal. No pleural effusion. Heart and pericardium: Mild cardiomegaly. No effusion. Mediastinum and stacia: Small paratracheal lymph nodes. Small subcarinal lymph node measures 9 mm. No o bvious change. Fullness at the RIGHT hilum. Without IV contrast cannot evaluate for increasing or new lymph nodes. Vessels: Mild atherosclerosis aorta. No aneurysm. Normal size pulmonary artery. Chest wall and lower neck: Bilateral breast implants with partial calcification. RIGHT subclavian estefany tral line. Upper abdomen: 1.4 cm low-attenuation mass LEFT kidney cannot be further characterized without IV con trast. No adrenal mass. Low-attenuation mass measuring 6 mm in the liver. Cysts were noted in the augusto er on prior studies. Osseous structures: Thoracolumbar scoliosis with advanced degenerative changes in the thoracic spine and discs. Dorsal column stimulator midthoracic spine. CT/CT chest wo con [id number] IMPRESSION: 1. Increase in size of the known lung cancer RIGHT lower lobe since 10/13/2021 a nd the prior PET/CT. Mass now measures 4.8 x 3.1 cm 2. New additional satellite nodules RIGHT lower lobe with the largest measurin g 1.1 x 0.8 cm. 3. No obvious change in the size or number of the lymph nodes but sensitivity is significantly decreased without IV contrast. 4. No change in the indeterminate but suspicious subcentimeter nodules LEFT up per lobe.
== END 2022-02-10 07:40 | disposition home or self-care (01) ==
LOC: RAD 07:39
PROVIDERS: PCP Family Medicine; Visit Provider Nurse Practitioner
DX: C34.31 Malignant neoplasm of lower lobe, right bronchus or lung (principal)
CPT/HCPCS: 71250

== ENCOUNTER 2022-02-23 10:16 | Oncology outpatient (recurring) (ONCR) | payer MEDICARE, OTHER, SELFPAY ==
[2022-02-23 10:30] VITALS: BMI 25.7
[2022-02-23 10:46] LABS: Basophils % 0.7 %; Eosinophils # 0.1 10^3/uL (0.0-0.8); Eosinophils % 2.1 %; Hemoglobin 11.8 g/dL (11.5-15.3); Lymphocytes % 33.6 %; Mean Corpuscular HGB Conc 31.9 g/dL (30.0-36.0); Mean Corpuscular Hemoglobin 29.3 pg (28.0-34.0); Mean Corpuscular Volume 91.8 fl (81-99); Mean Platelet Volume 9.8 fL (7.4-10.4); Monocytes # 0.5 10^3/uL (0.2-0.9); Monocytes % 8.6 %; Neutrophils # 3.31 10^3/uL (1.8-7.7); Neutrophils % 54.7 %; Nucleated Red Blood Cells % 0 %; Platelet Count 336 10^3/cmm (130-400); Red Blood Count 4.03 10^6/uL (4.1-5.3); Red Cell Distribution Width 13.8 % (12.1-15.1); White Blood Count 6.1 10^3/uL (4.0-10.0)
[2022-02-23 11:15] LABS: Alanine Aminotransferase 13 U/L (0-33); Albumin Level 3.8 g/dL (3.5-5.2); Alkaline Phosphatase 95 U/L (35-105); Anion Gap 12.2 (5-19); Aspartate Amino Transferase 23 U/L (0-32); Blood Urea Nitrogen 21 mg/dL (8-23); Carbon Dioxide 26 mmol/L (22-29); Chloride 105 mmol/L (98-107); Globulin 3.1 g/dL (1.3-4.6); Glucose 145 mg/dL (65-115); Osmolality Calculated 294 mOsm/kg (285-295); Potassium 4.2 mmol/L (3.5-5.1); Sodium 139 mmol/L (136-145); Thyroid Stimulating Hormone 0.68 uIU/mL (0.27-4.20); Total Bilirubin 0.3 mg/dL (0.15-1.2); Total Protein 6.9 g/dL (6.6-8.7)
[2022-02-23] MEDS: sodium chloride 0.9% 250 ML 75 ML IV (13:07)
[2022-02-23] MEDS: ondansetron 4 MG Tablet 8 MG PO (13:13)
[2022-02-23] MEDS: cemiplimab-rwlc 350 MG in sodium chloride 0.9% 250 ML 500 MG IV (13:19)
[2022-02-23 14:20] VITALS: BP 131/71; PULSE 63; RESP 16; TEMP 36.7; O2SAT 98
== END 2022-03-06 23:59 | disposition home or self-care (01) ==
PROVIDERS: Nurse Practitioner; PCP Family Medicine; Visit Provider Internal Medicine Medical Oncology
DX: Z51.12 Encounter for antineoplastic immunotherapy (principal); C34.31 Malignant neoplasm of lower lobe, right bronchus or lung; C77.1 Secondary and unspecified malignant neoplasm of intrathoracic lymph nodes; Z79.899 Other long term (current) drug therapy; Z87.891 Personal history of nicotine dependence
CPT/HCPCS: 80053; 84443; 85025; 96413; 99214; J7050; J9119; Q0162

== ENCOUNTER → 2022-03-02 10:38 | Outpatient (BNVA) | payer MEDICARE, OTHER, SELFPAY | PROVIDERS: PCP Family Medicine; Visit Provider Nurse Practitioner Family | DX: Z96.641 Presence of right artificial hip joint (principal) | CPT/HCPCS: 73502; 99213 ==

== ENCOUNTER 2022-03-16 10:22 | Oncology outpatient (recurring) (ONCR) | payer MEDICARE, OTHER, SELFPAY ==
[2022-03-16 10:43] VITALS: BP 130/83; PULSE 57; RESP 16; TEMP 36.8; O2SAT 99
[2022-03-16] MEDS: ondansetron 4 MG Tablet 8 MG PO (11:04)
[2022-03-16] MEDS: sodium chloride 0.9% 250 ML 75 ML IV (11:07)
[2022-03-16] MEDS: cemiplimab-rwlc 350 MG in sodium chloride 0.9% 250 ML 500 MG IV (11:17)
[2022-03-16 11:57] VITALS: BP 150/78; PULSE 63; RESP 16; TEMP 35.9; O2SAT 96
== END 2022-04-06 23:59 | disposition home or self-care (01) ==
PROVIDERS: PCP Family Medicine; Visit Provider Internal Medicine Medical Oncology
DX: Z51.12 Encounter for antineoplastic immunotherapy (principal); C34.31 Malignant neoplasm of lower lobe, right bronchus or lung; Z79.899 Other long term (current) drug therapy
CPT/HCPCS: 96413; J7050; J9119; Q0162

== ENCOUNTER 2022-04-29 07:24 | Oncology outpatient (recurring) (ONCR) | payer MEDICARE, OTHER, SELFPAY ==
[2022-04-07 11:16] LABS: Basophils % 0.6 %; Eosinophils # 0.1 10^3/uL (0.0-0.8); Eosinophils % 2.6 %; Hematocrit 38.4 % (37.0-47.0); Hemoglobin 12.4 g/dL (11.5-15.3); Lymphocytes # 2.3 10^3/uL (0.8-4.8); Lymphocytes % 42.7 %; Mean Corpuscular HGB Conc 32.3 g/dL (30.0-36.0); Mean Platelet Volume 10.2 fL (7.4-10.4); Monocytes # 0.5 10^3/uL (0.2-0.9); Monocytes % 8.7 %; Neutrophils % 45.2 %; Nucleated Red Blood Cells % 0 %; Platelet Count 252 10^3/cmm (130-400); Red Blood Count 4.13 10^6/uL (4.1-5.3); Red Cell Distribution Width 14.5 % (12.1-15.1); White Blood Count 5.3 10^3/uL (4.0-10.0)
[2022-04-07 11:38] LABS: Alanine Aminotransferase 21 U/L (0-33); Albumin Level 4.2 g/dL (3.5-5.2); Alkaline Phosphatase 72 U/L (35-105); Anion Gap 12.6 (5-19); Aspartate Amino Transferase 24 U/L (0-32); Blood Urea Nitrogen 20 mg/dL (8-23); Calcium 9.7 mg/dL (8.5-10.5); Carbon Dioxide 27 mmol/L (22-29); Chloride 105 mmol/L (98-107); Creatinine Clr Calc Pharmacy 55.2931; Globulin 2.4 g/dL (1.3-4.6); Glucose 108 mg/dL (65-115); Osmolality Calculated 293 mOsm/kg (285-295); Potassium 4.6 mmol/L (3.5-5.1); Sodium 140 mmol/L (136-145); Thyroid Stimulating Hormone 0.76 uIU/mL (0.27-4.20); Total Bilirubin 0.3 mg/dL (0.15-1.2); Total Protein 6.6 g/dL (6.6-8.7)
[2022-04-07] MEDS: ondansetron 4 MG Tablet 8 MG PO (14:00)
[2022-04-07] MEDS: sodium chloride 0.9% 250 ML 75 ML IV (14:01)
[2022-04-07] MEDS: cemiplimab-rwlc 350 MG in sodium chloride 0.9% 250 ML 500 MG IV (14:04)
[2022-04-07 15:14] VITALS: BP 122/75; PULSE 62; RESP 16; TEMP 36.6; O2SAT 97
[2022-04-29 08:10] LABS: Basophils % 0.7 %; Eosinophils # 0.3 10^3/uL (0.0-0.8); Eosinophils % 4.6 %; Hematocrit 39.5 % (37.0-47.0); Hemoglobin 12.6 g/dL (11.5-15.3); Lymphocytes # 2.3 10^3/uL (0.8-4.8); Lymphocytes % 40.2 %; Mean Corpuscular HGB Conc 31.9 g/dL (30.0-36.0); Mean Corpuscular Hemoglobin 29.5 pg (28.0-34.0); Mean Corpuscular Volume 92.5 fl (81-99); Mean Platelet Volume 10.2 fL (7.4-10.4); Monocytes # 0.5 10^3/uL (0.2-0.9); Monocytes % 8.6 %; Neutrophils # 2.59 10^3/uL (1.8-7.7); Neutrophils % 45.7 %; Nucleated Red Blood Cells % 0 %; Platelet Count 251 10^3/cmm (130-400); Red Blood Count 4.27 10^6/uL (4.1-5.3); Red Cell Distribution Width 14.2 % (12.1-15.1); White Blood Count 5.7 10^3/uL (4.0-10.0)
[2022-04-29 08:38] LABS: Alanine Aminotransferase 15 U/L (0-33); Albumin Level 3.9 g/dL (3.5-5.2); Alkaline Phosphatase 66 U/L (35-105); Anion Gap 13.8 (5-19); Aspartate Amino Transferase 21 U/L (0-32); Blood Urea Nitrogen 13 mg/dL (8-23); Calcium 9.7 mg/dL (8.5-10.5); Carbon Dioxide 27 mmol/L (22-29); Chloride 102 mmol/L (98-107); Globulin 2.5 g/dL (1.3-4.6); Glucose 107 mg/dL (65-115); Osmolality Calculated 287 mOsm/kg (285-295); Potassium 4.8 mmol/L (3.5-5.1); Sodium 138 mmol/L (136-145); Thyroid Stimulating Hormone 0.91 uIU/mL (0.27-4.20); Total Bilirubin 0.4 mg/dL (0.15-1.2); Total Protein 6.4 g/dL (6.6-8.7)
[2022-04-29] MEDS: ondansetron 4 MG Tablet 8 MG PO (10:31)
[2022-04-29] MEDS: sodium chloride 0.9% 250 ML 100 ML IV (10:31)
[2022-04-29] MEDS: cemiplimab-rwlc 350 MG in sodium chloride 0.9% 250 ML 500 MG IV (10:51)
[2022-04-29 12:49] VITALS: BP 132/79; PULSE 61; TEMP 36.9; O2SAT 96
== END 2022-05-04 23:59 | disposition home or self-care (01) ==
PROVIDERS: Nurse Practitioner Family; PCP Family Medicine; Visit Provider Internal Medicine Medical Oncology
DX: Z51.12 Encounter for antineoplastic immunotherapy (principal); C34.31 Malignant neoplasm of lower lobe, right bronchus or lung; C77.1 Secondary and unspecified malignant neoplasm of intrathoracic lymph nodes; Z87.891 Personal history of nicotine dependence
CPT/HCPCS: 80053; 84443; 85025; 96413; 99214; J7050; J9119; Q0162

== ENCOUNTER 2022-05-06 05:58 | Outpatient (CLI) | payer MEDICARE, OTHER, SELFPAY ==
[2022-05-06] MEDS: iohexol 350 mg/mL 500 mL Btl (per mL) IV (06:12)
--- NOTE | 2022-05-06 06:30 | CT_ITS ---
WS: [id number] CT CHEST WITH INTRAVENOUS CONTRAST HISTORY: Restaging TECHNIQUE: Contiguous 5 mm axial imaging performed on the thorax. Coronal and sagittal reformats are submitted. All CT scans at [facility] use at least one of these dose optimization techniques: automated exposure control; mA and/or kV adjustment per patient size (includes targeted exams where dose is matched to clinical indication); or iterative reconstruction. CONTRAST: Omnipaque 350; 95 mL IV. DLP: 253.24 mGy.cm COMPARISON: 02/10/2022, 10/13/2021 Lungs and central airway: Significant improvement in the RIGHT lower lobe pulmonary mass with endobro nchial extension and the satellite nodules. Near complete resolution of the mass. The remaining soft tissue is endobronchial measuring approximately 1.4 x 1.9 cm. There is mild peripheral groundglass at tenuation which is often seen post treatment. RIGHT upper lobe subcentimeter opacification has essentially resolved. The few adjacent nodules in th e RIGHT upper lobe no longer identified. Pleura: No effusions. Heart and pericardium: Very mildly prominent heart. No pericardial effusion. Mediastinum and stacia: No mediastinal or hilar lymph nodes. Very minimally prominent hilar lymphoid ti ssue without increase in size. Vessels: Very mild atherosclerosis aorta. Normal enhancement of the pulmonary artery. Chest wall and lower neck: RIGHT Mediport. Tip terminates in the distal SVC. Bilateral breast implant s are calcified. Again noted is a soft tissue mass posterior to the RIGHT breast implant now measurin g 17.6 mm as compared to 13.2 mm on 02/06/2020. This would be difficult to visualize probably by mammo graphy due to its posterior position of this mass. Upper abdomen: Visualized liver is negative. No metastatic lesions are identified. No adrenal mass. M ildly contracted gallbladder. LEFT renal cyst. Osseous structures: Moderate spondylitic changes throughout the thoracic spine. No osteoblastic or os teolytic bone disease. Dorsal column stimulator over the mid thoracic spine. CT/CT chest w con* [id number] IMPRESSION: 1. Significant improvement in the RIGHT lower lobe neoplasm and satellite lesi ons. Endobronchial extension of tumor remains with the largest component measur ing 1.4 x 1.9 cm. Continued close follow-up recommended. Marked improvement. 2. Essentially resolved LEFT upper lobe pulmonary nodules. 3. No mediastinal adenopathy. 4. Mass posterior to the RIGHT breast implant. Mass has increased in size from 13.2 mm on 02/06/2020 to 17.6 mm today. This mass may be difficult to visualize by mammography as it is posterior to the implant. Consider ultrasound evaluati on as this mass is along the posterior superior implant and may be visible by u ltrasound.
== END 2022-05-06 05:59 | disposition home or self-care (01) ==
LOC: RAD 06:00
PROVIDERS: PCP Family Medicine; Visit Provider Internal Medicine Medical Oncology
DX: C34.31 Malignant neoplasm of lower lobe, right bronchus or lung (principal); N63.0 Unspecified lump in unspecified breast
CPT/HCPCS: 71260; Q9967

== ENCOUNTER 2022-05-20 09:19 | Oncology outpatient (recurring) (ONCR) | payer MEDICARE, OTHER, SELFPAY ==
[2022-05-20 09:42] VITALS: BMI 28.8
[2022-05-20 09:47] LABS: Basophils % 0.8 %; Eosinophils # 0.2 10^3/uL (0.0-0.8); Hematocrit 38.3 % (37.0-47.0); Hemoglobin 12.5 g/dL (11.5-15.3); Lymphocytes # 2.3 10^3/uL (0.8-4.8); Lymphocytes % 44.9 %; Mean Corpuscular HGB Conc 32.6 g/dL (30.0-36.0); Mean Corpuscular Hemoglobin 29.8 pg (28.0-34.0); Mean Corpuscular Volume 91.2 fl (81-99); Mean Platelet Volume 9.9 fL (7.4-10.4); Monocytes # 0.4 10^3/uL (0.2-0.9); Monocytes % 8.5 %; Neutrophils % 41.4 %; Nucleated Red Blood Cells % 0 %; Platelet Count 260 10^3/cmm (130-400); Red Cell Distribution Width 13.6 % (12.1-15.1); White Blood Count 5.1 10^3/uL (4.0-10.0)
[2022-05-20 10:25] LABS: Alanine Aminotransferase 16 U/L (0-33); Albumin Level 3.9 g/dL (3.5-5.2); Alkaline Phosphatase 59 U/L (35-105); Anion Gap 12.6 (5-19); Aspartate Amino Transferase 21 U/L (0-32); Blood Urea Nitrogen 15 mg/dL (8-23); Calcium 9.7 mg/dL (8.5-10.5); Carbon Dioxide 27 mmol/L (22-29); Chloride 102 mmol/L (98-107); Globulin 2.4 g/dL (1.3-4.6); Glucose 89 mg/dL (65-115); Osmolality Calculated 284 mOsm/kg (285-295); Potassium 4.6 mmol/L (3.5-5.1); Sodium 137 mmol/L (136-145); Thyroid Stimulating Hormone 0.85 uIU/mL (0.27-4.20); Total Bilirubin 0.4 mg/dL (0.15-1.2); Total Protein 6.3 g/dL (6.6-8.7)
[2022-05-20] MEDS: ondansetron 4 MG Tablet 8 MG PO (12:05)
[2022-05-20] MEDS: sodium chloride 0.9% 250 ML 75 ML IV (12:07)
[2022-05-20] MEDS: cemiplimab-rwlc 350 MG in sodium chloride 0.9% 250 ML 500 MG IV (12:15)
[2022-05-20 13:07] VITALS: BP 148/83; PULSE 60; RESP 16; TEMP 36.3; O2SAT 98
== END 2022-06-04 23:59 | disposition home or self-care (01) ==
PROVIDERS: PCP Family Medicine; Visit Provider Internal Medicine Medical Oncology
DX: Z51.12 Encounter for antineoplastic immunotherapy (principal); C34.31 Malignant neoplasm of lower lobe, right bronchus or lung; C77.1 Secondary and unspecified malignant neoplasm of intrathoracic lymph nodes; Z79.899 Other long term (current) drug therapy; Z87.891 Personal history of nicotine dependence; N63.10 Unspecified lump in the right breast, unspecified quadrant; R91.1 Solitary pulmonary nodule
CPT/HCPCS: 80053; 84443; 85025; 96413; 99214; J7050; J9119; Q0162

== ENCOUNTER 2022-05-27 13:12 | Outpatient (CLI) | payer MEDICARE, OTHER, SELFPAY ==
--- NOTE | 2022-05-27 | MM_ITS ---
WS: [id number] BILATERAL 3D TOMOSYNTHESIS DIGITAL DIAGNOSTIC MAMMOGRAPHY WITH CAD CLINICAL INFORMATION: RT BR MASS SEEN ON CT HISTORY: Breast nodule seen on chest CT RIGHT breast COMPARISON: Screening mammogram February 09, [address] May 06, 2022 TECHNIQUE: Bilateral CC, MLO, and ML views. FINDINGS: Scattered fibroglandular densities bilaterally. Bilateral breast implants with capsular calcification s and contractions. Breast implants are similar in appearance to 202. A few incidental punctate calc ifications bilaterally. Nodule seen on chest CT not definitely seen on this examination likely due to deep location adjacent to the chest wall. Ultrasound described below. ULTRASOUND BREAST RIGHT TECHNIQUE: Ultrasound RIGHT breast focused area of concern. CLINICAL INFORMATION: RT BR MASS SEEN ON CT FINDINGS: Ultrasound RIGHT breast in the area of concern at the 12:00 position. No suspicious focal mass or les ion in this location. There is lobulation of the 12:00 breast implant suspicious for contained capsul ar rupture in this location. Ultrasound performed from the 12 to 3:00 position. Prior chest CTs were reviewed dating back to January 31, 2020. CT chest January 2020 demonstrates t he same nodular area as the recent CT. This has slightly enlarged since 2019. Additional similar-appe aring areas of surrounding nodularity along the medial aspect of the RIGHT breast implant seen on bot h studies. 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 This appears c ontiguous with the breast implant and also supportive of probable area of capsular rupture. Considering findings are best visualized on chest CT recommend [address] with contrast to asse ss stability. Alternatively breast implants could be revised MM/[place] [id number] IMPRESSION: BI-RADS: 3-Probably Benign FOLLOW UP: 3 Month Follow-up Considering findings are best visualized on chest CT recommend 3-[address] with contrast to assess stability. Alternatively breast implants could be re placed or removed
--- NOTE | 2022-05-27 13:24 | US_ITS ---
WS: [id number] BILATERAL 3D TOMOSYNTHESIS DIGITAL DIAGNOSTIC MAMMOGRAPHY WITH CAD CLINICAL INFORMATION: RT BR MASS SEEN ON CT HISTORY: Breast nodule seen on chest CT RIGHT breast COMPARISON: Screening mammogram February 09, [address] May 06, 2022 TECHNIQUE: Bilateral CC, MLO, and ML views. FINDINGS: Scattered fibroglandular densities bilaterally. Bilateral breast implants with capsular calcification s and contractions. Breast implants are similar in appearance to 202. A few incidental punctate calc ifications bilaterally. Nodule seen on chest CT not definitely seen on this examination likely due to deep location adjacent to the chest wall. Ultrasound described below. ULTRASOUND BREAST RIGHT TECHNIQUE: Ultrasound RIGHT breast focused area of concern. CLINICAL INFORMATION: RT BR MASS SEEN ON CT FINDINGS: Ultrasound RIGHT breast in the area of concern at the 12:00 position. No suspicious focal mass or les ion in this location. There is lobulation of the 12:00 breast implant suspicious for contained capsul ar rupture in this location. Ultrasound performed from the 12 to 3:00 position. Prior chest CTs were reviewed dating back to January 31, 2020. CT chest January 2020 demonstrates t he same nodular area as the recent CT. This has slightly enlarged since 2019. Additional similar-appe aring areas of surrounding nodularity along the medial aspect of the RIGHT breast implant seen on bot h studies. 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 This appears c ontiguous with the breast implant and also supportive of probable area of capsular rupture. Considering findings are best visualized on chest CT recommend [address] with contrast to asse ss stability. Alternatively breast implants could be revised US/US breast RT complete [id number] IMPRESSION: BI-RADS: 3-Probably Benign FOLLOW UP: 3 Month Follow-up Considering findings are best visualized on chest CT recommend 3-[address] with contrast to assess stability. Alternatively breast implants could be re placed or removed
== END 2022-05-27 13:13 | disposition home or self-care (01) ==
PROVIDERS: PCP Family Medicine; Visit Provider Nurse Practitioner
DX: N63.15 Unspecified lump in the right breast, overlapping quadrants (principal)
CPT/HCPCS: 76641; 77062; G0279

== ENCOUNTER 2022-06-10 08:22 | Oncology outpatient (recurring) (ONCR) | payer MEDICARE, OTHER, SELFPAY ==
[2022-06-10 09:02] VITALS: BP 129/76; PULSE 62; RESP 18; TEMP 36.8; O2SAT 99
[2022-06-10 09:02] LABS: Basophils # 0.1 10^3/uL (0.0-0.1); Basophils % 0.9 %; Eosinophils # 0.2 10^3/uL (0.0-0.8); Eosinophils % 4.1 %; Hematocrit 37.4 % (37.0-47.0); Hemoglobin 12.2 g/dL (11.5-15.3); Lymphocytes # 2.4 10^3/uL (0.8-4.8); Lymphocytes % 40.7 %; Mean Corpuscular HGB Conc 32.6 g/dL (30.0-36.0); Mean Corpuscular Hemoglobin 30.3 pg (28.0-34.0); Mean Platelet Volume 9.8 fL (7.4-10.4); Monocytes # 0.5 10^3/uL (0.2-0.9); Monocytes % 7.9 %; Neutrophils # 2.67 10^3/uL (1.8-7.7); Neutrophils % 46.1 %; Nucleated Red Blood Cells % 0 %; Platelet Count 232 10^3/cmm (130-400); Red Blood Count 4.02 10^6/uL (4.1-5.3); Red Cell Distribution Width 13.6 % (12.1-15.1); White Blood Count 5.8 10^3/uL (4.0-10.0)
[2022-06-10 09:39] LABS: Alanine Aminotransferase 18 U/L (0-33); Albumin Level 3.9 g/dL (3.5-5.2); Alkaline Phosphatase 64 U/L (35-105); Anion Gap 11.6 (5-19); Aspartate Amino Transferase 23 U/L (0-32); Blood Urea Nitrogen 13 mg/dL (8-23); Calcium 9.3 mg/dL (8.5-10.5); Carbon Dioxide 26 mmol/L (22-29); Chloride 108 mmol/L (98-107); Globulin 2.3 g/dL (1.3-4.6); Glucose 107 mg/dL (65-115); Osmolality Calculated 293 mOsm/kg (285-295); Potassium 4.6 mmol/L (3.5-5.1); Sodium 141 mmol/L (136-145); Thyroid Stimulating Hormone 0.65 uIU/mL (0.27-4.20); Total Bilirubin 0.3 mg/dL (0.15-1.2); Total Protein 6.2 g/dL (6.6-8.7)
[2022-06-10] MEDS: sodium chloride 0.9% 250 ML 75 ML IV (10:34)
[2022-06-10] MEDS: ondansetron 4 MG Tablet 8 MG PO (10:35)
[2022-06-10] MEDS: cemiplimab-rwlc 350 MG in sodium chloride 0.9% 250 ML 500 MG IV (11:09)
[2022-06-10 12:10] VITALS: BP 135/87; PULSE 62; RESP 18; TEMP 36.6; O2SAT 96
== END 2022-06-17 11:00 | disposition home or self-care (01) ==
PROVIDERS: Nurse Practitioner Family; PCP Family Medicine; Visit Provider Internal Medicine Medical Oncology
DX: Z51.12 Encounter for antineoplastic immunotherapy (principal); C34.31 Malignant neoplasm of lower lobe, right bronchus or lung; C77.1 Secondary and unspecified malignant neoplasm of intrathoracic lymph nodes; T85.49XA Other mechanical complication of breast prosthesis and implant, initial encounter; Z79.899 Other long term (current) drug therapy; Z87.891 Personal history of nicotine dependence
CPT/HCPCS: 80053; 84443; 85025; 96413; 99214; J7050; J9119; Q0162

== ENCOUNTER → 2022-06-30 08:57 | Outpatient (BNVA) | payer MEDICARE, OTHER, SELFPAY | PROVIDERS: PCP Family Medicine; Visit Provider Internal Medicine Pulmonary Disease | DX: C34.31 Malignant neoplasm of lower lobe, right bronchus or lung (principal); Z87.891 Personal history of nicotine dependence; J43.9 Emphysema, unspecified; Z86.16 Personal history of COVID-19 | CPT/HCPCS: 99214 ==

== ENCOUNTER 2022-07-01 09:13 | Oncology outpatient (recurring) (ONCR) | payer MEDICARE, OTHER, SELFPAY ==
[2022-07-01 10:28] LABS: Basophils # 0.1 10^3/uL (0.0-0.1); Basophils % 0.9 %; Eosinophils # 0.2 10^3/uL (0.0-0.8); Eosinophils % 3.2 %; Hematocrit 39.1 % (37.0-47.0); Hemoglobin 12.5 g/dL (11.5-15.3); Lymphocytes # 2.2 10^3/uL (0.8-4.8); Lymphocytes % 39.8 %; Mean Corpuscular Hemoglobin 29.1 pg (28.0-34.0); Mean Corpuscular Volume 90.9 fl (81-99); Mean Platelet Volume 9.7 fL (7.4-10.4); Monocytes # 0.4 10^3/uL (0.2-0.9); Monocytes % 7.8 %; Neutrophils % 47.9 %; Nucleated Red Blood Cells % 0 %; Platelet Count 253 10^3/cmm (130-400); Red Cell Distribution Width 13.6 % (12.1-15.1); White Blood Count 5.6 10^3/uL (4.0-10.0)
[2022-07-01 10:54] LABS: Alanine Aminotransferase 18 U/L (0-33); Albumin Level 4.1 g/dL (3.5-5.2); Alkaline Phosphatase 69 U/L (35-105); Anion Gap 11.5 (5-19); Aspartate Amino Transferase 26 U/L (0-32); Blood Urea Nitrogen 12 mg/dL (8-23); Calcium 9.3 mg/dL (8.5-10.5); Carbon Dioxide 26 mmol/L (22-29); Chloride 107 mmol/L (98-107); Globulin 2.5 g/dL (1.3-4.6); Glucose 94 mg/dL (65-115); Osmolality Calculated 290 mOsm/kg (285-295); Potassium 4.5 mmol/L (3.5-5.1); Sodium 140 mmol/L (136-145); Thyroid Stimulating Hormone 0.49 uIU/mL (0.27-4.20); Total Bilirubin 0.4 mg/dL (0.15-1.2); Total Protein 6.6 g/dL (6.6-8.7)
[2022-07-01] MEDS: ondansetron 4 MG Tablet 8 MG PO (11:40)
[2022-07-01] MEDS: sodium chloride 0.9% 250 ML 75 ML IV (11:41)
[2022-07-01] MEDS: cemiplimab-rwlc 350 MG in sodium chloride 0.9% 250 ML 500 MG IV (12:02)
[2022-07-01 12:45] VITALS: BP 154/78; PULSE 70; RESP 18; TEMP 36.4; O2SAT 99
== END 2022-07-01 23:59 | disposition home or self-care (01) ==
PROVIDERS: PCP Family Medicine; Visit Provider Internal Medicine Medical Oncology
DX: Z51.12 Encounter for antineoplastic immunotherapy (principal); C34.31 Malignant neoplasm of lower lobe, right bronchus or lung; C77.1 Secondary and unspecified malignant neoplasm of intrathoracic lymph nodes; Z79.899 Other long term (current) drug therapy; Z87.891 Personal history of nicotine dependence
CPT/HCPCS: 80053; 84443; 85025; 96413; J7050; J9119; Q0162

== ENCOUNTER 2022-07-22 08:18 | Oncology outpatient (recurring) (ONCR) | payer MEDICARE, OTHER, SELFPAY ==
[2022-07-22 08:30] VITALS: BP 126/74; PULSE 65; RESP 18; TEMP 36.8; O2SAT 96
[2022-07-22 08:55] LABS: Basophils % 0.6 %; Eosinophils # 0.2 10^3/uL (0.0-0.8); Eosinophils % 3.4 %; Hematocrit 36.8 % (37.0-47.0); Hemoglobin 11.8 g/dL (11.5-15.3); Lymphocytes # 1.6 10^3/uL (0.8-4.8); Lymphocytes % 26.6 %; Mean Corpuscular HGB Conc 32.1 g/dL (30.0-36.0); Mean Corpuscular Hemoglobin 29.8 pg (28.0-34.0); Mean Corpuscular Volume 92.9 fl (81-99); Mean Platelet Volume 9.7 fL (7.4-10.4); Monocytes # 0.4 10^3/uL (0.2-0.9); Neutrophils # 3.82 10^3/uL (1.8-7.7); Neutrophils % 61.9 %; Nucleated Red Blood Cells % 0 %; Platelet Count 247 10^3/cmm (130-400); Red Blood Count 3.96 10^6/uL (4.1-5.3); Red Cell Distribution Width 13.6 % (12.1-15.1); White Blood Count 6.2 10^3/uL (4.0-10.0)
[2022-07-22 09:30] LABS: Alanine Aminotransferase 16 U/L (0-33); Alkaline Phosphatase 66 U/L (35-105); Anion Gap 12.7 (5-19); Aspartate Amino Transferase 20 U/L (0-32); Blood Urea Nitrogen 16 mg/dL (8-23); Carbon Dioxide 26 mmol/L (22-29); Chloride 106 mmol/L (98-107); Globulin 2.3 g/dL (1.3-4.6); Glucose 132 mg/dL (65-115); Osmolality Calculated 293 mOsm/kg (285-295); Potassium 4.7 mmol/L (3.5-5.1); Sodium 140 mmol/L (136-145); Thyroid Stimulating Hormone 0.65 uIU/mL (0.27-4.20); Total Bilirubin 0.5 mg/dL (0.15-1.2); Total Protein 6.3 g/dL (6.6-8.7)
[2022-07-22] MEDS: sodium chloride 0.9% 250 ML 75 ML IV (10:20)
[2022-07-22] MEDS: ondansetron 4 MG Tablet 8 MG PO (10:21)
[2022-07-22] MEDS: cemiplimab-rwlc 350 MG in sodium chloride 0.9% 250 ML 500 MG IV (11:19)
[2022-07-22 12:05] VITALS: BP 132/78; PULSE 66; RESP 18; TEMP 36.3; O2SAT 98
== END 2022-07-22 23:59 | disposition home or self-care (01) ==
PROVIDERS: PCP Family Medicine; Visit Provider Internal Medicine Medical Oncology
DX: Z51.12 Encounter for antineoplastic immunotherapy (principal); C34.31 Malignant neoplasm of lower lobe, right bronchus or lung; C77.1 Secondary and unspecified malignant neoplasm of intrathoracic lymph nodes; R53.0 Neoplastic (malignant) related fatigue; Z79.899 Other long term (current) drug therapy; Z87.891 Personal history of nicotine dependence; M25.59 Pain in other specified joint
CPT/HCPCS: 80053; 84443; 85025; 96375; 96413; 99214; J1642; J7050; J9119; Q0162

== ENCOUNTER 2022-08-12 11:11 | Oncology outpatient (recurring) (ONCR) | payer MEDICARE, OTHER, SELFPAY ==
[2022-08-12] MEDS: ondansetron 4 MG Tablet 8 MG PO (12:58)
[2022-08-12] MEDS: sodium chloride 0.9% 250 ML 100 ML IV (12:59)
[2022-08-12] MEDS: cemiplimab-rwlc 350 MG in sodium chloride 0.9% 250 ML 500 MG IV (13:11)
[2022-08-12 16:37] VITALS: BP 122/70; PULSE 63; TEMP 36.6; O2SAT 99
== END 2022-08-12 23:59 | disposition home or self-care (01) ==
LOC: ONCMED 11:11
PROVIDERS: PCP Family Medicine; Visit Provider Internal Medicine Medical Oncology
DX: Z51.12 Encounter for antineoplastic immunotherapy (principal); C34.31 Malignant neoplasm of lower lobe, right bronchus or lung; C77.1 Secondary and unspecified malignant neoplasm of intrathoracic lymph nodes; Z79.899 Other long term (current) drug therapy; Z87.891 Personal history of nicotine dependence; R53.83 Other fatigue
CPT/HCPCS: 80053; 84443; 85025; 96375; 96413; J1642; J7050; J9119; Q0162

== ENCOUNTER → 2022-08-17 11:12 | Outpatient (BNVA) | payer MEDICARE, OTHER, SELFPAY | PROVIDERS: PCP Family Medicine; Referring Provider Family Medicine; Visit Provider Orthopaedic Surgery | DX: M48.062 Spinal stenosis, lumbar region with neurogenic claudication (principal); M54.50 Low back pain, unspecified | CPT/HCPCS: 72110; 99204 ==

== ENCOUNTER 2022-08-23 13:52 | Outpatient (CLI) | payer MEDICARE, OTHER, SELFPAY ==
--- NOTE | 2022-08-23 14:30 | CT_ITS ---
WS: [id number] CT chest w con* [id number] HISTORY: 3 month follow up TECHNIQUE: Axial imaging performed through the thorax. Coronal and sagittal reformats are submitted. All CT scans at [facility] use at least one of these dose optimization techniques: automated exposure control; mA and/or kV adjustment per patient size (includes targeted exams where dose is mat ched to clinical indication); or iterative reconstruction. CONTRAST: Omnipaque 350; 100 mL IV. DLP: 193.53 mGy.cm COMPARISON: 05/06/2022 and 02/10/2022 Lungs and central airway: Chronic emphysema. Continued improvement in the neoplastic changes noted on prior examinations in the RIGHT lower lobe. There is endobronchial nodularity which has improved sin ce 05/06/2022. Significant improvement since 02/10/2022. Largest nodule now measures 12 x 5 mm. There is additional interstitial thickening throughout the upper and lower lung valdez. No new or enlarging m asses or nodules. Pleura: Normal. No pleural effusion. Heart and pericardium: Normal size heart with no pericardial effusion. Mediastinum and stacia: No mediastinum or hilar adenopathy. Vessels: Mild atherosclerosis aorta. No aneurysm. Chest wall and lower neck: Bilateral breast implants. Implants are partially calcified. Again noted i s a soft tissue nodule posterior to the superior RIGHT breast implant measuring 2.0 x 1.0 cm. Not sig nificantly changed in size since the most recent study. Right-sided Mediport. Upper abdomen: Small hiatal hernia. No adrenal mass. Blush-like area of enhancement in the anterior l iver measures 6 mm. Favor hemangioma. No metastatic lesions. Stable LEFT renal cyst. Osseous structures: Moderate thoracic spondylitic changes. No destructive bone lesions. CT/CT chest w con* [id number] IMPRESSION: 1. No adverse changes in appearance of the lungs or chest wall. 2. Continued very slight decrease in size of the neoplastic process in the RIG HT lower lobe. Endobronchial extension with the largest component now measuring 12 x 5 mm. 3. No new or enlarging pulmonary mass or nodule. 4. No mediastinal or hilar adenopathy. 5. Stable chest wall mass posterior to the RIGHT breast implant. 6. Bilateral breast implants with capsular calcification. 7. No adrenal mass.
[2022-08-23] MEDS: iohexol 350 mg/mL 500 mL Btl (per mL) IV (14:44)
== END 2022-08-23 13:53 | disposition home or self-care (01) ==
PROVIDERS: PCP Family Medicine; Visit Provider Nurse Practitioner Family
DX: C34.31 Malignant neoplasm of lower lobe, right bronchus or lung (principal); Z98.82 Breast implant status
CPT/HCPCS: 71260; Q9967

== ENCOUNTER 2022-09-02 10:00 | Oncology outpatient (recurring) (ONCR) | payer MEDICARE, OTHER, SELFPAY ==
[2022-09-02 10:00] VITALS: BP 132/78; PULSE 63; RESP 18; TEMP 36.9; O2SAT 94
[2022-09-02 10:17] LABS: Basophils # 0.1 10^3/uL (0.0-0.1); Basophils % 0.9 %; Eosinophils # 0.2 10^3/uL (0.0-0.8); Eosinophils % 2.7 %; Hematocrit 37.4 % (37.0-47.0); Hemoglobin 12.4 g/dL (11.5-15.3); Lymphocytes # 2.4 10^3/uL (0.8-4.8); Lymphocytes % 40.2 %; Mean Corpuscular HGB Conc 33.2 g/dL (30.0-36.0); Mean Corpuscular Hemoglobin 30.7 pg (28.0-34.0); Mean Corpuscular Volume 92.6 fl (81-99); Mean Platelet Volume 9.8 fL (7.4-10.4); Monocytes # 0.5 10^3/uL (0.2-0.9); Monocytes % 8.5 %; Neutrophils # 2.78 10^3/uL (1.8-7.7); Neutrophils % 47.4 %; Nucleated Red Blood Cells % 0 %; Platelet Count 262 10^3/cmm (130-400); Red Blood Count 4.04 10^6/uL (4.1-5.3); Red Cell Distribution Width 13.3 % (12.1-15.1); White Blood Count 5.9 10^3/uL (4.0-10.0)
[2022-09-02 10:37] LABS: Alanine Aminotransferase 17 U/L (0-33); Albumin Level 4.1 g/dL (3.5-5.2); Alkaline Phosphatase 65 U/L (35-105); Anion Gap 12.9 (5-19); Aspartate Amino Transferase 20 U/L (0-32); Blood Urea Nitrogen 11 mg/dL (8-23); Carbon Dioxide 25 mmol/L (22-29); Chloride 101 mmol/L (98-107); Creatinine Clr Calc Pharmacy 55.1216; Globulin 2.2 g/dL (1.3-4.6); Glucose 89 mg/dL (65-115); Osmolality Calculated 277 mOsm/kg (285-295); Potassium 4.9 mmol/L (3.5-5.1); Sodium 134 mmol/L (136-145); Thyroid Stimulating Hormone 1.95 uIU/mL (0.27-4.20); Total Bilirubin 0.3 mg/dL (0.15-1.2); Total Protein 6.3 g/dL (6.6-8.7)
[2022-09-02] MEDS: ondansetron 4 MG Tablet 8 MG PO (12:08)
[2022-09-02] MEDS: sodium chloride 0.9% 250 ML 75 ML IV (12:09)
[2022-09-02] MEDS: cemiplimab-rwlc 350 MG in sodium chloride 0.9% 250 ML 500 MG IV (12:17)
[2022-09-02 13:00] VITALS: BP 117/78; PULSE 62; RESP 18; TEMP 36.3; O2SAT 99
== END 2022-09-02 23:59 | disposition home or self-care (01) ==
LOC: ONCMED 12:27 → RAD 13:33
PROVIDERS: PCP Family Medicine; Visit Provider Internal Medicine Medical Oncology
DX: Z51.12 Encounter for antineoplastic immunotherapy (principal); C34.31 Malignant neoplasm of lower lobe, right bronchus or lung; C77.1 Secondary and unspecified malignant neoplasm of intrathoracic lymph nodes; Z79.899 Other long term (current) drug therapy; Z87.891 Personal history of nicotine dependence
CPT/HCPCS: 80053; 84443; 85025; 96413; 99214; J1642; J7050; J9119; Q0162

== ENCOUNTER 2022-09-23 07:40 | Oncology outpatient (recurring) (ONCR) | payer MEDICARE, OTHER, SELFPAY ==
[2022-09-23 08:09] VITALS: BP 130/87; PULSE 71; RESP 16; TEMP 36.6; O2SAT 96
[2022-09-23] MEDS: ondansetron 4 MG Tablet 8 MG PO (08:20)
[2022-09-23] MEDS: cemiplimab-rwlc 350 MG in sodium chloride 0.9% 250 ML 500 MG IV (08:32)
[2022-09-23 09:20] VITALS: BP 151/75; PULSE 60; RESP 16; TEMP 36.1; O2SAT 98
== END 2022-09-23 23:59 | disposition home or self-care (01) ==
PROVIDERS: PCP Family Medicine; Visit Provider Internal Medicine Medical Oncology
DX: Z51.12 Encounter for antineoplastic immunotherapy (principal); Z53.9 Procedure and treatment not carried out, unspecified reason; C34.31 Malignant neoplasm of lower lobe, right bronchus or lung
CPT/HCPCS: 96413; J1642; J7050; J9119; Q0162

== ENCOUNTER 2022-10-04 08:20 | Outpatient (CLI) | payer MEDICARE, OTHER, SELFPAY ==
--- NOTE | 2022-10-04 08:45 | CT_ITS ---
WS: [id number] CT LUMBAR SPINE TECHNIQUE: Contrast-enhanced CT of the lumbar spine with coronal and sagittal reformatted images. CLINICAL INFORMATION: M54.9 - Dorsalgia, unspecified COMPARISON: CT 2019 DLP: 349.[address] scans at [facility] [place] use at least one of these dose optimization techniques: automated e xposure control; mA and/or kV adjustment per patient size (includes targeted exams where dose is matc hed to clinical indication); or iterative reconstruction. FINDINGS: Mild lumbar curve convex LEFT. Moderate spondylitic changes. Disc space narrowing throughout the lumb ar spine appears progressed since 2019 worse at L4-L5 and L5-S1. Endplate sclerosis L5-S1. Aortic lobo cification. T12-L1:Mild annular bulging. Slight effacement of the ventral thecal sac. Mild RIGHT greater than LEF T foraminal narrowing. Mild facet arthropathy. L1-L2: Mild disc bulging with slight effacement of the ventral thecal sac. Narrowing of the RIGHT sub articular recess. Moderate RIGHT foraminal narrowing. Mild LEFT foraminal narrowing. Mild facet arthr opathy with ligamentum flavum hypertrophy. L2-L3: Disc osteophyte complex with endplate ridging. Slight effacement of the ventral thecal sac. Mo derate RIGHT and mild LEFT foraminal narrowing. Narrowing of the subarticular recess bilaterally. Mil d facet arthropathy and ligamentum flavum hypertrophy. L3-L4: Mild disc bulging with osteophytic ridging. Mild facet arthropathy. Mild narrowing of the RIGH T greater than LEFT subarticular recess. Mild central canal stenosis. Moderate RIGHT greater than LEF T foraminal narrowing. L4-L5: Mild disc bulging with mild to moderate central canal stenosis. Impingement on the LEFT greate r than RIGHT subarticular recess and traversing LEFT L5 nerve root. Moderate facet arthropathy ligame ntum flavum hypertrophy. Moderate LEFT greater than RIGHT foraminal narrowing. L5-S1: Disc space narrowing with endplate sclerosis and vacuum disc phenomenon. Eccentric disc bulgin g results in mild to moderate bilateral foraminal narrowing. Spinal canal is patent. Mild facet arthr opathy. Visualized pelvic bony structures: Normal. Paravertebral soft tissues: Normal. Aortic calcification. Adrenal glands are normal. CT/CT lumbar spine w con [id number] IMPRESSION: 1. Mild lumbar curve convex LEFT. Disc space narrowing throughout the lumbar s pine progressed since 2019 2. Mild to moderate central canal stenosis L4-L5 with impingement on the subar ticular recess and traversing L5 nerve roots LEFT greater than RIGHT. Moderate bilateral L4-L5 foraminal narrowing. 3. Mild central canal stenosis L3-L4 narrowing of the subarticular recess bila terally. Moderate bilateral foraminal narrowing. 4. Mild to moderate bilateral L5-S1 foraminal narrowing due to eccentric disc bulging. 5. Disc bulging L1-L2 with narrowing of the RIGHT subarticular recess and mode rate RIGHT L1-L2 foraminal narrowing. 6. Moderate RIGHT L2-L3 foraminal narrowing.
--- NOTE | 2022-10-04 08:45 | IR_ITS ---
WS: [id number] MYELOGRAM LUMBAR SPINE Fluoroscopic guided lumbar myelogram CLINICAL INFORMATION: M54.9 - Dorsalgia, unspecified TECHNIQUE: The procedure, including risks, benefits, and complications, were discussed with the patie nt who agreed to proceed. A timeout was performed to confirm correct patient, procedure, and site. Using sterile technique, the patient was prepped and draped in the usual sterile fashion. After admin istration of local anesthesia using 1% preservative-free lidocaine and using fluoroscopic guidance, a 22-gauge spinal needle was advanced into the subarachnoid space at the L2-L3 level. Subsequently 13 cc of Omnipaque 240 was administered into the thecal sac. The needle was removed and hemostasis was a chieved. Spot fluoroscopic images were obtained. FLUOROSCOPIC TIME: 1min [id number] # of spot films: 9 Spot fluoroscopic images demonstrate Osteopenia. Lumbar curve convex LEFT. Spinal stimulator partially visualized. Incidental tiny perineu ral cyst/Tarlov cyst at the distal thecal sac. Aortic calcification. Iliac calcification. Advanced di sc vacuum disc phenomenon L2-L3 L3-L4 and L5-S1. Endplate sclerosis L5-S1. Disc space narrowing throu ghout the lumbar spine. IR/IR myelogram sp lumbar [id number] IMPRESSION: 1. Uncomplicated lumbar myelogram 2. Please see CT report for anatomic detail.
== END 2022-10-04 08:21 | disposition home or self-care (01) ==
LOC: RAD 08:24
PROVIDERS: PCP Family Medicine; Visit Provider Orthopaedic Surgery
DX: M54.9 Dorsalgia, unspecified (principal); M48.061 Spinal stenosis, lumbar region without neurogenic claudication; M51.36 Other intervertebral disc degeneration, lumbar region
CPT/HCPCS: 62304; 72132; Q9966

== ENCOUNTER 2022-10-14 09:05 | Oncology outpatient (recurring) (ONCR) | payer MEDICARE, OTHER, SELFPAY ==
[2022-10-14 09:10] VITALS: BP 133/81; PULSE 76; RESP 18; TEMP 36.8; O2SAT 96
[2022-10-14 09:11] VITALS: BMI 27.4
[2022-10-14 09:25] LABS: Basophils # 0.1 10^3/uL (0.0-0.1); Basophils % 1.1 %; Eosinophils # 0.2 10^3/uL (0.0-0.8); Eosinophils % 4.1 %; Hematocrit 37.7 % (37.0-47.0); Hemoglobin 12.4 g/dL (11.5-15.3); Lymphocytes # 1.9 10^3/uL (0.8-4.8); Lymphocytes % 43.6 %; Mean Corpuscular HGB Conc 32.9 g/dL (30.0-36.0); Mean Corpuscular Hemoglobin 30.5 pg (28.0-34.0); Mean Corpuscular Volume 92.6 fl (81-99); Mean Platelet Volume 9.7 fL (7.4-10.4); Monocytes # 0.5 10^3/uL (0.2-0.9); Monocytes % 10.6 %; Neutrophils # 1.78 10^3/uL (1.8-7.7); Neutrophils % 40.1 %; Nucleated Red Blood Cells % 0 %; Platelet Count 249 10^3/cmm (130-400); Red Blood Count 4.07 10^6/uL (4.1-5.3); Red Cell Distribution Width 13.4 % (12.1-15.1); White Blood Count 4.4 10^3/uL (4.0-10.0)
[2022-10-14 10:14] LABS: Alanine Aminotransferase 21 U/L (0-33); Albumin Level 4.1 g/dL (3.5-5.2); Alkaline Phosphatase 67 U/L (35-105); Anion Gap 12.8 (5-19); Aspartate Amino Transferase 25 U/L (0-32); Blood Urea Nitrogen 11 mg/dL (8-23); Calcium 9.3 mg/dL (8.5-10.5); Carbon Dioxide 26 mmol/L (22-29); Chloride 103 mmol/L (98-107); Creatinine Clr Calc Pharmacy 56.2538; Globulin 2.2 g/dL (1.3-4.6); Glucose 103 mg/dL (65-115); Osmolality Calculated 284 mOsm/kg (285-295); Potassium 4.8 mmol/L (3.5-5.1); Sodium 137 mmol/L (136-145); Thyroid Stimulating Hormone 1.37 uIU/mL (0.27-4.20); Total Bilirubin 0.3 mg/dL (0.15-1.2); Total Protein 6.3 g/dL (6.6-8.7)
[2022-10-14] MEDS: sodium chloride 0.9% 250 ML 75 ML IV (11:36)
[2022-10-14] MEDS: ondansetron 4 MG Tablet 8 MG PO (11:43)
[2022-10-14] MEDS: cemiplimab-rwlc 350 MG in sodium chloride 0.9% 250 ML 500 MG IV (11:49)
[2022-10-14 12:41] VITALS: BP 133/83; PULSE 69; RESP 16; TEMP 37; O2SAT 99
== END 2022-10-14 23:59 | disposition home or self-care (01) ==
PROVIDERS: Nurse Practitioner Family; PCP Family Medicine; Visit Provider Internal Medicine Medical Oncology
DX: Z51.12 Encounter for antineoplastic immunotherapy (principal); C34.31 Malignant neoplasm of lower lobe, right bronchus or lung; C77.1 Secondary and unspecified malignant neoplasm of intrathoracic lymph nodes; M54.50 Low back pain, unspecified; Z79.899 Other long term (current) drug therapy; Z87.891 Personal history of nicotine dependence
CPT/HCPCS: 80053; 84443; 85025; 96413; 99214; J1642; J7050; J9119; Q0162

== ENCOUNTER → 2022-10-21 11:13 | Outpatient (BNVA) | payer MEDICARE, OTHER, SELFPAY | PROVIDERS: PCP Family Medicine; Visit Provider Orthopaedic Surgery | DX: M51.16 Intervertebral disc disorders with radiculopathy, lumbar region; M48.061 Spinal stenosis, lumbar region without neurogenic claudication | CPT/HCPCS: 99214 ==

== ENCOUNTER 2022-11-04 10:15 | Oncology outpatient (recurring) (ONCR) | payer MEDICARE, OTHER, SELFPAY ==
[2022-11-04 10:37] VITALS: BP 138/65; PULSE 65; RESP 18; TEMP 36.4; O2SAT 96
[2022-11-04] MEDS: ondansetron 4 MG Tablet 8 MG PO (10:47)
[2022-11-04] MEDS: sodium chloride 0.9% 250 ML 75 ML IV (10:47)
[2022-11-04] MEDS: cemiplimab-rwlc 350 MG in sodium chloride 0.9% 250 ML 500 MG IV (12:00)
[2022-11-04 12:37] VITALS: BP 160/76; PULSE 62; RESP 18; TEMP 36.4; O2SAT 98
== END 2022-11-04 23:59 | disposition home or self-care (01) ==
LOC: ONCMED 10:15
PROVIDERS: PCP Family Medicine; Visit Provider Internal Medicine Medical Oncology
DX: Z51.12 Encounter for antineoplastic immunotherapy (principal); C34.31 Malignant neoplasm of lower lobe, right bronchus or lung; C77.1 Secondary and unspecified malignant neoplasm of intrathoracic lymph nodes; Z79.899 Other long term (current) drug therapy; Z87.891 Personal history of nicotine dependence
CPT/HCPCS: 96375; 96413; J1642; J7050; J9119; Q0162

== ENCOUNTER 2022-11-25 09:32 | Oncology outpatient (recurring) (ONCR) | payer MEDICARE, OTHER, SELFPAY ==
[2022-11-25 10:37] LABS: Basophils % 0.6 %; Eosinophils # 0.3 10^3/uL (0.0-0.8); Eosinophils % 4.3 %; Hematocrit 35.1 % (36-47); Lymphocytes # 2.3 10^3/uL (0.8-4.8); Mean Corpuscular HGB Conc 32.5 g/dL (30-55); Mean Corpuscular Hemoglobin 30.2 pg (27-33); Mean Corpuscular Volume 92.9 fl (85-98); Mean Platelet Volume 9.9 fL (7.4-10.4); Monocytes # 0.5 10^3/uL (0.2-0.9); Monocytes % 7.7 %; Neutrophils # 3.39 10^3/uL (1.8-7.7); Neutrophils % 52.1 %; Nucleated Red Blood Cells % 0 %; Platelet Count 281 10^3/cmm (157-399); Red Blood Count 3.78 10^6/uL (3.85-5.65); Red Cell Distribution Width 13.6 % (12.1-15.1); White Blood Count 6.51 10^3/uL (3.29-11.43)
[2022-11-25 11:06] LABS: Alanine Aminotransferase 18 U/L (0-33); Alkaline Phosphatase 69 U/L (35-105); Anion Gap 12.9 (5-19); Aspartate Amino Transferase 22 U/L (0-32); Blood Urea Nitrogen 13 mg/dL (8-23); Calcium 9.2 mg/dL (8.5-10.5); Carbon Dioxide 26 mmol/L (22-29); Chloride 103 mmol/L (98-107); Creatinine Clr Calc Pharmacy 55.1216; Globulin 2.3 g/dL (1.3-4.6); Glucose 124 mg/dL (65-115); Osmolality Calculated 286 mOsm/kg (285-295); Potassium 4.9 mmol/L (3.5-5.1); Sodium 137 mmol/L (136-145); Thyroid Stimulating Hormone 0.43 uIU/mL (0.27-4.20); Total Bilirubin 0.3 mg/dL (0.15-1.2); Total Protein 6.3 g/dL (6.6-8.7)
[2022-11-25] MEDS: ondansetron 4 MG Tablet 8 MG PO (12:07)
[2022-11-25] MEDS: sodium chloride 0.9% 250 ML 75 ML IV (12:09)
[2022-11-25] MEDS: cemiplimab-rwlc 350 MG in sodium chloride 0.9% 250 ML 500 MG IV (12:17)
[2022-11-25 13:16] VITALS: BP 134/65; PULSE 69; RESP 17; TEMP 36.6; O2SAT 100
== END 2022-11-25 23:59 | disposition home or self-care (01) ==
PROVIDERS: PCP Family Medicine; Visit Provider Internal Medicine Medical Oncology
DX: Z51.11 Encounter for antineoplastic chemotherapy (principal); C34.31 Malignant neoplasm of lower lobe, right bronchus or lung; F41.9 Anxiety disorder, unspecified; G47.00 Insomnia, unspecified; R53.0 Neoplastic (malignant) related fatigue
CPT/HCPCS: 80053; 84443; 85025; 96413; 99214; J1642; J7050; J9119; Q0162

== ENCOUNTER 2022-12-16 09:39 | Oncology outpatient (recurring) (ONCR) | payer MEDICARE, OTHER, SELFPAY ==
[2022-12-16 10:15] VITALS: BP 148/85; PULSE 70; RESP 16; TEMP 37; O2SAT 97
[2022-12-16] MEDS: ondansetron 4 MG Tablet 8 MG PO (10:30)
[2022-12-16] MEDS: sodium chloride 0.9% 250 ML 75 ML IV (10:30)
[2022-12-16] MEDS: cemiplimab-rwlc 350 MG in sodium chloride 0.9% 250 ML 500 MG IV (10:56)
[2022-12-16 11:45] VITALS: BP 139/78; PULSE 57; RESP 16; TEMP 36.7; O2SAT 97
== END 2022-12-16 23:59 | disposition home or self-care (01) ==
PROVIDERS: PCP Family Medicine; Visit Provider Internal Medicine Medical Oncology
DX: Z51.12 Encounter for antineoplastic immunotherapy (principal); C34.31 Malignant neoplasm of lower lobe, right bronchus or lung; Z79.899 Other long term (current) drug therapy; Z87.891 Personal history of nicotine dependence; M54.41 Lumbago with sciatica, right side; M54.42 Lumbago with sciatica, left side; G89.29 Other chronic pain; M48.062 Spinal stenosis, lumbar region with neurogenic claudication; M81.0 Age-related osteoporosis without current pathological fracture; Z95.828 Presence of other vascular implants and grafts
CPT/HCPCS: 72110; 96413; 99214; J1642; J7050; J9119; Q0162

== ENCOUNTER 2022-12-16 15:58 | Outpatient (CLI) | payer MEDICARE, OTHER, SELFPAY ==
[2022-12-16 16:42] LABS: Basophils % 0.6 %; Eosinophils # 0.3 10^3/uL (0.0-0.8); Eosinophils % 4.6 %; Hematocrit 38.1 % (36-47); Lymphocytes % 28.1 %; Mean Corpuscular HGB Conc 32.3 g/dL (30-55); Mean Corpuscular Hemoglobin 30.8 pg (27-33); Mean Corpuscular Volume 95.3 fl (85-98); Mean Platelet Volume 10.2 fL (7.4-10.4); Monocytes # 0.6 10^3/uL (0.2-0.9); Neutrophils # 4.09 10^3/uL (1.8-7.7); Neutrophils % 57.4 %; Nucleated Red Blood Cells % 0 %; Platelet Count 258 10^3/cmm (157-399); Red Cell Distribution Width 13.9 % (12.1-15.1); White Blood Count 7.12 10^3/uL (3.29-11.43)
[2022-12-16 16:58] LABS: Bilirubin Urine Neg (Negative); Blood Urine 2+ (Negative); Glucose Urine UA Norm (Normal); Ketones Urine Negative (Negative); Leukocyte Esterase Urine 2+ (Negative); Nitrate Urine Negative (Negative); Protein Urine Neg (Negative); Specific Gravity, Urine 1.015 (1.005-1.030); Urine Appearance Hazy (CLEAR); Urine Color Yellow (Yellow); Urobilinogen Urine Norm (Negative); pH Urine 7 (5-7)
[2022-12-16 16:59] LABS: Add Urine Microscopic? YES
[2022-12-16 17:03] LABS: WBC Urine 40-55 /hpf (0-5)
[2022-12-16 17:04] LABS: Add Urine Culture? Yes; Bacteria Urine 1+ /hpf; Mucus Urine TRACE /hpf; Squamous Epithelial Cell Urine 0-4 /hpf (0-5)
[2022-12-16 17:24] LABS: Alanine Aminotransferase 18 U/L (0-33); Albumin Level 4.1 g/dL (3.5-5.2); Alkaline Phosphatase 68 U/L (35-105); Anion Gap 11.4 (5-19); Aspartate Amino Transferase 23 U/L (0-32); Blood Urea Nitrogen 10 mg/dL (8-23); Calcium 9.2 mg/dL (8.5-10.5); Carbon Dioxide 29 mmol/L (22-29); Chloride 106 mmol/L (98-107); Globulin 2.3 g/dL (1.3-4.6); Glucose 92 mg/dL (65-115); Osmolality Calculated 293 mOsm/kg (285-295); Potassium 4.4 mmol/L (3.5-5.1); Sodium 142 mmol/L (136-145); Total Bilirubin 0.4 mg/dL (0.15-1.2); Total Protein 6.4 g/dL (6.6-8.7)
== END 2022-12-16 15:59 | disposition home or self-care (01) ==
LOC: LAB 16:01
PROVIDERS: PCP Family Medicine; Visit Provider Orthopaedic Surgery
DX: M54.9 Dorsalgia, unspecified (principal); G89.29 Other chronic pain; M54.41 Lumbago with sciatica, right side; M54.42 Lumbago with sciatica, left side; Z79.899 Other long term (current) drug therapy
CPT/HCPCS: 36415; 80053; 81001; 85025; 87077; 87086; 87186

== ENCOUNTER → 2022-12-31 11:09 | Outpatient (BNVA) | payer MEDICARE, OTHER, SELFPAY | PROVIDERS: PCP Family Medicine; Visit Provider Family Medicine | DX: Z01.818 Encounter for other preprocedural examination (principal) | CPT/HCPCS: 81000 ==

== ENCOUNTER → 2023-01-05 09:27 | Day surgery (SDC) | payer MEDICARE, OTHER, SELFPAY ==
[2023-01-05] VITALS (9 sets, daily range): BP systolic 100–136; BP diastolic 55–71; PULSE 77–87; RESP 12–18; TEMP 36.2–36.4; O2SAT 93–100; BMI 26.9
--- NOTE | 2023-01-05 | XR_ITS ---
WS: [id number] C-ARM RADIOGRAPHS LUMBAR SPINE; 2 IMAGES HISTORY: Right L4-5, L5-S1 decompression COMPARISON: None available. Intraoperative imaging during lumbar decompression. Markers indicating the lower lumbar spine. IMPRESSION: Intraoperative imaging during lumbar decompression.
--- NOTE | 2023-01-05 09:41 | W.PM.OPSUD ---
Surgery/Procedure H&P Update DATE OF PROCEDURE: January 05, 2023 DATE H&P PERFORMED: 12/31/21 H&P UPDATE INFORMATION: I have reviewed H&P completed within last 30 days, I have examined patient prior to procedure and No changes to prior documentation PREOP DIAGNOSIS: Lumbar Stenosis w/Neurogenic Claudication PLANNED PROCEDURE: Operation Date: 01/05/23 11:40 Proposed Procedures p Lumbar Spine Decompression(L4-5)(L5-S1)Stand on right(Not Applicable) - Antonio Ennis DO
--- NOTE | 2023-01-05 09:49 | ANES.PREANE2 ---
Pre-Anesthetic Assessment Height/Weight: Height 1.6 m Weight 68.946 kg O2 Del Method Room Air 01/05/23 09:43 Preop Diagnosis: Lumbar Stenosis w/Neurogenic Claudication Operation Date: 01/05/23 11:40 Proposed Procedures p Lumbar Spine Decompression(L4-5)(L5-S1)Stand on right(Not Applicable) - Antonio Ennis, DO Familial anesthetic complications: None Was Beta Bhanu taken within 24 hours: N/A Was Clonidine taken within 24 hours: N/A Last intake: Intake Last Liquid Date 01/04/23 Last Liquid Time 21:00 Last Solid Date 01/04/23 Last Solid Time 21:00 Social No alcohol and No tobacco former smoker Exam alert, oriented x 3, clear to auscultation bilaterally and regular rate & rhythm Airway Mallampati: Class II Dentition: false Pulmonary Chronic Obstructive Pulmonary Disease (emphysema) lung cancer s/p immunotherapy - small tumor load CV/HEM Hypertension Anesthetic Plan ASA status: 3 Anesthesia: General Risk of > 500 ml blood loss (7ml/kg in children): No Medications/Allergies Home Medications Medication Instructions Recorded Confirmed Last Taken Type calcium carbonate 260 mg calcium See Rx Instructions PO DAILY 02/23/22 01/04/23 01/04/23 History (648 mg) tablet cholecalciferol (vitamin D3) 10 800 unit PO DAILY 02/23/22 01/04/23 01/04/23 History mcg (400 unit) capsule hydralazine 10 mg tablet 10 mg PO .COMPLEX PRN Blood 07/22/22 01/05/23 Unknown History Pressure atorvastatin 10 mg tablet See Rx Instructions .Route 09/20/22 01/04/23 01/04/23 Rx .COMPLEX #90 tabs lisinopril 10 mg tablet See Rx Instructions .Route 09/20/22 01/04/23 01/04/23 Rx .COMPLEX #90 tabs hydrocodone 10 mg-acetaminophen 1 tab PO TID PRN pain 30 days #90 11/12/22 01/04/23 01/05/23 Rx 325 mg tablet tabs gabapentin 800 mg tablet See Rx Instructions .Route 11/22/22 01/04/23 01/05/23 Rx .COMPLEX #90 tabs sulfamethoxazole 800 1 tab PO BID 5 days #10 tabs 12/31/22 01/04/23 01/04/23 Rx mg-trimethoprim 160 mg tablet (Bactrim DS) Allergies Allergy/AdvReac Type Severity Reaction Status Date / Time celecoxib [From Celebrex] AdvReac ABDOMINAL Verified 01/05/23 09:38 PAIN PFSH Anesthesia Medical History Benign essential HTN Chronic midline low back pain with bilateral sciatica Degenerative arthritis History of 2019 novel coronavirus disease (COVID-19) Intervertebral disc disorder with radiculopathy of lumbar region Opioid contract exists Peripheral neuropathy Postmenopausal Surgical History H/O breast augmentation History of bronchoscopy (11/03/21) Navigational bronchoscopy with EBUS History of implanted electronic device Dr. Young- 08/16/19 History of left hip replacement (02/2017) History of right hip replacement (10/12/21) Hx of cataract extraction Bilat done in [place] Family History Mother Cancer lymphoma Social History Smoking and tobacco/nicotine status: former use of tobacco/nicotine Quit status (tobacco/nicotine): has quit using Year quit tobacco: 2011 Former quit date comment: 1ppd x 46 years Alcohol intake: current Alcohol intake frequency: holidays/special occasions only Substance/Drug Use: never Lives independently: Yes Household members: spouse Marital status: Current occupational status: retired Data Anesthesia Cardiac Studies: Echocardiogram Ultrasound 02/01/20
[2023-01-05] MEDS: sodium chloride 0.9% 1,000 ML 30 ML IV (10:04)
[2023-01-05] MEDS: ceFAZolin 2,000 MG in sodium chloride 0.9% (plus) 50 ML 100 MG IV (10:21)
[2023-01-05] MEDS: lidocaine-epi 2% 20 mL INJ INJECTION (10:45)
--- NOTE | 2023-01-05 11:30 | P.OP_ITS ---
Operative Report Date of procedure: January 05, 2023 Pre-op diagnosis: Lumbar stenosis with neurogenic claudication Post-op diagnosis: same Procedure done: 1. L4/5 laminectomy with partial facetectomy 2. L5/S1 laminectomy with partial facetectomy Surgeon: Antonio Ennis DO Electrical Equipment Assembler: Topher Herrera Electrical Equipment Assembler: The surgical attendant, Topher Herrera, DENITA was needed for his expertise under the microscope. He was important and necessary throughout the procedure to complete in a safe and timely manner. He assisted with patient positioning prepping and draping tissue retraction suctioning of the operative field protection of the dural sac and tissue closure Estimated blood loss (mL): 25 Procedure: 1. L4/5 laminectomy with partial facetectomy 2. L5/S1 laminectomy with partial facetectomy Patient is brought to the operative suite. After undergoing anesthesia they are placed in the prone position. All areas of impingement are well padded. Patient is then prepped and draped in the normal sterile fashion. Level has been A skin incision is made over the L4/5 level. This is confirmed under c-arm guidance. A series of dilators are passed and the tubular retractor is docked on the L4 lamina. A bovie is used to clear the soft tissue off the lamina and the L 4/5 facet joint. A high speed stacy is then used to perform the laminectomy and take down the medial aspect of the L 4/5 facet joint. A kerriso n rongeure was then used to take down the remaining lamina and smooth the edge of the laminectomy up to the point where the ligamentum flavum attaches. Attention was then brought to the medial aspect of the facet joint. The remaining medial aspect of the superior and inferior aspect of the facet joint were taken down with the kerrison from the pedicle of L4 to L 5. The facet joint had significant hypertrophy. Attention was then brought to the Ligamentum Flavum. The ligament was taken down from the lamina of L4 to L5 and out medially to the remaining facet joint. The ligament was thick. The dura was then exposed. The dura was in good repair. The L4 nerve was then traced with a curette out the L4/5 foramen and found to be adequately decompressed. The L5 nerve was traced with a curette around the L5 pedicle. The lateral recess was opened with a kerrison helping to further decompress the L5 nerve. Wound is then irrigated copiously with saline and surgiflo is used to stop any bleeding. The tubular retractor is removed and the A skin incision is made over the L5/S1 level. This is confirmed under c-arm guidance. A series of dilators are passed and the tubular retractor is docked on the L5 lamina. A bovie is used to clear the soft tissue off the lamina and the L 5/S1 facet joint. A high speed stacy is then used to perform the laminectomy and take down the medial aspect of the L 5/S1 facet joint. A kerrison rongeure was then used to take down the remaining lamina and smooth the edge of the laminectomy up to the point where the ligamentum flavum attaches. Attention was then brought to the medial aspect of the facet joint. The remaining medial aspect of the superior and inferior aspect of the facet joint were taken down with the kerrison from the pedicle of L5 to S1. The facet joint had significant hypertrophy. Attention was then brought to the Ligamentum Flavum. The ligament was taken down from the lamina of L5 to S1 and out medially to the remaining facet joint. The ligament was thick. The dura was then exposed. The dura was in good repair. The L5 nerve was then traced with a curette out the L5/S1 foramen and found to be adequately decompressed. The S1 nerve was traced with a curette around the S1 pedicle. The lateral recess was opened with a kerrison helping to further decompress the S1 nerve.. Wound is then irrigated copiously with saline and surgiflo is used to stop any bleeding. The tubular retractor is removed and the wound is closed with vicryl and monocryl suture. Glue is then used to protect the wound. A sterile dressing is then placed. Patient was then placed in the supine position and transferred to the PACU in stable condition.
[2023-01-05] MEDS: HYDROcodone-acetaminophen 10-325 mg Tablet 1 TAB PO (12:25)
--- NOTE | 2023-01-05 12:55 | ANE.PACU2 ---
Inpatient post-anesthesia follow up: Airway intact: Yes Vital signs: Temperature 97.6 F Pulse Rate 82 Respiratory Rate 18 Blood Pressure 136/68 Pulse Oximetry 99 Oxygen Delivery Me thod Room Air Oxygen Flow Rate Fraction of Inspir ed Oxygen Hydration adequate: Yes Nausea and vomiting: No Pain level: 1 Mental status: Baseline
== END | disposition home or self-care (01) ==
PROVIDERS: PCP Family Medicine; Visit Provider Orthopaedic Surgery
PROC: (CPT 63005; principal; 2023-01-05 11:30)
DX: M48.062 Spinal stenosis, lumbar region with neurogenic claudication (principal); Z87.891 Personal history of nicotine dependence; J44.9 Chronic obstructive pulmonary disease, unspecified; Z80.1 Family history of malignant neoplasm of trachea, bronchus and lung; I10 Essential (primary) hypertension
CPT/HCPCS: 63047; 63048; 72020; 76000; J0690; J1100; J2371; J2405; J2704; J3010; J3490; J7030

== ENCOUNTER 2023-01-06 09:26 | Oncology outpatient (recurring) (ONCR) | payer MEDICARE, OTHER, SELFPAY ==
[2023-01-06 10:02] VITALS: BMI 27.7
[2023-01-06 10:03] VITALS: BP 119/71; PULSE 58; RESP 17; TEMP 36.8; O2SAT 97
[2023-01-06 10:26] LABS: Basophils % 0.2 %; Eosinophils % 0.2 %; Hematocrit 33.5 % (36-47); Lymphocytes # 2.1 10^3/uL (0.8-4.8); Lymphocytes % 17.9 %; Mean Corpuscular HGB Conc 32.8 g/dL (30-55); Mean Corpuscular Hemoglobin 30.6 pg (27-33); Mean Corpuscular Volume 93.1 fl (85-98); Mean Platelet Volume 10.1 fL (7.4-10.4); Monocytes # 1.3 10^3/uL (0.2-0.9); Monocytes % 11.3 %; Neutrophils % 69.9 %; Nucleated Red Blood Cells % 0 %; Platelet Count 267 10^3/cmm (157-399); Red Cell Distribution Width 13.9 % (12.1-15.1); White Blood Count 11.44 10^3/uL (3.29-11.43)
[2023-01-06 11:04] LABS: Alanine Aminotransferase 25 U/L (0-33); Albumin Level 3.9 g/dL (3.5-5.2); Alkaline Phosphatase 67 U/L (35-105); Anion Gap 11.7 (5-19); Aspartate Amino Transferase 34 U/L (0-32); Blood Urea Nitrogen 14 mg/dL (8-23); Calcium 9.6 mg/dL (8.5-10.5); Carbon Dioxide 23 mmol/L (22-29); Chloride 102 mmol/L (98-107); Globulin 2.3 g/dL (1.3-4.6); Glucose 104 mg/dL (65-115); Osmolality Calculated 275 mOsm/kg (285-295); Potassium 4.7 mmol/L (3.5-5.1); Sodium 132 mmol/L (136-145); Thyroid Stimulating Hormone 0.34 uIU/mL (0.27-4.20); Total Bilirubin 0.3 mg/dL (0.15-1.2); Total Protein 6.2 g/dL (6.6-8.7)
[2023-01-06] MEDS: sodium chloride 0.9% 250 ML 75 ML IV (11:51)
[2023-01-06] MEDS: ondansetron 4 MG Tablet 8 MG PO (11:52)
[2023-01-06] MEDS: cemiplimab-rwlc 350 MG in sodium chloride 0.9% 250 ML 500 MG IV (12:09)
[2023-01-06 12:55] VITALS: BP 93/60; PULSE 69; RESP 18; TEMP 37.3; O2SAT 98
== END 2023-01-06 23:59 | disposition home or self-care (01) ==
PROVIDERS: Nurse Practitioner Family; PCP Family Medicine; Visit Provider Internal Medicine Medical Oncology
DX: Z51.12 Encounter for antineoplastic immunotherapy (principal); C34.31 Malignant neoplasm of lower lobe, right bronchus or lung; C77.1 Secondary and unspecified malignant neoplasm of intrathoracic lymph nodes; R91.1 Solitary pulmonary nodule; N63.10 Unspecified lump in the right breast, unspecified quadrant; Z79.899 Other long term (current) drug therapy; Z87.891 Personal history of nicotine dependence; R94.6 Abnormal results of thyroid function studies
CPT/HCPCS: 80053; 84443; 85025; 96413; 99214; J1642; J7050; J9119; Q0162

== ENCOUNTER → 2023-01-18 13:38 | Outpatient (BNVA) | payer MEDICARE, OTHER, SELFPAY | PROVIDERS: PCP Family Medicine; Visit Provider Orthopaedic Surgery | DX: Z47.89 Encounter for other orthopedic aftercare (principal) | CPT/HCPCS: 99024 ==

== ENCOUNTER 2023-01-26 09:45 | Oncology outpatient (recurring) (ONCR) | payer MEDICARE, OTHER, SELFPAY ==
[2023-01-26 09:32] VITALS: BP 124/81; PULSE 57; RESP 16; TEMP 36.4; O2SAT 94
[2023-01-26 09:51] LABS: Basophils # 0.1 10^3/uL (0.0-0.1); Eosinophils # 0.2 10^3/uL (0.0-0.8); Eosinophils % 3.9 %; Hematocrit 37.1 % (36-47); Lymphocytes # 2.1 10^3/uL (0.8-4.8); Lymphocytes % 40.5 %; Mean Corpuscular HGB Conc 32.1 g/dL (30-55); Mean Corpuscular Hemoglobin 30.4 pg (27-33); Mean Corpuscular Volume 94.6 fl (85-98); Mean Platelet Volume 9.6 fL (7.4-10.4); Monocytes # 0.4 10^3/uL (0.2-0.9); Monocytes % 7.6 %; Neutrophils # 2.41 10^3/uL (1.8-7.7); Neutrophils % 46.8 %; Nucleated Red Blood Cells % 0 %; Platelet Count 271 10^3/cmm (157-399); Red Blood Count 3.92 10^6/uL (3.85-5.65); Red Cell Distribution Width 13.8 % (12.1-15.1); White Blood Count 5.14 10^3/uL (3.29-11.43)
[2023-01-26 10:06] LABS: Alanine Aminotransferase 17 U/L (0-33); Albumin Level 4.1 g/dL (3.5-5.2); Alkaline Phosphatase 71 U/L (35-105); Anion Gap 11.6 (5-19); Aspartate Amino Transferase 24 U/L (0-32); Blood Urea Nitrogen 11 mg/dL (8-23); Calcium 9.6 mg/dL (8.5-10.5); Carbon Dioxide 27 mmol/L (22-29); Chloride 103 mmol/L (98-107); Creatinine Clr Calc Pharmacy 55.3748; Globulin 2.2 g/dL (1.3-4.6); Glucose 86 mg/dL (65-115); Osmolality Calculated 283 mOsm/kg (285-295); Potassium 4.6 mmol/L (3.5-5.1); Sodium 137 mmol/L (136-145); Total Bilirubin 0.4 mg/dL (0.15-1.2); Total Protein 6.3 g/dL (6.6-8.7)
[2023-01-26] MEDS: ondansetron 4 MG Tablet 8 MG PO (11:10)
[2023-01-26] MEDS: sodium chloride 0.9% 250 ML 75 ML IV (11:19)
[2023-01-26] MEDS: cemiplimab-rwlc 350 MG in sodium chloride 0.9% 250 ML 500 MG IV (11:33)
[2023-01-26 12:35] VITALS: BP 137/83; PULSE 68; RESP 17; TEMP 35.9; O2SAT 97
== END 2023-01-26 23:59 | disposition home or self-care (01) ==
PROVIDERS: Nurse Practitioner Family; PCP Family Medicine; Visit Provider Internal Medicine Medical Oncology
DX: Z51.12 Encounter for antineoplastic immunotherapy (principal); C34.31 Malignant neoplasm of lower lobe, right bronchus or lung; C77.1 Secondary and unspecified malignant neoplasm of intrathoracic lymph nodes; R91.1 Solitary pulmonary nodule; N63.10 Unspecified lump in the right breast, unspecified quadrant; Z79.899 Other long term (current) drug therapy; Z87.891 Personal history of nicotine dependence; Z53.9 Procedure and treatment not carried out, unspecified reason; R94.6 Abnormal results of thyroid function studies; Z51.11 Encounter for antineoplastic chemotherapy
CPT/HCPCS: 80053; 85025; 96413; J1642; J7050; J9119; Q0162

== ENCOUNTER 2023-02-17 09:54 | Oncology outpatient (recurring) (ONCR) | payer MEDICARE, OTHER, SELFPAY ==
[2023-02-17 10:30] VITALS: BP 119/75; PULSE 76; RESP 16; TEMP 36.9; O2SAT 96
[2023-02-17 10:47] LABS: Basophils # 0.1 10^3/uL (0.0-0.1); Eosinophils # 0.3 10^3/uL (0.0-0.8); Hematocrit 37.4 % (36-47); Lymphocytes # 1.9 10^3/uL (0.8-4.8); Lymphocytes % 36.9 %; Mean Corpuscular HGB Conc 32.4 g/dL (30-55); Mean Corpuscular Hemoglobin 30.4 pg (27-33); Monocytes # 0.4 10^3/uL (0.2-0.9); Monocytes % 7.9 %; Neutrophils # 2.47 10^3/uL (1.8-7.7); Nucleated Red Blood Cells % 0 %; Platelet Count 233 10^3/cmm (157-399); Red Blood Count 3.98 10^6/uL (3.85-5.65); Red Cell Distribution Width 13.9 % (12.1-15.1); White Blood Count 5.04 10^3/uL (3.29-11.43)
[2023-02-17 11:05] LABS: Alanine Aminotransferase 17 U/L (0-33); Albumin Level 4.1 g/dL (3.5-5.2); Alkaline Phosphatase 66 U/L (35-105); Anion Gap 12.1 (5-19); Aspartate Amino Transferase 23 U/L (0-32); Blood Urea Nitrogen 13 mg/dL (8-23); Calcium 9.4 mg/dL (8.5-10.5); Carbon Dioxide 26 mmol/L (22-29); Chloride 106 mmol/L (98-107); Globulin 2.1 g/dL (1.3-4.6); Glucose 130 mg/dL (65-115); Osmolality Calculated 292 mOsm/kg (285-295); Potassium 4.1 mmol/L (3.5-5.1); Sodium 140 mmol/L (136-145); Thyroid Stimulating Hormone 0.64 uIU/mL (0.27-4.20); Total Bilirubin 0.4 mg/dL (0.15-1.2); Total Protein 6.2 g/dL (6.6-8.7)
[2023-02-17 12:18] VITALS: BP 132/83; PULSE 71; RESP 16; TEMP 35.9; O2SAT 97
[2023-02-17] MEDS: ondansetron 4 MG Tablet 8 MG PO (12:28)
[2023-02-17] MEDS: sodium chloride 0.9% 250 ML 75 ML IV (12:29)
[2023-02-17] MEDS: cemiplimab-rwlc 350 MG in sodium chloride 0.9% 250 ML 500 MG IV (13:03)
[2023-02-17 13:48] VITALS: BP 129/77; PULSE 65; RESP 16; TEMP 36.6; O2SAT 98
== END 2023-02-17 23:59 | disposition home or self-care (01) ==
PROVIDERS: Nurse Practitioner Family; PCP Family Medicine; Visit Provider Internal Medicine Medical Oncology
DX: Z51.12 Encounter for antineoplastic immunotherapy (principal); C34.31 Malignant neoplasm of lower lobe, right bronchus or lung; C77.1 Secondary and unspecified malignant neoplasm of intrathoracic lymph nodes; R91.1 Solitary pulmonary nodule; N63.10 Unspecified lump in the right breast, unspecified quadrant; Z79.899 Other long term (current) drug therapy; Z87.891 Personal history of nicotine dependence; R94.6 Abnormal results of thyroid function studies
CPT/HCPCS: 80053; 84443; 85025; 96413; 99215; J1642; J7050; J9119; Q0162

== ENCOUNTER → 2023-02-22 14:05 | Outpatient (BNVA) | payer MEDICARE, OTHER, SELFPAY | PROVIDERS: PCP Family Medicine; Visit Provider Orthopaedic Surgery | DX: Z47.89 Encounter for other orthopedic aftercare (principal) | CPT/HCPCS: 99024 ==

== ENCOUNTER 2023-02-25 08:17 | Outpatient (CLI) | payer MEDICARE, OTHER, SELFPAY ==
--- NOTE | 2023-02-25 09:30 | CT_ITS ---
WS: [id number] CT CHEST, ABDOMEN, AND PELVIS TECHNIQUE: Contrast-enhanced CT of the chest, abdomen, and pelvis with coronal and sagittal reformatt ed images. CLINICAL INFORMATION: lung cancer COMPARISON: CT chest 08/23/2022 and 05/06/2022. PET/CT 10/31/2021 DLP: 699.[address] scans at [facility] use at least one of these dose optimization techniques: automated e xposure control; mA and/or kV adjustment per patient size (includes targeted exams where dose is matc hed to clinical indication); or iterative reconstruction. CT CHEST: Bilateral breast implants with capsular calcification. Stable nodular chest wall mass posterior to th e RIGHT breast implant measuring 1.9 x 1.5 cm. No axillary lymphadenopathy. Normal caliber thoracic a simran. Aortic calcification. Few small thyroid nodules. This is similar to previous. No mediastinal or hilar lymphadenopathy. Moderate chronic emphysematous changes. Treatment-related c hanges RIGHT lower lobe with subsegmental atelectasis and interstitial fibrosis. No evidence of new o r progressed disease in the RIGHT lower lobe. RIGHT lower lobe opacity measuring 10 x 4 mm. This appe ars stable compared to previous. LEFT lung is well aerated. Mild thoracic curve. Hypertrophic changes thoracic spine. Advanced spondylitic changes thoracic spine . Dorsal spinal stimulator. No other significant interval changes. IMPRESSION: 1. No evidence of new or progressive disease in the chest compared to previous. 2. Stable chest wall mass posterior to the RIGHT breast implant. 3. Bilateral breast implants with capsular calcification. CT ABDOMEN AND PELVIS: Bilateral THAs degrade images in the pelvis. Diffuse fatty infiltration of the liver. Hepatomegaly. I ncidental hepatic cyst in the liver dome. No suspicious enhancing hepatic lesions. Stable previously described enhancing cavernous hemangioma seen on the early arterial images measuring 6 mm unchanged. Portal vein and splenic vein are patent. Normal pancreatic parenchymal enhancement. Normal GE junction. Normal spleen. Adrenal glands are normal. Normal renal parenchymal enhancement. N o hydronephrosis. Incidental simple LEFT renal cyst. Normal caliber abdominal aorta. Aortic calcifica tion. Sigmoid diverticulosis. No adenopathy in the abdomen or pelvis. No inguinal lymphadenopathy. IMPRESSION: No evidence of metastatic disease in the abdomen or pelvis.
[2023-02-25] MEDS: iohexol 350 mg/mL 500 mL Btl (per mL) PO (10:00)
[2023-02-25] MEDS: iohexol 350 mg/mL 500 mL Btl (per mL) IV (10:00)
== END 2023-02-25 08:18 | disposition home or self-care (01) ==
LOC: RAD 08:17
PROVIDERS: PCP Family Medicine; Visit Provider Internal Medicine
DX: C34.31 Malignant neoplasm of lower lobe, right bronchus or lung (principal)
CPT/HCPCS: 71260; 74177; Q9967

== ENCOUNTER 2023-03-10 09:14 | Oncology outpatient (recurring) (ONCR) | payer MEDICARE, OTHER, SELFPAY ==
[2023-03-10 09:40] VITALS: BP 138/75; PULSE 70; RESP 16; TEMP 37; O2SAT 97
[2023-03-10 09:52] LABS: Basophils % 0.7 %; Eosinophils # 0.2 10^3/uL (0.0-0.8); Eosinophils % 3.2 %; Hematocrit 36.2 % (36-47); Lymphocytes # 1.9 10^3/uL (0.8-4.8); Lymphocytes % 33.8 %; Mean Corpuscular HGB Conc 32.6 g/dL (30-55); Mean Corpuscular Hemoglobin 30.1 pg (27-33); Mean Corpuscular Volume 92.3 fl (85-98); Mean Platelet Volume 9.8 fL (7.4-10.4); Monocytes # 0.4 10^3/uL (0.2-0.9); Monocytes % 7.9 %; Neutrophils # 2.99 10^3/uL (1.8-7.7); Nucleated Red Blood Cells % 0 %; Platelet Count 264 10^3/cmm (157-399); Red Blood Count 3.92 10^6/uL (3.85-5.65); Red Cell Distribution Width 13.7 % (12.1-15.1); White Blood Count 5.54 10^3/uL (3.29-11.43)
[2023-03-10 10:17] LABS: Alanine Aminotransferase 19 U/L (0-33); Albumin Level 3.8 g/dL (3.5-5.2); Alkaline Phosphatase 64 U/L (35-105); Anion Gap 11.4 (5-19); Aspartate Amino Transferase 24 U/L (0-32); Blood Urea Nitrogen 12 mg/dL (8-23); Calcium 9.1 mg/dL (8.5-10.5); Carbon Dioxide 26 mmol/L (22-29); Chloride 104 mmol/L (98-107); Globulin 2.2 g/dL (1.3-4.6); Glucose 98 mg/dL (65-115); Lactate Dehydrogenase 152 U/L (135-214); Osmolality Calculated 284 mOsm/kg (285-295); Potassium 4.4 mmol/L (3.5-5.1); Sodium 137 mmol/L (136-145); Thyroid Stimulating Hormone 1.09 uIU/mL (0.27-4.20); Total Bilirubin 0.4 mg/dL (0.15-1.2)
[2023-03-10] MEDS: sodium chloride 0.9% 250 ML 75 ML IV (11:32)
[2023-03-10] MEDS: ondansetron 4 MG Tablet 8 MG PO (11:32)
[2023-03-10] MEDS: cemiplimab-rwlc 350 MG in sodium chloride 0.9% 250 ML 500 MG IV (11:48)
[2023-03-10 12:45] VITALS: BP 135/81; PULSE 64; RESP 16; TEMP 36.6; O2SAT 98
== END 2023-03-10 23:59 | disposition home or self-care (01) ==
PROVIDERS: Internal Medicine; PCP Family Medicine; Visit Provider Internal Medicine Medical Oncology
DX: Z51.12 Encounter for antineoplastic immunotherapy (principal); C34.31 Malignant neoplasm of lower lobe, right bronchus or lung; C77.1 Secondary and unspecified malignant neoplasm of intrathoracic lymph nodes; R91.1 Solitary pulmonary nodule; N63.10 Unspecified lump in the right breast, unspecified quadrant; Z79.899 Other long term (current) drug therapy; Z87.891 Personal history of nicotine dependence; R94.6 Abnormal results of thyroid function studies
CPT/HCPCS: 80053; 83615; 84443; 85025; 96375; 96413; 99215; J1642; J7050; J9119; Q0162

== ENCOUNTER 2023-03-31 08:42 | Oncology outpatient (recurring) (ONCR) | payer MEDICARE, OTHER, SELFPAY ==
[2023-03-31 09:00] VITALS: BP 143/86; PULSE 67; RESP 17; TEMP 36.6; O2SAT 100
[2023-03-31 09:10] LABS: Basophils % 0.8 %; Eosinophils # 0.2 10^3/uL (0.0-0.8); Eosinophils % 4.1 %; Hematocrit 36.7 % (36-47); Lymphocytes # 1.9 10^3/uL (0.8-4.8); Mean Corpuscular HGB Conc 33.2 g/dL (30-55); Mean Corpuscular Volume 93.1 fl (85-98); Mean Platelet Volume 9.8 fL (7.4-10.4); Monocytes # 0.4 10^3/uL (0.2-0.9); Monocytes % 8.5 %; Neutrophils # 2.25 10^3/uL (1.8-7.7); Neutrophils % 46.4 %; Nucleated Red Blood Cells % 0 %; Platelet Count 230 10^3/cmm (157-399); Red Blood Count 3.94 10^6/uL (3.85-5.65); Red Cell Distribution Width 13.3 % (12.1-15.1); White Blood Count 4.85 10^3/uL (3.29-11.43)
[2023-03-31 09:38] LABS: Alanine Aminotransferase 15 U/L (0-33); Albumin Level 3.9 g/dL (3.5-5.2); Alkaline Phosphatase 68 U/L (35-105); Anion Gap 13.6 (5-19); Aspartate Amino Transferase 27 U/L (0-32); Blood Urea Nitrogen 9 mg/dL (8-23); Calcium 9.7 mg/dL (8.5-10.5); Carbon Dioxide 26 mmol/L (22-29); Chloride 102 mmol/L (98-107); Free T4 Free Thyroxine 1.33 ng/dL (0.82-1.77); Globulin 2.4 g/dL (1.3-4.6); Glucose 112 mg/dL (65-115); Osmolality Calculated 283 mOsm/kg (285-295); Potassium 4.6 mmol/L (3.5-5.1); Sodium 137 mmol/L (136-145); Thyroid Stimulating Hormone 0.67 uIU/mL (0.27-4.20); Total Bilirubin 0.4 mg/dL (0.15-1.2); Total Protein 6.3 g/dL (6.6-8.7)
[2023-03-31] MEDS: sodium chloride 0.9% 250 ML 75 ML IV (10:48)
[2023-03-31] MEDS: ondansetron 4 MG Tablet 8 MG PO (10:48)
[2023-03-31 10:55] VITALS: BMI 28.0
[2023-03-31] MEDS: cemiplimab-rwlc 350 MG in sodium chloride 0.9% 250 ML 500 MG IV (11:07)
[2023-03-31 11:57] VITALS: BP 120/79; PULSE 64; TEMP 36.5; O2SAT 99
== END 2023-03-31 23:59 | disposition home or self-care (01) ==
PROVIDERS: Internal Medicine; PCP Family Medicine; Visit Provider Internal Medicine Medical Oncology
DX: Z51.12 Encounter for antineoplastic immunotherapy (principal); C34.31 Malignant neoplasm of lower lobe, right bronchus or lung; C77.1 Secondary and unspecified malignant neoplasm of intrathoracic lymph nodes; R91.1 Solitary pulmonary nodule; N63.10 Unspecified lump in the right breast, unspecified quadrant; Z79.899 Other long term (current) drug therapy; Z87.891 Personal history of nicotine dependence; Z53.9 Procedure and treatment not carried out, unspecified reason; R94.6 Abnormal results of thyroid function studies
CPT/HCPCS: 99214; 80053; 84439; 84443; 85025; 96375; 96413; J1642; J7050; J9119; Q0162

== ENCOUNTER → 2023-04-05 10:43 | Outpatient (BNVA) | payer MEDICARE, OTHER, SELFPAY | PROVIDERS: PCP Family Medicine; Visit Provider Orthopaedic Surgery | DX: Z47.89 Encounter for other orthopedic aftercare | CPT/HCPCS: 99024 ==

== ENCOUNTER 2023-04-21 08:42 | Oncology outpatient (recurring) (ONCR) | payer MEDICARE, OTHER, SELFPAY ==
[2023-04-21 08:57] LABS: Basophils % 0.8 %; Eosinophils # 0.3 10^3/uL (0.0-0.8); Eosinophils % 5.3 %; Hematocrit 36.1 % (36-47); Lymphocytes % 36.7 %; Mean Corpuscular Hemoglobin 30.7 pg (27-33); Mean Platelet Volume 9.7 fL (7.4-10.4); Monocytes # 0.5 10^3/uL (0.2-0.9); Neutrophils # 2.56 10^3/uL (1.8-7.7); Nucleated Red Blood Cells % 0 %; Platelet Count 243 10^3/cmm (157-399); Red Blood Count 3.88 10^6/uL (3.85-5.65); Red Cell Distribution Width 13.4 % (12.1-15.1); White Blood Count 5.32 10^3/uL (3.29-11.43)
[2023-04-21 09:31] LABS: Alanine Aminotransferase 15 U/L (0-33); Albumin Level 3.9 g/dL (3.5-5.2); Alkaline Phosphatase 67 U/L (35-105); Anion Gap 14.8 (5-19); Aspartate Amino Transferase 21 U/L (0-32); Blood Urea Nitrogen 14 mg/dL (8-23); Calcium 8.9 mg/dL (8.5-10.5); Carbon Dioxide 25 mmol/L (22-29); Chloride 102 mmol/L (98-107); Globulin 2.5 g/dL (1.3-4.6); Glucose 84 mg/dL (65-115); Osmolality Calculated 284 mOsm/kg (285-295); Potassium 4.8 mmol/L (3.5-5.1); Sodium 137 mmol/L (136-145); Total Bilirubin 0.3 mg/dL (0.15-1.2); Total Protein 6.4 g/dL (6.6-8.7)
[2023-04-21] MEDS: ondansetron 4 MG Tablet 8 MG PO (11:12)
[2023-04-21] MEDS: sodium chloride 0.9% 250 ML 75 ML IV (11:14)
[2023-04-21] MEDS: cemiplimab-rwlc 350 MG in sodium chloride 0.9% 250 ML 500 MG IV (11:19)
[2023-04-21 12:19] VITALS: BP 117/76; PULSE 69; RESP 17; TEMP 36.3; O2SAT 100
== END 2023-04-21 23:59 | disposition home or self-care (01) ==
PROVIDERS: PCP Family Medicine; Visit Provider Internal Medicine Medical Oncology
DX: Z51.12 Encounter for antineoplastic immunotherapy (principal); C34.31 Malignant neoplasm of lower lobe, right bronchus or lung; C77.1 Secondary and unspecified malignant neoplasm of intrathoracic lymph nodes; Z79.899 Other long term (current) drug therapy; Z87.891 Personal history of nicotine dependence; Z53.9 Procedure and treatment not carried out, unspecified reason
CPT/HCPCS: 80053; 84443; 85025; 96413; 99214; J1642; J7050; J9119; Q0162

== ENCOUNTER 2023-04-22 07:25 | Outpatient (CLI) | payer MEDICARE, OTHER, SELFPAY ==
--- NOTE | 2023-04-22 07:45 | US_ITS ---
WS: [id number] THYROID ULTRASOUND HISTORY: thyroid nodule COMPARISON: 11/11/2021 Right lobe: 1.4 cm x 1.6 cm x 4.4 cm (w x ap x l). Volume: 4.7 cm3. Normal-sized gland with multiple benign and subcentimeter nodules. No new or enlarging nodule. Small nodules in maximal diameter in the lower pole RIGHT thyroid is unchanged. Left lobe: 2.0 cm x 1.7 cm x 5.4 cm (w x ap x l). Volume: 8.8 cm3. Normal sized gland with a few small scattered nodules which are benign in appearance. No nodule great er than a centimeter. Isthmus: 0.3 cm. IMPRESSION: Very small bilateral thyroid nodules. No enlarging nodule or suspicious nodule for which biopsy shoul d be recommended. Small nodule in the inferior pole of the RIGHT thyroid previously described is bubba entified. Due to its small size yearly evaluation is not necessary.
== END 2023-04-22 07:26 | disposition home or self-care (01) ==
LOC: RAD 07:26
PROVIDERS: PCP Family Medicine; Visit Provider Family Medicine
DX: E04.2 Nontoxic multinodular goiter (principal)
CPT/HCPCS: 76536

== ENCOUNTER 2023-05-12 09:12 | Oncology outpatient (recurring) (ONCR) | payer MEDICARE, OTHER, SELFPAY ==
[2023-05-12 09:24] VITALS: BMI 32.5
[2023-05-12 09:30] VITALS: BP 143/89; PULSE 73; RESP 18; TEMP 36.3; O2SAT 98
[2023-05-12] MEDS: ondansetron 4 MG Tablet 8 MG PO (09:43)
[2023-05-12] MEDS: cemiplimab-rwlc 350 MG in sodium chloride 0.9% 250 ML 500 MG IV (09:44)
[2023-05-12 10:29] VITALS: BP 138/79; PULSE 58; RESP 8; TEMP 36.6; O2SAT 98
== END 2023-05-12 23:59 | disposition home or self-care (01) ==
PROVIDERS: PCP Family Medicine; Visit Provider Internal Medicine Medical Oncology
DX: C34.31 Malignant neoplasm of lower lobe, right bronchus or lung; Z51.11 Encounter for antineoplastic chemotherapy
CPT/HCPCS: 96413; A4222; J1642; J7050; J9119; Q0162

== ENCOUNTER 2023-05-25 08:00 | Outpatient (CLI) | payer MEDICARE, OTHER, SELFPAY ==
--- NOTE | 2023-05-25 08:18 | NMCV_ITS ---
NM td perf SPECT r/s* [id number] Tala Gale Age: 77 Gender: F : 1945 Exam Date: 05/25/2023 08:45 Ordering Phys: Tonia Tierney DO Technologist: EMMIE Hernandez Exam Location: [facility] Indications: HYPERTENSION STRESS TEST Please see separate stress test report in [facility] for full findings IMAGE PROTOCOL Rest/Stress 1 Lexiscan Day Radiopharmaceutical Dose (mCi) Administration Site Administered by Rest: Tc-99m 10.5 IV EMMIE Aranda Sestamibi Stress:Tc-99m 32.3 IV EMMIE Aranda Sestamibi Rest: 25-May-2023 60 Discovery 630 Stress: 25-May-2023 30 Discovery 630 0.4mg Lexiscan. Images obtained in supine and prone position. SPECT RESULTS Technical Quality: Excellent Raw Data Analysis: Normal Image Corrections: No attenuation or motion correction applied Summed Stress Score: 1 Summed Rest Score: 0 Summed Difference Score: 1 PERFUSION FINDINGS Small area of slightly decreased tracer uptake was noted in the mid inferolateral region. Complete reversibility was noted with prone imaging. No reversible defects are noted with the prone imaging FUNCTIONAL RESULTS (calculated via Gated SPECT) Stress Image LV EF (%): 88 Stress EDV (mL):64 TID: 0.74 Stress ESV (mL):8 FUNCTIONAL FINDINGS: Segmental wall motion analysis revealing no gross wall motion abnormalities IMPRESSIONS 1. Myocardial perfusion imaging revealing a small area of reversible defect in the inferolateral region, suggestive of ischemia in the distribution of the left circumflex artery. However because of the inconsistency with the prone imaging, this could be artifactual. 2. Normal LV ejection fraction of 88%. 3. LV wall motion analysis revealing no gross wall motion abnormalities. 4. Normal LV volume No similar previous studies are available for comparison Dr Shashank Kapadia MD [facility] (Electronically Signed) Final Date: 25 May 2023 13:16 S
--- NOTE | 2023-05-25 08:18 | ECG_ITS ---
[facility] Test Date: 2023-05-25 Pat Name: Tala Gale Department: Room: Gender: Female Culinary Director: : 1945 Requested By: Tonia Tierney Order Number: [id number] Ambar MD: Shashank Kapadia M.D. Interpretive Statements NAME OF STUDY: LEXISCAN SESTAMIBI STRESS TEST INDICATION: UNCONTROLLED HTN, PROCEDURE: At the baseline, the EKG revealed sinus bradycardia with a poor R wave progression.. The baseline heart was 58 bpm with a blood pressue of 160/86 mm of Hg Lexiscan was infused over a period of 20 seconds. A total of 0.4 milligrams of Lexiscan was infused. The stress phase was continued for a total of 5 minutes. Heart rate at the end of the stress phase was 89 bpm with a blood pressure 148/80 mm of Hg. The EKG at the peak infusion revealed no significant changes. Sestamibi was injected 20 seconds after the Lexiscan infusion. Heart rate at the end of the recovery phase was 82 bpm with a blood pressure of 151/80 mm of Hg. CONCLUSION: 1. No significant EKG changes with the LexiScan infusion 2. No LexiScan induced chest pain or cardiac arrhythmia 3. Normal blood pressure and heart rate response 4. Sestamibi/sestamibi perfusion scan pending; see separate report. Electronically Signed On 05-29-2023 20:00:57 CDT by Shashank Kapadia M.D. [email or web address]
[2023-05-25 08:19] VITALS: BMI 26.4
[2023-05-25] MEDS: regadenoson 0.4 Mg/5 ml Syringe 0.400000000000000022 MG IVP (09:30)
[2023-05-25 09:53] VITALS: BP 146/79; PULSE 91
== END 2023-05-25 08:01 | disposition home or self-care (01) ==
PROVIDERS: PCP Family Medicine; Visit Provider Family Medicine
DX: I10 Essential (primary) hypertension (principal)
CPT/HCPCS: 36415; 78452; 93017; 96374; A9500; J2785

== ENCOUNTER 2023-05-26 15:24 | Oncology outpatient (recurring) (ONCR) | payer MEDICARE, OTHER, SELFPAY | END 2023-06-05 23:59 | disposition home or self-care (01) | PROVIDERS: PCP Family Medicine; Visit Provider Internal Medicine Medical Oncology | DX: Z51.12 Encounter for antineoplastic immunotherapy (principal); C34.31 Malignant neoplasm of lower lobe, right bronchus or lung; C77.1 Secondary and unspecified malignant neoplasm of intrathoracic lymph nodes; R91.1 Solitary pulmonary nodule; N63.10 Unspecified lump in the right breast, unspecified quadrant; Z79.899 Other long term (current) drug therapy; Z87.891 Personal history of nicotine dependence; Z53.9 Procedure and treatment not carried out, unspecified reason; R94.6 Abnormal results of thyroid function studies; Z95.828 Presence of other vascular implants and grafts | CPT/HCPCS: 99214 ==

== ENCOUNTER → 2023-06-07 10:46 | Outpatient (BNVA) | payer MEDICARE, OTHER, SELFPAY | PROVIDERS: PCP Family Medicine; Visit Provider Orthopaedic Surgery | DX: Z98.890 Other specified postprocedural states (principal) | CPT/HCPCS: 99213 ==

== ENCOUNTER 2023-06-23 15:06 | Oncology outpatient (recurring) (ONCR) | payer MEDICARE, OTHER, SELFPAY ==
[2023-06-09 11:55] LABS: Basophils % 0.5 %; Eosinophils # 0.1 10^3/uL (0.0-0.8); Eosinophils % 1.4 %; Hematocrit 38.8 % (36-47); Lymphocytes # 1.7 10^3/uL (0.8-4.8); Lymphocytes % 19.2 %; Mean Corpuscular Hemoglobin 30.9 pg (27-33); Mean Corpuscular Volume 93.7 fl (85-98); Mean Platelet Volume 9.7 fL (7.4-10.4); Monocytes # 0.5 10^3/uL (0.2-0.9); Monocytes % 5.7 %; Neutrophils # 6.26 10^3/uL (1.8-7.7); Neutrophils % 72.7 %; Nucleated Red Blood Cells % 0 %; Platelet Count 278 10^3/cmm (157-399); Red Blood Count 4.14 10^6/uL (3.85-5.65); Red Cell Distribution Width 13.9 % (12.1-15.1)
[2023-06-09 12:15] LABS: Alanine Aminotransferase 20 U/L (0-33); Albumin Level 4.1 g/dL (3.5-5.2); Alkaline Phosphatase 69 U/L (35-105); Anion Gap 13.9 (5-19); Aspartate Amino Transferase 20 U/L (0-32); Blood Urea Nitrogen 13 mg/dL (8-23); Calcium 9.4 mg/dL (8.5-10.5); Carbon Dioxide 26 mmol/L (22-29); Chloride 102 mmol/L (98-107); Erythrocyte Sedimentation Rate 1 mm/hr (0-15); Globulin 2.5 g/dL (1.3-4.6); Glucose 103 mg/dL (65-115); Osmolality Calculated 284 mOsm/kg (285-295); Potassium 4.9 mmol/L (3.5-5.1); Sodium 137 mmol/L (136-145); Total Bilirubin 0.3 mg/dL (0.15-1.2); Total Protein 6.6 g/dL (6.6-8.7)
== END 2023-07-05 23:59 | disposition home or self-care (01) ==
PROVIDERS: PCP Family Medicine; Visit Provider Internal Medicine Medical Oncology
DX: Z79.899 Other long term (current) drug therapy; Z95.828 Presence of other vascular implants and grafts; C34.31 Malignant neoplasm of lower lobe, right bronchus or lung
CPT/HCPCS: 36591; 80053; 84439; 85025; 85651; 86140; 99213; 99214

== ENCOUNTER 2023-07-26 12:44 | Oncology outpatient (recurring) (ONCR) | payer MEDICARE, OTHER, SELFPAY ==
[2023-07-07 16:23] LABS: Basophils % 0.7 %; Eosinophils # 0.1 10^3/uL (0.0-0.8); Eosinophils % 1.6 %; Hematocrit 36.5 % (36-47); Lymphocytes # 1.8 10^3/uL (0.8-4.8); Lymphocytes % 29.9 %; Mean Corpuscular HGB Conc 33.2 g/dL (30-55); Mean Corpuscular Hemoglobin 30.8 pg (27-33); Mean Corpuscular Volume 92.9 fl (85-98); Mean Platelet Volume 9.3 fL (7.4-10.4); Monocytes # 0.5 10^3/uL (0.2-0.9); Monocytes % 7.8 %; Neutrophils # 3.62 10^3/uL (1.8-7.7); Nucleated Red Blood Cells % 0 %; Platelet Count 295 10^3/cmm (157-399); Red Blood Count 3.93 10^6/uL (3.85-5.65); White Blood Count 6.13 10^3/uL (3.29-11.43)
[2023-07-07 17:01] LABS: Alanine Aminotransferase 21 U/L (0-33); Alkaline Phosphatase 61 U/L (35-105); Anion Gap 13.8 (5-19); Aspartate Amino Transferase 23 U/L (0-32); Blood Urea Nitrogen 13 mg/dL (8-23); Calcium 8.7 mg/dL (8.5-10.5); Carbon Dioxide 26 mmol/L (22-29); Chloride 97 mmol/L (98-107); Creatinine Clr Calc Pharmacy 57.1639; Globulin 2.4 g/dL (1.3-4.6); Glucose 104 mg/dL (65-115); Osmolality Calculated 274 mOsm/kg (285-295); Potassium 4.8 mmol/L (3.5-5.1); Sodium 132 mmol/L (136-145); Total Bilirubin 0.3 mg/dL (0.15-1.2); Total Protein 6.4 g/dL (6.6-8.7)
[2023-07-26] MEDS: iohexol 350 mg/mL 500 mL Btl (per mL) PO (13:28)
--- NOTE | 2023-07-26 14:00 | CT_ITS ---
WS: [id number] CT CHEST, ABDOMEN AND PELVIS WITH CONTRAST HISTORY: Follow-up lung cancer. TECHNIQUE: Contiguous 5 mm axial imaging performed through the chest, abdomen and pelvis with IV cont rast, oral contrast has been provided. Coronal and sagittal reformats chest. Coronal and sagittal ref ormats through the abdomen and pelvis. All CT scans at [facility] use at least one of these d ose optimization techniques: automated exposure control; mA and/or kV adjustment per patient size (in cludes targeted exams where dose is matched to clinical indication); or iterative reconstruction. CONTRAST: Omnipaque 350; 100 mL IV. DLP: 740.91 mGy.cm COMPARISON: 02/25/[address]: Chronic emphysematous changes are reidentified. Curvilinear areas of increased attenuation and opacification in the RIGHT lower lobe may be posttreatment. There is no new pulmonary mass or nod ule. No pneumonia. No pericardial or pleural effusions. Heart is normal size. No mediastinal or hilar adenopathy. Mild atherosclerosis aorta. Normal size pulmonary artery. Bilateral breast implants with partial capsular encapsulation. The soft tissue nodule adjacent to the RIGHT breast implant measures 18 x 16 mm and is unchanged. This has been present on multiple prior s tudies with no progression. Increase in thoracic kyphosis. Spondylosis. Dorsal column stimulator electrodes in the midthoracic re gion. Abdomen CT: Normal size liver. There are a few scattered cysts. No metastatic lesions. Mildly contrac talia gallbladder. No bile duct dilatation. Normal spleen. No adrenal mass. Normal size spleen. There i s a 3 mm fatty lesion in the distal pancreas which is unchanged. Kidneys are normal size. No obstruct ion. LEFT renal cyst 10 x 20 mm. Moderate atherosclerosis aorta. No ascites or adenopathy. Only distended stomach. No small bowel obstruction. No colon obstruction. Pelvic CT: No free fluid or adenopathy in the pelvis. Detail is obscured by artifact from patient's b ilateral hip prostheses. Degenerative disc disease throughout the lumbar spine. No destructive bone lesions. Schmorl's nodes d efects are noted at several levels. CT/CT chest abdpel w/*[id number] IMPRESSION: 1. Chronic emphysematous changes within the lungs. 2. No pulmonary mass or nodule. 3. No adenopathy in the chest, abdomen or pelvis. 4. Soft tissue nodule is stable adjacent to the RIGHT breast implant. 5. LEFT renal cyst. 6. No metastatic disease to the liver or adrenal glands. 7. No ascites.
[2023-07-26] MEDS: iohexol 350 mg/mL 500 mL Btl (per mL) IV (14:03)
== END 2023-08-05 23:59 | disposition home or self-care (01) ==
LOC: RAD 12:44 → ONCMED 13:06
PROVIDERS: PCP Family Medicine; Visit Provider Nurse Practitioner Family
DX: C34.31 Malignant neoplasm of lower lobe, right bronchus or lung; N63.10 Unspecified lump in the right breast, unspecified quadrant; N28.1 Cyst of kidney, acquired
CPT/HCPCS: 36591; 71260; 74177; 80053; 85025; 99214; Q9967

== ENCOUNTER 2023-08-10 12:28 | Oncology outpatient (recurring) (ONCR) | payer MEDICARE, OTHER, SELFPAY ==
[2023-08-10 13:02] LABS: Basophils % 0.5 %; Eosinophils # 0.1 10^3/uL (0.0-0.8); Eosinophils % 1.3 %; Lymphocytes # 1.5 10^3/uL (0.8-4.8); Lymphocytes % 18.1 %; Mean Corpuscular HGB Conc 32.8 g/dL (30-55); Mean Corpuscular Hemoglobin 30.9 pg (27-33); Mean Corpuscular Volume 94.2 fl (85-98); Mean Platelet Volume 9.3 fL (7.4-10.4); Monocytes # 0.4 10^3/uL (0.2-0.9); Neutrophils # 6.09 10^3/uL (1.8-7.7); Neutrophils % 74.6 %; Nucleated Red Blood Cells % 0 %; Platelet Count 341 10^3/cmm (157-399); Red Blood Count 3.82 10^6/uL (3.85-5.65); White Blood Count 8.17 10^3/uL (3.29-11.43)
[2023-08-10 13:30] LABS: Alanine Aminotransferase 18 U/L (0-33); Albumin Level 3.9 g/dL (3.5-5.2); Alkaline Phosphatase 62 U/L (35-105); Anion Gap 13.7 (5-19); Aspartate Amino Transferase 23 U/L (0-32); Blood Urea Nitrogen 10 mg/dL (8-23); Calcium 9.2 mg/dL (8.5-10.5); Carbon Dioxide 25 mmol/L (22-29); Chloride 101 mmol/L (98-107); Globulin 2.4 g/dL (1.3-4.6); Glucose 101 mg/dL (65-115); Osmolality Calculated 279 mOsm/kg (285-295); Potassium 4.7 mmol/L (3.5-5.1); Sodium 135 mmol/L (136-145); Total Bilirubin 0.3 mg/dL (0.15-1.2); Total Protein 6.3 g/dL (6.6-8.7)
== END 2023-09-04 23:59 | disposition home or self-care (01) ==
PROVIDERS: PCP Family Medicine; Visit Provider Nurse Practitioner Family
DX: C34.31 Malignant neoplasm of lower lobe, right bronchus or lung (principal); N63.10 Unspecified lump in the right breast, unspecified quadrant; N28.1 Cyst of kidney, acquired; Z79.899 Other long term (current) drug therapy; Z95.828 Presence of other vascular implants and grafts; C77.1 Secondary and unspecified malignant neoplasm of intrathoracic lymph nodes; Z87.891 Personal history of nicotine dependence; R94.6 Abnormal results of thyroid function studies; E78.5 Hyperlipidemia, unspecified; R53.83 Other fatigue
CPT/HCPCS: 36591; 80053; 84443; 85025; 99214

== ENCOUNTER → 2023-08-22 13:34 | Outpatient (BNVA) | payer MEDICARE, OTHER, SELFPAY | PROVIDERS: PCP Family Medicine; Visit Provider Internal Medicine Cardiovascular Disease | DX: I10 Essential (primary) hypertension (principal); E78.5 Hyperlipidemia, unspecified; Z87.891 Personal history of nicotine dependence; C34.31 Malignant neoplasm of lower lobe, right bronchus or lung | CPT/HCPCS: 99203 ==

== ENCOUNTER 2023-09-19 15:30 | Oncology outpatient (recurring) (ONCR) | payer MEDICARE, OTHER, SELFPAY ==
[2023-09-19] MEDS: iohexol 350 mg/mL 500 mL Btl (per mL) IV (15:06)
--- NOTE | 2023-09-19 15:30 | CT_ITS ---
WS: [id number] CT chest w con* [id number] HISTORY: surveillance, follow-up lung cancer. TECHNIQUE: Axial imaging performed through the thorax. Coronal and sagittal reformats are submitted. All CT scans at [facility] use at least one of these dose optimization techniques: automated exposure control; mA and/or kV adjustment per patient size (includes targeted exams where dose is mat ched to clinical indication); or iterative reconstruction. CONTRAST: Omnipaque 350; 100 mL IV. DLP: 284.95 mGy.cm COMPARISON: 07/26/2023, 02/25/2023 Lungs and central airway: Moderate changes of chronic emphysema. Dependent areas of bilateral groundg lass attenuation in the lower lung valdez and also in the upper lung valdez along the fissures. Very similar to the prior study. No recurrent mass identified. Scarring at the lung bases. Pleura: Normal. No pleural effusion. Heart and pericardium: Very mild cardiomegaly. No pericardial effusion. Mediastinum and stacia: No mediastinum or hilar adenopathy. Vessels: Mild atherosclerosis aorta. Normal size pulmonary artery. Chest wall and lower neck: Bilateral breast implants with partial capsular contraction and encasement . RIGHT subclavian Mediport. Long-term stability of the nodule along the superior RIGHT breast implan t. Upper abdomen: No adrenal mass. The visualized liver is negative. Reidentified LEFT renal cyst. Osseous structures: Increase in the thoracic kyphosis. Advanced thoracic spondylosis. Dorsal column s timulator in the midthoracic region. CT/CT chest w con* [id number] IMPRESSION: 1. Chronic emphysema. 2. No recurrent pulmonary mass or nodule. 3. No mediastinal or hilar adenopathy. 4. Bilateral lower lobe areas of scarring and atelectasis long-term stability of the posttreatment changes in the RIGHT lower lobe. 5. No adrenal mass.
== END 2023-10-05 23:59 | disposition home or self-care (01) ==
LOC: RAD 09-20 → ONCMED 09-20 08:29
PROVIDERS: PCP Family Medicine; Visit Provider Nurse Practitioner Family
DX: C34.31 Malignant neoplasm of lower lobe, right bronchus or lung (principal); N63.10 Unspecified lump in the right breast, unspecified quadrant; N28.1 Cyst of kidney, acquired; Z79.899 Other long term (current) drug therapy; Z95.828 Presence of other vascular implants and grafts; C77.1 Secondary and unspecified malignant neoplasm of intrathoracic lymph nodes; Z87.891 Personal history of nicotine dependence; R94.6 Abnormal results of thyroid function studies; E78.5 Hyperlipidemia, unspecified; R53.83 Other fatigue
CPT/HCPCS: 71260; 96523; Q9967

== ENCOUNTER 2023-10-18 11:12 | Oncology outpatient (recurring) (ONCR) | payer MEDICARE, OTHER, SELFPAY ==
[2023-10-18 11:44] LABS: Basophils # 0.1 10^3/uL (0.0-0.1); Basophils % 0.9 %; Eosinophils # 0.4 10^3/uL (0.0-0.8); Eosinophils % 6.2 %; Hematocrit 36.1 % (36-47); Lymphocytes # 1.9 10^3/uL (0.8-4.8); Lymphocytes % 34.5 %; Mean Corpuscular HGB Conc 32.7 g/dL (30-55); Mean Corpuscular Hemoglobin 30.7 pg (27-33); Mean Platelet Volume 10.1 fL (7.4-10.4); Monocytes # 0.5 10^3/uL (0.2-0.9); Monocytes % 9.6 %; Neutrophils # 2.74 10^3/uL (1.8-7.7); Neutrophils % 48.6 %; Nucleated Red Blood Cells % 0 %; Platelet Count 240 10^3/cmm (157-399); Red Blood Count 3.84 10^6/uL (3.85-5.65); Red Cell Distribution Width 13.2 % (12.1-15.1); White Blood Count 5.63 10^3/uL (3.29-11.43)
[2023-10-18 12:09] LABS: Alanine Aminotransferase 19 U/L (0-33); Albumin Level 4.1 g/dL (3.5-5.2); Alkaline Phosphatase 74 U/L (35-105); Anion Gap 13.3 (5-19); Aspartate Amino Transferase 25 U/L (0-32); Blood Urea Nitrogen 12 mg/dL (8-23); Calcium 9.5 mg/dL (8.5-10.5); Carbon Dioxide 26 mmol/L (22-29); Chloride 105 mmol/L (98-107); Globulin 2.3 g/dL (1.3-4.6); Glucose 92 mg/dL (65-115); Osmolality Calculated 289 mOsm/kg (285-295); Potassium 4.3 mmol/L (3.5-5.1); Sodium 140 mmol/L (136-145); Thyroid Stimulating Hormone 0.54 uIU/mL (0.27-4.20); Total Bilirubin 0.3 mg/dL (0.15-1.2); Total Protein 6.4 g/dL (6.6-8.7)
== END 2023-11-05 23:55 | disposition home or self-care (01) ==
PROVIDERS: PCP Family Medicine; Visit Provider Nurse Practitioner Family
DX: C34.31 Malignant neoplasm of lower lobe, right bronchus or lung (principal); Z79.899 Other long term (current) drug therapy; Z95.828 Presence of other vascular implants and grafts; Z87.891 Personal history of nicotine dependence; R53.83 Other fatigue
CPT/HCPCS: 36591; 80053; 84443; 85025; 99214

== ENCOUNTER 2023-11-21 14:21 | Oncology outpatient (recurring) (ONCR) | payer MEDICARE, OTHER, SELFPAY | END 2023-12-05 23:59 | disposition home or self-care (01) | LOC: ONCMED 14:21 | PROVIDERS: PCP Family Medicine; Visit Provider Nurse Practitioner Family | DX: Z45.2 Encounter for adjustment and management of vascular access device | CPT/HCPCS: 96523 ==

== ENCOUNTER 2023-12-21 14:33 | Oncology outpatient (recurring) (ONCR) | payer MEDICARE, OTHER, SELFPAY | END 2024-01-05 23:59 | disposition home or self-care (01) | PROVIDERS: PCP Family Medicine; Visit Provider Nurse Practitioner Family | DX: Z45.2 Encounter for adjustment and management of vascular access device (principal) | CPT/HCPCS: 96523 ==

== ENCOUNTER 2024-01-23 12:25 | Oncology outpatient (recurring) (ONCR) | payer MEDICARE, OTHER, SELFPAY ==
[2024-01-18 11:00] LABS: Basophils % 0.7 %; Eosinophils # 0.2 10^3/uL (0.0-0.8); Eosinophils % 3.7 %; Hematocrit 37.9 % (36-47); Lymphocytes # 2.2 10^3/uL (0.8-4.8); Lymphocytes % 37.8 %; Mean Corpuscular Hemoglobin 30.2 pg (27-33); Mean Corpuscular Volume 91.5 fl (85-98); Mean Platelet Volume 10.3 fL (7.4-10.4); Monocytes # 0.5 10^3/uL (0.2-0.9); Monocytes % 7.9 %; Neutrophils # 2.85 10^3/uL (1.8-7.7); Neutrophils % 49.7 %; Nucleated Red Blood Cells % 0 %; Platelet Count 261 10^3/cmm (157-399); Red Blood Count 4.14 10^6/uL (3.85-5.65); Red Cell Distribution Width 13.9 % (12.1-15.1); White Blood Count 5.72 10^3/uL (3.29-11.43)
--- NOTE | 2024-01-18 11:00 | CTR_ITS ---
PROCEDURE INFORMATION: Exam: CT Chest With Contrast; Diagnostic Exam date and time: 01/18/2024 11:24 AM Age: 78 years old Clinical indication: Condition or disease; Lung condition and disease; Cancer of the lung; Bilateral; Unspecified; Primary cancer: Lung cancer; Prior surgery; Surgery date: 6+ months; Surgery type: Port, breast implants, spinal cord stimulator TECHNIQUE: Imaging protocol: Diagnostic computed tomography of the chest with contrast. Radiation optimization: All CT scans at this facility use at least one of these dose optimization techniques: automated exposure control; mA and/or kV adjustment per patient size (includes targeted exams where dose is matched to clinical indication); or iterative reconstruction. Contrast material: OMNI 350; Contrast volume: 100 ml; Contrast route: INTRAVENOUS (IV); COMPARISON: CT chest w con* [id number] 09/19/2023 2:53 PM RADIATION DOSE METRICS: Total DLP (mGy-cm): 282.87 FINDINGS: Tubes, catheters and devices: Lower thoracic neurostimulator. Lungs: Mild emphysematous COPD. Pleural spaces: Unremarkable. No pneumothorax. No pleural effusion. Heart: Unremarkable. No cardiomegaly. No pericardial effusion. Lymph nodes: Unremarkable. No enlarged lymph nodes. Vasculature: Unremarkable. No aortic aneurysm. Liver: Small hepatic cyst. Kidneys: Left renal cyst. Bones/joints: Unremarkable. No acute fracture. Soft tissues: Unremarkable. Other findings: Minimal fibrosis bilaterally. CT/CT chest w con* [id number] IMPRESSION: No acute abnormality COMMENTS: Consistent with the [employer]'s Incidental Findings Committee white paper (J Am Micheline Radiol 2018): Any incidental renal lesion less than 1 cm or classified as too small to characterize, or any incidental cystic renal lesion characterized as simple-appearing, is likely benign. No follow-up imaging is recommended for these lesions per consensus recommendations based on imaging criteria.
[2024-01-18 11:15] LABS: Alanine Aminotransferase 15 U/L (0-33); Alkaline Phosphatase 70 U/L (35-105); Anion Gap 13.5 (5-19); Aspartate Amino Transferase 23 U/L (0-32); Blood Urea Nitrogen 11 mg/dL (8-23); Calcium 9.1 mg/dL (8.5-10.5); Carbon Dioxide 25 mmol/L (22-29); Chloride 104 mmol/L (98-107); Globulin 2.4 g/dL (1.3-4.6); Glucose 109 mg/dL (65-115); Osmolality Calculated 286 mOsm/kg (285-295); Potassium 4.5 mmol/L (3.5-5.1); Sodium 138 mmol/L (136-145); Total Bilirubin 0.4 mg/dL (0.15-1.2); Total Protein 6.4 g/dL (6.6-8.7)
[2024-01-18] MEDS: iohexol 350 mg/mL 500 mL Btl (per mL) IV (11:37)
== END 2024-02-04 23:59 | disposition home or self-care (01) ==
PROVIDERS: Internal Medicine Medical Oncology; PCP Family Medicine; Visit Provider Nurse Practitioner Family
DX: Z53.9 Procedure and treatment not carried out, unspecified reason; C34.31 Malignant neoplasm of lower lobe, right bronchus or lung
CPT/HCPCS: 36591; 71260; 80053; 85025; 99214

== ENCOUNTER 2024-02-13 13:36 | Oncology outpatient (recurring) (ONCR) | payer MEDICARE, OTHER, SELFPAY | END 2024-03-06 23:59 | disposition home or self-care (01) | LOC: ONCMED 13:36 | PROVIDERS: PCP Family Medicine; Visit Provider Nurse Practitioner Family | DX: Z45.2 Encounter for adjustment and management of vascular access device (principal) | CPT/HCPCS: 96523 ==

== ENCOUNTER 2024-03-12 12:56 | Oncology outpatient (recurring) (ONCR) | payer MEDICARE, OTHER, SELFPAY | END 2024-04-06 23:59 | disposition home or self-care (01) | PROVIDERS: PCP Family Medicine; Visit Provider Nurse Practitioner Family | DX: Z45.2 Encounter for adjustment and management of vascular access device (principal) | CPT/HCPCS: 96523 ==

== ENCOUNTER 2024-05-29 11:00 | Oncology outpatient (recurring) (ONCR) | payer MEDICARE, OTHER, SELFPAY ==
[2024-05-08 12:06] LABS: Basophils % 0.7 %; Eosinophils # 0.2 10^3/uL (0.0-0.8); Eosinophils % 3.8 %; Hematocrit 37.6 % (36-47); Lymphocytes # 2.3 10^3/uL (0.8-4.8); Lymphocytes % 41.2 %; Mean Corpuscular HGB Conc 32.4 g/dL (30-55); Mean Corpuscular Volume 92.4 fl (85-98); Mean Platelet Volume 9.9 fL (7.4-10.4); Monocytes # 0.4 10^3/uL (0.2-0.9); Monocytes % 7.5 %; Neutrophils # 2.54 10^3/uL (1.8-7.7); Neutrophils % 46.4 %; Nucleated Red Blood Cells % 0 %; Platelet Count 254 10^3/cmm (157-399); Red Blood Count 4.07 10^6/uL (3.85-5.65); Red Cell Distribution Width 13.2 % (12.1-15.1); White Blood Count 5.48 10^3/uL (3.29-11.43)
[2024-05-08 12:26] LABS: Alanine Aminotransferase 21 U/L (0-33); Albumin Level 4.3 g/dL (3.5-5.2); Alkaline Phosphatase 79 U/L (35-105); Anion Gap 12.5 (5-19); Aspartate Amino Transferase 28 U/L (0-32); Blood Urea Nitrogen 11 mg/dL (8-23); Calcium 9.4 mg/dL (8.5-10.5); Carbon Dioxide 26 mmol/L (22-29); Chloride 106 mmol/L (98-107); Globulin 2.1 g/dL (1.3-4.6); Glucose 95 mg/dL (65-115); Osmolality Calculated 289 mOsm/kg (285-295); Potassium 4.5 mmol/L (3.5-5.1); Sodium 140 mmol/L (136-145); Total Bilirubin 0.3 mg/dL (0.15-1.2); Total Protein 6.4 g/dL (6.6-8.7)
[2024-05-29] MEDS: iohexol 350 mg/mL 500 mL Btl (per mL) PO (10:48)
[2024-05-29] MEDS: iohexol 350 mg/mL 500 mL Btl (per mL) IV (10:49)
--- NOTE | 2024-05-29 11:00 | CTR_ITS ---
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 Andersen would like this done on 05/29/24 TECHNIQUE: Imaging protocol: Diagnostic computed tomography of the chest with contrast. Radiation optimization: All CT scans at this facility use at least one of these dose optimization techniques: automated exposure control; mA and/or kV adjustment per patient size (includes targeted exams where dose is matched to clinical indication); or iterative reconstruction. Contrast material: OMNI 350; Contrast volume: 100 ml; Contrast route: INTRAVENOUS (IV); COMPARISON: CT chest w con* [id number] 01/18/2024 11:24 AM RADIATION DOSE METRICS: Total DLP (mGy-cm): 723.29 FINDINGS: Tubes, catheters and devices: Unchanged power pack in the back with electrodes entering the posterior midthoracic spinal canal. Thyroid: Unchanged slightly enlarged and slightly heterogeneous thyroid gland. Lungs: Unchanged mild bilateral bullous emphysema with scattered pulmonary scarring. No other significant pulmonary abnormalities. Pleural spaces: Unremarkable. No pneumothorax. No pleural effusion. Heart: Unremarkable. No cardiomegaly. No pericardial effusion. Coronary arteries: No calcification in the visualized coronary arteries. Lymph nodes: Unremarkable. No enlarged lymph nodes. Vasculature: Unremarkable. No aortic aneurysm. Bones/joints: Unchanged mild thoracic scoliosis. Unchanged multilevel thoracic spondylosis ranging from mild to severe. Soft tissues: Unchanged peripherally calcified intact appearing bilateral breast implants. Otherwise, unremarkable visualized chest wall. Otherwise, unremarkable soft tissues. PROCEDURE INFORMATION: Exam: CT Abdomen And Pelvis With Contrast Exam date and time: 05/29/2024 10:47 AM Age: 78 years old Clinical indication: Condition or disease; Lung condition and disease; Cancer of the lung; Unspecified; Primary cancer: Adenocarcinoma of lower lobe of right lung; Prior surgery; Surgery date: 6+ months; Surgery type: Bilat hips, spinal cord stimulator, breast implants; Additional info: Primary adenocarcinoma of lower lobe of right lung, Dr. Andersen would like this done on 05/29/24 TECHNIQUE: Imaging protocol: Computed tomography of the abdomen and pelvis with contrast. Radiation optimization: All CT scans at this facility use at least one of these dose optimization techniques: automated exposure control; mA and/or kV adjustment per patient size (includes targeted exams where dose is matched to clinical indication); or iterative reconstruction. Contrast material: OMNI 350; Contrast volume: 100 ml; Contrast route: INTRAVENOUS (IV); COMPARISON: CT chest abdpel w/*[id number] 07/26/2023 1:59 PM RADIATION DOSE METRICS: Total DLP (mGy-cm): 723.29 FINDINGS: Tubes, catheters and devices: Unchanged power pack in the subcutaneous fat of the right back with electrodes extending from it into the thoracic spinal canal. Lungs: See above report. Liver: Unchanged tiny cyst in the right lobe of the liver needs no follow-up. Otherwise, unremarkable. Gallbladder and biliary ducts: Normal. No calcified stones. No ductal dilation. Pancreas: Unchanged 3 mm fatty lesion in the body of the pancreas. Otherwise, unremarkable. Spleen: Normal. No splenomegaly. Adrenal glands: Normal. No mass. Kidneys and ureters: Unchanged small left renal cyst needs no follow-up. Distal ureters are obscured by streak artifact. Otherwise, unremarkable. Stomach and bowel: Some bowel in the pelvis is obscured by streak artifact. Otherwise, unremarkable. Appendix: No evidence of appendicitis. Intraperitoneal space: Unremarkable. No free air. No significant fluid collection. Vasculature: Unchanged large amount of arterial plaque. Otherwise, unremarkable. Lymph nodes: Unremarkable. No enlarged lymph nodes. Urinary bladder: The urinary bladder is obscured by streak artifact. Reproductive: Much of the reproductive structures are obscured by streak artifact. Visualized reproductive structures are unremarkable. Bones/joints: Unchanged mild scoliosis. Unchanged moderate and severe multilevel lumbar spondylosis. Unchanged bilateral hip arthroplasty causing streak artifact which obscures much of the inferior pelvis. Otherwise, unremarkable. Soft tissues: Portions of the pelvic wall are obscured by streak artifact. Otherwise, unremarkable visualized body wall. Otherwise, unremarkable soft tissues. CT/CT chest abdpel w/*[id number] IMPRESSION: 1. Unchanged mild bilateral bullous emphysema with scattered pulmonary scarring. No other significant pulmonary abnormalities. 2. No other acute thoracic findings. 3. Additional details as above. Unchanged. IMPRESSION: 1. No acute abdominal or pelvic findings identified, but evaluation for such in the inferior pelvis is quite limited by streak artifact. 2. Additional details as above. Unchanged.
== END 2024-06-04 23:59 | disposition home or self-care (01) ==
LOC: RAD 05-30 → ONCMED 05-30 11:17
PROVIDERS: Nurse Practitioner Family; PCP Family Medicine; Visit Provider Internal Medicine Medical Oncology
DX: Z53.9 Procedure and treatment not carried out, unspecified reason; C34.31 Malignant neoplasm of lower lobe, right bronchus or lung; Z45.2 Encounter for adjustment and management of vascular access device
CPT/HCPCS: 36591; 71260; 74177; 80053; 85025; 96523; 99214

== ENCOUNTER 2024-06-05 12:16 | Oncology outpatient (recurring) (ONCR) | payer MEDICARE, OTHER, SELFPAY ==
[2024-06-05 12:41] LABS: Basophils # 0.1 10^3/uL (0.0-0.1); Basophils % 0.8 %; Eosinophils # 0.3 10^3/uL (0.0-0.8); Eosinophils % 5.1 %; Hematocrit 37.1 % (36-47); Lymphocytes # 2.5 10^3/uL (0.8-4.8); Lymphocytes % 41.4 %; Mean Corpuscular HGB Conc 32.9 g/dL (30-55); Mean Corpuscular Hemoglobin 30.3 pg (27-33); Mean Corpuscular Volume 92.1 fl (85-98); Mean Platelet Volume 10.2 fL (7.4-10.4); Monocytes # 0.6 10^3/uL (0.2-0.9); Neutrophils # 2.63 10^3/uL (1.8-7.7); Neutrophils % 43.4 %; Nucleated Red Blood Cells % 0 %; Platelet Count 247 10^3/cmm (157-399); Red Blood Count 4.03 10^6/uL (3.85-5.65); Red Cell Distribution Width 13.4 % (12.1-15.1); White Blood Count 6.08 10^3/uL (3.29-11.43)
[2024-06-05 13:16] LABS: Alanine Aminotransferase 17 U/L (0-33); Albumin Level 4.2 g/dL (3.5-5.2); Alkaline Phosphatase 68 U/L (35-105); Anion Gap 13.8 (5-19); Aspartate Amino Transferase 24 U/L (0-32); Blood Urea Nitrogen 13 mg/dL (8-23); Carbon Dioxide 26 mmol/L (22-29); Chloride 105 mmol/L (98-107); Creatinine Clr Calc Pharmacy 53.5652; Globulin 2.4 g/dL (1.3-4.6); Glucose 100 mg/dL (65-115); Osmolality Calculated 290 mOsm/kg (285-295); Potassium 4.8 mmol/L (3.5-5.1); Sodium 140 mmol/L (136-145); Thyroid Stimulating Hormone 1.43 uIU/mL (0.27-4.20); Total Bilirubin 0.3 mg/dL (0.15-1.2); Total Protein 6.6 g/dL (6.6-8.7)
== END 2024-07-04 23:59 | disposition home or self-care (01) ==
PROVIDERS: PCP Family Medicine; Visit Provider Internal Medicine Medical Oncology
DX: Z08 Encounter for follow-up examination after completed treatment for malignant neoplasm (principal); Z85.110 Personal history of malignant carcinoid tumor of bronchus and lung; N63.10 Unspecified lump in the right breast, unspecified quadrant; Z79.899 Other long term (current) drug therapy; Z96.82 Presence of neurostimulator
CPT/HCPCS: 36591; 80053; 84443; 85025; 99214

== ENCOUNTER → 2024-06-18 11:58 | Outpatient (BNVA) | payer MEDICARE, OTHER, SELFPAY | PROVIDERS: PCP Family Medicine; Visit Provider Family Medicine | DX: I10 Essential (primary) hypertension (principal); E78.5 Hyperlipidemia, unspecified; R60.0 Localized edema | CPT/HCPCS: 80061 ==

== ENCOUNTER 2024-07-10 08:19 | Oncology outpatient (recurring) (ONCR) | payer MEDICARE, OTHER, SELFPAY | END 2024-08-04 23:59 | disposition home or self-care (01) | PROVIDERS: PCP Family Medicine; Visit Provider Internal Medicine Medical Oncology | DX: Z45.2 Encounter for adjustment and management of vascular access device (principal) | CPT/HCPCS: 96523 ==

== ENCOUNTER → 2024-08-02 11:50 | Outpatient (BNVA) | payer MEDICARE, OTHER, SELFPAY | PROVIDERS: PCP Family Medicine; Visit Provider Family Medicine | DX: I10 Essential (primary) hypertension (principal); M79.674 Pain in right toe(s); M79.675 Pain in left toe(s); E53.8 Deficiency of other specified B group vitamins; R41.89 Other symptoms and signs involving cognitive functions and awareness | CPT/HCPCS: 80048; 82607; 84550 ==

== ENCOUNTER 2024-08-14 08:30 | Oncology outpatient (recurring) (ONCR) | payer MEDICARE, OTHER, SELFPAY ==
--- NOTE | 2024-08-13 08:00 | CT_ITS ---
WS: [id number] CT HEAD WITH AND WITHOUT CONTRAST HISTORY: cognitive impairment TECHNIQUE: Noncontrast 2.5 mm axial images obtained from the vertex to the skull base. Additional imaging performed at 2.5 mm axial images status post IV contrast. Bone and soft tissue windows are reviewed. All CT scans at [facility] use at least one of these dose optimization techniques: automated exposure control; mA and/or kV adjustment per patient size (includes targeted exams where dose is matched to clinical indication); or iterative reconstruction. CONTRAST: Omnipaque 350; 100 mL IV. DLP: 1943.78 mGy.cm COMPARISON: 10/13/2021 No acute intracranial hemorrhage, edema or midline shift. Moderate symmetric atrophy appropriate for the patient's age. Small lacunar infarct in the LEFT caudate. Moderate small vessel ischemic type changes. There is no mass effect. No enhancing mass or vascular malformations identified. Reidentified is a calcified mass along the LEFT anterior parafalcine falx measuring 10 x 8 mm. Previously described consistent with a meningioma. No increase in size. Dural venous sinuses are normally enhancing. Small caliber but patent distal LEFT vertebral artery. No occlusions in the [place] identified. Dural venous sinuses are opacified. No enhancing mass. Paranasal sinuses as visualized: Clear. Mastoid air cells: Clear. Calvarium and scalp: Intact. CT/CT head wo/w con [id number] IMPRESSION: 1. No acute intracranial hemorrhage or edema. 2. Moderate symmetric atrophy consistent with the patient's age with moderate small vessel ischemic disease. 3. Small lacunar infarct LEFT caudate. 4. Stable LEFT parafalcine meningioma.
[2024-08-13] MEDS: iohexol 300 mg/mL 100 mL Btl IV (08:44)
== END 2024-09-03 23:59 | disposition home or self-care (01) ==
LOC: ONCMED 08-15 00:01
PROVIDERS: PCP Family Medicine; Visit Provider Family Medicine
DX: M79.671 Pain in right foot (principal); M79.672 Pain in left foot; G62.9 Polyneuropathy, unspecified; L60.3 Nail dystrophy; D70.1 Agranulocytosis secondary to cancer chemotherapy; T45.1X5A Adverse effect of antineoplastic and immunosuppressive drugs, initial encounter; I73.9 Peripheral vascular disease, unspecified
CPT/HCPCS: 70470; 96523; 99204

== ENCOUNTER 2024-10-04 09:30 | Oncology outpatient (recurring) (ONCR) | payer MEDICARE, OTHER, SELFPAY ==
--- NOTE | 2024-10-04 09:30 | USR_ITS ---
PROCEDURE INFORMATION: Exam: US Duplex Lower Extremity Veins, Bilateral Exam date and time: 10/04/2024 9:21 AM Age: 78 years old Clinical indication: Pain; Leg, lower; Bilateral; Additional info: Leg swelling, pain, and discoloration, with sarabjit's TECHNIQUE: Imaging protocol: Real-time duplex ultrasound of the bilateral extremities with 2-D becerra scale, color Doppler flow and spectral waveform analysis including responses to compression and other maneuvers (when performed) with image documentation. Complete exam focused on the lower extremity veins. COMPARISON: No relevant prior studies available. FINDINGS: Right deep veins: Unremarkable. The common femoral, femoral, and popliteal veins are patent without thrombus. Normal Doppler waveforms. Normal compressibility and/or augmentation response. Reflux time in the right common femoral vein: 2.6 seconds Left deep veins: Unremarkable. The common femoral, femoral, and popliteal veins are patent without thrombus. Normal Doppler waveforms. Normal compressibility and/or augmentation response. Reflux time in the left common femoral vein: 1.4 seconds Superficial veins: Greater saphenous veins at the saphenofemoral junctions are patent bilaterally without thrombus. Soft tissues: Unremarkable. US/CV germania dup insularisa [facility] [id number] IMPRESSION: 1. No evidence of deep vein thrombosis. 2. Reflux in the tfmfq-[id number]-mjka-left common femoral veins.
== END 2024-10-04 23:59 | disposition home or self-care (01) ==
LOC: RAD 10-05 00:01 → ONCMED 10-08 09:40
PROVIDERS: PCP Family Medicine; Visit Provider Family Medicine
DX: Z53.9 Procedure and treatment not carried out, unspecified reason; M79.89 Other specified soft tissue disorders; L81.9 Disorder of pigmentation, unspecified; I87.2 Venous insufficiency (chronic) (peripheral)
CPT/HCPCS: 93970; 96523

== ENCOUNTER 2024-10-16 13:00 | Oncology outpatient (recurring) (ONCR) | payer MEDICARE, OTHER, SELFPAY ==
--- NOTE | 2024-10-09 12:00 | CTR_ITS ---
PROCEDURE INFORMATION: Exam: CT Chest With Contrast; Diagnostic Exam date and time: 10/09/2024 12:22 PM Age: 78 years old Clinical indication: Condition or disease; Lung condition and disease; Cancer of the lung; Bilateral; Unspecified; Primary cancer: Lung cancer; Prior surgery; Surgery date: 6+ months; Surgery type: Bilat hip, spinal cord stimulator, breast implants, port TECHNIQUE: Imaging protocol: Diagnostic computed tomography of the chest with contrast. Radiation optimization: All CT scans at this facility use at least one of these dose optimization techniques: automated exposure control; mA and/or kV adjustment per patient size (includes targeted exams where dose is matched to clinical indication); or iterative reconstruction. Contrast material: OMNI 350; Contrast volume: 100 ml; Contrast route: INTRAVENOUS (IV); COMPARISON: CT chest abdpel w/*[id number] 05/29/2024 10:47 AM RADIATION DOSE METRICS: Total DLP (mGy-cm): 729.71 FINDINGS: Tubes, catheters and devices: There is a spinal stimulator. Lungs: Minimal bibasilar linear atelectasis. No significant change in left apical subpleural scarring. Pleural spaces: Unremarkable. No pneumothorax. No pleural effusion. Heart: Unremarkable. No cardiomegaly. No pericardial effusion. Lymph nodes: Stable precarinal renal shotty lymph node 1.1 x 0.9 cm. Vasculature: Mild calcified atherosclerotic changes are seen in the thoracic aorta. Bones/joints: Mild diffuse thoracic spine degenerative changes. Soft tissues: Unremarkable. PROCEDURE INFORMATION: Exam: CT Abdomen And Pelvis With Contrast Exam date and time: 10/09/2024 12:22 PM Age: 78 years old Clinical indication: Condition or disease; Lung condition and disease; Cancer of the lung; Bilateral; Unspecified; Primary cancer: Lung cancer; Prior surgery; Surgery date: 6+ months; Surgery type: Bilat hip, spinal cord stimulator, breast implants, port TECHNIQUE: Imaging protocol: Computed tomography of the abdomen and pelvis with contrast. Radiation optimization: All CT scans at this facility use at least one of these dose optimization techniques: automated exposure control; mA and/or kV adjustment per patient size (includes targeted exams where dose is matched to clinical indication); or iterative reconstruction. Contrast material: OMNI 350; Contrast volume: 100 ml; Contrast route: INTRAVENOUS (IV); COMPARISON: CT chest abdpel w/*[id number] 07/26/2023 1:59 PM RADIATION DOSE METRICS: Total DLP (mGy-cm): 729.71 FINDINGS: Liver: Stable right hepatic 8 mm hypodensity. Gallbladder and biliary ducts: Normal. No calcified stones. No ductal dilation. Pancreas: Stable pancreatic tail 7 mm hypodense lesion. Spleen: Normal. No splenomegaly. Adrenal glands: Normal. No mass. Kidneys and ureters: Left renal simple cyst 1.8 x 1.3 cm. Stomach and bowel: Diffuse colonic stool material. No small bowel loop dilatation. Appendix: Appendix is normal. Intraperitoneal space: Unremarkable. No free air. No significant fluid collection. Vasculature: Mild calcified atherosclerotic changes are seen throughout the abdominal aorta. Lymph nodes: Unremarkable. No enlarged lymph nodes. Urinary bladder: Unremarkable as visualized. Reproductive: Unremarkable as visualized. Bones/joints: Bilateral hip replacement. Mild lumbar spine degenerative changes. Soft tissues: Unremarkable. CT/CT chest abdpel w/*[id number] IMPRESSION: 1. Stable pulmonary findings. 2. Mild calcified atherosclerotic changes are seen in the thoracic aorta. 3. Mild diffuse thoracic spine degenerative changes. IMPRESSION: 1. No metastases to abdomen or pelvis 2. Mild calcified atherosclerotic changes are seen throughout the abdominal aorta. 3. Additional findings as described. 4. Diffuse colonic stool material. Clinical correlation to exclude constipation is advised. 5. Mild lumbar spine degenerative changes. COMMENTS: Consistent with the [employer]'s Incidental Findings Committee white paper (J Am Micheline Radiol 2018): Any incidental renal lesion less than 1 cm or classified as too small to characterize, or any incidental cystic renal lesion characterized as simple-appearing, is likely benign. No follow-up imaging is recommended for these lesions per consensus recommendations based on imaging criteria.
[2024-10-09 12:07] LABS: Blood Urea Nitrogen 17 mg/dL (8-23)
[2024-10-09] MEDS: iohexol 350 mg/mL 500 mL Btl (per mL) PO (12:25)
[2024-10-09] MEDS: iohexol 350 mg/mL 500 mL Btl (per mL) IV (12:25)
[2024-10-16 13:14] LABS: Hematocrit 35.1 % (36-47); Hemoglobin 11.70 g/dL (11.27-16.99); Mean Corpuscular HGB Conc 33.3 g/dL (30-55); Mean Corpuscular Hemoglobin 29.9 pg (27-33); Mean Corpuscular Volume 89.8 fl (85-98); Nucleated Red Blood Cells % 0 %; Platelet Count 276 10^3/cmm (157-399); Red Blood Count 3.91 10^6/uL (3.85-5.65); White Blood Count 6.87 10^3/uL (3.29-11.43)
[2024-10-16 13:43] LABS: Alanine Aminotransferase 16 U/L (0-33); Albumin Level 4.0 g/dL (3.5-5.2); Alkaline Phosphatase 70 U/L (35-105); Anion Gap 11.3 (5-19); Aspartate Amino Transferase 18 U/L (0-32); Blood Urea Nitrogen 20 mg/dL (8-23); Calcium 9.5 mg/dL (8.5-10.5); Carbon Dioxide 27 mmol/L (22-29); Chloride 96 mmol/L (98-107); Globulin 2.3 g/dL (1.3-4.6); Glucose 117 mg/dL (65-115); Osmolality Calculated 274 mOsm/kg (285-295); Potassium 4.3 mmol/L (3.5-5.1); Sodium 130 mmol/L (136-145); Thyroid Stimulating Hormone 1.51 uIU/mL (0.27-4.20); Total Protein 6.3 g/dL (6.6-8.7)
== END 2024-11-04 23:59 | disposition home or self-care (01) ==
PROVIDERS: Internal Medicine Medical Oncology; PCP Family Medicine; Visit Provider Family Medicine
DX: C34.31 Malignant neoplasm of lower lobe, right bronchus or lung; E78.5 Hyperlipidemia, unspecified; I70.0 Atherosclerosis of aorta; Z87.891 Personal history of nicotine dependence; Z95.828 Presence of other vascular implants and grafts; Z79.899 Other long term (current) drug therapy; Z53.9 Procedure and treatment not carried out, unspecified reason
CPT/HCPCS: 36591; 71260; 74177; 80053; 82565; 84443; 84520; 85025; 99214

== ENCOUNTER → 2024-11-13 15:13 | Outpatient (BNVA) | payer MEDICARE, OTHER, SELFPAY | PROVIDERS: PCP Family Medicine; Visit Provider Internal Medicine Cardiovascular Disease | DX: C34.31 Malignant neoplasm of lower lobe, right bronchus or lung (principal); I99.8 Other disorder of circulatory system; I10 Essential (primary) hypertension; E78.5 Hyperlipidemia, unspecified; I87.2 Venous insufficiency (chronic) (peripheral); Z87.891 Personal history of nicotine dependence | CPT/HCPCS: 99214 ==

== ENCOUNTER 2024-11-27 10:40 | Oncology outpatient (recurring) (ONCR) | payer MEDICARE, OTHER, SELFPAY | END 2024-12-04 23:59 | disposition home or self-care (01) | LOC: ONCMED 10:41 | PROVIDERS: PCP Family Medicine; Visit Provider Family Medicine | DX: Z45.2 Encounter for adjustment and management of vascular access device (principal); Z95.828 Presence of other vascular implants and grafts | CPT/HCPCS: 96523 ==

== ENCOUNTER → 2024-12-13 09:42 | Outpatient (BNVA) | payer MEDICARE, OTHER, SELFPAY | PROVIDERS: PCP Family Medicine; Visit Provider Podiatrist Foot & Ankle Surgery | DX: G62.9 Polyneuropathy, unspecified (principal); L60.3 Nail dystrophy | CPT/HCPCS: 99213 ==

== ENCOUNTER 2025-01-08 10:44 | Oncology outpatient (recurring) (ONCR) | payer MEDICARE, OTHER, SELFPAY | END 2025-02-03 23:59 | disposition home or self-care (01) | LOC: ONCMED 10:44 | PROVIDERS: PCP Family Medicine; Visit Provider Family Medicine | DX: Z45.2 Encounter for adjustment and management of vascular access device (principal); Z95.828 Presence of other vascular implants and grafts | CPT/HCPCS: 96523 ==

== ENCOUNTER 2025-02-19 13:00 | Oncology outpatient (recurring) (ONCR) | payer MEDICARE, OTHER, SELFPAY ==
[2025-02-12 09:51] LABS: Blood Urea Nitrogen 17 mg/dL (8-23)
[2025-02-12] MEDS: iohexol 350 mg/mL 500 mL Btl (per mL) PO (09:54)
--- NOTE | 2025-02-12 10:00 | CTR_ITS ---
PROCEDURE INFORMATION: Exam: CT Chest With Contrast; Diagnostic Exam date and time: 02/12/2025 10:03 AM Age: 79 years old Clinical indication: Condition or disease; Cancer; Other: Primary adencarcinoma of lower lobe of right lung, prior surgery; Surgery date: 6+ months; Surgery type: Bilat hip, spinal cord stimulator, breast implants, port TECHNIQUE: Imaging protocol: Diagnostic computed tomography of the chest with contrast. Radiation optimization: All CT scans at this facility use at least one of these dose optimization techniques: automated exposure control; mA and/or kV adjustment per patient size (includes targeted exams where dose is matched to clinical indication); or iterative reconstruction. Contrast material: OMNI 350; Contrast volume: 100 ml; Contrast route: INTRAVENOUS (IV); COMPARISON: CT chest abdpel w/*[id number] 10/09/2024 12:22 PM RADIATION DOSE METRICS: Total DLP (mGy-cm): 725.87 FINDINGS: Tubes, catheters and devices: Right-sided central venous catheter. Lungs: Stable area of left upper lung subpleural scarring. Emphysematous changes. No definite new suspicious pulmonary nodules or masses. Bibasilar atelectasis and/or scarring. Pleural spaces: Unremarkable. No pneumothorax. No pleural effusion. Heart: Unremarkable. No cardiomegaly. No pericardial effusion. Lymph nodes: There is a stable right hilar lymph node measuring 1.2 cm in short axis. Stable 7 mm in short axis precarinal lymph node. Vasculature: Unremarkable. No aortic aneurysm. Bones/joints: Spinal stimulator device at the thoracic level. Degenerative changes of the thoracic spine. Soft tissues: Calcified bilateral breast implants. PROCEDURE INFORMATION: Exam: CT Abdomen And Pelvis With Contrast Exam date and time: 02/12/2025 10:03 AM Age: 79 years old Clinical indication: Condition or disease; Cancer; Other: Primary adencarcinoma of lower lobe of right lung, prior surgery; Surgery date: 6+ months; Surgery type: Bilat hip, spinal cord stimulator, breast implants, port TECHNIQUE: Imaging protocol: Computed tomography of the abdomen and pelvis with contrast. Radiation optimization: All CT scans at this facility use at least one of these dose optimization techniques: automated exposure control; mA and/or kV adjustment per patient size (includes targeted exams where dose is matched to clinical indication); or iterative reconstruction. Contrast material: OMNI 350; Contrast volume: 100 ml; Contrast route: INTRAVENOUS (IV); COMPARISON: CT chest abdpel w/*[id number] 10/09/2024 12:22 PM RADIATION DOSE METRICS: Total DLP (mGy-cm): 725.87 FINDINGS: Liver: Stable subcentimeter hypodensity in the right hepatic lobe likely related to cyst or hemangioma. Gallbladder and biliary ducts: Stable prominence of the common bile duct which may be age related. Pancreas: Normal. No ductal dilation. Spleen: Normal. No splenomegaly. Adrenal glands: Normal. No mass. Kidneys and ureters: Left-sided renal cysts. No hydronephrosis. Stomach and bowel: Unremarkable. No obstruction. No mucosal thickening. Appendix: No evidence of appendicitis. Intraperitoneal space: Unremarkable. No free air. No significant fluid collection. Vasculature: Unremarkable. No abdominal aortic aneurysm. Lymph nodes: Unremarkable. No enlarged lymph nodes. Urinary bladder: Unremarkable as visualized. Reproductive: Unremarkable as visualized. Bones/joints: Degenerative changes of the visualized lumbar spine. Bilateral total hip arthroplasties. Soft tissues: Unremarkable. . CT/CT chest abdpel w/*[id number] IMPRESSION: No evidence of recurrent mass or lymphadenopathy identified within the thorax. Incidental and chronic findings. IMPRESSION: No evidence of recurrent mass or lymphadenopathy. Incidental and chronic findings COMMENTS: Consistent with the [employer]'s Incidental Findings Committee white paper (J Am Micheline Radiol 2018): Any incidental renal lesion less than 1 cm or classified as too small to characterize, or any incidental cystic renal lesion characterized as simple-appearing, is likely benign. No follow-up imaging is recommended for these lesions per consensus recommendations based on imaging criteria.
[2025-02-12] MEDS: iohexol 350 mg/mL 500 mL Btl (per mL) IV (10:06)
[2025-02-19 13:08] LABS: Hematocrit 35.3 % (36-47); Hemoglobin 11.60 g/dL (11.27-16.99); Mean Corpuscular HGB Conc 32.9 g/dL (30-55); Mean Corpuscular Hemoglobin 29.6 pg (27-33); Mean Corpuscular Volume 90.1 fl (85-98); Nucleated Red Blood Cells % 0 %; Platelet Count 322 10^3/cmm (157-399); Red Blood Count 3.92 10^6/uL (3.85-5.65); White Blood Count 7.05 10^3/uL (3.29-11.43)
[2025-02-19 13:29] LABS: Alanine Aminotransferase 14 U/L (0-33); Albumin Level 4.0 g/dL (3.5-5.2); Alkaline Phosphatase 81 U/L (35-105); Anion Gap 13.4 (5-19); Aspartate Amino Transferase 20 U/L (0-32); Blood Urea Nitrogen 20 mg/dL (8-23); Calcium 9.4 mg/dL (8.5-10.5); Carbon Dioxide 27 mmol/L (22-29); Chloride 98 mmol/L (98-107); Globulin 2.4 g/dL (1.3-4.6); Glucose 91 mg/dL (65-115); Osmolality Calculated 280 mOsm/kg (285-295); Potassium 4.4 mmol/L (3.5-5.1); Sodium 134 mmol/L (136-145); Thyroid Stimulating Hormone 1.53 uIU/mL (0.27-4.20); Total Protein 6.4 g/dL (6.6-8.7)
== END 2025-03-06 23:59 | disposition home or self-care (01) ==
PROVIDERS: Internal Medicine Medical Oncology; PCP Family Medicine; Visit Provider Nurse Practitioner
DX: Z08 Encounter for follow-up examination after completed treatment for malignant neoplasm; Z85.118 Personal history of other malignant neoplasm of bronchus and lung; Z79.899 Other long term (current) drug therapy; Z87.891 Personal history of nicotine dependence; Z96.89 Presence of other specified functional implants; Z53.9 Procedure and treatment not carried out, unspecified reason
CPT/HCPCS: 36591; 71260; 74177; 80053; 82565; 84443; 84520; 85025; 99213